=== PATIENT | male | born 1955 | race Hispanic/Latino ===

== ENCOUNTER 2018-02-10 09:56 | Inpatient (IN) | payer OTHER ==
[~2018-02-10] VITALS: Ht 193 cm; Wt 91.4 kg
[~2018-02-10 09:56] MED LIST: AMARYL1 MG PO; AMLODIPINE BESY10 MG PO; ASPIR 8181 MG PO; ATORVASTATIN CA20 MG PO; CALCITRIOL0.25 MCG PO; COREG25 MG PO; HYDRALAZINE HCL50 MG PO; HYDROCHLOROTHIA25 MG PO; LASIX40 MG PO; LIPITOR20 MG PO; METFORMIN HCL500 MG PO; METOPROLOL TART50 MG PO; MULTIVITAMINS1 EAC7 PO; NIFEDIPINE ER30 M1 PO; NORVASC10 MG PO; PLAVIX75 MG PO; TOPROL XL25 MG PO
--- OUTSIDE RECORDS SUMMARY | 2018-02-10 09:58 | XMS REPORT ---
Author Author [facility] Address Unknown Phone Unavailable Care Team Providers Care Mobile Therapist Name Role Phone AMBROCIO BARNEY Unavailable Unavailable GERARDO LAIRD Unavailable Unavailable Problems This patient has no known problems. Allergies, Adverse Reactions, Alerts This patient has no known allergies or adverse reactions. Medications This patient has no known medications. Results Test Description Test Time Test Comments Text Results Atomic Results Result Comments POCT-GLUCOSE METER 2017-11-23 15:58:00 POC-GLUCOSE METER (BEAKER) (test bkqt=4729) 169 mg/dL 70-110 TESTED AT [address] [address] POCT-GLUCOSE [id number] 12:40:00* Test Item Value Reference Range Comments POC-GLUCOSE METER (BEAKER) (test mekx=0627) 238 mg/dL 70-110 TESTED AT [address] [address] POCT-GLUCOSE [id number] 07:47:00* Test Item Value Reference Range Comments POC-GLUCOSE METER (BEAKER) (test vuwt=8027) 146 mg/dL 70-110 TESTED AT [address] [address] B-TYPE NATRIURETIC FACTOR (BNP)2017-11-23 06:26:00* Test Item Value Reference Range Comments B-TYPE NATRIURETIC PEPTIDE (BEAKER) (test tofw=690) 2656 pg/mL 0-100 BASIC METABOLIC [id number] 06:20:00* Test Item Value Reference Range Comments SODIUM (BEAKER) (test umqz=761) 142 meq/L 136-145 POTASSIUM (BEAKER) (test nblh=822) 3.5 meq/L 3.5-5.1 CHLORIDE (BEAKER) (test bmss=866) 109 meq/L 98-107 CO2 (BEAKER) (test aebc=796) 23 meq/L 22-29 BLOOD UREA NITROGEN (BEAKER) (test pshy=976) 40 mg/dL 7-21 CREATININE (BEAKER) (test gytx=923) 2.30 mg/dL 0.57-1.25 GLUCOSE RANDOM (BEAKER) (test vqci=482) 64 mg/dL 70-105 CALCIUM (BEAKER) (test byxt=036) 9.0 mg/dL 8.4-10.2 EGFR (BEAKER) (test xhlu=0804) 29 mL/min/1.73 sq m ESTIMATED GFR IS NOT ACCURATE CREATININE CLEARANCE IN PREDICTING GLOMERULAR FILTRATION RATE. ESTIMATED GFR IS NOT APPLICABLE FOR DIALYSIS PATIENTS. [id number] 06:18:00* Test Item Value Reference Range Comments MAGNESIUM (BEAKER) (test kwez=766) 2.0 mg/dL 1.6-2.6 POCT-GLUCOSE [id number] 06:06:00* Test Item Value Reference Range Comments POC-GLUCOSE METER (BEAKER) (test mdfb=6802) 138 mg/dL 70-110 TESTED AT [facility] [address] [facility] [address] CBC W/PLT COUNT & AUTO [id number] 06:03:00* Test Item Value Reference Range Comments WHITE BLOOD CELL COUNT (BEAKER) (test rrbq=785) 6.7 K/ L 3.5-10.5 RED BLOOD CELL COUNT (BEAKER) (test kuso=257) 3.43 M/ L 4.63-6.08 HEMOGLOBIN (BEAKER) (test hqaz=691) 9.7 GM/DL 13.7-17.5 HEMATOCRIT (BEAKER) (test vxwk=074) 30.0 % 40.1-51.0 MEAN CORPUSCULAR VOLUME (BEAKER) (test cbmd=586) 87.5 fL 79.0-92.2 MEAN CORPUSCULAR HEMOGLOBIN (BEAKER) (test aaod=631) 28.3 pg 25.7-32.2 MEAN CORPUSCULAR HEMOGLOBIN CONC (BEAKER) (test jpqr=823) 32.3 GM/DL 32.3- 36.5 RED CELL DISTRIBUTION WIDTH (BEAKER) (test eizf=571) 13.2 % 11.6-14.4 PLATELET COUNT (BEAKER) (test yqko=896) 252 K/CU MM 150-450 MEAN PLATELET VOLUME (BEAKER) (test ffae=727) 11.4 fL 9.4-12.4 NUCLEATED RED BLOOD CELLS (BEAKER) (test qevd=564) 0 /100 WBC 0-0 NEUTROPHILS RELATIVE PERCENT (BEAKER) (test vglq=502) 64 % LYMPHOCYTES RELATIVE PERCENT (BEAKER) (test zqkz=661) 20 % MONOCYTES RELATIVE PERCENT (BEAKER) (test kffo=352) 12 % EOSINOPHILS RELATIVE PERCENT (BEAKER) (test hrhm=728) 3 % BASOPHILS RELATIVE PERCENT (BEAKER) (test ckar=105) 1 % NEUTROPHILS ABSOLUTE COUNT (BEAKER) (test bzzd=390) 4.28 K/ L 1.78-5.38 LYMPHOCYTES ABSOLUTE COUNT (BEAKER) (test aant=821) 1.33 K/ L 1.32-3.57 MONOCYTES ABSOLUTE COUNT (BEAKER) (test buue=464) 0.82 K/ L 0.30-0.82 EOSINOPHILS ABSOLUTE COUNT (BEAKER) (test dere=817) 0.22 K/ L 0.04-0.54 BASOPHILS ABSOLUTE COUNT (BEAKER) (test oajz=813) 0.04 K/ L 0.01-0.08 IMMATURE GRANULOCYTES-RELATIVE PERCENT (BEAKER) (test zilw=0596) 0 % 0-1 POCT-GLUCOSE [id number] 05:17:00* Test Item Value Reference Range Comments POC-GLUCOSE METER (BEAKER) (test fllm=4677) 67 mg/dL 70-110 Notified BIGG RODRIGUEZ/ TESTED AT [place] [id number] POCT-GLUCOSE [id number] 20:50:00* Test Item Value Reference Range Comments POC-GLUCOSE METER (BEAKER) (test hapo=0779) 203 mg/dL 70-110 TESTED AT [address] [address] POCT-GLUCOSE [id number] 16:20:00* Test Item Value Reference Range Comments POC-GLUCOSE METER (BEAKER) (test ddsy=5367) 133 mg/dL 70-110 TESTED AT [place] [id number] PUL PERF IMAGING, PARTIC, [id number] 13:41:00FINAL REPORT PROCEDURE: V/Q LUNG SCAN CPT CODE: 54556 INDICATION: Acute chest pain, positive d-dimer PROTOCOL: 10.8 mCi of Xe-133 gas was administered by inhalation. Rebreathing/washout images were obtained in the anterior and the posterior projections. 4.3 mCi of Tc-99m MAA was then injected intravenously, and static perfusion images were obtained in multiple projections. FINDINGS: Ventilation: Initial tracer distribution is mildly decreased in the mid and lower lung harrell bilaterally. Washout is moderately delayed in the lower lung harrell. Perfusion: Tracer distribution is nonsegmentally, mildly decreased in the mid and lower lung harrell of both lungs. There is prominence of the oblique fissures. IMPRESSION: 1. Very low probability of acute pulmonary embolization.2. Bilateral parenchymal and pleural abnormality, primarily in the lower lung harrell. Signed : Erlinda Castro MDReport Verified Date/Time: 11/22/2017 13:41:06 Reading Location: [address] Reading Room -GLUCOSE [id number] 11 :04:00* Test Item Value Reference Range Comments POC-GLUCOSE METER (BEAKER) (test qnbg=4882) 124 mg/dL 70-110 TESTED AT [address] [address] POCT-GLUCOSE [id number] 08:41:00* Test Item Value Reference Range Comments POC-GLUCOSE METER (BEAKER) (test wawf=4164) 126 mg/dL 70-110 TESTED AT [address] [address] HEMOGLOBIN [id number] 08:41:00* Test Item Value Reference Range Comments HEMOGLOBIN A1C (BEAKER) (test zgor=475) 6.5 % 4.3-6.1 CBC W/PLT COUNT & AUTO [id number] 08:31:00* Test Item Value Reference Range Comments WHITE BLOOD CELL COUNT (BEAKER) (test owdq=667) 8.8 K/ L 3.5-10.5 RED BLOOD CELL COUNT (BEAKER) (test ghwf=869) 3.30 M/ L 4.63-6.08 HEMOGLOBIN (BEAKER) (test rmkt=693) 9.4 GM/DL 13.7-17.5 HEMATOCRIT (BEAKER) (test gqjh=601) 28.8 % 40.1-51.0 MEAN CORPUSCULAR VOLUME (BEAKER) (test ilta=773) 87.3 fL 79.0-92.2 MEAN CORPUSCULAR HEMOGLOBIN (BEAKER) (test saiu=451) 28.5 pg 25.7-32.2 MEAN CORPUSCULAR HEMOGLOBIN CONC (BEAKER) (test snla=785) 32.6 GM/DL 32.3- 36.5 RED CELL DISTRIBUTION WIDTH (BEAKER) (test cqtg=890) 13.2 % 11.6-14.4 PLATELET COUNT (BEAKER) (test fydt=564) 247 K/CU MM 150-450 MEAN PLATELET VOLUME (BEAKER) (test jtfx=369) 11.3 fL 9.4-12.4 NUCLEATED RED BLOOD CELLS (BEAKER) (test ocsb=564) 0 /100 WBC 0-0 NEUTROPHILS RELATIVE PERCENT (BEAKER) (test kqhb=514) 84 % LYMPHOCYTES RELATIVE PERCENT (BEAKER) (test qrkj=809) 6 % MONOCYTES RELATIVE PERCENT (BEAKER) (test aklc=141) 8 % EOSINOPHILS RELATIVE PERCENT (BEAKER) (test hltp=143) 1 % BASOPHILS RELATIVE PERCENT (BEAKER) (test lczr=879) 0 % NEUTROPHILS ABSOLUTE COUNT (BEAKER) (test uxsl=654) 7.39 K/ L 1.78-5.38 LYMPHOCYTES ABSOLUTE COUNT (BEAKER) (test onrn=823) 0.50 K/ L 1.32-3.57 MONOCYTES ABSOLUTE COUNT (BEAKER) (test jflr=758) 0.73 K/ L 0.30-0.82 EOSINOPHILS ABSOLUTE COUNT (BEAKER) (test zceb=438) 0.09 K/ L 0.04-0.54 BASOPHILS ABSOLUTE COUNT (BEAKER) (test zkbt=357) 0.03 K/ L 0.01-0.08 IMMATURE GRANULOCYTES-RELATIVE PERCENT (BEAKER) (test lkti=8377) 0 % 0-1 RAD, CHEST, 1 VIEW, NON [id number] 08:21:00Reason for exam:->SOBShould this be performed at the bedside?->YesFINAL REPORT CLINICAL HISTORY: SOB TECHNIQUE: 1 view of the chest. COMPARISON: 03/19/2013 IMPRESSION: There is new pulmonary vascular congestion with bilateral lung opacities suggesting edema. There are new small bilateral pleural effusions. The cardiomediastinal silhouette is magnified by technique. Signed: Matthews, Audrey MDReport Verified Date/Time: 11/22/2017 08:21:23 Reading Location: [facility] Reading Room C METABOLIC [id number] 08:00:00* Test Item Value Reference Range Comments SODIUM (BEAKER) (test fgdo=271) 140 meq/L 136-145 POTASSIUM (BEAKER) (test eigx=866) 3.6 meq/L 3.5-5.1 CHLORIDE (BEAKER) (test wsrw=543) 106 meq/L 98-107 CO2 (BEAKER) (test uflo=755) 20 meq/L 22-29 BLOOD UREA NITROGEN (BEAKER) (test ylak=152) 42 mg/dL 7-21 CREATININE (BEAKER) (test mxhg=157) 2.37 mg/dL 0.57-1.25 GLUCOSE RANDOM (BEAKER) (test mfuv=368) 46 mg/dL 70-105 CALCIUM (BEAKER) (test madc=936) 9.0 mg/dL 8.4-10.2 EGFR (BEAKER) (test mzqz=1544) 28 mL/min/1.73 sq m ESTIMATED GFR IS NOT ACCURATE CREATININE CLEARANCE IN PREDICTING GLOMERULAR FILTRATION RATE. ESTIMATED GFR IS NOT APPLICABLE FOR DIALYSIS PATIENTS. POCT-GLUCOSE [id number] 07:58:00* Test Item Value Reference Range Comments POC-GLUCOSE METER (BEAKER) (test gwyf=2589) 42 mg/dL 70-110 TESTED AT [facility] [address] [facility] [address] [id number] 07:51:00* Test Item Value Reference Range Comments MAGNESIUM (BEAKER) (test nprd=977) 2.0 mg/dL 1.6-2.6 LIPID [id number] 07:51:00* Test Item Value Reference Range Comments TRIGLYCERIDES (BEAKER) (test slsc=693) 107 mg/dL CHOLESTEROL (BEAKER) (test nblb=990) 168 mg/dL HDL CHOLESTEROL (BEAKER) (test zeve=837) 33 mg/dL LDL CHOLESTEROL CALCULATED (BEAKER) (test gsaz=236) 114 mg/dL Triglyceride Reference Range: Low Risk <150 Borderline 150-199 High Risk 200-499 Very High Risk >=500Cholesterol Reference Range: Low Risk <200 Borderline 200-239 High Risk >240HDL Cholesterol Reference Range: Low Risk >=60 High Risk <40LDL Cholesterol Reference Range: Optimal <100 Near Optimal 100-129 Borderline 130-159 High 160-189 Very High >=190 CREATINE KINASE (CK), TOTAL AND [id number] 07:51:00* Test Item Value Reference Range Comments CREATINE KINASE TOTAL (BEAKER) (test sogf=392) 79 U/L 29-200 CREATINE KINASE-MB (BEAKER) (test ovfu=428) 1.3 ng/mL 0.0-6.6 CREATINE KINASE-MB INDEX (BEAKER) (test ngst=047) 1.6 % CK-MB Reference Range:<6.7 Normal6.7-10.0 Borderline>10.0 AbnormalTROPONIN [id number] 07:47:00* Test Item Value Reference Range Comments TROPONIN I (BEAKER) (test rbas=804) 0.07 ng/mL 0.00-0.03 Troponin I (TnI) levels must be interpreted in the context of the presenting symptoms and the clinical findings. Elevated TnI levels indicate myocardial damage, but are not specific for ischemic heart disease. Elevated TnI levels are seen in patients with other cardiac conditions (including myocarditis and congestive heart failure), and slight TnI elevations occur in patients with other conditions, including sepsis, renal failure, acidosis, acute neurological disease, and persistent tachyarrhythmia.BASIC METABOLIC [id number] 01:59:00 * Test Item Value Reference Range Comments SODIUM (BEAKER) (test uuhg=066) 140 meq/L 136-145 POTASSIUM (BEAKER) (test wumb=399) 4.0 meq/L 3.5-5.1 CHLORIDE (BEAKER) (test rwmb=556) 108 meq/L 98-107 CO2 (BEAKER) (test zkpm=128) 21 meq/L 22-29 BLOOD UREA NITROGEN (BEAKER) (test wnwq=138) 42 mg/dL 7-21 CREATININE (BEAKER) (test qdnj=227) 2.38 mg/dL 0.57-1.25 GLUCOSE RANDOM (BEAKER) (test hxdm=691) 65 mg/dL 70-105 CALCIUM (BEAKER) (test iaqn=997) 8.8 mg/dL 8.4-10.2 EGFR (BEAKER) (test bjev=0030) 28 mL/min/1.73 sq m ESTIMATED GFR IS NOT ACCURATE CREATININE CLEARANCE IN PREDICTING GLOMERULAR FILTRATION RATE. ESTIMATED GFR IS NOT APPLICABLE FOR DIALYSIS PATIENTS. CBC W/PLT COUNT & AUTO [id number] 01:47:00* Test Item Value Reference Range Comments WHITE BLOOD CELL COUNT (BEAKER) (test acvz=906) 8.6 K/ L 3.5-10.5 RED BLOOD CELL COUNT (BEAKER) (test prig=700) 3.23 M/ L 4.63-6.08 HEMOGLOBIN (BEAKER) (test pesf=119) 9.2 GM/DL 13.7-17.5 HEMATOCRIT (BEAKER) (test fyqq=223) 28.3 % 40.1-51.0 MEAN CORPUSCULAR VOLUME (BEAKER) (test ekui=303) 87.6 fL 79.0-92.2 MEAN CORPUSCULAR HEMOGLOBIN (BEAKER) (test anty=247) 28.5 pg 25.7-32.2 MEAN CORPUSCULAR HEMOGLOBIN CONC (BEAKER) (test uxyn=076) 32.5 GM/DL 32.3- 36.5 RED CELL DISTRIBUTION WIDTH (BEAKER) (test nczk=369) 13.1 % 11.6-14.4 PLATELET COUNT (BEAKER) (test twae=286) 248 K/CU MM 150-450 MEAN PLATELET VOLUME (BEAKER) (test bfbu=040) 11.4 fL 9.4-12.4 NUCLEATED RED BLOOD CELLS (BEAKER) (test npof=836) 0 /100 WBC 0-0 NEUTROPHILS RELATIVE PERCENT (BEAKER) (test pktp=141) 79 % LYMPHOCYTES RELATIVE PERCENT (BEAKER) (test frfv=863) 9 % MONOCYTES RELATIVE PERCENT (BEAKER) (test ulcm=095) 10 % EOSINOPHILS RELATIVE PERCENT (BEAKER) (test adnq=296) 1 % BASOPHILS RELATIVE PERCENT (BEAKER) (test blos=057) 0 % NEUTROPHILS ABSOLUTE COUNT (BEAKER) (test vscc=499) 6.80 K/ L 1.78-5.38 LYMPHOCYTES ABSOLUTE COUNT (BEAKER) (test bedz=760) 0.80 K/ L 1.32-3.57 MONOCYTES ABSOLUTE COUNT (BEAKER) (test hsgu=564) 0.87 K/ L 0.30-0.82 EOSINOPHILS ABSOLUTE COUNT (BEAKER) (test dqqx=108) 0.12 K/ L 0.04-0.54 BASOPHILS ABSOLUTE COUNT (BEAKER) (test jlvc=668) 0.03 K/ L 0.01-0.08 IMMATURE GRANULOCYTES-RELATIVE PERCENT (BEAKER) (test temf=4877) 0 % 0-1 CREATINE KINASE (CK), TOTAL AND [id number] 01:40:00* Test Item Value Reference Range Comments CREATINE KINASE TOTAL (BEAKER) (test ilxo=940) 76 U/L 29-200 CREATINE KINASE-MB (BEAKER) (test dwuq=673) 1.3 ng/mL 0.0-6.6 CREATINE KINASE-MB INDEX (BEAKER) (test jwqz=700) 1.7 % CK-MB Reference Range:<6.7 Normal6.7-10.0 Borderline>10.0 AbnormalTROPONIN [id number] 01:40:00* Test Item Value Reference Range Comments TROPONIN I (BEAKER) (test gvam=334) 0.07 ng/mL 0.00-0.03 Troponin I (TnI) levels must be interpreted in the context of the presenting symptoms and the clinical findings. Elevated TnI levels indicate myocardial damage, but are not specific for ischemic heart disease. Elevated TnI levels are seen in patients with other cardiac conditions (including myocarditis and congestive heart failure), and slight TnI elevations occur in patients with other conditions, including sepsis, renal failure, acidosis, acute neurological disease, and persistent tachyarrhythmia.B-TYPE NATRIURETIC FACTOR (BNP) 01:39:00* Test Item Value Reference Range Comments B-TYPE NATRIURETIC PEPTIDE (BEAKER) (test ezii=574) 2329 pg/mL 0-100 [id number] 01:34:00* Test Item Value Reference Range Comments MAGNESIUM (BEAKER) (test xvsb=076) 2.0 mg/dL 1.6-2.6 URINALYSIS W/ [id number] 01:29:00* Test Item Value Reference Range Comments COLOR (BEAKER) (test zdys=232) Light Yellow CLARITY (BEAKER) (test adna=935) Clear SPECIFIC GRAVITY UA (BEAKER) (test baii=533) 1.006 1.001-1.035 PH UA (BEAKER) (test gpbl=789) 5.5 5.0-8.0 PROTEIN UA (BEAKER) (test opgx=428) 50 mg/dL Negative GLUCOSE UA (BEAKER) (test anno=024) Negative Negative KETONES UA (BEAKER) (test xyje=604) Negative Negative BILIRUBIN UA (BEAKER) (test teif=250) Negative Negative BLOOD UA (BEAKER) (test dylc=308) Negative Negative NITRITE UA (BEAKER) (test lgar=746) Negative Negative LEUKOCYTE ESTERASE UA (BEAKER) (test rhau=715) Negative Negative UROBILINOGEN UA (BEAKER) (test cwiu=950) 0.2 mg/dL 0.2-1.0 RBC UA (BEAKER) (test uogr=370) 1 /HPF WBC UA (BEAKER) (test xkxa=953) < /HPF BACTERIA (BEAKER) (test vled=169) Rare SQUAMOUS EPITHELIAL (BEAKER) (test wain=718) < /HPF HYALINE CASTS (BEAKER) (test yxxo=269) 5 /LPF SOURCE(BEAKER) (test aveg=9118) CREATININE, RANDOM [id number] 00:59:00* Test Item Value Reference Range Comments CREATININE URINE (BEAKER) (test rnux=547) 36.8 mg/dL Reference Range: No NormalsSODIUM, RANDOM [id number] 00:59:00* Test Item Value Reference Range Comments SODIUM URINE (BEAKER) (test eeww=318) 79 meq/L Reference Range: No NormalsUREA NITROGEN, RANDOM [id number] 00:59:00* Test Item Value Reference Range Comments UREA NITROGEN URINE (BEAKER) (test tdgw=571) 283 mg/dL Reference Range: No NormalsPOCT-GLUCOSE [id number] 23:32:00* Test Item Value Reference Range Comments POC-GLUCOSE METER (BEAKER) (test wplp=3746) 82 mg/dL 70-110 TESTED AT [facility] [address] [place] [address] CHEST WO [facility] [address] [place], [place] [address] Patient Name: PETRA ESTRADA MR # : [id number] : 1955 Age/Sex: 62/M Req #: [id number] [facility] Physician: Ordered by: GERARDO LAIRD MD Report #: [id number] Location: ER Room/Bed: Procedure: [id number] CT/CT CHEST WO Exam Date: Exam Time: REPORT STATUS: Signed PROCEDURE: CT CHEST WITHOUT CONTRAST CT scan of the chest WITHOUT intravenous contrast, using standard protocol. TECHNIQUE: The chest was scanned utilizing a multidetector helical scanner from the apex to the level of the adrenal glands. No IV contrast was administered per physician's request. Coronal and sagittal multiplanar reformations were obtained. COMPARISON: None. INDICATIONS: SHORT OF BREATH FINDINGS: Lines/tubes: None. Lungs and Airways: Mild compressive atelectasis in bilateral lower lobes. Focal consolidation, with air bronchogram in the posterior right lower lobe (series 3, image 99). Multiple linear opacities in bilateral lower lobes and to a lesser degree, lingula, likely representing subsegmental atelectasis or scarring. No pulmonary nodules, other areas of consolidation or pulmonary masses. Pleura: Small bilateral pleural effusions Heart and mediastinum: The thyroid is unremarkable. Heart size is mildly enlarged. Trace pericardial effusion. Extensive atherosclerotic calcification of the coronary arteries and to a lesser degree the mitral annulus, thoracic aorta and aortic valves. Lymph nodes: No enlarged mediastinal, hilar, or axillary adenopathy. Abdomen: Limited views of the upper abdomen show no abnormality within the visualized liver, spleen. The adrenal glands are unremarkable. Bones: No acute bony abnormalities. Degenerative disc changes in the thoracic spine. No lytic lesions. IMPRESSION: 1. small bilateral pleural effusions with associated mild compressive atelectasis of bilateral lower lobes. 2. Focal consolidation, with air bronchogram in the posterior right lower lobe may represent focal atelectasis secondary to pleural effusion, however, superimposed pneumonia could be considered, in the appropriate clinical setting. Recommend followup chest CT noncontrast 4-6 weeks after appropriate treatment to document resolution. 3. Bilateral basal and lingular subsegmental atelectasis or scarring. 4. Mild cardiomegaly Haydee Burrows M.D. Dictated by: Haydee Burrows M.D. on 10/03/2017 at 14:15 Electronically approved by: Haydee Burrows M.D. on 2016 at 14:15 Dictated By: HAYDEE BURROWS MD 141 Transcribed By: OK on 1415 COPY TO: GERARDO LAIRD MD CHEST SINGLE (PORTABLE) [place] [address] Patient Name: PETRA ESTRADA MR #: [id number] : 1955 Age/Sex: 62/M Req #: [id number] Adm Physician : Ordered by: GERARDO LAIRD MD Report #: [id number] Location: ER Room/ Bed: Procedure: [id number] DX/CHEST SINGLE (PORTABLE) Exam Date: Exam Time: REPORT STATUS: Signed PROCEDURE: A single AP view of the chest. COMPARISON: Chest portable 06/14/2017. INDICATIONS: SHORTNESS OF BREATH FINDINGS : Lines/tubes: None. Lungs: Bilateral multifocal airspace opacifications. No parenchymal mass. Pleura: There is no pleural effusion or pneumothorax. Heart and mediastinum: The heart and the mediastinum are unremarkable. Bones: No acute bony abnormality. Degenerative changes of the thoracic spine. IMPRESSION: Bilateral multifocal air space opacities likely represent a developing pneumonia. Dictated by: Isadora Arias M.D. on 10/03/2017 at 10:56 Electronically approved by: Isadora Arias M.D. on 10/03/2017 at 10:56 Dictated By: ISADORA ARIAS MD 105 Transcribed By: OK on 10/03/171055 COPY TO: GERARDO LAIRD MD
[2018-02-10] MEDS ORDERED: SODIUM CHLORIDE 0.9% 1000ML 1,000 ML ONE (10:30)
[2018-02-10] MEDS ORDERED: SODIUM CHLORIDE FLUSH 10 ML SYR INJ PRN ×2 (12:15→14:45)
[2018-02-10] MEDS ORDERED: TRAMADOL HCL 50 MG TAB PO PRN ×2 (12:15→14:45)
[2018-02-10] MEDS ORDERED: ASPIRIN 81 MG CHEW TAB PO ONE (12:15)
[2018-02-10] MEDS ORDERED: ASPIRIN 81 MG CHEW TAB PO SCH (12:15)
[2018-02-10] MEDS ORDERED: HYDRALAZINE HCL 25 MG TAB PO SCH ×2 (15:00→15:15)
--- OUTSIDE RECORDS SUMMARY | 2018-02-10 15:26 | XMS REPORT | Continuity of Care Document ---
Author Author [facility] Organization [facility] Address [address] [place] [address] Phone Unavailable Care Team Providers Care Booking Clerk Name Role Phone LUCILA BRIGHT PCP Insurance Providers Guarantor Petra Estrada Address [address] [place] [address] Email PTDECLINED Payer Miscellaneous Ppo Policy Number [id number] Subscriber's Name Estrada,[place] Relationship 18 Self / Same As Patient Group Number [id number] Effective Date 15 Advance Directives Directive Response Recorded Date/Time Does the patient have an advance directive? No 06/14/17 2:00pm If yes, is advance directive on file with [facility]? No 06/14/17 2:00pm If not on file with [facility] will patient provide a copy? No 06/14/17 2:00pm Do you have a Directive to Physician? No 02/10/18 11:02am Do you have a Medical Power of Offal Trimmer? No 02/10/18 11:02am Do you have an out of hospital Do Not Resuscitate Order? No 02/10/18 11:02am Do you have any special needs we should be aware of? No 02/10/18 11:02am Do you have a support person here with you today? Yes 02/10/18 11:02am Did patient receive Notice of Privacy Practices? Yes 02/10/18 11:02am Did patient receive patient rights and responsibilities? Yes 02/10/18 11:02am Problems Medical Problem Onset Date Status Abnormal EKG Unknown Cardiac enzymes elevated Unknown Chest pain Unknown Dizziness Unknown Elevated brain natriuretic peptide (BNP) level Unknown Elevated serum creatinine Unknown Hypoglycemia Unknown Orthostatic hypotension Unknown Volume depletion Unknown Medications Current Home Medications Medication Dose Units Route Directions Days Qty Instructions Start Date Amlodipine Besylate 10 Mg Tablet 10 Mg Oral Daily 30 Tab Aspirin (Aspir 81) 81 Mg Tablet.dr 81 Mg Oral Daily Atorvastatin Calcium (Lipitor) 20 Mg Tablet 40 Mg Oral Daily 30 Tab Calcitriol 0.25 Mcg Capsule 0.25 Mg Oral Daily 30 Tab Carvedilol (Coreg) 25 Mg Tab 25 Mg Oral Twice A Day Clopidogrel Bisulfate (Plavix) 75 Mg Tablet 75 Mg Oral Daily 30 Tab Furosemide (Lasix) 40 Mg Tablet 40 Mg Oral Twice A Day 30 Tab Glimepiride (Amaryl) 1 Mg Tablet 4 Mg Oral Twice A Day Hydralazine Hcl 50 Mg Tablet 75 Mg Oral Three Times A Day Multivitamin (Multivitamins) 1 Each Capsule 1 Tab Oral Daily Past Home Medications Medication Directions Ordered Status Atorvastatin Calcium 20 Mg Tablet, 20 Mg Oral Daily Discontinued Hydrochlorothiazide 25 Mg Tablet, 12.5 Mg Oral Daily Discontinued Metformin Hcl 500 Mg Tablet, 500 Mg Oral Twice A Day Discontinued Metoprolol Succinate (Toprol Xl) 25 Mg Tab.er.24h, 25 Mg Oral Twice A Day Discontinued Metoprolol Tartrate 50 Mg Tablet, 50 Mg Oral Daily Discontinued Nifedipine (Nifedipine Er) 30 Mg Tab.er.24, 60 Mg Oral Daily Discontinued Social History Social History Problem Response Recorded Date/Time Onset Date Status Hx Psychiatric Problems No 06/14/2017 2:00pm Not Applicable Not Applicable Hx Eating Disorder No 06/14/2017 2:00pm Not Applicable Not Applicable Hx Substance Use Disorder No 06/14/2017 2:00pm Not Applicable Not Applicable Hx Depression No 06/14/2017 2:00pm Not Applicable Not Applicable Hx Alcohol Use No 06/14/2017 2:00pm Not Applicable Not Applicable Hx Substance Use Treatment No 06/14/2017 2:00pm Not Applicable Not Applicable Hx Physical Abuse No 06/14/2017 2:00pm Not Applicable Not Applicable Smoking Status Start Date Stop Date Never Smoker Hospital Discharge Instructions No hospital discharge instruction information available. Plan of Care Discharge Date 02/10/18 2:30pm Disposition ADMITTED Condition at Discharge Stable Forms Provided Work/School Excuse Prescriptions See Medication Section Functional Status No functional status information available. Allergies, Adverse Reactions, Alerts No known allergies. Immunizations No immunization information available. Vital Signs Acute Vital Signs Vital Response Date/Time Temperature (Fahrenheit) 97.8 degrees F (97.6 - 99.5) 02/10/2018 2:59pm Pulse Pulse Rate (adult) 76 bpm (60 - 90) 02/10/2018 2:59pm Respiratory Rate 16 bpm (12 - 24) 02/10/2018 2:59pm Blood Pressure 152/78 mm Hg 02/10/2018 2:59pm Height 6 ft 4 in 02/10/2018 10:00am Weight 210 lb 02/10/2018 10:00am Body Mass Index 25.6 kg/m^2 02/10/2018 10:00am Results Laboratory Results Test Name Result Units Flags Reference Collection Date/Time Result Date/ Time Comments Urine Opiates Screen NEGATIVE NEGATIVE 06/14/2017 11:39am 06/14/2017 11:59am ALL TESTS PERFORMED MANUALLY ON SIGNIFY ER TEST Urine Barbiturates Screen NEGATIVE NEGATIVE 06/14/2017 11:39am 2016 11:59am Urine Amphetamines Screen NEGATIVE NEGATIVE 06/14/2017 11:39am 2016 11:59am Urine Benzodiazepines Screen NEGATIVE NEGATIVE 06/14/2017 11:39am 11:59am Urine Cocaine Screen NEGATIVE NEGATIVE 06/14/2017 11:39am 06/14/2017 11:59am Urine Cannabinoids Screen NEGATIVE NEGATIVE 06/14/2017 11:39am 2016 11:59am THESE RESULTS ARE FOR MEDICAL TREATMENT ONLY *THIS REPORT CONTAINS UNCONFIRMED SCREENING RESULTS* POSITIVE RESULTS WILL BE CONFIRMED BY REFERENCE LAB UPON REQUEST CUT-OFF DRUG CLASS CONCENTRATION ng/mL Amphetamines 1000 Methamphetamines 1000 Cocaine 300 Opiate 300 Phencyclidine 25 Cannabinoid 50 Barbiturates 300 Benzodiazepine 300 Methadone 300 Urine Hyaline Casts 0-1 0-1 06/14/2017 11:39am 06/14/2017 12:09pm Urine Fine Granular Casts 1-5 H 0 06/14/2017 11:39am 06/14/2017 12: 09pm Bedside Glucose 226 mg/dL H 70-120 06/16/2017 11:12am 06/16/2017 3:25pm Meter ID: [id number] White Blood Count 14.98 x10e3/uL H 4.8-10.8 10/03/2017 8:41am 2016 9:29am Red Blood Count 4.13 x10e6/uL L 4.3-5.7 10/03/2017 8:41am 10/03/2017 9: 29am Hemoglobin 11.9 g/dL L 14.0-18.0 10/03/2017 8:41am 10/03/2017 9:29am Hematocrit 36.0 % L 38.2-49.6 10/03/2017 8:41am 10/03/2017 9:29am Mean Corpuscular Volume 87.2 fL 81-99 10/03/2017 8:41am 10/03/2017 9: 29am Mean Corpuscular Hemoglobin 28.8 pg 28-32 10/03/2017 8:41am 10/03/2017 9:29am Mean Corpuscular Hemoglobin Concent 33.1 g/dL 31-35 10/03/2017 8:41am 10/03/2017 9:29am Red Cell Distribution Width 13.7 % 11.7-14.4 10/03/2017 8:412016 9:29am Platelet Count 244 x10e3/uL 140-360 10/03/2017 8:41am 10/03/2017 9: 29am Neutrophils (%) (Auto) 84.4 % H 38.7-80.0 10/03/2017 8:4110/03/2017 9 :29am Lymphocytes (%) (Auto) 7.1 % L 18.0-39.1 10/03/2017 8:41am 10/03/2017 9: 29am Monocytes (%) (Auto) 5.7 % 4.4-11.3 10/03/2017 8:41am 10/03/2017 9: 29am Eosinophils (%) (Auto) 2.1 % 0.0-6.0 10/03/2017 8:41am 10/03/2017 9: 29am Basophils (%) (Auto) 0.3 % 0.0-1.0 10/03/2017 8:41am 10/03/2017 9:29am IM GRANULOCYTES % 0.4 % 0.0-1.0 10/03/2017 8:41am 10/03/2017 9:29am Neutrophils # (Auto) 12.6 H 2.1-6.9 10/03/2017 8:41am 10/03/2017 9: 29am Lymphocytes # (Auto) 1.1 1.0-3.2 10/03/2017 8:41am 10/03/2017 9:29am Monocytes # (Auto) 0.9 H 0.2-0.8 10/03/2017 8:41am 10/03/2017 9:29am Eosinophils # (Auto) 0.3 0.0-0.4 10/03/2017 8:41am 10/03/2017 9:29am Basophils # (Auto) 0.1 0.0-0.1 10/03/2017 8:41am 10/03/2017 9:29am Absolute Immature Granulocyte (auto 0.06 x10e3/uL 0-0.1 10/03/2017 8: 41am 10/03/2017 9:29am Prothrombin Time 11.7 seconds L 11.9-14.5 10/03/2017 8:41am 10/03/2017 9 :38am Prothromb Time International Ratio 0.82 10/03/2017 8:41am 2016 9:38am Oral Anticoagulant Therapy INR Values: 1. Low Intensity Therapy 1.5 - 2.0 2. Moderate Intensity Therapy 2.0 - 3.0 3. High Intensity Therapy(1) 2.5 - 3.5 4. High Intensity Therapy(2) 3.0 - 4.0 5. Panic Value INR > 5.0 Activated Partial Thromboplast Time 25.7 seconds 23.8-35.5 10/03/2017 8: 41am 10/03/2017 9:38am D-Dimer Quantitative (PE/DVT) 488 ng/mL H 0-400 10/03/2017 8:41am 2016 9:50am The Triage D-Dimer Test has not been evaluated for use as sole evidence for the presence or absence of PE or DVT. As with all in vitro diagnostic tests, the test results should be interpreted by the physician in conjunction with clinical findings and other test results. Test results are reported in D-dimer units. Urine Color TORY H YELLOW 10/03/2017 9:00am 10/03/2017 1:28pm Urine Clarity SL CLOUDY H CLEAR 10/03/2017 9:00am 10/03/2017 1:28pm Urine Specific [place] 1.015 1.010-1.025 10/03/2017 9:00am 2016 1:28pm Urine pH 5 5 - 7 10/03/2017 9:00am 10/03/2017 1:28pm Urine Leukocyte Esterase NEGATIVE NEGATIVE 10/03/2017 9:00am 2016 1:28pm Urine Nitrite NEGATIVE NEGATIVE 10/03/2017 9:00am 10/03/2017 1:28pm Urine Protein 2+ H NEGATIVE 10/03/2017 9:00am 10/03/2017 1:28pm Urine Glucose (UA) NEGATIVE NEGATIVE 10/03/2017 9:00am 10/03/2017 1: 28pm Urine Ketones NEGATIVE NEGATIVE 10/03/2017 9:00am 10/03/2017 1:28pm Urine Urobilinogen 0.2 mg/dL 0.2 - 1 10/03/2017 9:00am 10/03/2017 1: 28pm Urine Bilirubin NEGATIVE NEGATIVE 10/03/2017 9:00am 10/03/2017 1: 28pm Urine Blood NEGATIVE NEGATIVE 10/03/2017 9:00am 10/03/2017 1:28pm Urine WBC NONE /HPF 0-5 10/03/2017 9:00am 10/03/2017 1:38pm Urine RBC NONE /HPF 0-5 10/03/2017 9:00am 10/03/2017 1:38pm Urine Bacteria NONE /HPF NONE 10/03/2017 9:00am 10/03/2017 1:38pm Urine Epithelial Cells NONE /LPF NONE 10/03/2017 9:00am 10/03/2017 1: 38pm Sodium Level 140 mmol/L 136-145 10/03/2017 8:41am 10/03/2017 9:31am Potassium Level 4.2 mmol/L 3.5-5.1 10/03/2017 8:41am 10/03/2017 9:31am Chloride Level 110 mmol/L H 98-107 10/03/2017 8:41am 10/03/2017 9:31am Carbon Dioxide Level 22 mmol/L 22-29 10/03/2017 8:4110/03/2017 9: 31am Anion Gap 12.2 mmol/L 8-16 10/03/2017 8:4110/03/2017 9:31am Blood Urea Nitrogen 45 mg/dL H 7-10/03/2017 8:4110/03/2017 9:31am Creatinine 2.40 mg/dL H 0.72-1.25 10/03/2017 8:4110/03/2017 9:31am BUN/Creatinine Ratio 19 6-25 10/03/2017 8:4110/03/2017 9:31am Estimat Glomerular Filtration Rate 27 ML/MIN L 60- 10/03/2017 8:41am 06/2017 9:31am Ranges were taken from the National Kidney Disease Education Program and the National Kid[employer] Foundation literature. Reference ranges: 60 or greater: Normal 16-59 (for 3 consecutive months): Chronic kidney disease 15 or less: Kidney failure Glucose Level 170 mg/dL H 74-118 10/03/2017 8:4110/03/2017 9:31am Calcium Level 8.6 mg/dL 8.4-10.2 10/03/2017 8:4110/03/2017 9:31am Hemoglobin A1c Percent 6.6 % 4.0-7.0 10/03/2017 8:4110/03/2017 4: 12pm Iron Level 63 ug/dL L 65-175 10/03/2017 8:4110/03/2017 4:18pm Total Iron Binding Capacity 399 ug/dL 261-478 10/03/2017 8:412016 4:18pm Percent Iron Saturation 16 % 15-50 10/03/2017 8:4110/03/2017 4:18pm Transferrin 285 mg/dL 174-364 10/03/2017 8:4110/03/2017 4:18pm Total Bilirubin 0.5 mg/dL 0.2-1.2 10/03/2017 8:4110/03/2017 9:31am Aspartate Amino Transf (AST/SGOT) 15 IU/L 5-34 10/03/2017 8:41am 2016 9:31am Alanine Aminotransferase (ALT/SGPT) 13 IU/L 0-55 10/03/2017 8:4106/2017 9:31am Total Protein 7.2 g/dL 6.5-8.1 10/03/2017 8:41am 10/03/2017 9:31am Albumin 3.5 g/dL 3.5-5.0 10/03/2017 8:4110/03/2017 9:31am Globulin 3.7 g/dL H 2.3-3.5 10/03/2017 8:4110/03/2017 9:31am Albumin/Globulin Ratio 0.9 0.8-2.0 10/03/2017 8:4110/03/2017 9: 31am Alkaline Phosphatase 78 IU/L 40-150 10/03/2017 8:4110/03/2017 9: 31am Triglycerides Level 87 MG/DL 0-149 10/03/2017 8:4110/03/2017 4:18pm Cholesterol Level 133 MD/DL 0-199 10/03/2017 8:4110/03/2017 4:18pm Less than 200 mg/dL Low Risk 201 - 239 mg/dL Borderline Risk 240 mg/dl and greater High Risk LDL Cholesterol 74 MG/DL 60-130 10/03/2017 8:4110/03/2017 4:18pm HDL Cholesterol 42 MG/DL 40-60 10/03/2017 8:4110/03/2017 4:18pm Cholesterol/HDL Ratio 3.2 L 3.9-4.7 10/03/2017 8:4110/03/2017 4: 18pm B-Type Natriuretic Peptide 1353.3 pg/mL H 0-100 10/03/2017 8:41am 2016 9:34am Creatine Kinase 90 IU/L 30-200 10/03/2017 8:4110/03/2017 9:31am Creatine Kinase MB 1.70 ng/mL 0.00-5.00 10/03/2017 8:41am 10/03/2017 9: 34am Troponin I 0.418 ng/mL H 0-0.300 10/03/2017 8:41am 10/03/2017 9:34am Thyroid Stimulating Hormone (TSH) 1.362 uIU/mL 0.350-4.940 10/03/2017 8: 41am 10/03/2017 4:35pm Rapid Plasma Reagin Non Reactive Non Reactive 10/03/2017 8:41am 10/04 5:51am Performed at: - [address] [id number] Med Spec: Toby Colon MD, Phone: [phone] Procedures Procedure Status Date Provider(s) US abdomen complete Active 06/14/17 VALENTINA HERMOSILLO MD Complete non-obstetrical ultrasound of pelvis Active 06/14/17 VALENTINA HERMOSILLO MD Computed tomography of chest without contrast Active 10/03/17 GERARDO LAIRD MD Encounters Encounter Location Arrival/Admit Date Discharge/Depart Date Attending Provider Departed Emergency Room [facility] 02/10/18 9:56am 2:30pm LIZZ BOJORQUEZ MD Departed Emergency Room [facility] 10/03/17 8:07am 4:00pm GERARDO LAIRD MD Discharged Inpatient (obs) [facility] 06/14/17 12:33pm 1:13pm VALENTINA HERMOSILLO MD
[2018-02-10] MEDS ORDERED: ULTRAM50 MG PO (15:31)
[2018-02-10] MEDS: SODIUM CHLORIDE 0.9% 1000ML 1,000 ML IV SCH (15:45)
[2018-02-10] MEDS ORDERED: DEXTROSE 50% SYRINGE 50 ML IV PRN (16:00)
--- NOTE | 2018-02-10 16:00 | History and Physical ---
CLINICAL HISTORY: This is a 62-year-old man admitted in transfer from a freestanding emergency room because of hypotension and dizziness and because of elevated troponin, CK-MB, CK. This patient denies any chest pains although 16 years ago he had a myocardial infarction. However, he said that he did not have a cardiac catheterization nor stenting. He has not had a cardiac evaluation for approximately 16 years. He has not had a stress test or echocardiogram. He follows with Dr. Sylvain Bright because of congestive heart failure. He is taking Lasix 40 mg p.o. b.i.d. Recently he was diagnosed with having peripheral neuropathy possibly related to diabetes and started on no medication. Other medical problems included diabetes, hypertension, hyperlipidemia. PERSONAL AND SOCIAL HISTORY: Denies smoking, drinking. 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 FAMILY HISTORY: Father and grandfather had myocardial infarction. Mother had diabetes. Brother also had diabetes. PAST SURGERIES: None. REVIEW OF SYSTEMS: Noncontributory. PHYSICAL EXAMINATION GENERAL: He is alert, coherent. VITAL SIGNS: Stable. CARDIAC: Jugular veins are not distended. S1 and S2 are regular. There are no appreciable murmurs. LUNGS: Clear. ABDOMEN: Soft. Bowel sounds are present. EXTREMITIES: Show no cyanosis, clubbing or edema. LABORATORY STUDIES: EKG showed old anterior inferior myocardial infarction. IMPRESSION 1. Elevated troponin, CK, CK-MB. Rule out [id number] myocardial infarction, although the patient is not complaining of chest pain or shortness of breath. 2. Hypotension, orthostatic, with dizziness. Standing blood pressure in the range of 105 to 110 mmHg systolic due to diuretics. 3. History of congestive heart failure. 4. History of myocardial infarction 16 years ago. 5. Diabetes. 6. Hypertension. 7. Hyperlipidemia. 8. Peripheral neuropathy related to diabetes. 9. Family history of coronary artery disease. RECOMMENDATION: Volume adjustment by adjusting diuretics. I suspect this patient can get away with probably just 20 mg of Lasix a day. If there is any further elevation of cardiac enzymes, he may require cardiac catheterization. Echocardiogram is pending. Job#: [id number] EV cc:SYLVAIN BRIGHT M.D.
[2018-02-10 16:28] VITALS: BP 181/88
[2018-02-10] MEDS: INSULIN LISPRO 100 UNIT/1 ML 3ML VIAL SQ SCH ×2 (16:30→21:13)
[2018-02-10 16:47] LABS: CREATINE KINASE MB 2.5 ng/mL (0-5.0)
[2018-02-10 16:48] VITALS: BP 181/88
[2018-02-10] MEDS ORDERED: NON-FORMULARY MEDICATION (Glimepiride (Amaryl) 4 MG) PO SCH (17:00)
[2018-02-10] MEDS ORDERED: CARVEDILOL 12.5 MG TAB PO SCH ×2 (17:00)
[2018-02-10] MEDS ORDERED: METFORMIN HCL 500 MG TAB PO SCH (17:00)
[2018-02-10] MEDS: METFORMIN HCL 500 MG TAB PO SCH (17:00)
[2018-02-10] MEDS ORDERED: NON-FORMULARY MEDICATION (Carvedilol (Coreg) 12.5 MG) PO SCH (17:00)
[2018-02-10 17:06] VITALS: BP 181/88
[2018-02-10] MEDS: HYDRALAZINE HCL 25 MG TAB PO SCH (17:20)
[2018-02-10] MEDS: CARVEDILOL 12.5 MG TAB PO SCH (17:20)
[2018-02-10] MEDS: FUROSEMIDE 40 MG TAB PO SCH (18:00)
[2018-02-10] MEDS ORDERED: FUROSEMIDE 40 MG TAB PO SCH (18:00)
[2018-02-10 20:00] VITALS: BP_SYST 153; BP_SYST 161; BP_SYST 182; BP_DIAS 74; BP_DIAS 81; BP_DIAS 88
[2018-02-10] MEDS: ATORVASTATIN 20 MG TAB PO SCH (20:56)
[2018-02-10] MEDS ORDERED: HYDRALAZINE HCL 75 MG PO SCH (21:00)
[2018-02-10] MEDS ORDERED: ATORVASTATIN 20 MG TAB PO SCH ×2 (21:00)
[2018-02-11] VITALS (11 sets, daily range): BP systolic 115–168; BP diastolic 61–86
[2018-02-11] MEDS: FUROSEMIDE 40 MG TAB PO SCH (06:00)
[2018-02-11] MEDS ORDERED: GLIMEPIRIDE 2 MG TAB PO SCH (07:30)
[2018-02-11] MEDS: INSULIN LISPRO 100 UNIT/1 ML 3ML VIAL SQ SCH ×4 (07:30→22:44)
[2018-02-11 07:38] LABS: CREATINE KINASE MB 2.6 ng/mL (0-5.0)
[2018-02-11] MEDS: HYDRALAZINE HCL 25 MG TAB PO SCH (08:51)
[2018-02-11] MEDS: CLOPIDOGREL BISULFATE 75 MG TAB PO SCH (08:51)
[2018-02-11] MEDS: CARVEDILOL 12.5 MG TAB PO SCH ×2 (08:51→16:40)
[2018-02-11] MEDS: ASPIRIN 81 MG ENTERIC COATED PO SCH (08:51)
[2018-02-11] MEDS: METFORMIN HCL 500 MG TAB PO SCH (08:51)
[2018-02-11] MEDS ORDERED: ASPIRIN 81 MG CHEW TAB PO SCH (09:00)
[2018-02-11] MEDS ORDERED: ASPIRIN 81 MG ENTERIC COATED PO SCH (09:00)
[2018-02-11] MEDS ORDERED: CLOPIDOGREL BISULFATE 75 MG TAB PO SCH ×2 (09:00)
[2018-02-11] MEDS ORDERED: AMLODIPINE BESYLATE 10 MG TAB PO SCH (09:00)
[2018-02-11] MEDS ORDERED: ASPIRIN 81 MG CHEW TAB PO ONE ×2 (10:30)
--- NOTE | 2018-02-11 10:31 | Cardiology Report ---
DATE OF STUDY: February 10, 2018 ECHOCARDIOGRAM M-MODE: Normal chamber wall dimensions. Diminished left ventricular contractility. Aortic sclerosis of the mitral leaflet and mitral annulus. Normal tricuspid valve. No pericardial effusion. SECTOR SCAN: Normal chamber sizes. Borderline left ventricular hypertrophy. Diminished left ventricular contractility. The apical septum appears to be akinetic or dyskinetic. Aortic valve is sclerotic. Mitral leaflets are sclerotic. Mitral annulus is sclerotic. Tricuspid valve appears to be normal. There is no pericardial effusion. CARDIAC DOPPLER STUDY WITH COLOR: Trace mitral and tricuspid regurgitation. CONCLUSIONS 1. Apical septum akinesis and dyskinesis consistent with previous myocardial infarction. 2. Left ventricular ejection fraction is approximately 35% to 40%. 3. Moderate sclerosis of mitral leaflet and mitral valve annulus. 4. Aortic sclerosis without stenosis. 5. Trace mitral and tricuspid regurgitation. Job#: [id number]
[2018-02-11 11:15] LABS: ANION GAP 10.8 mmol/L (8-16); CALCIUM 8.9 mg/dL (8.4-10.2); CREATININE, SERUM 2.08 mg/dL (0.72-1.25); POTASSIUM 3.8 mmol/L (3.5-5.1)
[2018-02-11] MEDS: SODIUM CHLORIDE 0.9% 1000ML 1,000 ML IV SCH (12:54)
[2018-02-11] MEDS ORDERED: ACETAMINOPHEN 325 MG TAB PO PRN (13:15)
[2018-02-11] MEDS ORDERED: HYDRALAZINE HCL 25 MG TAB PO SCH (15:00)
[2018-02-11] MEDS ORDERED: HYDRALAZINE HCL 10 MG TAB PO SCH (15:00)
[2018-02-11] MEDS: GLIMEPIRIDE 2 MG TAB PO SCH (16:39)
[2018-02-11] MEDS: HYDRALAZINE HCL 10 MG TAB PO SCH (16:39)
[2018-02-11] MEDS ORDERED: VANCOMYCIN 1GM/NS 250 ML 250 ML IV ONE (18:15)
--- NOTE | 2018-02-11 18:21 | Diagnostic Imaging Report ---
PROCEDURE:X-RAY LEFT FOOT, COMPLETE COMPARISON:None. INDICATIONS:RULE OUT OSTEMYELITIS OF GREAT TOE FINDINGS: Soft tissue swelling and air in the lateral aspect of the great toe at the IP joint. There is focal demineralization of the base of the distal phalanx, tibial aspect, also involving the undersurface. The head of the proximal phalanx also exhibits several subcentimeter lucencies adjacent to the joint space, best seen on lateral image. No radiopaque foreign bodies in the soft tissues. No fracture or dislocation. There is a well-defined lucent lesion in the proximal phalanx of the third digit measuring 7 mm. This has the appearance of a cyst. No associated soft tissue swelling. Midfoot and hindfoot are intact and normal in appearance. Diffuse vascular calcifications are present. CONCLUSION: Suspected osteomyelitis of the great toe predominantly involving the distal phalanx but also involving the head of the proximal phalanx of the great toe. Dictated by: Maureen Chris M.D. on 02/11/2018 at 18:21 Electronically approved by: Maureen Chris M.D. on 02/11/2018 at 18:21
--- NOTE | 2018-02-11 18:24 | Diagnostic Imaging Report ---
PROCEDURE:X-RAY LEFT TOES, MINIMUM TWO VIEWS COMPARISON:Foot x-rays obtained at the same time INDICATIONS:RULE OUT OSTEOMYELITIS OF THE GREAT TOE FINDINGS: BONES:Soft tissue swelling and air adjacent to the distal IP joint, tibial and plantar aspect. The underlying bone is focally demineralized at the base of the proximal phalanx with irregular cortex. There are 2 tiny lucencies at the head of the proximal phalanx on the other side of the joint. The remainder the first digit is normal. No fractures of the visualized digits. No radiopaque foreign bodies in the soft tissues. CONCLUSION: Focal demineralization of the proximal and distal phalanges surrounding the IP joint with adjacent soft tissue swelling and air are highly concerning for osteomyelitis. Dictated by: Maureen Chris M.D. on 02/11/2018 at 18:25 Electronically approved by: Maureen Chris M.D. on 02/11/2018 at 18:25
[2018-02-11 19:38] LABS: CREATINE KINASE MB 1.4 ng/mL (0-5.0)
[2018-02-11] MEDS: ATORVASTATIN 20 MG TAB PO SCH (22:07)
[2018-02-11] MEDS: PIPER-TAZ 3.375 GM 50 ML IV SCH (22:07)
[2018-02-12] VITALS (7 sets, daily range): BP systolic 153–194; BP diastolic 72–92
[2018-02-12] MEDS: INSULIN LISPRO 100 UNIT/1 ML 3ML VIAL SQ SCH ×4 (07:30→23:09)
[2018-02-12 07:34] LABS: BASOPHILS % 0.3 % (0.0-1.0); EOSINOPHILS # (AUTO) 0.2 (0.0-0.4); EOSINOPHILS % 1.7 % (0.0-6.0); HEMATOCRIT 32.9 % (38.2-49.6); HEMOGLOBIN 10.7 g/dL (14.0-18.0); LYMPHOCYTES # (AUTO) 1.2 (1.0-3.2); LYMPHOCYTES % 13.5 % (18.0-39.1); MEAN CORPUSCULAR HEMOGLOBIN 26.8 pg (28-32); MEAN CORPUSCULAR HGB CONC 32.5 g/dL (31-35); MEAN CORPUSCULAR VOLUME 82.5 fL (81-99); MONOCYTES # (AUTO) 0.9 (0.2-0.8); MONOCYTES % 10.3 % (4.4-11.3); NEUTROPHILS # (AUTO) 6.5 (2.1-6.9); NEUTROPHILS % 73.9 % (38.7-80.0); PLATELET COUNT 385 x10e3/uL (140-360); RED BLOOD COUNT 3.99 x10e6/uL (4.3-5.7); RED CELL DISTRIBUTION WIDTH 13.2 % (11.7-14.4)
[2018-02-12 07:54] LABS: ANION GAP 12.3 mmol/L (8-16); CALCIUM 9.2 mg/dL (8.4-10.2); CREATININE, SERUM 1.94 mg/dL (0.72-1.25); POTASSIUM 4.3 mmol/L (3.5-5.1); VANCOMYCIN,RANDOM 8.6 ug/mL
[2018-02-12] MEDS: FUROSEMIDE 40 MG TAB PO SCH (08:16)
[2018-02-12] MEDS: HYDRALAZINE HCL 10 MG TAB PO SCH (08:16)
[2018-02-12] MEDS: PIPER-TAZ 3.375 GM 50 ML IV SCH ×2 (08:16→21:37)
[2018-02-12] MEDS: GLIMEPIRIDE 2 MG TAB PO SCH ×2 (08:16→17:16)
[2018-02-12] MEDS: ASPIRIN 81 MG ENTERIC COATED PO SCH (08:16)
[2018-02-12] MEDS: CARVEDILOL 12.5 MG TAB PO SCH ×2 (08:16→16:10)
[2018-02-12] MEDS: TRAMADOL HCL 50 MG TAB PO PRN ×2 (08:17→18:44)
[2018-02-12] MEDS: CLOPIDOGREL BISULFATE 75 MG TAB PO SCH (08:18)
[2018-02-12 08:20] LABS: CREATINE KINASE MB 1.6 ng/mL (0-5.0)
[2018-02-12] MEDS ORDERED: VANCOMYCIN 1GM/NS 250 ML 250 ML IV ONE (09:00)
[2018-02-12] MEDS ORDERED: HYDRALAZINE HCL 10 MG TAB PO SCH (10:45)
[2018-02-12] MEDS ORDERED: HYDRALAZINE HCL 25 MG TAB PO ONE ×2 (11:15→12:35)
[2018-02-12] MEDS ORDERED: HYDRALAZINE HCL 25 MG TAB PO NR (11:15)
--- NOTE | 2018-02-12 14:49 | Consultation ---
DATE OF CONSULTATION: PODIATRY CONSULTATION HISTORY OF PRESENT ILLNESS: Mr. Kumar is a very pleasant, male who was admitted through the ED secondary to hypotension, dizziness, and elevated troponin and cardiac enzymes. Dr. Lopez of cardiology is on the case. However, I was consulted for the fact that he has underlying diabetes with a diabetic foot complication with infection. PAST MEDICAL HISTORY: Diabetes mellitus, AR, hypertension, hyperlipidemia. SURGICAL HISTORY: Negative. FAMILY HISTORY: AR and diabetes. SOCIAL HISTORY: Denies any alcohol, tobacco or illicit drug use. REVIEW OF SYSTEMS: An 11-point review of systems otherwise negative. PHYSICAL EXAMINATION GENERAL: A and O times 3, NAD. VITAL SIGNS: 190/87, temperature 98.5, pulse 85, respiratory rate 18. HEENT: Normocephalic, atraumatic, anicteric. Moist mucous membranes. LUNGS: Symmetrical expansion. NECK: No JVD. Full and nontender range of motion. ABDOMEN: Soft, nontender and nondistended. EXTREMITIES: Indeed, erythema with malodor emanating from the left foot, particularly the forefoot with an ulceration to the medial aspect of the left great toe with necrotic tissue lesion that is approximately 2 to 2.5 cm in diameter, lacking protective sensation to the area. No soft-tissue crepitus. DIAGNOSTIC DATA: WBC 8.8, hemoglobin and hematocrit 10.7 and 33.9 respectively. Accu-Chek 59. X-rays reveal soft-tissue emphysema with likelihood of osteomyelitis to the left foot, particularly the great toe. ASSESSMENT 1. Diabetic foot infection. 2. Cellulitis of the left foot. 3. Osteomyelitis, left great toe. 4. Diabetic foot ulcer, left foot. 5. Diabetic peripheral neuropathy. PLAN 1. Bedside on this date sharp excisional debridement was performed through the subcutaneous tissue and deep fascia utilizing a #15 blade and pickups. Local wound care will consist of Betadine wet-to-dry dressing. 2. Nonweightbearing, left foot. 3. Further recommendations to follow pending clinical course. I would like to thank Dr. Lopez for allowing me to participate in the care of this patient. Job#: [id number]
--- NOTE | 2018-02-12 15:40 | Consultation ---
DATE OF CONSULTATION: February 12, 2018 REASON FOR CONSULTATION: Evaluate and assist in the treatment of the patient with a diabetic foot infection. Dr. Mon was consulted to see this patient. I am covering for Dr. Mon. The patient is a 62-year-old male with diabetes mellitus, hypertension, probable coronary artery disease. He reports a history of myocardial infarction. He has had no coronary angioplasty or stenting. He reports a history of peripheral neuropathy, but has never been told that he had peripheral vascular disease. He reports hyperlipidemia. He went a free-standing emergency facility for evaluation of a complaint of dizziness. He was found with hypotension and slightly elevated cardiac enzymes. He tells me that about a week or so ago he stumped his left toe, and there was some bleeding and loose skin, which he peeled off. The toe subsequently ulcerated, and there has been some redness and swelling. He denies any fevers. At presentation, he is noted with a temperature of 98.6 degrees Fahrenheit initially. Temperature subsequently went up to 99.7, and then 99.9. He had a CBC done, which showed a white count of 8.8. His serum creatinine at presentation was found to be 2. His BUN was 26. He had plain film of his foot, which showed focal demineralization of the proximal and distal phalanges surrounding the interphalangeal joint with adjacent soft tissue swelling and air highly concerning for osteomyelitis. MEDICAL HISTORY: As reported above. There is no report of liver disease. No report of CVA. SOCIAL HISTORY: He does not smoke. He denies alcohol and other forms of recreational drug use. FAMILY HISTORY: Positive for diabetes and hypertension. The patient has had no previous surgeries. ALLERGIES: HE GIVES NO HISTORY OF MEDICATION ALLERGY. We suggested overnight to start him on treatment with vancomycin and Zosyn adjusted for renal function. The rest of his medications are per the medication administration report. REVIEW OF SYSTEMS: The patient is alert. His sensorium is clear. He is not coughing. No dyspnea. No headache or neck stiffness. No sore throat. No visual or auditory complaints. No pruritus or rash. No pain complaint currently. PHYSICAL EXAMINATION GENERAL: He is an adult male. He is alert, responsive, coherent. He appears nontoxic and is in no acute distress. VITALS: Maximum temperature since admission is 99.9 degrees Fahrenheit. His most recent temperature is 98 degrees. He is hemodynamically stable. HEENT: He has no pallor. No icterus. No oropharyngeal lesions. NECK: Supple. CHEST: Symmetric. The lungs are clear. HEART: Sounds are regular without significant murmur. ABDOMEN: Full, soft, nontender with normal bowel sounds. EXTREMITIES: There are ischemic changes of his legs and feet. There is superficial small abrasions/ulcers on the anterior aspect of the right leg. The left great toe wound has just been debrided by podiatry. Postoperative dressing is intact. His serum creatinine is down to 1.9 from 2 at presentation. His blood glucose ranged from 82-223. His white count currently 8.8, hemoglobin 10.7 and platelet count 385,000. Differential on the white count appear unremarkable. Blood and urine cultures are pending. Plain film of his foot is as previously reported. IMPRESSION: This 62-year-old male has a diabetic left foot infection with probable osteomyelitis of the great toe. He has had wound debridement. He has renal insufficiency. He likely has peripheral neuropathy and arterial disease. I suggest we continue coverage with vancomycin and Zosyn adjusted for renal function. Follow up on his cultures. Monitor temperature, CBC and renal function. Anticipate 4-6 weeks of intravenous antibiotic treatment for osteomyelitis. Continue local wound care. I have discussed the findings and treatment with the patient and his family at the bedside. I will discuss the patient with the primary physician, who I thank for the consult, and the opportunity to participate in the patient's care. Job#: [id number] YANELI
[2018-02-12] MEDS: SODIUM CHLORIDE 0.9% 1000ML 1,000 ML IV SCH (16:10)
[2018-02-12] MEDS ORDERED: HYDRALAZINE HCL 25 MG TAB PO SCH (17:00)
[2018-02-12] MEDS ORDERED: HYDRALAZINE HCL 20 MG/ML VIAL IV STA (20:56)
[2018-02-12] MEDS ORDERED: AMLODIPINE BESYLATE 10 MG TAB PO ONE (21:00)
[2018-02-12] MEDS: HYDRALAZINE HCL 25 MG TAB PO SCH (21:00)
[2018-02-12] MEDS: ATORVASTATIN 20 MG TAB PO SCH (21:37)
[2018-02-13] VITALS (11 sets, daily range): BP systolic 135–187; BP diastolic 69–99
[2018-02-13] MEDS: HYDRALAZINE HCL 25 MG TAB PO SCH ×3 (07:12→22:00)
[2018-02-13 07:25] LABS: BASOPHILS % 0.5 % (0.0-1.0); EOSINOPHILS # (AUTO) 0.3 (0.0-0.4); EOSINOPHILS % 3.5 % (0.0-6.0); HEMATOCRIT 33.9 % (38.2-49.6); LYMPHOCYTES # (AUTO) 1.2 (1.0-3.2); LYMPHOCYTES % 13.3 % (18.0-39.1); MEAN CORPUSCULAR HEMOGLOBIN 26.8 pg (28-32); MEAN CORPUSCULAR HGB CONC 32.4 g/dL (31-35); MEAN CORPUSCULAR VOLUME 82.7 fL (81-99); MONOCYTES # (AUTO) 0.9 (0.2-0.8); MONOCYTES % 10.1 % (4.4-11.3); NEUTROPHILS # (AUTO) 6.4 (2.1-6.9); NEUTROPHILS % 72.1 % (38.7-80.0); PLATELET COUNT 400 x10e3/uL (140-360); RED CELL DISTRIBUTION WIDTH 13.4 % (11.7-14.4)
[2018-02-13] MEDS: INSULIN LISPRO 100 UNIT/1 ML 3ML VIAL SQ SCH ×4 (07:30→21:10)
[2018-02-13 07:52] LABS: ANION GAP 10.9 mmol/L (8-16); CALCIUM 9.1 mg/dL (8.4-10.2); CREATININE, SERUM 1.76 mg/dL (0.72-1.25); POTASSIUM 3.9 mmol/L (3.5-5.1); VANCOMYCIN,RANDOM 11.1 ug/mL
[2018-02-13] MEDS: GLIMEPIRIDE 2 MG TAB PO SCH (09:16)
[2018-02-13] MEDS: CLOPIDOGREL BISULFATE 75 MG TAB PO SCH (09:16)
[2018-02-13] MEDS: PIPER-TAZ 3.375 GM 50 ML IV SCH ×2 (09:16→21:09)
[2018-02-13] MEDS: TRAMADOL HCL 50 MG TAB PO PRN ×2 (09:16→21:09)
[2018-02-13] MEDS: FUROSEMIDE 40 MG TAB PO SCH (09:16)
[2018-02-13] MEDS: SODIUM CHLORIDE 0.9% 1000ML 1,000 ML IV SCH ×2 (09:16→11:45)
[2018-02-13] MEDS: CARVEDILOL 12.5 MG TAB PO SCH ×2 (09:16→17:12)
[2018-02-13] MEDS: ASPIRIN 81 MG ENTERIC COATED PO SCH (09:16)
[2018-02-13] MEDS: AMLODIPINE BESYLATE 10 MG TAB PO SCH (09:16)
[2018-02-13 09:56] LABS: % IRON SATURATION 9 % (15-50); IRON 21 ug/dL (65-175); TOTAL IRON BINDING CAPACITY 238 ug/dL (261-478); TRANSFERRIN 170 mg/dL (174-364)
[2018-02-13] MEDS ORDERED: GLIPIZIDE 5 MG TAB ER PO SCH (10:00)
[2018-02-13] MEDS ORDERED: NORVASC10 MG PO (10:08)
[2018-02-13] MEDS ORDERED: FUROSEMIDE40 MG PO (10:08)
[2018-02-13] MEDS ORDERED: HYDRALAZINE HCL25 MG PO (10:08)
[2018-02-13] MEDS ORDERED: TERAZOSIN HCL1 MG PO (10:11)
[2018-02-13] MEDS ORDERED: GLUCOTROL XL10 MG PO (10:11)
[2018-02-13] MEDS ORDERED: JANUVIA100 MG PO (10:15)
[2018-02-13] MEDS ORDERED: ZOSYN 3.373.375 GM/5 IVP (10:18)
[2018-02-13] MEDS ORDERED: HYDRALAZINE HCL 20 MG/ML VIAL IV NR (10:30)
[2018-02-13] MEDS ORDERED: TERAZOSIN HCL 5 MG CAP PO NR (10:35)
[2018-02-13] MEDS ORDERED: FERROUS SULFAT325 MG PO (10:42)
[2018-02-13] MEDS ORDERED: AMARYL4 MG PO (10:42)
--- NOTE | 2018-02-13 12:15 | Cardiology Report ---
DATE OF STUDY: February 12, 2018 DOPPLER SCAN OF LOWER EXTREMITIES ARTERIES The lower extremity arteries were interrogated using the duplex scanning method. Segmental pressure measurements were not carried out. Above the knee, the waveform appears to be biphasic and triphasic. However, starting at the distal femoral arteries bilaterally, the waveforms became monophasic. They were absent in the mid distal anterior tibial arteries bilaterally. CONCLUSIONS 1. Probable high-grade stenosis involving both distal femoral arteries bilaterally extending into the popliteal arteries bilaterally. 2. Probably occluded mid anterior tibial arteries bilaterally with high-grade stenosis possibly in both posterior tibial arteries bilaterally. Job#: [id number] cc:Byron RODRIGUEZ DPM MAURICE E. AKUCHIE, MD
[2018-02-13] MEDS: SITAGLIPTIN 100 MG TAB PO SCH (12:52)
--- NOTE | 2018-02-13 13:21 | Progress Note ---
DATE: INFECTIOUS DISEASE PROGRESS NOTE The patient is resting quietly. He is in no acute distress. He is not coughing. No dyspnea at rest. No vomiting, no diarrhea. No adverse medication reaction report. In the past 24 hours, his maximum temperature was up to 98.6 degrees Fahrenheit. He is hemodynamically stable. He has no pallor, no icterus, no oropharyngeal lesions. His neck is supple. The chest is symmetric. The lungs are clear. Heart sounds are regular without a significant murmur. The abdomen is soft. Bowel sounds are present. His left foot dressing is intact and clean. His white count is 8.8, hemoglobin 11.0, platelet count 400. His serum creatinine is down to 1.7. Vancomycin random level is 11.1. Blood cultures are negative. Urine culture is negative. IMPRESSION: He is on treatment for a diabetic left foot infection with osteomyelitis of the great toe. He has had wound debridement. I spoke to the first officer yesterday. Apparently wound cultures were to sent. He has renal insufficiency. I suggest he needs 6 weeks of IV antibiotic treatment. This can be in the form of either ceftaroline 300 mg IV q.12 h. for 6 weeks or a combination of vancomycin 1 g IV q.24 h. plus cefepime 1 g IV q.12 h. It should be noted that the regimen of vancomycin and cefepime would need close monitoring of vancomycin serum levels given the patient's renal insufficiency. I suspect that this second regimen of vancomycin and cefepime would be difficult to manage at home. The patient would ideally be managed in a long-term acute care facility on treatment with vancomycin and cefepime with wound care, or he should be referred to an ID outpatient physician to manage the combination of vancomycin and cefepime. I have discussed the patient with Dr. Lopez. I have discussed the patient with the nursing staff and case management/social work. I have discussed the findings and treatment with the patient at the bedside. Job#: [id number] MITCHELL
--- NOTE | 2018-02-13 13:38 | Discharge Summary ---
CLINICAL HISTORY: This is a 62-year-old man admitted via the emergency room because orthostatic dizziness with drop in blood pressure and because of elevated troponin, CK-MB. This patient has previous history of coronary artery disease, status post previous stent. However, he denied any previous myocardial infarction. However, his echocardiogram showed ejection fraction of 35% to 40% with apical and septal hypokinesis consistent with previous myocardial infarction. However, his repeat cardiac enzymes maxed out only at 0.97 troponin and MB maxed out at the time of admission with all MB values being normal. The patient had no chest pain and EKG showed no acute changes. This suggests that he had his myocardial infarction in the distant past and he was not aware of it. His creatinine at the time of admission was 2.0. Subsequently, dropped to 1.7 even though we cut back his diuretics from Lasix 40 mg b.i.d. to 40 mg daily. Because of renal insufficiency, this prevented us from doing a heart catheterization to find out for sure since the patient is asymptomatic and we believe his myocardial infarction is in the distant past and his elevated troponin may be related to renal insufficiency, we decided the risk is not worth the benefit to find out the information at this time. Should he develop chest pain, cardiac catheterization at that time may be more appropriate. In the meantime, we corrected his orthostatic hypotension. His resting blood pressure however remains extremely high. We had to add additional blood pressure medications to bring it under control. His blood sugar was ranging between 67 to 223 with sliding scale insulin, as well as Amaryl. We decided to add Januvia 100 mg per day. The patient had mild anemia, hemoglobin 11 to 10.7. TIBC was normal. Iron was 21. Saturation was 9%. Transferrin was low also at 170. We decided to give him iron sulfate 325 mg per day. He may require colonoscopy on an outpatient basis. Stool guaiac is pending. The patient had complained of left foot infection. Apparently, it has been going on for at least 1 week perhaps 2. Podiatry consultation was obtained with Dr. Segovia, infectious disease consultation with Dr. Mon. X-ray had shown osteomyelitis. The patient was started on vancomycin followed by Zosyn. He will require long-term antibiotics. We considered Zosyn on outpatient basis and PICC line. His final decision will be up to infectious disease. The patient was seen by Dr. Segovia production welder, who did debridement, did not recommend amputation. The patient will follow up further on outpatient basis with Dr. Segovia, will see me for cardiology, will see Dr. Sylvain Wolf for antibiotics. DISCHARGE DIAGNOSES 1. Orthostatic hypotension probably due to excessive diuretics with Lasix cutdown from 40 mg twice a day to 40 mg daily. 2. Osteomyelitis of the left foot requiring 4 to 6 weeks of intravenous antibiotics on outpatient basis with peripherally inserted central catheter line. 3. Iron-deficiency anemia requiring future colonoscopy. Stool guaiac is pending. 4. 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 5. Elevated troponin probably related to chronic kidney disease rather than acute myocardial infarction at this time. 6. History of coronary stenting in the distant past, 6 or 7 years ago. 7. Congestive heart failure, ejection fraction 35% to 40%. 8. Chronic kidney disease stage 4. Initial creatinine 2.0 and glomerular filtration rate 32 with stage improving to 3 at the time of discharge with creatinine of 1.76 and glomerular filtration rate improving to 39. 9. Peripheral neuropathy related to diabetes. 10. Severe hypertension requiring patient on antihypertensives with Lasix decreased to once a day. 11. Hyperlipidemia. 12. Orthostatic blood pressure drop with dizziness. DISCHARGE MEDICATIONS 1. Iron sulfate 325 mg p.o. daily. 2. Amlodipine 10 mg p.o. daily. 3. Lasix 40 mg daily. 4. Hydralazine 25 mg t.i.d. 5. Piperacillin/tazobactam (Zosyn) 3.375 mg IV q.12 h. 6. Januvia 100 mg p.o. daily. 7. Terazosin 2 mg p.o. b.i.d. 8. Amaryl 4 mg p.o. daily. 9. Aspirin 81 mg p.o. daily. 10. Atorvastatin 20 mg p.o. daily. 11. Calcitriol 0.25 mg p.o. daily. 12. Coreg 12.5 mg b.i.d. 13. Plavix 75 mg daily. 14. Multivitamin 1 tablet p.o. daily. 15. Ultram 50 mg p.o. q.4 h. p.r.n. pain. The patient was given activity, diet, medication and followup instructions. Will see Dr. CuDr. Sylvain schultz and my office in 1 week. Job#: [id number] DE cc:SYLVAIN WOLF M.D.
--- NOTE | 2018-02-13 15:07 | Diagnostic Imaging Report ---
PROCEDURE: A single AP view of the chest. COMPARISON: Chest CT 10/03/2017. Chest x-ray 10/03/2017 INDICATIONS: PICC LINE PLACEMENT FINDINGS: Lines/tubes: Right-sided PICC line with tip in the SVC. Lungs: The lungs are well inflated and clear. There is no evidence of pneumonia or pulmonary edema. Pleura: There is no pleural effusion or pneumothorax. Heart and mediastinum: The heart and the mediastinum are unremarkable. Atherosclerotic calcifications in the aorta. Bones: No acute bony abnormality. IMPRESSION: 1. Right PICC line with tip at low SVC. 2. No acute cardiopulmonary disease. Dictated by: Tu Enamorado M.D. on 02/13/2018 at 15:07 Electronically approved by: Tu Enamorado M.D. on 02/13/2018 at 15:07
[2018-02-13] MEDS: TERAZOSIN HCL 1 MG CAP PO SCH (17:12)
[2018-02-13] MEDS: ATORVASTATIN 20 MG TAB PO SCH (21:09)
[2018-02-14] VITALS (11 sets, daily range): BP systolic 139–173; BP diastolic 62–97
[2018-02-14] MEDS: INSULIN LISPRO 100 UNIT/1 ML 3ML VIAL SQ SCH ×4 (07:30→21:00)
[2018-02-14] MEDS: PIPER-TAZ 3.375 GM 50 ML IV SCH (08:18)
[2018-02-14] MEDS: ASPIRIN 81 MG ENTERIC COATED PO SCH (08:18)
[2018-02-14] MEDS: HYDRALAZINE HCL 25 MG TAB PO SCH ×3 (08:18→21:43)
[2018-02-14] MEDS: CARVEDILOL 12.5 MG TAB PO SCH ×2 (08:19→17:13)
[2018-02-14] MEDS: AMLODIPINE BESYLATE 10 MG TAB PO SCH (08:19)
[2018-02-14] MEDS: FUROSEMIDE 40 MG TAB PO SCH (08:19)
[2018-02-14] MEDS: TRAMADOL HCL 50 MG TAB PO PRN ×2 (08:19→22:20)
[2018-02-14] MEDS: TERAZOSIN HCL 1 MG CAP PO SCH ×2 (08:19→17:13)
[2018-02-14] MEDS: CLOPIDOGREL BISULFATE 75 MG TAB PO SCH (08:19)
[2018-02-14] MEDS: SITAGLIPTIN 100 MG TAB PO SCH (13:22)
[2018-02-14] MEDS: GLIMEPIRIDE 2 MG TAB PO SCH (13:22)
--- NOTE | 2018-02-14 13:39 | Progress Note ---
DATE: February 14, 2018 The patient is fairly stable. He is in no distress. He has no pain complaints. No respiratory, gastrointestinal or genitourinary complaints. No overt medication reaction reported. PHYSICAL EXAMINATION VITALS: In the past 24 hours, he had temperature up to 98.6 degrees Fahrenheit. He is hemodynamically stable. HEENT: There is no pallor. No icterus. No oropharyngeal lesions. NECK: Supple. CHEST: Symmetric. Lungs are clear. HEART: Sounds are regular without any murmurs. ABDOMEN: Soft. Bowel sounds are present. EXTREMITIES: His left foot dressing is intact and clean. His creatinine is 1.7 on February 13, 2018. His white count is 8.8. His vancomycin random level on February 13, 2018, was 11.1. There are no new culture reports. IMPRESSION: He is on treatment for diabetic left foot infection with osteomyelitis. He has renal insufficiency. He is afebrile and stable. I suggest change his treatment to vancomycin 1 g IV q.24 h. Check trough level with the 4th dose. Discontinue Zosyn and start cefepime at 1 g IV q.12 h. Monitor temperature, CBC and renal function. Continue local wound care. I have discussed the patient with the nursing staff. Job#: [id number] YANELI
[2018-02-14] MEDS: CEFEPIME HCL 1 GM VIAL IV SCH (14:18)
[2018-02-14] MEDS: VANCOMYCIN 1GM/NS 250 ML 250 ML IV SCH (14:18)
[2018-02-14] MEDS: SODIUM CHLORIDE 0.9% 1000ML 1,000 ML IV SCH (19:45)
[2018-02-14] MEDS: ATORVASTATIN 20 MG TAB PO SCH (21:42)
[2018-02-15] VITALS (8 sets, daily range): BP systolic 156–177; BP diastolic 75–89
[2018-02-15] MEDS: CEFEPIME HCL 1 GM VIAL IV SCH ×2 (01:30→13:46)
[2018-02-15 07:04] LABS: BASOPHILS % 0.3 % (0.0-1.0); EOSINOPHILS # (AUTO) 0.3 (0.0-0.4); EOSINOPHILS % 3.6 % (0.0-6.0); HEMATOCRIT 29.9 % (38.2-49.6); HEMOGLOBIN 9.7 g/dL (14.0-18.0); LYMPHOCYTES # (AUTO) 1.3 (1.0-3.2); LYMPHOCYTES % 13.7 % (18.0-39.1); MEAN CORPUSCULAR HEMOGLOBIN 27.2 pg (28-32); MEAN CORPUSCULAR HGB CONC 32.4 g/dL (31-35); MEAN CORPUSCULAR VOLUME 83.8 fL (81-99); MONOCYTES # (AUTO) 0.8 (0.2-0.8); MONOCYTES % 8.2 % (4.4-11.3); NEUTROPHILS # (AUTO) 6.8 (2.1-6.9); PLATELET COUNT 381 x10e3/uL (140-360); RED BLOOD COUNT 3.57 x10e6/uL (4.3-5.7); RED CELL DISTRIBUTION WIDTH 13.4 % (11.7-14.4)
[2018-02-15 07:28] LABS: ANION GAP 10.8 mmol/L (8-16); CALCIUM 8.9 mg/dL (8.4-10.2); CREATININE, SERUM 1.61 mg/dL (0.72-1.25); POTASSIUM 3.8 mmol/L (3.5-5.1)
[2018-02-15] MEDS: INSULIN LISPRO 100 UNIT/1 ML 3ML VIAL SQ SCH (07:30)
[2018-02-15] MEDS: ASPIRIN 81 MG ENTERIC COATED PO SCH (08:02)
[2018-02-15] MEDS: HYDRALAZINE HCL 25 MG TAB PO SCH ×3 (08:02→22:00)
[2018-02-15] MEDS: GLIMEPIRIDE 2 MG TAB PO SCH (08:02)
[2018-02-15] MEDS: SITAGLIPTIN 100 MG TAB PO SCH (08:02)
[2018-02-15] MEDS: TERAZOSIN HCL 1 MG CAP PO SCH ×2 (08:02→15:59)
[2018-02-15] MEDS: FUROSEMIDE 40 MG TAB PO SCH (08:02)
[2018-02-15] MEDS: CARVEDILOL 12.5 MG TAB PO SCH ×2 (08:02→15:59)
[2018-02-15] MEDS: AMLODIPINE BESYLATE 10 MG TAB PO SCH (08:03)
[2018-02-15] MEDS: CLOPIDOGREL BISULFATE 75 MG TAB PO SCH (08:03)
[2018-02-15] MEDS: VANCOMYCIN 1GM/NS 250 ML 250 ML IV SCH (13:46)
[2018-02-15] MEDS: TRAMADOL HCL 50 MG TAB PO PRN ×2 (13:46→22:02)
[2018-02-15] MEDS: SODIUM CHLORIDE 0.9% 1000ML 1,000 ML IV SCH (15:45)
[2018-02-15] MEDS: ATORVASTATIN 20 MG TAB PO SCH (22:00)
[2018-02-16] VITALS (7 sets, daily range): BP systolic 154–179; BP diastolic 75–86
[2018-02-16] MEDS: CEFEPIME HCL 1 GM VIAL IV SCH ×2 (00:21→13:15)
[2018-02-16] MEDS: GLIMEPIRIDE 2 MG TAB PO SCH (08:00)
[2018-02-16] MEDS: SITAGLIPTIN 100 MG TAB PO SCH (09:00)
[2018-02-16] MEDS: CLOPIDOGREL BISULFATE 75 MG TAB PO SCH (09:00)
[2018-02-16] MEDS: ASPIRIN 81 MG ENTERIC COATED PO SCH (09:00)
[2018-02-16] MEDS: CARVEDILOL 12.5 MG TAB PO SCH ×2 (09:00→17:00)
[2018-02-16] MEDS: AMLODIPINE BESYLATE 10 MG TAB PO SCH (09:00)
[2018-02-16] MEDS: HYDRALAZINE HCL 25 MG TAB PO SCH ×3 (09:00→21:04)
[2018-02-16] MEDS: FUROSEMIDE 40 MG TAB PO SCH (09:00)
[2018-02-16] MEDS: TERAZOSIN HCL 1 MG CAP PO SCH ×2 (09:00→17:00)
[2018-02-16] MEDS: SODIUM CHLORIDE 0.9% 1000ML 1,000 ML IV SCH (11:45)
[2018-02-16] MEDS: VANCOMYCIN 1GM/NS 250 ML 250 ML IV SCH (13:15)
--- NOTE | 2018-02-16 15:52 | Progress Note ---
DATE: February 15, 2018 SUBJECTIVE: The patient is fairly stable. He has no respiratory, gastrointestinal, or genitourinary complaints. No adverse medication reaction reported. OBJECTIVE: VITAL SIGNS: In the pervious 24 hours, his maximum temperature was 98.5 degrees Fahrenheit. GENERAL: He is hemodynamically stable. HEENT: There is no pallor. No icterus. No oropharyngeal lesions. NECK: Supple. CHEST: Symmetric. Lungs are clear. HEART: Sounds are regular without any murmurs. ABDOMEN: Soft. Bowel sounds are present. EXTREMITIES: His left foot dressing is intact and clean. LABS: Vancomycin trough is reported as 9.7. His creatinine is 1.6. His white count is 9.1. There are no new positive culture reports. IMPRESSION: He is on treatment for diabetic left foot infection with osteomyelitis. He has renal insufficiency. His current vancomycin trough is on the lower side. I suggest continue same treatment. Recheck his vancomycin trough in a few days. If the trough level is still less than 15, we will increase the dosage. Monitor temperature, CBC, and renal function. Continue local wound care. Job#: [id number] VAS
--- NOTE | 2018-02-16 15:56 | Progress Note ---
DATE: February 16, 2018 SUBJECTIVE: The patient is fairly stable. He offers no new complaints. He is tolerating the antibiotics. No pruritus, rash, or diarrhea. No other systemic complaints reported. OBJECTIVE: VITALS: In the past 24 hours, his maximum temperature was up to 99.2 degrees Fahrenheit. GENERAL: He is hemodynamically stable. HEENT: He is no pallor. There is no icterus. No oropharyngeal lesions. NECK: Supple. CHEST: Symmetric. The lungs are clear. HEART: Sounds are regular. There is no new murmur. ABDOMEN: Soft. Bowel sounds are present. EXTREMITIES: His left foot dressing is intact and clean. LABS: His white count 9.1 on February 15, 2018. His creatinine 1.6. His vancomycin trough on February 15, 2018 reported as 9.7, the peak 25. There are no significant positive cultures. IMPRESSION: He is afebrile and stable. He has renal insufficiency. He is on treatment for a diabetic left foot infection with osteomyelitis. I suggest recheck his vancomycin trough in a few days. If still less than 15, increase the dosage. Continue to monitor clinical response to treatment. Continue local wound care. Job#: [id number] VAS
[2018-02-16] MEDS: TRAMADOL HCL 50 MG TAB PO PRN (21:05)
[2018-02-16] MEDS: ATORVASTATIN 20 MG TAB PO SCH (21:11)
[2018-02-17] VITALS (8 sets, daily range): BP systolic 152–178; BP diastolic 67–87
[2018-02-17] MEDS: CEFEPIME HCL 1 GM VIAL IV SCH ×2 (02:01→13:15)
[2018-02-17 07:04] LABS: HEMATOCRIT 28.2 % (38.2-49.6); HEMOGLOBIN 9.1 g/dL (14.0-18.0); MEAN CORPUSCULAR HEMOGLOBIN 27.1 pg (28-32); MEAN CORPUSCULAR HGB CONC 32.3 g/dL (31-35); MEAN CORPUSCULAR VOLUME 83.9 fL (81-99); PLATELET COUNT 367 x10e3/uL (140-360); RED BLOOD COUNT 3.36 x10e6/uL (4.3-5.7); RED CELL DISTRIBUTION WIDTH 13.6 % (11.7-14.4)
[2018-02-17 07:31] LABS: ANION GAP 10.8 mmol/L (8-16); CALCIUM 8.8 mg/dL (8.4-10.2); CREATININE, SERUM 1.62 mg/dL (0.72-1.25); POTASSIUM 3.8 mmol/L (3.5-5.1)
[2018-02-17] MEDS: SODIUM CHLORIDE 0.9% 1000ML 1,000 ML IV SCH (07:45)
[2018-02-17] MEDS: GLIMEPIRIDE 2 MG TAB PO SCH (08:00)
[2018-02-17] MEDS: ASPIRIN 81 MG ENTERIC COATED PO SCH (09:00)
[2018-02-17] MEDS: CARVEDILOL 12.5 MG TAB PO SCH ×2 (09:00→17:00)
[2018-02-17] MEDS: SITAGLIPTIN 100 MG TAB PO SCH (09:00)
[2018-02-17] MEDS: FUROSEMIDE 40 MG TAB PO SCH (09:00)
[2018-02-17] MEDS: AMLODIPINE BESYLATE 10 MG TAB PO SCH (09:00)
[2018-02-17] MEDS: HYDRALAZINE HCL 25 MG TAB PO SCH ×3 (09:00→19:56)
[2018-02-17] MEDS: CLOPIDOGREL BISULFATE 75 MG TAB PO SCH (09:00)
[2018-02-17] MEDS: TERAZOSIN HCL 1 MG CAP PO SCH ×2 (09:00→17:00)
[2018-02-17] MEDS: VANCOMYCIN 1GM/NS 250 ML 250 ML IV SCH (13:15)
--- NOTE | 2018-02-17 19:15 | Progress Note ---
DATE: February 17, 2018 SUBJECTIVE: The patient is resting quietly in bed. He is in no acute distress. He is not coughing currently. No dyspnea at rest. No report of vomiting or diarrhea. No adverse medication reaction reported. OBJECTIVE: VITAL SIGNS: In the past 24 hours, he had temperatures up to 98.8 degrees Fahrenheit. GENERAL: He is hemodynamically stable. HEENT: He has no pallor. No icterus. No oropharyngeal lesions. NECK: Supple. CHEST: Symmetric. LUNGS: Clear. HEART: Sounds are regular without a new murmur. ABDOMEN: Soft. Bowel sounds are present. EXTREMITIES: His left foot dressing is intact and clean. LABORATORY DATA: His white count is 8.8, hemoglobin 9.1, platelet count 367. His serum creatinine is 1.6. Vancomycin trough has increased from 9.7 on February 15 to 13.0 today. There are no significant positive culture reports. IMPRESSION: He is on treatment for a diabetic left foot infection with osteomyelitis. He has renal insufficiency. His vancomycin trough is slowly increasing. I suggest continue vancomycin and cefepime at current dosages. Monitor temperature, CBC, and renal function. The patient needs 6 weeks of IV antibiotic treatment for osteomyelitis. Continue local wound care. Job#: [id number] Satinder
[2018-02-17] MEDS ORDERED: TRAMADOL HCL 50 MG TAB PO PRN (19:45)
[2018-02-17] MEDS: ATORVASTATIN 20 MG TAB PO SCH (19:56)
[2018-02-18] VITALS (8 sets, daily range): BP systolic 149–167; BP diastolic 72–96
[2018-02-18] MEDS: CEFEPIME HCL 1 GM VIAL IV SCH ×2 (01:05→13:41)
[2018-02-18] MEDS: SODIUM CHLORIDE 0.9% 1000ML 1,000 ML IV SCH ×2 (01:05→22:07)
[2018-02-18] MEDS: ASPIRIN 81 MG ENTERIC COATED PO SCH (08:31)
[2018-02-18] MEDS: GLIMEPIRIDE 2 MG TAB PO SCH (08:31)
[2018-02-18] MEDS: HYDRALAZINE HCL 25 MG TAB PO SCH ×3 (08:31→22:07)
[2018-02-18] MEDS: CARVEDILOL 12.5 MG TAB PO SCH ×2 (08:31→17:35)
[2018-02-18] MEDS: FUROSEMIDE 40 MG TAB PO SCH (08:32)
[2018-02-18] MEDS: TERAZOSIN HCL 1 MG CAP PO SCH ×2 (08:32→17:35)
[2018-02-18] MEDS: CLOPIDOGREL BISULFATE 75 MG TAB PO SCH (08:32)
[2018-02-18] MEDS: SITAGLIPTIN 100 MG TAB PO SCH (08:32)
[2018-02-18] MEDS: AMLODIPINE BESYLATE 10 MG TAB PO SCH (08:32)
[2018-02-18] MEDS: VANCOMYCIN 1GM/NS 250 ML 250 ML IV SCH (13:41)
[2018-02-18] MEDS ORDERED: VANCOMYCIN 1GM/NS 250 ML 250 ML IV SCH (16:15)
--- NOTE | 2018-02-18 16:30 | Progress Note ---
DATE: February 18, 2018 The patient is fairly stable. He is in no distress. He is not coughing. No dyspnea at rest. No vomiting. No diarrhea. No adverse medication reaction reported. OBJECTIVE VITAL SIGNS: In the past 24 hours, maximum temperature was up to 98.8 degrees Fahrenheit. GENERAL: He is hemodynamically stable. HEENT: There is no pallor, no icterus, no oropharyngeal lesions. NECK: Supple. CHEST: Symmetric. LUNGS: Clear. HEART: Sounds are regular without any new murmur. ABDOMEN: Soft. Bowel sounds are present. EXTREMITIES: His left foot dressing is intact and clean. His creatinine on February 17 was 1.6. His white count 8.8. There are no significant positive culture reports. IMPRESSION: He is on treatment for diabetic left foot infection with osteomyelitis. He has renal insufficiency. He is afebrile and stable. PLAN: I suggest he needs 6 weeks of IV antibiotic treatment for osteomyelitis. I would not recommend oral antibiotics for osteomyelitis. Monitor temperature, CBC and renal function. Monitor vancomycin serum levels. Continue local wound care. Job#: [id number]
[2018-02-18] MEDS: ATORVASTATIN 20 MG TAB PO SCH (22:07)
[2018-02-19] VITALS: BP 154/74
[2018-02-19] MEDS: CEFEPIME HCL 1 GM VIAL IV SCH ×3 (01:00→13:24)
[2018-02-19 04:00] VITALS: BP 156/82
[2018-02-19 06:54] LABS: BASOPHILS # (AUTO) 0.1 (0.0-0.1); BASOPHILS % 0.5 % (0.0-1.0); EOSINOPHILS # (AUTO) 0.4 (0.0-0.4); EOSINOPHILS % 3.4 % (0.0-6.0); LYMPHOCYTES # (AUTO) 1.1 (1.0-3.2); LYMPHOCYTES % 10.2 % (18.0-39.1); MEAN CORPUSCULAR HEMOGLOBIN 26.9 pg (28-32); MEAN CORPUSCULAR HGB CONC 32.1 g/dL (31-35); MEAN CORPUSCULAR VOLUME 83.8 fL (81-99); MONOCYTES # (AUTO) 0.7 (0.2-0.8); MONOCYTES % 7.1 % (4.4-11.3); NEUTROPHILS # (AUTO) 8.1 (2.1-6.9); NEUTROPHILS % 78.3 % (38.7-80.0); PLATELET COUNT 363 x10e3/uL (140-360); RED BLOOD COUNT 3.34 x10e6/uL (4.3-5.7); RED CELL DISTRIBUTION WIDTH 13.5 % (11.7-14.4)
[2018-02-19 07:22] LABS: ALANINE AMINOTRANSFERASE 9 IU/L (0-55); ALBUMIN 2.4 g/dL (3.5-5.0); ALBUMIN/GLOBULIN RATIO 0.7 (0.8-2.0); ALKALINE PHOSPHATASE 76 IU/L (40-150); ANION GAP 11.1 mmol/L (8-16); BLOOD UREA NITROGEN 20 mg/dL (7-26); BUN/CREATININE RATIO 12 (6-25); CALCIUM 8.6 mg/dL (8.4-10.2); CARBON DIOXIDE 24 mmol/L (22-29); CHLORIDE 111 mmol/L (98-107); CREATININE, SERUM 1.73 mg/dL (0.72-1.25); EST GLOMERULAR FILTRATION RATE 40 ML/MIN (60-); GLUCOSE 68 mg/dL (74-118); POTASSIUM 4.1 mmol/L (3.5-5.1); SODIUM 142 mmol/L (136-145)
[2018-02-19 08:00] VITALS: BP 161/82
[2018-02-19] MEDS: ASPIRIN 81 MG ENTERIC COATED PO SCH (08:11)
[2018-02-19] MEDS: CARVEDILOL 12.5 MG TAB PO SCH ×2 (08:11→18:11)
[2018-02-19] MEDS: GLIMEPIRIDE 2 MG TAB PO SCH (08:11)
[2018-02-19] MEDS: HYDRALAZINE HCL 25 MG TAB PO SCH ×3 (08:11→22:13)
[2018-02-19] MEDS: SITAGLIPTIN 100 MG TAB PO SCH (08:12)
[2018-02-19] MEDS: AMLODIPINE BESYLATE 10 MG TAB PO SCH (08:12)
[2018-02-19] MEDS: TERAZOSIN HCL 1 MG CAP PO SCH ×2 (08:12→18:11)
[2018-02-19] MEDS: FUROSEMIDE 40 MG TAB PO SCH (08:12)
[2018-02-19] MEDS: CLOPIDOGREL BISULFATE 75 MG TAB PO SCH (08:12)
[2018-02-19 12:00] VITALS: BP 132/64
[2018-02-19] MEDS: CLONIDINE HCL 0.1 MG TAB PO SCH ×2 (13:23→18:10)
[2018-02-19] MEDS: VANCOMYCIN 1GM/NS 250 ML 250 ML IV SCH (13:44)
[2018-02-19 16:00] VITALS: BP 137/65
[2018-02-19] MEDS: SODIUM CHLORIDE 0.9% 1000ML 1,000 ML IV SCH (18:11)
[2018-02-19 20:00] VITALS: BP 158/79
[2018-02-19] MEDS: ATORVASTATIN 20 MG TAB PO SCH (22:13)
[2018-02-20] VITALS (9 sets, daily range): BP systolic 154–165; BP diastolic 72–78
[2018-02-20] MEDS: CEFEPIME HCL 1 GM VIAL IV SCH ×2 (01:14→13:23)
[2018-02-20] MEDS: GLIMEPIRIDE 2 MG TAB PO SCH (08:46)
[2018-02-20] MEDS: HYDRALAZINE HCL 25 MG TAB PO SCH ×3 (09:29→21:00)
[2018-02-20] MEDS: ASPIRIN 81 MG ENTERIC COATED PO SCH (09:29)
[2018-02-20] MEDS: CLONIDINE HCL 0.1 MG TAB PO SCH ×2 (09:32→17:48)
[2018-02-20] MEDS: TERAZOSIN HCL 1 MG CAP PO SCH ×2 (09:33→17:48)
[2018-02-20] MEDS: SITAGLIPTIN 100 MG TAB PO SCH (09:33)
[2018-02-20] MEDS: CARVEDILOL 12.5 MG TAB PO SCH ×2 (09:33→17:48)
[2018-02-20] MEDS: FERROUS SULFATE 325 MG TAB PO SCH (09:33)
[2018-02-20] MEDS: AMLODIPINE BESYLATE 10 MG TAB PO SCH (09:33)
[2018-02-20] MEDS: FUROSEMIDE 40 MG TAB PO SCH (09:33)
[2018-02-20] MEDS: CLOPIDOGREL BISULFATE 75 MG TAB PO SCH (09:33)
[2018-02-20] MEDS: VANCOMYCIN 1GM/NS 250 ML 250 ML IV SCH (13:24)
--- NOTE | 2018-02-20 15:07 | Progress Note ---
DATE: February 19, 2018 Late entry. The patient is resting quietly. He is in no acute distress. He is not coughing much. No dyspnea at rest. No vomiting. No diarrhea. No other systemic complaints reported. PHYSICAL EXAMINATION VITALS: In the previous 24 hours, his maximum temperature was up to 98.7 degrees Fahrenheit. GENERAL: He is stable hemodynamically. HEENT: He has no pallor. No icterus. No oropharyngeal lesions. NECK: Supple. CHEST: Symmetric. Lungs are clear. HEART: Sounds are regular. There is no murmur. ABDOMEN: Soft and nontender. Bowel sounds are normal. EXTREMITIES: His left foot dressing is intact and clean. His creatinine is 1.7. His white count is 10.3. There are no culture reports. The patient had debridement of his left foot wound. Apparently, cultures were not sent. IMPRESSION: He is on treatment for diabetic left foot infection with osteomyelitis of the great toe. He has renal insufficiency. His vancomycin trough is within acceptable range. It should actually be between 15 and 20. I suggest continue current antimicrobial therapy. Monitor temperature, CBC and renal function. The patient needs 6 weeks of intravenous antibiotic treatment for osteomyelitis. Job#: [id number] YANELI
--- NOTE | 2018-02-20 15:16 | Progress Note ---
DATE: February 20, 2018 INFECTIOUS DISEASE PROGRESS NOTE The patient is resting quietly. He has no respiratory, gastrointestinal or genitourinary complaint. No pruritus or rash. No other systemic complaints reported. Overnight he had temperatures up to 98.9 degrees Fahrenheit. He is hemodynamically stable. There is no pallor, no icterus, no oropharyngeal lesions. The neck is supple. The chest is symmetric. The lungs are clear. Heart sounds are regular without a new murmur. The abdomen is soft. Bowel sounds are present. There are ischemic and postinflammatory changes of his lower extremities. The left foot dressing is intact and clean. His white count on February 19 was 10.3, his creatinine 1.7. A vancomycin trough level on February 19 was 14.4. IMPRESSION: He is on treatment for a diabetic left foot infection with osteomyelitis of the great toe. He had wound debridement. I discussed the patient with Podiatry. Cultures were not sent. The patient is afebrile and stable. He has renal insufficiency. His vancomycin level is within acceptable range. It is slowly increasing. I suggest continue current antibiotic treatment. Anticipate 6 weeks of IV antibiotics for osteomyelitis. Continue local wound care. Monitor his renal function, CBC and temperatures. Job#: [id number] MITCHELL
[2018-02-20] MEDS: SODIUM CHLORIDE 0.9% 1000ML 1,000 ML IV SCH (16:38)
[2018-02-20] MEDS: ATORVASTATIN 20 MG TAB PO SCH (21:00)
[2018-02-21] VITALS (7 sets, daily range): BP systolic 129–155; BP diastolic 68–86
[2018-02-21] MEDS: CEFEPIME HCL 1 GM VIAL IV SCH (01:15)
[2018-02-21] MEDS: GLIMEPIRIDE 2 MG TAB PO SCH (08:26)
[2018-02-21] MEDS: HYDRALAZINE HCL 25 MG TAB PO SCH ×3 (09:19→20:37)
[2018-02-21] MEDS: CLONIDINE HCL 0.1 MG TAB PO SCH ×2 (09:19→17:27)
[2018-02-21] MEDS: ASPIRIN 81 MG ENTERIC COATED PO SCH (09:19)
[2018-02-21] MEDS: SITAGLIPTIN 100 MG TAB PO SCH (09:20)
[2018-02-21] MEDS: AMLODIPINE BESYLATE 10 MG TAB PO SCH (09:20)
[2018-02-21] MEDS: TERAZOSIN HCL 1 MG CAP PO SCH ×2 (09:20→17:27)
[2018-02-21] MEDS: CLOPIDOGREL BISULFATE 75 MG TAB PO SCH (09:20)
[2018-02-21] MEDS: FUROSEMIDE 40 MG TAB PO SCH (09:20)
[2018-02-21] MEDS: CARVEDILOL 12.5 MG TAB PO SCH ×2 (09:20→17:27)
[2018-02-21] MEDS: FERROUS SULFATE 325 MG TAB PO SCH (09:20)
[2018-02-21] MEDS: SODIUM CHLORIDE 0.9% 1000ML 1,000 ML IV SCH (13:18)
--- NOTE | 2018-02-21 13:30 | Progress Note ---
DATE: February 21, 2018 INFECTIOUS DISEASE PROGRESS NOTE SUBJECTIVE: This is ID cross-cover for Dr. Mon. The patient is resting quietly. He is in no acute distress. He is not coughing currently. No dyspnea at rest. No vomiting. No diarrhea. No other systemic complaints reported. He wanted to know when he can return to work. I advised him that he should anticipate 6 weeks of IV antibiotic treatment for osteomyelitis. As long as his antibiotics can be managed so that he gets the effective treatment, there is no ID objection to returning back to work. OBJECTIVE VITALS: In the past 24 hours, his maximum temperature was up to 98.9 degrees Fahrenheit. His current temperature is 98.2. He is hemodynamically stable. HEAD AND NECK: He has no pallor, no icterus, no oropharyngeal lesion. The neck is supple. CHEST: Symmetric. Lungs are clear. Heart sounds are regular. There is no new murmur. ABDOMEN: Soft. Bowel sounds are present. EXTREMITIES: There are ischemic and postinflammatory changes of his lower extremities without acute erythema. The left foot dressing is intact and clean. LABS: White count on February 19 was 10.3, creatinine 1.7. Vancomycin trough on February 19 was 14.4. There are no culture reports. He did have debridement of his left 1st toe wound. I discussed the patient with podiatry. Cultures were not sent. Vascular ultrasound from February 12 showed high-grade stenosis involving both distal femoral arteries bilaterally. There is also occlusion seen in the anterior tibial arteries bilaterally. IMPRESSION: He has peripheral arterial disease. He is on treatment for a diabetic left foot infection with osteomyelitis of the great toe. He had wound debridement. Cultures were not sent. He has renal insufficiency. I suggest to anticipate 6 weeks of IV antibiotic treatment for osteomyelitis. Monitor vancomycin serum levels. Monitor temperature, CBC, renal function. Continue local wound care. Job#: [id number]
[2018-02-21] MEDS: VANCOMYCIN 1GM/NS 250 ML 250 ML IV SCH (13:40)
[2018-02-21] MEDS: ATORVASTATIN 20 MG TAB PO SCH (20:37)
[2018-02-22] VITALS: BP 161/70
[2018-02-22 04:00] VITALS: BP 160/70
[2018-02-22] MEDS: SODIUM CHLORIDE 0.9% 1000ML 1,000 ML IV SCH (05:06)
[2018-02-22] MEDS: GLIMEPIRIDE 2 MG TAB PO SCH (07:55)
[2018-02-22] MEDS: HYDRALAZINE HCL 25 MG TAB PO SCH ×3 (08:10→22:46)
[2018-02-22] MEDS: AMLODIPINE BESYLATE 10 MG TAB PO SCH (08:10)
[2018-02-22] MEDS: TERAZOSIN HCL 1 MG CAP PO SCH ×2 (08:10→16:45)
[2018-02-22] MEDS: CARVEDILOL 12.5 MG TAB PO SCH ×2 (08:10→16:45)
[2018-02-22] MEDS: CLOPIDOGREL BISULFATE 75 MG TAB PO SCH (08:10)
[2018-02-22] MEDS: SITAGLIPTIN 100 MG TAB PO SCH (08:10)
[2018-02-22] MEDS: FERROUS SULFATE 325 MG TAB PO SCH (08:10)
[2018-02-22] MEDS: ASPIRIN 81 MG ENTERIC COATED PO SCH (08:10)
[2018-02-22] MEDS: FUROSEMIDE 40 MG TAB PO SCH (08:10)
[2018-02-22] MEDS: CLONIDINE HCL 0.1 MG TAB PO SCH ×2 (08:10→16:45)
[2018-02-22 08:31] VITALS: BP 167/81
[2018-02-22] MEDS ORDERED: CLONIDINE HCL0.2 MG PO (10:35)
[2018-02-22] MEDS ORDERED: VANCOMYCIN1 GM/250 M IV (10:41)
[2018-02-22] MEDS ORDERED: CEFEPIME 11 GM/50 ML IV (10:44)
[2018-02-22] MEDS: CEFEPIME HCL 1 GM VIAL IV SCH ×2 (12:05→22:43)
[2018-02-22 12:32] VITALS: BP 163/79
[2018-02-22] MEDS: VANCOMYCIN 1GM/NS 250 ML 250 ML IV SCH (14:00)
[2018-02-22 16:00] VITALS: BP 144/78
[2018-02-22 20:00] VITALS: BP 162/77
[2018-02-22] MEDS: ATORVASTATIN 20 MG TAB PO SCH (22:43)
[2018-02-23] VITALS: BP 164/82
[2018-02-23] MEDS: SODIUM CHLORIDE 0.9% 1000ML 1,000 ML IV SCH ×2 (03:45→23:03)
[2018-02-23 04:00] VITALS: BP 158/80
[2018-02-23 07:51] VITALS: BP 170/80
[2018-02-23] MEDS: GLIMEPIRIDE 2 MG TAB PO SCH (08:10)
[2018-02-23] MEDS: FERROUS SULFATE 325 MG TAB PO SCH (08:10)
[2018-02-23] MEDS: CLOPIDOGREL BISULFATE 75 MG TAB PO SCH (08:10)
[2018-02-23] MEDS: TERAZOSIN HCL 1 MG CAP PO SCH ×2 (08:10→16:16)
[2018-02-23] MEDS: AMLODIPINE BESYLATE 10 MG TAB PO SCH (08:10)
[2018-02-23] MEDS: CLONIDINE HCL 0.1 MG TAB PO SCH ×2 (08:10→16:15)
[2018-02-23] MEDS: HYDRALAZINE HCL 25 MG TAB PO SCH ×3 (08:10→21:10)
[2018-02-23] MEDS: ASPIRIN 81 MG ENTERIC COATED PO SCH (08:10)
[2018-02-23] MEDS: SITAGLIPTIN 100 MG TAB PO SCH (08:10)
[2018-02-23] MEDS: CARVEDILOL 12.5 MG TAB PO SCH ×2 (08:10→16:14)
[2018-02-23 11:00] VITALS: BP 165/84
[2018-02-23] MEDS: CEFEPIME HCL 1 GM VIAL IV SCH ×2 (11:00→22:47)
[2018-02-23 14:36] LABS: BASOPHILS % 0.2 % (0.0-1.0); EOSINOPHILS # (AUTO) 0.2 (0.0-0.4); EOSINOPHILS % 2.5 % (0.0-6.0); HEMATOCRIT 26.4 % (38.2-49.6); HEMOGLOBIN 8.5 g/dL (14.0-18.0); LYMPHOCYTES # (AUTO) 0.9 (1.0-3.2); LYMPHOCYTES % 10.9 % (18.0-39.1); MEAN CORPUSCULAR HEMOGLOBIN 26.8 pg (28-32); MEAN CORPUSCULAR HGB CONC 32.2 g/dL (31-35); MEAN CORPUSCULAR VOLUME 83.3 fL (81-99); MONOCYTES # (AUTO) 0.7 (0.2-0.8); MONOCYTES % 8.2 % (4.4-11.3); NEUTROPHILS # (AUTO) 6.6 (2.1-6.9); PLATELET COUNT 264 x10e3/uL (140-360); RED BLOOD COUNT 3.17 x10e6/uL (4.3-5.7); RED CELL DISTRIBUTION WIDTH 13.8 % (11.7-14.4)
[2018-02-23] MEDS: VANCOMYCIN 1GM/NS 250 ML 250 ML IV SCH (15:00)
[2018-02-23 15:03] LABS: ANION GAP 11.4 mmol/L (8-16); CALCIUM 8.5 mg/dL (8.4-10.2); CREATININE, SERUM 1.9 mg/dL (0.72-1.25); POTASSIUM 4.4 mmol/L (3.5-5.1)
[2018-02-23 16:00] VITALS: BP 150/74
[2018-02-23 20:00] VITALS: BP 158/80
[2018-02-23] MEDS: ATORVASTATIN 20 MG TAB PO SCH (22:47)
[2018-02-24] VITALS (9 sets, daily range): BP systolic 140–167; BP diastolic 71–81
[2018-02-24] MEDS: GLIMEPIRIDE 2 MG TAB PO SCH (08:10)
[2018-02-24] MEDS: HYDRALAZINE HCL 25 MG TAB PO SCH ×3 (08:11→20:37)
[2018-02-24] MEDS: CARVEDILOL 12.5 MG TAB PO SCH ×2 (08:11→16:55)
[2018-02-24] MEDS: CLONIDINE HCL 0.1 MG TAB PO SCH ×2 (08:11→16:55)
[2018-02-24] MEDS: ASPIRIN 81 MG ENTERIC COATED PO SCH (08:11)
[2018-02-24] MEDS: CLOPIDOGREL BISULFATE 75 MG TAB PO SCH (08:12)
[2018-02-24] MEDS: TERAZOSIN HCL 1 MG CAP PO SCH ×2 (08:12→16:55)
[2018-02-24] MEDS: SITAGLIPTIN 100 MG TAB PO SCH (08:12)
[2018-02-24] MEDS: AMLODIPINE BESYLATE 10 MG TAB PO SCH (08:12)
[2018-02-24] MEDS: FERROUS SULFATE 325 MG TAB PO SCH (08:12)
[2018-02-24] MEDS: CEFEPIME HCL 1 GM VIAL IV SCH ×2 (11:35→22:12)
[2018-02-24] MEDS: VANCOMYCIN 1GM/NS 250 ML 250 ML IV SCH (13:40)
--- NOTE | 2018-02-24 18:05 | Discharge Summary ---
This is updated summary from 2017, which was the last summary that was dictated. Please refer to my previous discharge summary on 02/13/2018. Since then, the patient was originally going to go home with home antibodies, but could not afford his home antibiotics, but now has stayed in the hospital until his new insurance kicks in, which allows him to go to residential facility. Prior to that, he was not allowed to go. Arrangements were made with Dr. Gusman to accept the patient at [facility]. He will Dr. Osborne for cardiology, Dr. Lucio Mon for infectious disease. DISCHARGE DIAGNOSES 1. Osteomyelitis. Requiring 6 weeks of IV antibiotics. 2. Congestive heart failure, ejection fraction 35% to 40%. 3. Old apical septal myocardial infarction, . 4. Iron deficiency anemia hemoglobin 8.5. 5. Elevated troponin possibly due to chronic kidney disease rather acute myocardial infarction. 6. Chronic kidney disease, creatinine 1.9. 7. Peripheral neuropathy. 8. Severe hypertension. 9. Hyperlipidemia. 10. Orthostatic blood pressure drop with dizziness. At the time of discharge the patient's blood pressure was 160/76. KEITH POWERS MD Job#: [id number]
[2018-02-24] MEDS: SODIUM CHLORIDE 0.9% 1000ML 1,000 ML IV SCH (20:13)
[2018-02-24] MEDS: ATORVASTATIN 20 MG TAB PO SCH (20:13)
[2018-02-25] VITALS: BP 177/81
[2018-02-25 04:00] VITALS: BP 161/76
[2018-02-25 07:25] VITALS: BP 149/75
[2018-02-25 07:44] VITALS: BP 149/75
[2018-02-25] MEDS: GLIMEPIRIDE 2 MG TAB PO SCH (08:00)
[2018-02-25] MEDS: HYDRALAZINE HCL 25 MG TAB PO SCH (09:20)
[2018-02-25] MEDS: CLONIDINE HCL 0.1 MG TAB PO SCH (09:20)
[2018-02-25] MEDS: ASPIRIN 81 MG ENTERIC COATED PO SCH (09:20)
[2018-02-25] MEDS: FERROUS SULFATE 325 MG TAB PO SCH (09:21)
[2018-02-25] MEDS: CLOPIDOGREL BISULFATE 75 MG TAB PO SCH (09:21)
[2018-02-25] MEDS: TERAZOSIN HCL 1 MG CAP PO SCH (09:21)
[2018-02-25] MEDS: SITAGLIPTIN 100 MG TAB PO SCH (09:21)
[2018-02-25] MEDS: CARVEDILOL 12.5 MG TAB PO SCH (09:21)
[2018-02-25] MEDS: AMLODIPINE BESYLATE 10 MG TAB PO SCH (09:21)
[2018-02-25 11:35] VITALS: BP 160/82
[2018-02-25] MEDS: CEFEPIME HCL 1 GM VIAL IV SCH (11:41)
== END 2018-02-25 13:20 | DRG 264 ==
LOC: FSED 09:56 → MED/SURG3 15:23
PROVIDERS: ADMIT Internal Medicine Cardiovascular Disease; ATTEND Internal Medicine Cardiovascular Disease
PROC: 0JBR0ZZ Excision of Left Foot Subcutaneous Tissue and Fascia, Open Approach (ICD-10-PCS; principal; 2018-02-12)
PROC: 02HV33Z Insertion of Infusion Device into Superior Vena Cava, Percutaneous Approach (ICD-10-PCS; 2018-02-13)
DX: I95.9 Hypotension, unspecified (principal); N18.4 Chronic kidney disease, stage 4 (severe); L03.116 Cellulitis of left lower limb; I13.0 Hypertensive heart and chronic kidney disease with heart failure and stage 1 through stage 4 chronic kidney disease, or unspecified chronic kidney disease; M86.9 Osteomyelitis, unspecified; E11.40 Type 2 diabetes mellitus with diabetic neuropathy, unspecified; I50.9 Heart failure, unspecified; E11.621 Type 2 diabetes mellitus with foot ulcer; I25.2 Old myocardial infarction; L97.529 Non-pressure chronic ulcer of other part of left foot with unspecified severity; E11.69 Type 2 diabetes mellitus with other specified complication; D50.9 Iron deficiency anemia, unspecified; I25.10 Atherosclerotic heart disease of native coronary artery without angina pectoris; Z95.5 Presence of coronary angioplasty implant and graft; R74.8 Abnormal levels of other serum enzymes; T50.1X5A Adverse effect of loop [high-ceiling] diuretics, initial encounter; E78.5 Hyperlipidemia, unspecified; Z79.4 Long term (current) use of insulin
CPT/HCPCS: 36415; 36569; 71045; 71046; 80048; 80053; 80202; 80307; 81003; 82270; 82550; 82553; 82948; 83540; 83880; 84466; 84484; 85007; 85025; 85027; 85379; 85610; 85651; 86140; 87040; 87086; 93005; 93306; 93925; 96360; 96361; 96376; 99284; J0360; J0692; J2543; J3370; J7030; J7799

== ENCOUNTER 2018-04-19 18:00 | Inpatient (IN) | payer MEDICARE, OTHER ==
[~2018-04-19] VITALS: Ht 193 cm; Wt 89.8 kg
[~2018-04-19 18:00] MED LIST changes: +AMARYL4 MG PO; +CEFEPIME 11 GM/50 ML IV; +CLONIDINE HCL0.2 MG PO; +FERROUS SULFAT325 MG PO; +FUROSEMIDE40 MG PO; +GLUCOTROL XL10 MG PO; +HYDRALAZINE HCL25 MG PO; +JANUVIA100 MG PO; +TERAZOSIN HCL1 MG PO; +ULTRAM50 MG PO; +VANCOMYCIN1 GM/250 M IV; +ZOSYN 3.373.375 GM/5 IVP
--- OUTSIDE RECORDS SUMMARY | 2018-04-19 18:03 | XMS REPORT | Continuity of Care Document ---
Author Author [facility] Organization [facility] Address [address] [place] [address] Phone Unavailable Care Team Providers Care Product Marketer Name Role Phone LUCILA WOLF PCP Insurance Providers Guarantor Petra Estrada Address [address] [place] [address] Email .WinAd Payer Miscellaneous Ppo Policy Number [id number] Subscriber's Name Petra Estrada Relationship 18 Self / Same As Patient Group Number [id number] Effective Date 15 Advance Directives Directive Response Recorded Date/Time Does the patient have an advance directive? No 02/10/18 4:30pm If yes, is advance directive on file with [facility]? No 02/10/18 4:30pm If not on file with [facility] will patient provide a copy? No 02/10/18 4:30pm Do you have a Directive to Physician? No 02/10/18 11:02am Do you have a Medical Power of Home Health Caregiver? No 02/10/18 11:02am Do you have an [...] Days Qty Instructions Start Date Amlodipine Besylate (Norvasc) 10 Mg Tab 10 Mg Oral Daily 90 Days Aspirin (Aspir 81) 81 Mg Tablet.dr 81 Mg Oral Daily Atorvastatin Calcium (Lipitor) 20 Mg Tablet 20 Mg Oral Bedtime 30 Tab Calcitriol 0.25 Mcg Capsule 0.25 Mg Oral Daily 30 Tab Carvedilol (Coreg) 25 Mg Tab 12.5 Mg Oral Twice A Day Cefepime Hcl/Dextrose, Iso-Osm (Cefepime 1 Gm Injection) 1 Gm/50 Ml Froz.piggy 1 G Intraven Every 12 Hours 28 Days 02/22/18 Clonidine Hcl 0.2 Mg Tablet 0.2 Mg Oral Twice A Day 90 Days Clopidogrel Bisulfate (Plavix) 75 Mg Tablet 75 Mg Oral Daily 30 Tab Ferrous Sulfate 325 Mg Tablet 325 Mg Pe Oral Daily 90 Days 02/13/18 Glimepiride (Amaryl) 4 Mg Tablet 4 Mg Oral Daily 90 Days 02/13/18 Hydralazine Hcl 25 Mg Tab 25 Mg Oral Three Times A Day 90 Days Multivitamin (Multivitamins) 1 Each Capsule 1 Tab Oral Daily Sitagliptin Phosphate (Januvia) 100 Mg Tablet 100 Mg Oral Daily 30 Tab 02/13/18 Terazosin Hcl 1 Mg Capsule 2 Mg Oral Twice A Day 180 Cap 02/13/18 Tramadol Hcl (Ultram) 50 Mg Tablet 50 Mg Oral Every 4 Hours as needed for Pain Vancomycin/0.9% Sod Chloride (Vancomycin-0.9% Nacl 1 G/250) 1 Gm/250 Ml Plast..bag 1 Gm Intraven Daily 28 Days 02/22/18 Past Home Medications Medication Directions Ordered Status Amlodipine Besylate 10 Mg Tablet, 20 Mg Oral Daily Discontinued Atorvastatin Calcium 20 Mg Tablet, 20 Mg Oral Daily Discontinued Furosemide (Lasix) 40 Mg Tablet, 40 Mg Oral Twice A Day Discontinued Glimepiride (Amaryl) 1 Mg Tablet, 4 Mg Oral Twice A Day Discontinued Hydralazine Hcl 50 Mg Tablet, 75 Mg Oral Three Times A Day Discontinued Hydrochlorothiazide 25 Mg Tablet, 12.5 Mg [...] Onset Date Status Hx Psychiatric Problems No 02/10/2018 4:30pm Not Applicable Not Applicable Hx Eating Disorder No 02/10/2018 4:30pm Not Applicable Not Applicable Hx Substance Use Disorder No 02/10/2018 4:30pm Not Applicable Not Applicable Hx Depression No 02/10/2018 4:30pm Not Applicable Not Applicable Hx Alcohol Use No 02/10/2018 4:30pm Not Applicable Not Applicable Hx Substance Use Treatment No 02/10/2018 4:30pm Not Applicable Not Applicable Hx Physical Abuse No 02/10/2018 4:30pm Not Applicable Not Applicable Smoking Status Start Date Stop Date Never Smoker Hospital Discharge Instructions No hospital discharge instruction information available. Plan of Care Discharge Date 02/25/18 1:20pm Disposition [facility] ([facility]) Prescriptions See Medication Section Referrals KEITH POWERS MD (Cardiology) Order Date: 5-7 Days Entered Date: 02/13/2018 10:13am Address: [address] [place] [address] LUCILA WOLF (Family Practice) Order Date: 5-7 Days Entered Date: 02/13/2018 10:13am Address: [address] [place], [place] [id number] CHRISTOFER NORMAN DPM (Podiatry) Order Date: 7-10 Days Entered Date: 02/13/2018 10:43am Address: [address] [place] [address] [address] [place] [address] Functional Status Query Response Date Recorded FUNCTIONAL STATUS . February 12, 2018 4:24pm Ambulation Ability Independent February 10, 2018 4:48pm Toileting Ability Minimum Assistance February 25, 2018 9:53am Allergies, Adverse Reactions, Alerts No known allergies. Immunizations No immunization information available. Vital Signs Acute Vital Signs Vital Response Date/Time Temperature (Fahrenheit) 97.5 degrees F (97.6 - 99.5) 02/25/2018 11:35am Pulse Pulse Rate (adult) 73 bpm (60 - 90) 02/25/2018 11:35am Respiratory Rate 18 bpm (12 - 24) 02/25/2018 11:35am Blood Pressure 160/82 mm Hg 02/25/2018 11:35am Height 6 ft 4 in 02/10/2018 10:00am Weight 201.44 lb 02/23/2018 5:20am Body Mass Index 24.5 kg/m^2 02/23/2018 5:20am Results Laboratory Results Test Name Result Units [...] H 0 06/14/2017 11:39am 06/14/2017 12: 09pm Prothrombin Time 11.7 seconds L 11.9-14.5 10/03/2017 [...] CLEAR 10/03/2017 9:00am 10/03/2017 1:28pm Urine Specific [place] 1.015 1.010-1.025 10/03/2017 9:00am 2016 1:28pm Urine [...] /LPF NONE 10/03/2017 9:00am 10/03/2017 1: 38pm Hemoglobin A1c Percent 6.6 % 4.0-7.0 10/03/2017 8:41am 10/03/2017 4: 12pm Triglycerides Level 87 MG/DL 0-149 10/03/2017 8:41am 10/03/2017 4:18pm Cholesterol Level 133 MD/DL 0-199 10/03/2017 8:41am 10/03/2017 4:18pm Less than 200 mg/dL Low Risk 201 - 239 mg/dL Borderline Risk 240 mg/dl and greater High Risk LDL Cholesterol 74 MG/DL 60-130 10/03/2017 8:41am 10/03/2017 4:18pm HDL Cholesterol 42 MG/DL 40-60 10/03/2017 8:41am 10/03/2017 4:18pm Cholesterol/HDL Ratio 3.2 L 3.9-4.7 10/03/2017 8:41am 10/03/2017 4: 18pm B-Type Natriuretic Peptide 1353.3 pg/mL H 0-100 10/03/2017 8:41am 2016 9:34am Thyroid Stimulating Hormone (TSH) 1.362 uIU/mL 0.350-4.940 10/03/2017 8: 41am 10/03/2017 4:35pm Rapid Plasma Reagin Non Reactive Non Reactive 10/03/2017 8:41am 10/04 5:51am Performed at: - [facility] [id number] Senior Site Manager: Toby Colon MD, Phone: [phone] White Blood Count 8.45 x10e3/uL 4.8-10.8 02/23/2018 2:20pm 02/23/2018 2 :37pm Red Blood Count 3.17 x10e6/uL L 4.3-5.7 02/23/2018 2:20pm 02/23/2018 2: 37pm Hemoglobin 8.5 g/dL L 14.0-18.0 02/23/2018 2:20pm 02/23/2018 2:37pm Hematocrit 26.4 % L 38.2-49.6 02/23/2018 2:20pm 02/23/2018 2:37pm Mean Corpuscular Volume 83.3 fL 81-99 02/23/2018 2:20pm 02/23/2018 2: 37pm Mean Corpuscular Hemoglobin 26.8 pg L 28-32 02/23/2018 2:20pm 2017 2:37pm Mean Corpuscular Hemoglobin Concent 32.2 g/dL 31-35 02/23/2018 2:20pm 02/23/2018 2:37pm Red Cell Distribution Width 13.8 % 11.7-14.4 02/23/2018 2:20pm 2017 2:37pm Platelet Count 264 x10e3/uL 140-360 02/23/2018 2:20pm 02/23/2018 2: 37pm Neutrophils (%) (Auto) 78.0 % 38.7-80.0 02/23/2018 2:20pm 02/23/2018 2: 37pm Lymphocytes (%) (Auto) 10.9 % L 18.0-39.1 02/23/2018 2:20pm 02/23/2018 2 :37pm Monocytes (%) (Auto) 8.2 % 4.4-11.3 02/23/2018 2:20pm 02/23/2018 2: 37pm Eosinophils (%) (Auto) 2.5 % 0.0-6.0 02/23/2018 2:20pm 02/23/2018 2: 37pm Basophils (%) (Auto) 0.2 % 0.0-1.0 02/23/2018 2:20pm 02/23/2018 2:37pm IM GRANULOCYTES % 0.2 % 0.0-1.0 02/23/2018 2:20pm 02/23/2018 2:37pm Neutrophils # (Auto) 6.6 2.1-6.9 02/23/2018 2:20pm 02/23/2018 2:37pm Lymphocytes # (Auto) 0.9 L 1.0-3.2 02/23/2018 2:20pm 02/23/2018 2: 37pm Monocytes # (Auto) 0.7 0.2-0.8 02/23/2018 2:20pm 02/23/2018 2:37pm Eosinophils # (Auto) 0.2 0.0-0.4 02/23/2018 2:20pm 02/23/2018 2:37pm Basophils # (Auto) 0.0 0.0-0.1 02/23/2018 2:20pm 02/23/2018 2:37pm Absolute Immature Granulocyte (auto 0.02 x10e3/uL 0-0.1 02/23/2018 2: 20pm 02/23/2018 2:37pm Erythrocyte Sedimentation Rate 79 mm/hr H 0-13 02/22/2018 1:pm 2017 3:22pm Sodium Level 138 mmol/L 136-145 02/23/2018 2:02/23/2018 3:05pm Potassium Level 4.4 mmol/L 3.5-5.1 02/23/2018 2:02/23/2018 3:05pm Chloride Level 106 mmol/L 98-107 02/23/2018 2:02/23/2018 3:05pm Carbon Dioxide Level 25 mmol/L 22-29 02/23/2018 2:02/23/2018 3: 05pm Anion Gap 11.4 mmol/L 8-16 02/23/2018 2:02/23/2018 3:05pm Blood Urea Nitrogen 28 mg/dL H 7-26 02/23/2018 2:2002/23/2018 3:05pm Creatinine 1.90 mg/dL H 0.72-1.25 02/23/2018 2:2002/23/2018 3:05pm BUN/Creatinine Ratio 15 6-25 02/23/2018 2:2002/23/2018 3:05pm Estimat Glomerular Filtration Rate 36 ML/MIN L 60- 02/23/2018 2:20 3:05pm Ranges were taken from the National Kidney Disease Education Program and the National Kid[employer] Foundation literature. Reference ranges: 60 or greater: Normal 16-59 (for 3 consecutive months): Chronic kidney disease 15 or less: Kidney failure Glucose Level 154 mg/dL H 74-118 02/23/2018 2:20pm 02/23/2018 3:05pm Calcium Level 8.5 mg/dL 8.4-10.2 02/23/2018 2:20pm 02/23/2018 3:05pm Bedside Glucose 156 mg/dL H 70-120 02/25/2018 10:58am 02/25/2018 11: 32am Meter ID: [id number] Iron Level 21 ug/dL L 65-175 02/13/2018 6:58am 02/13/2018 10:06am Total Iron Binding Capacity 238 ug/dL L 261-478 02/13/2018 6:58am 2017 10:06am Percent Iron Saturation 9 % L 15-50 02/13/2018 6:58am 02/13/2018 10: 06am Transferrin 170 mg/dL L 174-364 02/13/2018 6:58am 02/13/2018 10:06am Total Bilirubin < 0.3 mg/dL 0.2-1.2 02/19/2018 6:20am 02/19/2018 7: 29am Aspartate Amino Transf (AST/SGOT) 11 IU/L 5-34 02/19/2018 6:20am 2017 7:29am Alanine Aminotransferase (ALT/SGPT) 9 IU/L 0-55 02/19/2018 6:20am 02/19 7:29am Total Protein 6.0 g/dL L 6.5-8.1 02/19/2018 6:20am 02/19/2018 7:29am Albumin 2.4 g/dL L 3.5-5.0 02/19/2018 6:20am 02/19/2018 7:29am Globulin 3.6 g/dL H 2.3-3.5 02/19/2018 6:20am 02/19/2018 7:29am Albumin/Globulin Ratio 0.7 L 0.8-2.0 02/19/2018 6:20am 02/19/2018 7: 29am Alkaline Phosphatase 76 IU/L 40-150 02/19/2018 6:20am 02/19/2018 7: 29am Creatine Kinase 83 IU/L 30-200 02/12/2018 7:05am 02/12/2018 8:18am Creatine Kinase MB 1.60 ng/mL 0-5.0 02/12/2018 7:05am 02/12/2018 8: 22am Troponin I 0.336 ng/mL H 0-0.300 02/12/2018 7:05am 02/12/2018 8:22am Vancomycin Level Peak 25 ug/mL 20-40 02/15/2018 3:50pm 02/15/2018 4: 19pm Random Vancomycin Level 11.1 ug/mL 02/13/2018 6:58am 02/13/2018 7: 54am Vancomycin Level Trough 14.3 ug/mL *H 5.0-10.0 02/23/2018 2:20pm 2017 3:02pm Results called to SARAH ALEJANDRO at 1459 on 02/23/18 by Roseann Michael. RB OK. C-Reactive Protein 16.3 mg/L H 0.0-4.9 02/22/2018 1:25pm 02/23/2018 9: 42pm Performed at: [facility] [id number] Senior Site Manager: Toby Colon MD, Phone: [phone] Stool Occult Blood POSITIVE H NEGATIVE 02/20/2018 2:13pm 02/20/2018 2: 47pm Microbiology Results Procedure Source Organism/Result Collection Date/Time Result Date/Time Result Status Blood Culture Blood NO GROWTH AFTER 5 DAYS, FINAL REPORT 02/11/2018 1:33pm 02/16/2018 1:33pm Final [address] [address] Patient Name: PETRA ESTRADA MR # :[id number] : 1955 Age/Sex: 62/M Admit Physician: KEITH POWERS MD Admit Date: 02/10/18 Location/Room/Bed: [facility]- 288-1 Discharge Date: Report: Discharge Summary CLINICAL HISTORY: This is a 62-year-old man admitted via the emergency room because orthostatic dizziness with drop in blood pressure and because of elevated troponin, CK-MB. This patient has previous history of coronary artery disease, status post previous stent. However, he denied any previous myocardial infarction. However, his echocardiogram showed ejection fraction of 35% to 40% with apical and septal hypokinesis consistent with previous myocardial infarction. However, his repeat cardiac enzymes maxed out only at 0.97 troponin and MB maxed out at the time of admission with all MB values being normal. The patient had no chest pain and EKG showed no acute changes. This suggests that he had his myocardial infarction in the distant past and he was not aware of it. His creatinine at the time of admission was 2.0. Subsequently, dropped to 1.7 even though we cut back his diuretics from Lasix 40 mg b.i.d. to 40 mg daily. Because of renal insufficiency, this prevented us from doing a heart catheterization to find out for sure since the patient is asymptomatic and we believe his myocardial infarction is in the distant past and his elevated troponin may be related to renal insufficiency, we decided the risk is not worth the benefit to find out the information at this time. Should he develop chest pain, cardiac catheterization at that time may be more appropriate. In the meantime, we corrected his orthostatic hypotension. His resting blood pressure however remains extremely high. We had to add additional blood pressure medications to bring it under control. His blood sugar was ranging between 67 to 223 with sliding scale insulin, as well as Amaryl. We decided to add Januvia 100 mg per day. The patient had mild anemia, hemoglobin 11 to 10.7. TIBC was normal. Iron was 21. Saturation was 9%. Transferrin was low also at 170. We decided to give him iron sulfate 325 mg per day. He may require colonoscopy on an outpatient basis. Stool guaiac is pending. The patient had complained of left foot infection. Apparently, it has been going on for at least 1 week perhaps 2. Podiatry consultation was obtained with Dr. Norman, infectious disease consultation with Dr. Mon. X-ray had shown osteomyelitis. The patient was started on vancomycin followed by Zosyn. He will require long-term antibiotics. We considered Zosyn on outpatient basis and PICC line. His final decision will be up to infectious disease. The patient was seen by Dr. Norman dental instrument maker, who did debridement, did not recommend amputation. The patient will follow up further on outpatient basis with Dr. Norman, will see me for cardiology, will see Dr. Lucila Wolf for antibiotics. DISCHARGE DIAGNOSES 1. Orthostatic hypotension probably due to excessive diuretics with Lasix cutdown from 40 mg twice a day to 40 mg daily. 2. Osteomyelitis of the left foot requiring 4 to 6 weeks of intravenous antibiotics on outpatient basis with peripherally inserted central catheter line. 3. Iron-deficiency anemia requiring future colonoscopy. Stool guaiac is pending. 4. 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 5. Elevated troponin probably related to chronic kidney disease rather than acute myocardial infarction at this time. 6. History of coronary stenting in the distant past, 6 or 7 years ago. 7. Congestive heart failure, ejection fraction 35% to 40%. 8. Chronic kidney disease stage 4. Initial creatinine 2.0 and glomerular filtration rate 32 with stage improving to 3 at the time of discharge with creatinine of 1.76 and glomerular filtration rate improving to 39. 9. Peripheral neuropathy related to diabetes. 10. Severe hypertension requiring patient on antihypertensives with Lasix decreased to once a day. 11. Hyperlipidemia. 12. Orthostatic blood pressure drop with dizziness. DISCHARGE MEDICATIONS 1. Iron sulfate 325 mg p.o. daily. 2. Amlodipine 10 mg p.o. daily. 3. Lasix 40 mg daily. 4. Hydralazine 25 mg t.i.d. 5. Piperacillin/tazobactam (Zosyn) 3.375 mg IV q.12 h. 6. Januvia 100 mg p.o. daily. 7. Terazosin 2 mg p.o. b.i.d. 8. Amaryl 4 mg p.o. daily. 9. Aspirin 81 mg p.o. daily. 10. Atorvastatin 20 mg p.o. daily. 11. Calcitriol 0.25 mg p.o. daily. 12. Coreg 12.5 mg b.i.d. 13. Plavix 75 mg daily. 14. Multivitamin 1 tablet p.o. daily. 15. Ultram 50 mg p.o. q.4 h. p.r.n. pain. The patient was given activity, diet, medication and followup instructions. Will see Dr. Norman, Dr. Lucila Wolf and my office in 1 week. Job#: [id number] DE cc: LUCILA WOLF M.D. Dictated By: KEITH POWERS MD Transcribed By: [facility] on 02/13/18 <Electronically signed by KEITH POWERS MD>02/19/18 1004 Procedures Procedure Status Date Provider(s) US abdomen complete Active 06/14/17 VALENTINA HERMOSILLO MD Complete non-obstetrical ultrasound of pelvis Active 06/14/17 VALENTINA HERMOSILLO MD Computed tomography of chest without contrast Active 10/03/17 GERARDO LAIRD MD Encounters Encounter Location Arrival/Admit Date Discharge/Depart Date Attending Provider Discharged Inpatient [facility] 02/10/18 3:23pm 02/25/18 1:20pm KEITH POWERS MD Departed Emergency Room [facility] 10/03/17 8:07am 4:00pm GERARDO LAIRD MD Discharged Inpatient (obs) [facility] 06/14/17 12:33pm 1:13pm VALENTINA HERMOSILLO MD
--- OUTSIDE RECORDS SUMMARY | 2018-04-19 18:03 | XMS REPORT | Clinical Summary ---
Author Author KARRI CanpagesBear Lake Memorial HospitalSmartVaultWest [facility] Organization [facility] Address Unknown Phone Unavailable Care Team Providers Care Enrichment Director Name Role Phone PCP Unavailable Allergies No Known Allergies Current Medications Prescription Sig. Disp. Refills Start End Date Status Date glimepiride (AMARYL) 1 MG Take 1 mg by mouth 2 Active tablet (two) times daily. lisinopril Take 40 mg by mouth Active (PRINIVIL,ZESTRIL) 40 MG daily. tablet amLODIPine (NORVASC) 10 Take 10 mg by mouth 2 Active MG tablet (two) times daily. aspirin 81 MG EC tablet Take 81 mg by mouth Active daily. atorvastatin (LIPITOR) 20 Take 20 mg by mouth Active MG tablet daily. metoprolol (TOPROL-XL) 25 Take 25 mg by mouth 2 Active MG 24 hr tablet (two) times daily. furosemide (LASIX) 40 MG Take 40 mg by mouth 2 Active tablet (two) times daily. acetaminophen (TYLENOL) Take 1 tablet (500 mg 30 tablet 0 11/23/20 12/03/19 500 MG tablet total) by mouth every 4 17 18 (four) hours as needed for up to 10 days. docusate sodium (COLACE) Take 1 capsule (100 mg 10 capsule 0 11/23/20 12/03/19 100 MG capsule total) by mouth 2 (two) 17 18 times daily for 10 days. 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 Elevated serum creatinine 03/21/2013 Anemia 03/21/2013 Encounters Date Type Specialty Care Team Description 11/22/2017 Orders Only General Internal Medicine 11/21/2017 Hospital Cardiology Thomas Clark, Acute on chronic systolic - Encounter congestive heart failure 11/23/2017 Lucie Nichols MD (FORMERLY [facility]);Type 2 diabetes mellitus with complication, unspecified intermediate accountant insulin use status (FORMERLY [facility]);Hypertension, unspecified type;Hyperlipidemia, unspecified hyperlipidemia type after 04/18/2017 Family History Medical History Relation Name Comments Diabetes Father Heart disease Father Heart disease Mother Relation Name Status Comments Father Mother Social History Tobacco Use Types Packs/Day Years Used Date Never Smoker Smokeless Tobacco: Never Used Alcohol Use Drinks/Week oz/Week Comments No Sex Assigned at Date Recorded Not on file Last Filed Vital Signs Vital Sign Reading Time Taken Blood Pressure 154/77 11/23/2017 3:34 PM [facility] Pulse 76 11/23/2017 3:34 PM [facility] C[facility] Temperature 36.7 C (98.1 F) 11/23/2017 12:11 PM [facility] C[facility]TER Respiratory Rate 18 11/23/2017 3:34 PM [facility] CUTTER Oxygen Saturation 95% 11/23/2017 3:34 PM [facility] C[facility]TER Inhaled Oxygen - - Concentration Weight 98.9 kg (218 lb) 11/23/2017 7:25 AM F[facility]RIC CUTTER Height 193 cm (6' 4") 11/21/2017 11:05 PM [facility] C[facility]TER Body Mass Index 26.54 11/23/2017 7:25 AM FABRIC CUTTER Plan of Treatment Health Maintenance Due Date Last Done Comments INFLUENZA VACCINE 08/26/2018 Results * RHYTHM STRIP - SCAN (12/18/2017 1:13 PM) Only the most recent of 2 results within the time period is included. * EKG-SCANNED (11/28/2017 8:01 AM) * POC-Glucose meter (11/23/2017 3:36 PM) Only the most recent of 11 results within the time period is included. Component Value Ref Range POC-Glucose Meter 169 (H)Comment: TESTED AT [facility] [address] 70 - 110 mg /dL [facility] [id number] Specimen Performing Laboratory Blood [address] [address] * ECHOCARDIOGRAM REPORT - SCAN (11/23/2017 2:20 PM) * CBC with platelet count + automated diff (11/23/2017 5:06 AM) Only the most recent of 3 results within the time period is included. Component Value Ref Range WBC 6.7 3.5 - 10.5 K/ L RBC 3.43 (L) 4.63 - 6.08 M/ L Hemoglobin 9.7 (L) 13.7 - 17.5 GM/DL Hematocrit 30.0 (L) 40.1 - 51.0 % MCV 87.5 79.0 - 92.2 fL MCH 28.3 25.7 - 32.2 pg MCHC 32.3 32.3 - 36.5 GM/DL RDW 13.2 11.6 - 14.4 % Platelets 252 150 - 450 K/CU MM MPV 11.4 9.4 - 12.4 fL nRBC 0 0 - 0 /100 WBC % Neutros 64 % % Lymphs 20 % % Monos 12 % % Eos 3 % % Baso 1 % # Neutros 4.28 1.78 - 5.38 K/ L # Lymphs 1.33 1.32 - 3.57 K/ L # Monos 0.82 0.30 - 0.82 K/ L # Eos 0.22 0.04 - 0.54 K/ L # Baso 0.04 0.01 - 0.08 K/ L Immature 0 0 - 1 % Granulocytes-Relative Specimen Performing Laboratory Blood - Arm, Right [address] [address] * CBC with platelet count + automated diff (11/23/2017 5:06 AM) Only the most recent of 3 results within the time period is included. Specimen Performing Laboratory Blood Narrative The following orders were created for panel order CBC with platelet count + automated diff. Procedure Abnormality Status --------- - ------ CBC with platelet count ...[[id number]]AbnormalFinal result Please view results for these tests on the individual orders. * B-type Natriuretic Factor (BNP) (11/23/2017 5:06 AM) Only the most recent of 2 results within the time period is included. Component Value Ref Range BNP 2656 (H) 0 - 100 pg/mL Specimen Performing Laboratory Blood - Arm, [address] [address] * Magnesium (11/23/2017 5:06 AM) Only the most recent of 3 results within the time period is included. Component Value Ref Range Magnesium 2.0 1.6 - 2.6 mg/dL Specimen Performing Laboratory Blood - Arm, [address] [address] * Basic metabolic panel (11/23/2017 5:06 AM) Only the most recent of 3 results within the time period is included. Component Value Ref Range Sodium 142 136 - 145 meq/L Potassium 3.5 3.5 - 5.1 meq/L Chloride 109 (H) 98 - 107 meq/L CO2 23 22 - 29 meq/L BUN 40 (H) 7 - 21 mg/dL Creatinine 2.30 (H) 0.57 - 1.25 mg/dL Glucose 64 (L) 70 - 105 mg/dL Calcium 9.0 8.4 - 10.2 mg/dL EGFR 29Comment: ESTIMATED GFR IS NOT ACCURATE mL/min/1.73 sq m CREATININE CLEARANCE IN PREDICTING GLOMERULAR FILTRATION RATE. ESTIMATED GFR IS NOT APPLICABLE FOR DIALYSIS PATIENTS. Specimen Performing Laboratory Blood - Arm, [address] [address] * 2D Echo W/Doppler(CW/PW/Color) (11/22/2017 2:09 PM) Component Value Ref Range Ejection Fraction Specimen Performing Laboratory [facility] Narrative Transthoracic Echocardiography Report (TTE) Demographics Patient NameGONZALES, RUDOLPHDate of Study11/22/2017 TAMRA Gender Male Visit [id number] Race Unknown [id number] Number Date of 1955 [facility] Physician Thomas Clark MD Age 62 year(s) Ms Access Database Developer Solomon Ambrocio [facility] Freight Weigher Rosemary Verdin [facility] Interpreting Diogenes Muller MD Physician Procedure Type of Study TTE procedure:2DECHO W DOPPLER(CW/PW/COLOR) (Routine) Indications:Shortness of breath. Clinical History Anemia Chest Pain Diabetes Hypertension Hyperlipidemia Height: 76 inches Weight: 98.88 kg (218 lbs) BSA: 2.3 m^2 BMI: 26.54 kg/m^2 HR: 80 bpm BP: 155/78 mmHg Summary 1. The left ventricle is chamber size (by vol index) is severely enlarged. All apical figueroa, mid anterior and anteroseptal figueroa are severely hypokinetic. LVEF by Poon's method of disk assessment is moderately reduced (30-34%). Grade 2 diastolic dysfunction (moderately increased LA pressure). LA size is mildly enlarged (35-41 ml/m2) . 2. The right ventricular chamber size and systolic function are within normal limits. RA size is normal. Estimated peak systolic PA pressure is 40-45 mmHg . 3. Mild to moderate functional mitral regurgitation. Mild tricuspid regurgitation. Previous Study No prior exam available for comparison. Signature Findings Technical Quality: Technically difficult exam. Rhythm/BPRegular sinus rhythm during the exam. Left Ventricle The left ventricle is chamber size (by vol index ) is severely enlarged (male - LVED vol >100ml/m2). Discrete basal septal hypertrophy is present. All apical figueroa, mid anterior and anteroseptal figueroa are severely hypokinetic. The other segments contract normally. Global LV systolic function moderately reduced . LVEF by Poon's method of disk assessment is moderately reduced (30-34%) . Grade 2 diastolic dysfunction ( moderately increased LA pressure). Left AtriumLA is adequately visualized. LA size is mildly enlarged (35- 41 ml/m2) . Right VentricleThe right ventricular chamber size and systolic function are within normal limits. Right Atrium RA size is normal. Aortic Valve Mild AoV cusp calcification. No evidence of aortic regurgitation. No evidence of aortic stenosis. Mitral Valve Moderate mitral annular calcification. Mild to moderate functional mitral regurgitation. Leze-[id number]-qqnvqcbv MV leaflet calcification. Tricuspid ValveTV structure is normal. Mild tricuspid regurgitation. Estimated peak systolic PA pressure is 40-45 mmHg . Pulmonic Valve Normal PV structure and function by limited views and Doppler. AortaAortic root size (SInus of Valsalva diameter) is normal . PericardiumA trivial pericardial effusion is present . IVC/SVC/PA/PV/PleuralThe inferior vena cava is adequately visualized. The inferior vena cava size is normal . The estimated RA pressure by IVC dynamics 0-5mmHg . Chambers/Structures Left Atrium LA Volume: 94.67 ml LA Area: 26.11 cm^2 LA Vol. Index: 41 ml/m^2 Left Ventricle LVIDd: 5.81 cm LV Septum Diastolic: 1.72 cm LV PW Diastolic: 1.42 cm LVEDV Poon's:234.42 ml LVESV Poon's:157.69 ml LVEF Poon's: 32.7 % LVEDVI: 102 ml/m ^2 LVESVI: 69 ml/m^2 LVOT Diameter: 2.05 cm Aorta Ao Root S of Shivani.: 3.46 cm Doppler/Quantitative Measurements Mitral Valve MV Peak E-Wave: 1.66 m/sMV Peak A-Wave: 1.1 m/s E/ A Ratio: 1.5 Mean Velocity: 1.16 m/s Peak Gradient: 10.96 mmHg Mean Gradient: 6.08 mmHgDeceleration Time: 176.3 msec Area (continuity): 1.64 cm^2 MV VTI: 44.82 cm MV Sebastian. Peak: 1.91 m/s Tissue Doppler E' Septal Velocity: 0.03 m/sA' Septal Velocity: 0.05 m/s Aortic Valve Peak Velocity: 1.81 m/sMean Velocity: 1.34 m/s Peak Gradient: 13.08 mmHgMean Gradient: 7.82 mmHg AV Area (continuity): 1.94 cm^2 AV VTI: 37.88 cm AV DVI: 0.59 LVOT Peak Velocity: 0.95 m/s Peak Gradient: 3.62 mmHg Mean Velocity: 0.7 m/sMean Gradient: 2.12 mmHg LVOT Diameter: 2.05 cmLVOT VTI: 22.25 cm LVOT Area: 3.3 cm^2 LVOT SV:73.4 ml LVOT CO: 5.87 l/min LVOT CI: 2.55 l/min/m^2 Tricuspid Valve TR Velocity: 3.13 m/s TR Gradient: 39.14 mmHg Procedure Note Interface, External Ris In - 11/23/2017 1:43 PM [facility] CUTTER Transthoracic Echocardiography Report (TTE) Demographics Patient Name PETRA ESTRADA Date of Study 11/22/2017 TAMRA Gender Male Visit Number [id number] Race Unknown Room Number 1463 Number Date of 1955 Referring [place] Physician Thomas Clark MD Age 62 year(s) Ms Access Database Developer Solomon Ambrocio [employer] Freight Weigher Rosemary Verdin [facility] Interpreting Diogenes Muller MD Physician Procedure Type of Study TTE procedure:2DECHO W DOPPLER(CW/PW/COLOR) (Routine) Indications:Shortness of breath. Clinical History Anemia Chest Pain Diabetes Hypertension Hyperlipidemia Height: 76 inches Weight: 98.88 kg (218 lbs) BSA: 2.3 m^2 BMI: 26.54 kg/m^2 HR: 80 bpm BP: 155/78 mmHg Summary 1. The left ventricle is chamber size (by vol index) is severely enlarged. All apical figueroa, mid anterior and anteroseptal figueroa are severely hypokinetic. LVEF by Poon's method of disk assessment is moderately reduced (30-34%). Grade 2 diastolic dysfunction (moderately increased LA pressure). LA size is mildly enlarged (35-41 ml/m2) . 2. The right ventricular chamber size and systolic function are within normal limits. RA size is normal. Estimated peak systolic PA pressure is 40-45 mmHg . 3. Mild to moderate functional mitral regurgitation. Mild tricuspid regurgitation. Previous Study No prior exam available for comparison. Signature Findings Technical Quality: Technically difficult exam. Rhythm/BP Regular sinus rhythm during the exam. Left Ventricle The left ventricle is chamber size (by vol index) is severely enlarged (male - LVED vol >100ml/m2). Discrete basal septal hypertrophy is present. All apical figueroa, mid anterior and anteroseptal figueroa are severely hypokinetic. The other segments contract normally. Global LV systolic function moderately reduced . LVEF by Poon's method of disk assessment is moderately reduced (30-34%) . Grade 2 diastolic dysfunction (moderately increased LA pressure). Left Atrium LA is adequately visualized. LA size is mildly enlarged (35-41 ml/m2) . Right Ventricle The right ventricular chamber size and systolic function are within normal limits. Right Atrium RA size is normal. Aortic Valve Mild AoV cusp calcification. No evidence of aortic regurgitation. No evidence of aortic stenosis. Mitral Valve Moderate mitral annular calcification. Mild to moderate functional mitral regurgitation. Owlc-qa-vgbzymmb MV leaflet calcification. Tricuspid Valve TV structure is normal. Mild tricuspid regurgitation. Estimated peak systolic PA pressure is 40-45 mmHg . Pulmonic Valve Normal PV structure and function by limited views and Doppler. Aorta Aortic root size (SInus of Valsalva diameter) is normal . Pericardium A trivial pericardial effusion is present . IVC/SVC/PA/PV/Pleural The inferior vena cava is adequately visualized. The inferior vena cava size is normal . The estimated RA pressure by IVC dynamics 0-5mmHg . Chambers/Structures Left Atrium LA Volume: 94.67 ml LA Area: 26.11 cm^2 LA Vol. Index: 41 ml/m^2 Left Ventricle LVIDd: 5.81 cm LV Septum Diastolic: 1.72 cm LV PW Diastolic: 1.42 cm LVEDV Poon's:234.42 ml LVESV Poon's:157.69 ml LVEF Poon's: 32.7 % LVEDVI: 102 ml/m^2 LVESVI: 69 ml/m^2 LVOT Diameter: 2.05 cm Aorta Ao Root S of Shivani.: 3.46 cm Doppler/Quantitative Measurements Mitral Valve MV Peak E-Wave: 1.66 m/s MV Peak A-Wave: 1.1 m/s E/A Ratio: 1.5 Mean Velocity: 1.16 m/s Peak Gradient: 10.96 mmHg Mean Gradient: 6.08 mmHg Deceleration Time: 176.3 msec Area (continuity): 1.64 cm^2 MV VTI: 44.82 cm MV Sebastian. Peak: 1.91 m/s Tissue Doppler E' Septal Velocity: 0.03 m/s A' Septal Velocity: 0.05 m/s Aortic Valve Peak Velocity: 1.81 m/s Mean Velocity: 1.34 m/s Peak Gradient: 13.08 mmHg Mean Gradient: 7.82 mmHg AV Area (continuity): 1.94 cm^2 AV VTI: 37.88 cm AV DVI: 0.59 LVOT Peak Velocity: 0.95 m/s Peak Gradient: 3.62 mmHg Mean Velocity: 0.7 m/s Mean Gradient: 2.12 mmHg LVOT Diameter: 2.05 cm LVOT VTI: 22.25 cm LVOT Area: 3.3 cm^2 LVOT SV:73.4 ml LVOT CO: 5.87 l/min LVOT CI: 2.55 l/min/m^2 Tricuspid Valve TR Velocity: 3.13 m/s TR Gradient: 39.14 mmHg * NM lung scan (V/Q) (11/22/2017 12:31 PM) Specimen Performing Laboratory [employer] FINAL REPORT PROCEDURE: V/Q LUNG SCAN CPT CODE: 90512 INDICATION: Acute chest pain, positive d-dimer PROTOCOL: 10.8 mCi ofXe-133 gas was administered by inhalation. Rebreathing/washout images were obtained in the anterior and the posterior projections.4.3 mCi of Tc-99m MAA was then injected intravenously, and static perfusion images were obtained in multiple projections. FINDINGS: Ventilation: Initial tracer distribution is mildly decreased in the mid and lower lung harrell bilaterally. Washout is moderately delayed in the lower lung harrell. Perfusion:Tracer distribution is nonsegmentally, mildly decreased in the mid and lower lung harrell of both lungs. There is prominence of the oblique fissures. IMPRESSION: 1. Very low probability of acute pulmonary embolization. 2. Bilateral parenchymal and pleural abnormality, primarily in the lower lung harrell. Signed: Erlinda Castro MD Report Verified Date/Time:11/22/2017 13:41:06 Reading Location: [address] Reading Room Procedure Note Interface, External Ris In - 11/22/2017 1:43 PM FABRIC CUTTER FINAL REPORT PROCEDURE: V/Q LUNG SCAN CPT CODE: 01737 INDICATION: Acute chest pain, positive d-dimer PROTOCOL: [...] 1. Very low probability of acute pulmonary embolization. 2. Bilateral parenchymal and pleural abnormality, primarily in the lower lung harrell. Signed: Erlinda Castro MD Report Verified Date/Time: 11/22/2017 13:41:06 Reading Location: [address] Reading Room * XR chest 1 view portable / bedside (11/22/2017 7:42 AM) Specimen Performing Laboratory [facility] Narrative FINAL REPORT CLINICAL HISTORY: SOB TECHNIQUE: 1 view of the chest. COMPARISON: 03/19/2013 IMPRESSION: There is new pulmonary vascular congestion with bilateral lung opacities suggesting edema. There are new small bilateral pleural effusions. The cardiomediastinal silhouette is magnified by technique. Signed: Audrey Matthews MD Report Verified Date/Time:11/22/2017 08:21:23 Reading Location: [facility] Reading Room Procedure Note Interface, External Ris In - 11/22/2017 8:23 AM FABRIC CUTTER FINAL REPORT CLINICAL HISTORY: SOB TECHNIQUE: 1 view of the chest. COMPARISON: 03/19/2013 IMPRESSION: There is new pulmonary vascular congestion with bilateral lung opacities suggesting edema. There are new small bilateral pleural effusions. The cardiomediastinal silhouette is magnified by technique. Signed: Audrey Matthews MD Report Verified Date/Time: 11/22/2017 08:21:23 Reading Location: [facility] Reading Room * Troponin I (11/22/2017 6:08 AM) Only the most recent of 2 results within the time period is included. Component Value Ref Range Troponin I 0.07 (H) 0.00 - 0.03 ng/mL Specimen Performing Laboratory Blood - Line, Venous [address] [address] Narrative Troponin I (TnI) levels must be interpreted [...] failure, acidosis, acute neurological disease, and persistent tachyarrhythmia. * Hemoglobin A1c (11/22/2017 6:08 AM) Component Value Ref Range Hemoglobin A1C 6.5 (H) 4.3 - 6.1 % Specimen Performing Laboratory Blood - Line, Venous [address] [address] * Creatine Kinase (CK), Total and MB (11/22/2017 6:08 AM) Only the most recent of 2 results within the time period is included. Component Value Ref Range Total CK 79 29 - 200 U/L CK-MB 1.3 0.0 - 6.6 ng/mL MB Relative Index 1.6 % Specimen Performing Laboratory Blood - Line, Venous [address] [address] Narrative CK-MB Reference Range: <6.7Normal 6.7-10.0Borderline >10.0 Abnormal * Lipid panel (11/22/2017 6:08 AM) Component Value Ref Range Triglycerides 107 mg/dL Cholesterol 168 mg/dL HDL 33 mg/dL LDL Calculated 114 mg/dL Specimen Performing Laboratory Blood - Line, [place] [address] Narrative Triglyceride Reference Range: Low Risk <150 [id number] High Risk 200-499 Very High Risk>=500 Cholesterol Reference Range: Low Risk <200 [id number] High Risk>240 HDL Cholesterol Reference Range: Low Risk >=60 High Risk <40 LDL Cholesterol Reference Range: Optimal<100 Near [id number] Very High >=190 * Urea Nitrogen, random urine (11/22/2017 12:26 AM) Component Value Ref Range Urea Nitrogen, Ur 283 mg/dL Specimen Performing [place] [address] Narrative Reference Range: No Normals * Sodium, random urine (11/22/2017 12:26 AM) Component Value Ref Range Sodium Urine 79 meq/L Specimen Performing [place] [address] Narrative Reference Range: No Normals * Creatinine, random urine (11/22/2017 12:26 AM) Component Value Ref Range Creatinine, Ur 36.8 mg/dL Specimen Performing [place] [address] Narrative Reference Range: No Normals * Urinalysis w/ Microscopic (11/22/2017 12:26 AM) Component Value Ref Range Color, UA Light Yellow Clarity, UA Clear Specific Holden, UA 1.006 1.001 - 1.035 pH, UA 5.5 5.0 - 8.0 Protein, UA 50 mg/dL (A) Negative Glucose, UA Negative Negative Ketones, UA Negative Negative Bilirubin, UA Negative Negative Blood, UA Negative Negative Nitrite, UA Negative Negative Leukocytes, UA Negative Negative Urobilinogen, UA 0.2 0.2 - 1.0 mg/dL RBC, UA 1 /HPF WBC, UA <1 /HPF Bacteria, UA Rare Squam Epithel, UA <1 /HPF Hyaline Casts, UA 5 /LPF Specimen Source Specimen Performing [place] [address] * ECG 12 lead (11/22/2017 12:16 AM) Specimen Performing Laboratory [facility] Narrative Ventricular Rate 71 BPM Atrial Rate 71 BPM P-R Interval 190 ms QRS Duration 112 ms Q-T Interval 406 ms QTC Calculation(Bazett) 441 ms P [employer] 27 degrees R [employer] 9 degrees T [employer] 106 degrees Normal sinus rhythm Left atrial enlargement Inferior infarct (cited on or before 19-MAR-2013) Anteroseptal infarct , age undetermined ST & T wave abnormality, consider lateral ischemia Abnormal ECG When compared with ECG of 19-MAR-2013 07:16, Anteroseptal infarct is now Present T wave inversion more evident in Lateral leads Confirmed by MD Gutierrez Roberto ([id number]) on 11/22/2017 10:29:30 AM Procedure Note Interface, External Ris In - 11/22/2017 10:29 AM FABRIC CUTTER Ventricular Rate 71 BPM Atrial Rate 71 BPM P-R Interval 190 ms QRS Duration 112 ms Q-T Interval 406 ms QTC Calculation(Bazett) 441 ms P [employer] 27 degrees R [employer] 9 degrees T [employer] 106 degrees Normal sinus rhythm Left atrial enlargement Inferior infarct (cited on or before 19-MAR-2013) Anteroseptal infarct , age undetermined ST & T wave abnormality, consider lateral ischemia Abnormal ECG When compared with ECG of 19-MAR-2013 07:16, Anteroseptal infarct is now Present T wave inversion more evident in Lateral leads Confirmed by MD Gutierrez Roberto ([id number]) on 11/22/2017 10:29:30 AM after 04/18/2017
[2018-04-19] MEDS ORDERED: SODIUM CHLORIDE 0.9% 1000ML 1,000 ML IV STA (18:28)
[2018-04-19] MEDS ORDERED: ONDANSETRON HCL 4 MG ORAL DISINTEGRATING TAB PO ONE (18:30)
[2018-04-19 19:04] LABS: BASOPHILS % 0.4 % (0.0-1.0); EOSINOPHILS # (AUTO) 0.1 (0.0-0.4); EOSINOPHILS % 0.9 % (0.0-6.0); HEMATOCRIT 42.2 % (38.2-49.6); HEMOGLOBIN 13.3 g/dL (14.0-18.0); LYMPHOCYTES # (AUTO) 0.5 (1.0-3.2); LYMPHOCYTES % 5.7 % (18.0-39.1); MEAN CORPUSCULAR HEMOGLOBIN 28.6 pg (28-32); MEAN CORPUSCULAR HGB CONC 31.5 g/dL (31-35); MEAN CORPUSCULAR VOLUME 90.8 fL (81-99); MONOCYTES # (AUTO) 0.6 (0.2-0.8); MONOCYTES % 6.9 % (4.4-11.3); NEUTROPHILS # (AUTO) 7.2 (2.1-6.9); NEUTROPHILS % 85.6 % (38.7-80.0); PLATELET COUNT 337 x10e3/uL (140-360); RED BLOOD COUNT 4.65 x10e6/uL (4.3-5.7); RED CELL DISTRIBUTION WIDTH 20.2 % (11.7-14.4)
[2018-04-19 19:19] LABS: ALBUMIN 4.2 g/dL (3.5-5.0); ANION GAP 18.7 mmol/L (8-16); CALCIUM 10.4 mg/dL (8.4-10.2); CREATININE, SERUM 2.24 mg/dL (0.72-1.25); POTASSIUM 4.7 mmol/L (3.5-5.1)
[2018-04-19 19:20] LABS: ALBUMIN/GLOBULIN RATIO 1.1 (0.8-2.0)
[2018-04-19 19:26] LABS: CREATINE KINASE MB 1.5 ng/mL (0-5.0)
--- NOTE | 2018-04-19 19:41 | Diagnostic Imaging Report ---
EXAMINATION: CHEST SINGLE (NOT PORTABLE) 04/19/2018 6:28 PM COMPARISON: 02/13/2018 INDICATION: Nausea and vomiting DISCUSSION: LINES: None. LUNGS: The lungs are well inflated and clear. No pneumonia or pulmonary edema. PLEURA: No pleural effusion or pneumothorax. HEART AND MEDIASTINUM: Normal heart size. Tortuosity and atherosclerosis of the thoracic aorta. BONES AND SOFT TISSUES: Multilevel degenerative changes of the thoracic spine.. The soft tissues are normal. IMPRESSION: No acute cardiopulmonary disease. Alfred Mccracken MD Signed by: Dr. Alfred Mccracken M.D. on 04/19/2018 7:38 PM
[2018-04-19] MEDS ORDERED: SODIUM CHLORIDE 0.9% 1000ML 1,000 ML IV SCH (21:10)
[2018-04-19] MEDS ORDERED: ONDANSETRON HCL 4 MG ORAL DISINTEGRATING TAB PO PRN (21:15)
[2018-04-19] MEDS ORDERED: DEXTROSE 50% SYRINGE 50 ML IV PRN (21:15)
[2018-04-19] MEDS ORDERED: HYDRALAZINE HCL25 MG PO (21:29)
--- OUTSIDE RECORDS SUMMARY | 2018-04-19 22:57 | XMS REPORT | Clinical Summary ---
Author Author KARRI Bridgeline DigitalSt. [facility] Center[facility] Organization [facility] Address Unknown Phone Unavailable Care Team Providers Care Interpreter Translator Name Role Phone PCP Unavailable Allergies No [...] type 2 (HCC) 03/21/2013 Overview: ICD9 DX Assistant Tennis Professional Overweight 03/21/2013 Hyperlipidemia 03/21/2013 Light headed 03/21/2013 Overview: ICD9 DX Assistant Tennis Professional Elevated serum creatinine 03/21/2013 Anemia 03/21/2013 Encounters Date Type Specialty Care Team Description 11/22/2017 Orders Only General Internal Medicine 11/21/2017 Hospital Cardiology Thomas Clark, Acute on chronic systolic - Encounter congestive heart failure 11/23/2017 Lucie Nichols MD ([facility]);Type 2 diabetes mellitus with complication, unspecified intermodal dispatcher insulin use status ([facility]);Hypertension, unspecified type;Hyperlipidemia, unspecified hyperlipidemia type after 04/18/2017 [...] Taken Blood Pressure 154/77 11/23/2017 3:34 PM SAS SQL DEVELOPER Pulse 76 11/23/2017 3:34 PM SAS SQL DEVELOPER Temperature 36.7 C (98.1 F) 11/23/2017 12:11 PM SAS SQL DEVELOPER Respiratory Rate 18 11/23/2017 3:34 PM SAS SQL DEVELOPER Oxygen Saturation 95% 11/23/2017 3:34 PM SAS SQL DEVELOPER Inhaled Oxygen - - Concentration Weight 98.9 kg (218 lb) 11/23/2017 7:25 AM SAS SQL DEVELOPER Height 193 cm (6' 4") 11/21/2017 11:05 PM SAS SQL DEVELOPER Body Mass Index 26.54 11/23/2017 7:25 AM SAS SQL DEVELOPER Plan of Treatment Health Maintenance Due Date [...] Range POC-Glucose Meter 169 (H)Comment: TESTED AT [facility] [address] 70 - 110 mg /dL [facility] [address] Specimen Performing Laboratory Blood [address] [address] * ECHOCARDIOGRAM REPORT - SCAN (11/23/2017 2:20 [...] Specimen Performing Laboratory Blood - Arm, Right [address] [address] * CBC with platelet count + automated diff (11/23/2017 5:06 AM) Only the most recent of 3 results within the time period is included. Specimen Performing Laboratory Blood Narrative The following orders were created for panel order CBC with platelet count + automated diff. Procedure Abnormality Status --------- - ------ CBC with platelet count ...[[id number]]AbnormalFinal result Please view results for these tests on the individual orders. * B-type Natriuretic Factor (BNP) (11/23/2017 5:06 AM) Only the most recent of 2 results within the time period is included. Component Value Ref Range BNP 2656 (H) 0 - 100 pg/mL Specimen Performing Laboratory Blood - Arm, [address] [address] * Magnesium (11/23/2017 5:06 AM) Only the most recent of 3 results within the time period is included. Component Value Ref Range Magnesium 2.0 1.6 - 2.6 mg/dL Specimen Performing Laboratory Blood - Arm, [address] [address] * Basic metabolic panel (11/23/2017 5:06 AM) [...] PATIENTS. Specimen Performing Laboratory Blood - Arm, [address] [address] * 2D Echo W/Doppler(CW/PW/Color) (11/22/2017 2:09 PM) Component Value Ref Range Ejection Fraction Specimen Performing Laboratory [facility] Narrative Transthoracic Echocardiography Report (TTE) Demographics Patient NameGONZALES, RUDOLPHDate of Study11/22/2017 TAMRA Gender Male Visit [id number] Race Unknown [id number] Number Date of 1955 [facility] Physician Thomas Clark MD Age 62 year(s) Rotogravure Press Operator Solomon Ambrocio [facility] Nurse Leader Rosemary Verdin [facility] Interpreting Diogenes Muller MD Physician Procedure Type [...] calcification. Mild to moderate functional mitral regurgitation. Twas-it-qdexqbbm MV leaflet calcification. Tricuspid ValveTV structure is [...] External Ris In - 11/23/2017 1:43 PM SAS SQL DEVELOPER Transthoracic Echocardiography Report (TTE) Demographics Patient Name PETRA ESTRADA Date of Study 11/22/2017 TAMRA Gender Male Visit Number [id number] Race Unknown Room Number 1463 Number Date of 1955 Referring [place] Physician Thomas Clark MD Age 62 year(s) Rotogravure Press Operator Solomon Ambrocio [facility] Nurse Leader Rosemary Verdin [facility] Interpreting Diogenes Muller MD Physician Procedure Type [...] calcification. Mild to moderate functional mitral regurgitation. Ppge-jt-vyvjcfcs MV leaflet calcification. Tricuspid Valve TV structure [...] (V/Q) (11/22/2017 12:31 PM) Specimen Performing Laboratory [facility] FINAL REPORT PROCEDURE: V/Q LUNG SCAN CPT CODE: 41507 INDICATION: Acute chest pain, positive d-dimer PROTOCOL: [...] MD Report Verified Date/Time:11/22/2017 13:41:06 Reading Location: [address] Reading Room Procedure Note Interface, External Ris In - 11/22/2017 1:43 PM SAS SQL DEVELOPER FINAL REPORT PROCEDURE: V/Q LUNG SCAN CPT CODE: 33713 INDICATION: Acute chest pain, positive d-dimer PROTOCOL: [...] Report Verified Date/Time: 11/22/2017 13:41:06 Reading Location: [address] Reading Room * XR chest 1 [...] MD Report Verified Date/Time:11/22/2017 08:21:23 Reading Location: [facility] Radiology Reading Room Procedure Note Interface, External Ris In - 11/22/2017 8:23 AM SAS SQL DEVELOPER FINAL REPORT CLINICAL HISTORY: SOB TECHNIQUE: 1 view of the chest. COMPARISON: 03/19/2013 IMPRESSION: There is new pulmonary vascular congestion with bilateral lung opacities suggesting edema. There are new small bilateral pleural effusions. The cardiomediastinal silhouette is magnified by technique. Signed: Audrey Matthews MD Report Verified Date/Time: 11/22/2017 08:21:23 Reading Location: [facility] Radiology Reading Room * Troponin I (11/22/2017 6:08 AM) Only the most recent of 2 results within the time period is included. Component Value Ref Range Troponin I 0.07 (H) 0.00 - 0.03 ng/mL Specimen Performing Laboratory Blood - Line, Venous [address] [address] Narrative Troponin I (TnI) levels must be [...] Specimen Performing Laboratory Blood - Line, Venous [address] [address] * Creatine Kinase (CK), Total and MB (11/22/2017 6:08 AM) Only the most recent of 2 results within the time period is included. Component Value Ref Range Total CK 79 29 - 200 U/L CK-MB 1.3 0.0 - 6.6 ng/mL MB Relative Index 1.6 % Specimen Performing Laboratory Blood - Line, Venous [address] [address] Narrative CK-MB Reference Range: <6.7Normal 6.7-10.0Borderline >10.0 Abnormal * Lipid panel (11/22/2017 6:08 AM) Component Value Ref Range Triglycerides 107 mg/dL Cholesterol 168 mg/dL HDL 33 mg/dL LDL Calculated 114 mg/dL Specimen Performing Laboratory Blood - Line, [place] [address] Narrative Triglyceride Reference Range: Low Risk <150 [id number] High Risk 200-499 Very High Risk>=500 Cholesterol Reference Range: Low Risk <200 Cjnpkxximz592-160 High Risk>240 HDL Cholesterol Reference Range: Low Risk >=60 High Risk <40 LDL Cholesterol Reference Range: Optimal<100 Near Saukgwx583-374 Ktdhlgqchx900-552 Fbpu345-104 Very High >=190 * Urea Nitrogen, random urine (11/22/2017 12:26 AM) Component Value Ref Range Urea Nitrogen, Ur 283 mg/dL Specimen [place] [address] Narrative Reference Range: No Normals * Sodium, random urine (11/22/2017 12:26 AM) Component Value Ref Range Sodium Urine 79 meq/L Specimen [place] [address] Narrative Reference Range: No Normals * Creatinine, random urine (11/22/2017 12:26 AM) Component Value Ref Range Creatinine, Ur 36.8 mg/dL Specimen [place] [address] Narrative Reference Range: No Normals * Urinalysis w/ Microscopic (11/22/2017 12:26 AM) Component Value Ref Range Color, UA Light Yellow Clarity, UA Clear Specific Clarkrange, UA 1.006 1.001 - 1.035 pH, UA [...] /LPF Specimen Source Specimen [place] [address] * ECG 12 lead (11/22/2017 12:16 AM) Specimen Performing Laboratory [facility] Narrative Ventricular Rate 71 BPM Atrial Rate 71 BPM P-R Interval 190 ms QRS Duration 112 ms Q-T Interval 406 ms QTC Calculation(Bazett) 441 ms P Greenleaf 27 degrees R Greenleaf 9 degrees T Greenleaf 106 degrees Normal sinus rhythm Left atrial [...] External Ris In - 11/22/2017 10:29 AM SAS SQL DEVELOPER Ventricular Rate 71 BPM Atrial Rate 71 BPM P-R Interval 190 ms QRS Duration 112 ms Q-T Interval 406 ms QTC Calculation(Bazett) 441 ms P Greenleaf 27 degrees R Greenleaf 9 degrees T Greenleaf 106 degrees Normal sinus rhythm Left atrial [...]
[2018-04-19] MEDS: HYDRALAZINE HCL 20 MG/ML VIAL IV PRN (23:40)
[2018-04-20] VITALS (8 sets, daily range): BP systolic 121–155; BP diastolic 69–88
[2018-04-20] MEDS: INSULIN REGULAR, HUMAN 100 UNIT/1 ML 3ML VIAL SQ SCH ×4 (07:30→20:42)
[2018-04-20 08:47] LABS: BASOPHILS % 0.2 % (0.0-1.0); EOSINOPHILS # (AUTO) 0.1 (0.0-0.4); EOSINOPHILS % 0.6 % (0.0-6.0); HEMATOCRIT 38.1 % (38.2-49.6); LYMPHOCYTES # (AUTO) 0.6 (1.0-3.2); LYMPHOCYTES % 5.3 % (18.0-39.1); MEAN CORPUSCULAR HEMOGLOBIN 28.5 pg (28-32); MEAN CORPUSCULAR HGB CONC 31.5 g/dL (31-35); MEAN CORPUSCULAR VOLUME 90.5 fL (81-99); MONOCYTES # (AUTO) 0.7 (0.2-0.8); MONOCYTES % 7.1 % (4.4-11.3); NEUTROPHILS # (AUTO) 8.9 (2.1-6.9); NEUTROPHILS % 86.4 % (38.7-80.0); PLATELET COUNT 311 x10e3/uL (140-360); RED BLOOD COUNT 4.21 x10e6/uL (4.3-5.7); RED CELL DISTRIBUTION WIDTH 20.1 % (11.7-14.4)
[2018-04-20 09:06] LABS: ALBUMIN 3.6 g/dL (3.5-5.0); ALBUMIN/GLOBULIN RATIO 1.1 (0.8-2.0); ANION GAP 16.4 mmol/L (8-16); CALCIUM 9.5 mg/dL (8.4-10.2); CREATININE, SERUM 2.14 mg/dL (0.72-1.25); POTASSIUM 4.4 mmol/L (3.5-5.1)
[2018-04-20 10:33] LABS: LYMPHOCYTES % (MANUAL) 5 % (19-48); MONOCYTES % (MANUAL) 4 % (3.4-9.0); NEUTROPHILS % (MANUAL) 91 % (40-74); PLATELET ESTIMATE ADEQUATE; PLATELET MORPHOLOGY COMMENT NORMAL; RBC MORPHOLOGY COMMENT NORMAL
--- NOTE | 2018-04-20 13:08 | Diagnostic Imaging Report ---
EXAM: ABDOMEN-1VIEW (KUB), DATE: 04/20/2018 11:10 AM INDICATION: Nausea, vomiting starting yesterday COMPARISON: None FINDINGS: LINES/TUBES: None BOWEL PATTERN: No evidence for obstruction. SOFT TISSUES: Punctate calcification overlying the left renal silhouette may represent a renal stone or calcified ingested contents within the small bowel overlying the left kidney. Phleboliths in the pelvis. No mass effect. LUNG BASES: Unremarkable. BONES: No acute findings. IMPRESSION: Nonobstructive bowel gas pattern. Signed by: DR. Oliver Lyon MD on 04/20/2018 1:04 PM
[2018-04-20] MEDS: HYDRALAZINE HCL 100 MG TABLET PO SCH ×2 (14:00→21:00)
[2018-04-20] MEDS: ISOSORBIDE DINITRATE 20 MG TAB PO SCH ×2 (14:00→21:59)
[2018-04-20] MEDS: CARVEDILOL 12.5 MG TAB PO SCH (16:57)
[2018-04-20] MEDS: ATORVASTATIN 20 MG TAB PO SCH (21:59)
[2018-04-20] MEDS: HEPARIN SOD (PORCINE) 5,000 UNIT/ML VIAL SC SCH (21:59)
[2018-04-21] VITALS (8 sets, daily range): BP systolic 121–156; BP diastolic 69–91
[2018-04-21] MEDS: HYDRALAZINE HCL 100 MG TABLET PO SCH ×4 (00:39→21:15)
[2018-04-21] MEDS: INSULIN REGULAR, HUMAN 100 UNIT/1 ML 3ML VIAL SQ SCH ×4 (07:30→21:00)
[2018-04-21] MEDS: CARVEDILOL 12.5 MG TAB PO SCH ×2 (08:00→16:39)
[2018-04-21] MEDS: ISOSORBIDE DINITRATE 20 MG TAB PO SCH ×3 (08:26→21:15)
[2018-04-21] MEDS: CLOPIDOGREL BISULFATE 75 MG TAB PO SCH (08:26)
[2018-04-21] MEDS: HEPARIN SOD (PORCINE) 5,000 UNIT/ML VIAL SC SCH ×2 (08:27→21:16)
[2018-04-21] MEDS ORDERED: ASPIRIN 325 MG TAB PO SCH (09:00)
[2018-04-21] MEDS ORDERED: DIATRIZOATE MEGL/DIATRIZOA SOD 30 ML BTL PO ONE (11:13)
[2018-04-21] MEDS: PROMETHAZINE 12.5MG/ NACL 0.9% 12.5 MG/50 ML BAG IV PRN (11:30)
--- NOTE | 2018-04-21 13:51 | Diagnostic Imaging Report ---
EXAM: CT Abdomen and Pelvis WITHOUT contrast INDICATION: \S\nausea/vomiting \S\[id number] \S\1320 COMPARISON: KUB 04/20/2018, abdominal CT 04/10/2013 TECHNIQUE: Abdomen and pelvis were scanned utilizing a multidetector helical scanner from the lung base to the pubic symphysis without administration of IV contrast. Absence of intravenous contrast decreases sensitivity for detection of focal lesions and vascular pathology. Coronal and sagittal reformations were obtained. Routine protocol was performed. IV CONTRAST: None ORAL CONTRAST: Gastrografin COMPLICATIONS: None RADIATION DOSE: Total DLP: 569 mGy*cm Estimated effective dose: (DLP x 0.015 x size factor) mSv CTDIvol has been reviewed. It is below the limits set by the Radiation Protocol Committee (RPC). FINDINGS: LINES and TUBES: None. LOWER THORAX: Small layering pleural effusions. Coronary artery calcifications. Trace pericardial effusion. Low attenuation of the blood pool relative to myocardium suggesting anemia. HEPATOBILIARY: Low attenuating 0.5 cm lesion in segment 3 (series 2 image 28), too small to characterize but probably a cyst. No biliary ductal dilation. GALLBLADDER: No radio-opaque stones or sludge. No wall thickening. SPLEEN: No splenomegaly. PANCREAS: No focal masses or ductal dilatation. ADRENALS: No adrenal nodules KIDNEYS/URETERS: Stable bilateral perinephric stranding 04/24, likely physiologic. No hydronephrosis. No cystic or solid mass lesions. No stones. Previously noted calcification overlying the left renal silhouette on KUB 04/20/2018 corresponds to a vascular calcification. GI TRACT: Small hiatal hernia. No abnormal distention, wall thickening, or evidence of bowel obstruction. Moderate amount of stool in the colon. Appendix is normal. PELVIC ORGANS/BLADDER: Mild circumferential bladder wall thickening, likely secondary to underdistention. Prostate measures approximately 3.8 x 3.2 x 5.1 cm (32.2 cc), mildly enlarged. LYMPH NODES: No lymphadenopathy. VESSELS: Diffuse vascular calcifications. PERITONEUM / RETROPERITONEUM: No free air or fluid. BONES: There are degenerative changes in the lumbar spine. SOFT TISSUES: Small fat-containing umbilical hernia without fat stranding to suggest strangulation. IMPRESSION: 1. No acute abnormalities in the abdomen and pelvis. 2. Small bilateral pleural effusions. Signed by: DR. Olievr Lyon MD on 04/21/2018 1:48 PM
[2018-04-21] MEDS: ATORVASTATIN 20 MG TAB PO SCH (21:15)
[2018-04-22] VITALS: BP 139/78
[2018-04-22 04:00] VITALS: BP 155/89
[2018-04-22 06:15] LABS: BASOPHILS # (AUTO) 0.1 (0.0-0.1); BASOPHILS % 0.6 % (0.0-1.0); EOSINOPHILS # (AUTO) 0.7 (0.0-0.4); EOSINOPHILS % 8.3 % (0.0-6.0); HEMATOCRIT 32.2 % (38.2-49.6); HEMOGLOBIN 10.2 g/dL (14.0-18.0); LYMPHOCYTES # (AUTO) 0.8 (1.0-3.2); LYMPHOCYTES % 10.2 % (18.0-39.1); MEAN CORPUSCULAR HEMOGLOBIN 28.7 pg (28-32); MEAN CORPUSCULAR HGB CONC 31.7 g/dL (31-35); MEAN CORPUSCULAR VOLUME 90.4 fL (81-99); MONOCYTES # (AUTO) 0.9 (0.2-0.8); MONOCYTES % 11.6 % (4.4-11.3); NEUTROPHILS # (AUTO) 5.6 (2.1-6.9); NEUTROPHILS % 69.1 % (38.7-80.0); PLATELET COUNT 260 x10e3/uL (140-360); RED BLOOD COUNT 3.56 x10e6/uL (4.3-5.7); RED CELL DISTRIBUTION WIDTH 19.2 % (11.7-14.4)
[2018-04-22 06:39] LABS: CALCIUM 8.9 mg/dL (8.4-10.2); CREATININE, SERUM 1.9 mg/dL (0.72-1.25); MAGNESIUM 2.1 MG/DL (1.3-2.1)
[2018-04-22 07:02] LABS: THYROID STIMULATING HORMONE 0.864 uIU/mL (0.350-4.940)
[2018-04-22 07:21] VITALS: BP 166/94
[2018-04-22] MEDS: INSULIN REGULAR, HUMAN 100 UNIT/1 ML 3ML VIAL SQ SCH ×4 (07:30→21:00)
[2018-04-22] MEDS: HYDRALAZINE HCL 100 MG TABLET PO SCH ×3 (09:40→21:00)
[2018-04-22] MEDS: CLOPIDOGREL BISULFATE 75 MG TAB PO SCH (09:40)
[2018-04-22] MEDS: CARVEDILOL 12.5 MG TAB PO SCH ×2 (09:40→18:12)
[2018-04-22] MEDS: ISOSORBIDE DINITRATE 20 MG TAB PO SCH ×3 (09:41→21:00)
[2018-04-22] MEDS: HEPARIN SOD (PORCINE) 5,000 UNIT/ML VIAL SC SCH ×2 (11:00→21:00)
[2018-04-22] MEDS: ASPIRIN 81 MG CHEW TAB PO SCH (11:02)
--- NOTE | 2018-04-22 11:06 | Consultation ---
DATE OF CONSULTATION: April 22, 2018 INFECTIOUS DISEASE CONSULTATION REASON FOR CONSULTATION: Recently treated toe osteomyelitis. Thank you, Dr. Gusman, for asking me to see this patient. HISTORY: The patient is a 63-year-old man referred for recently treated toe osteomyelitis. He presented to the emergency department with progressive nausea and vomiting. There was no diarrhea, abdominal pain or dysuria. He denies eating out or starting new medications. He was recently hospitalized with infected left great toe ulcer and osteomyelitis. In the emergency department, he was thought to be volume depleted. The vital signs were recorded as normal. X-ray of the abdomen showed nonobstructive bowel gas pattern, and serum lipase was 11. PAST MEDICAL HISTORY: Diabetes mellitus, type 2, hypertension, hyperlipidemia, myocardial infarction, chronic kidney disease, peripheral arterial disease. PAST SURGICAL HISTORY: None. ALLERGIES: NO KNOWN DRUG ALLERGIES. MEDICATIONS: See JAN. IMMUNIZATIONS: He received pneumococcal vaccine in the past. Also, he received tetanus-diphtheria vaccination within 10 years. FAMILY HISTORY: Noncontributory. SOCIAL HISTORY: No alcohol or tobacco use. REVIEW OF SYSTEMS: As per history of present illness. The patient has tolerated a liquid diet this morning. The nausea and vomiting subsided. He denies abdominal pain, diarrhea, dysuria, cough, shortness of breath, and fever. PHYSICAL EXAM GENERAL: No acute distress, and does not appear toxic. VITAL SIGNS: T-max 99.1, pulse 80, respiratory rate 20, blood pressure 166/94. Weight 190 pounds. HEENT: Normocephalic. There is no icterus or injection of conjunctivae. There is no ear or nasal discharge. Moist oral mucosa. No pharyngeal erythema is noted. NECK: Supple. No lymphadenopathy or meningismus. LUNGS: Clear to auscultation bilaterally. HEART: Normal S1 and S2. ABDOMEN: Normal bowel sounds in all quadrants. Soft and nontender. EXTREMITIES: There is no edema, clubbing or cyanosis. The dorsalis pedis and posterior tibial pulses are difficult to palpate. The left great toe ulcer has improved compared to last encounter. There is no drainage or redness. SKIN: As per extremities. MOTOR VEHICLE EMISSIONS INSPECTOR: Awake, alert and oriented to person, place and time. There is decreased sensation and monofilament examination of the feet. Also, there is decreased vibration sensation of the feet and ankles. LABORATORY: WBC 8110, hemoglobin 7.2 platelets 260,000, neutrophils 69.1, lymphs 10.2, monos 11.6, eosinophils 8.3, basophils 0.6. BUN 28, creatinine 1.9, blood glucose 104. CT scan of the abdomen and pelvis showed no acute abnormality in the abdomen and pelvis. IMPRESSION 1. Diabetic foot ulcer involving the right great toe, not infected. 2. Left great toe osteomyelitis: Completed prescribed course of intravenous antibiotics. 3. Diabetes mellitus, type 2 with peripheral neuropathy. 4. Acute kidney injury on chronic kidney disease, improved. PLAN 1. Check erythrocyte sedimentation rate. 2. Rehydration per internal medicine. 3. Continue local wound care. Job#: [id number] YANELI LLANOS
[2018-04-22 11:43] VITALS: BP 136/75
[2018-04-22 15:27] VITALS: BP 152/88
[2018-04-22 20:00] VITALS: BP 152/90
[2018-04-22] MEDS: ATORVASTATIN 20 MG TAB PO SCH (21:00)
[2018-04-23] VITALS (8 sets, daily range): BP systolic 143–172; BP diastolic 80–97
[2018-04-23] MEDS: ZOLPIDEM TARTRATE 5 MG TAB PO PRN ×2 (00:19→23:13)
[2018-04-23] MEDS: HYDRALAZINE HCL 20 MG/ML VIAL IV PRN (04:50)
[2018-04-23] MEDS: INSULIN REGULAR, HUMAN 100 UNIT/1 ML 3ML VIAL SQ SCH ×4 (07:30→20:48)
[2018-04-23] MEDS: ASPIRIN 81 MG CHEW TAB PO SCH (08:50)
[2018-04-23] MEDS: CARVEDILOL 12.5 MG TAB PO SCH ×2 (08:50→16:44)
[2018-04-23] MEDS: HYDRALAZINE HCL 100 MG TABLET PO SCH ×3 (08:50→20:44)
[2018-04-23] MEDS: CLOPIDOGREL BISULFATE 75 MG TAB PO SCH (08:51)
[2018-04-23] MEDS: ISOSORBIDE DINITRATE 20 MG TAB PO SCH ×3 (08:51→20:44)
[2018-04-23] MEDS: HEPARIN SOD (PORCINE) 5,000 UNIT/ML VIAL SC SCH ×2 (08:51→20:46)
[2018-04-23] MEDS: PROMETHAZINE 12.5MG/ NACL 0.9% 12.5 MG/50 ML BAG IV PRN (09:01)
--- NOTE | 2018-04-23 19:55 | Consultation ---
DATE OF CONSULTATION: April 23, 2018 GASTROENTEROLOGY CONSULTATION REFERRING PHYSICIAN: Dr. Rob Gusman. REASON FOR CONSULTATION: Nausea and anemia. HISTORY OF PRESENT ILLNESS: Mr. Kumar is a pleasant 63-year-old man with below history. He came in with nausea and vomiting. He is being treated for toe osteomyelitis. He is also found to be anemic with drop in hemoglobin. He has had no overt bleeding. He has never had upper endoscopy or colonoscopy. Currently he maintains nausea but has not been vomiting. Has history of constipation. PAST MEDICAL HISTORY: 1. Diabetes. 1. Hypertension. 2. Dyslipidemia. 3. Coronary artery disease with history of infarction. 4. Chronic kidney disease. 5. Peripheral arterial disease. 6. Osteomyelitis. MEDICATIONS/ALLERGIES: REVIEWED. PLEASE SEE MAR MEDICATION RECONCILIATION FORM. SOCIAL HISTORY: No alcohol, tobacco or illicit substance. FAMILY HISTORY: Reviewed. Noncontributory. REVIEW OF SYSTEMS: Ten-system review is positive for that mentioned in history of present illness, otherwise unremarkable. PHYSICAL EXAMINATION: GENERAL: Pleasant, alert, oriented, in no acute distress. HEENT: Pupils equal, round, reactive to light. NECK: Supple. LUNGS: Clear. CARDIAC: S1 and S2. ABDOMEN: Soft, nontender, nondistended. Normal bowel sounds. EXTREMITIES: No clubbing, cyanosis or edema. PSYCH: Calm, cooperative. NEUROLOGIC: Nonfocal. HEME/ONC: No bruising or adenopathy. SKIN: He does have a tender spot on his right wrist at a prior IV site which is erythematous and warm to touch. The electronic health records reviewed for laboratory and radiologic studies as well as history. ASSESSMENT: 1. Nausea. 2. Anemia. 3. Osteomyelitis. 4. Renal insufficiency. 5. Right wrist IV site possibly developing an infection or superficial thrombophlebitis. PLAN: 1. Defer the IV site to Primary. 2. Will plan upper endoscopy for further evaluation of his nausea and anemia. Risks, benefits, alternatives and the procedure itself were discussed, and he is in agreement. Will plan for this tomorrow morning. Thank you very much for asking me to see Mr. Kumar. Any questions or concerns, please do not hesitate to contact me. Will follow with you. Job#: [id number] EV
[2018-04-23] MEDS: ATORVASTATIN 20 MG TAB PO SCH (20:44)
[2018-04-24] VITALS (7 sets, daily range): BP systolic 125–176; BP diastolic 75–102
[2018-04-24] MEDS: INSULIN REGULAR, HUMAN 100 UNIT/1 ML 3ML VIAL SQ SCH ×4 (07:30→21:00)
[2018-04-24] MEDS: CLOPIDOGREL BISULFATE 75 MG TAB PO SCH (09:00)
[2018-04-24] MEDS: HEPARIN SOD (PORCINE) 5,000 UNIT/ML VIAL SC SCH ×2 (09:00→21:00)
[2018-04-24] MEDS: ASPIRIN 81 MG CHEW TAB PO SCH (09:00)
[2018-04-24] MEDS: CARVEDILOL 12.5 MG TAB PO SCH ×2 (09:40→16:30)
[2018-04-24] MEDS: ISOSORBIDE DINITRATE 20 MG TAB PO SCH ×3 (09:45→21:00)
[2018-04-24] MEDS: HYDRALAZINE HCL 100 MG TABLET PO SCH ×3 (09:45→21:00)
[2018-04-24] MEDS: BACITRACIN ZINC 15 GM OINT TOP SCH ×2 (11:10→17:45)
[2018-04-24] MEDS: COLLAGENASE 5 GM TUBE TOP SCH (11:10)
[2018-04-24] MEDS: PANTOPRAZOLE SOD 40 MG TABEC PO SCH (13:30)
[2018-04-24] MEDS ORDERED: PROPOFOL IV EMULSION 10 MG/ML 50 ML VIAL ONE (15:25)
[2018-04-24] MEDS ORDERED: FENTANYL CITRATE/PF 100MCG/2 ML INJ ONE (20:08)
[2018-04-24] MEDS ORDERED: MIDAZOLAM HCL 2 MG/2 ML VIAL ONE (20:08)
[2018-04-24] MEDS: ATORVASTATIN 20 MG TAB PO SCH (21:00)
[2018-04-25] VITALS (7 sets, daily range): BP systolic 78–177; BP diastolic 50–95
[2018-04-25] MEDS: HYDRALAZINE HCL 20 MG/ML VIAL IV PRN (05:04)
[2018-04-25] MEDS: INSULIN REGULAR, HUMAN 100 UNIT/1 ML 3ML VIAL SQ SCH ×4 (07:30→21:00)
[2018-04-25] MEDS ORDERED: PANTOPRAZOLE SOD 40 MG TABEC PO SCH (07:30)
[2018-04-25] MEDS: HEPARIN SOD (PORCINE) 5,000 UNIT/ML VIAL SC SCH ×2 (09:00→21:00)
[2018-04-25] MEDS: PANTOPRAZOLE SOD 40 MG TABEC PO SCH (10:25)
[2018-04-25] MEDS: CLOPIDOGREL BISULFATE 75 MG TAB PO SCH (10:25)
[2018-04-25] MEDS: CARVEDILOL 12.5 MG TAB PO SCH ×2 (10:25→16:20)
[2018-04-25] MEDS: ASPIRIN 81 MG CHEW TAB PO SCH (10:25)
[2018-04-25] MEDS: ISOSORBIDE DINITRATE 20 MG TAB PO SCH ×3 (10:25→21:00)
[2018-04-25] MEDS: HYDRALAZINE HCL 100 MG TABLET PO SCH ×3 (10:25→21:00)
[2018-04-25] MEDS: BACITRACIN ZINC 15 GM OINT TOP SCH ×2 (10:31→17:18)
[2018-04-25] MEDS: COLLAGENASE 5 GM TUBE TOP SCH (10:31)
[2018-04-25] MEDS: FUROSEMIDE 40 MG TAB PO SCH ×2 (11:25→17:18)
[2018-04-25] MEDS: ATORVASTATIN 20 MG TAB PO SCH (21:00)
[2018-04-25] MEDS: ZOLPIDEM TARTRATE 5 MG TAB PO PRN (22:00)
[2018-04-26 00:56] VITALS: BP 142/74
[2018-04-26 05:57] VITALS: BP 161/91
[2018-04-26] MEDS: FUROSEMIDE 40 MG TAB PO SCH (06:00)
[2018-04-26] MEDS: INSULIN REGULAR, HUMAN 100 UNIT/1 ML 3ML VIAL SQ SCH ×2 (07:30→11:30)
[2018-04-26 07:44] VITALS: BP 166/99
[2018-04-26] MEDS: ISOSORBIDE DINITRATE 20 MG TAB PO SCH (09:00)
[2018-04-26] MEDS: ASPIRIN 81 MG CHEW TAB PO SCH (09:00)
[2018-04-26] MEDS: HEPARIN SOD (PORCINE) 5,000 UNIT/ML VIAL SC SCH (09:00)
[2018-04-26] MEDS: PANTOPRAZOLE SOD 40 MG TABEC PO SCH (09:00)
[2018-04-26] MEDS: BACITRACIN ZINC 15 GM OINT TOP SCH (09:00)
[2018-04-26] MEDS: HYDRALAZINE HCL 100 MG TABLET PO SCH (09:01)
[2018-04-26] MEDS: CLOPIDOGREL BISULFATE 75 MG TAB PO SCH (09:01)
[2018-04-26] MEDS: CARVEDILOL 12.5 MG TAB PO SCH (09:02)
[2018-04-26 11:11] VITALS: BP 166/99
[2018-04-26 11:48] VITALS: BP 116/75
[2018-04-26] MEDS: COLLAGENASE 5 GM TUBE TOP SCH (12:11)
[2018-04-26] MEDS ORDERED: PANTOPRAZOLE SO40 MG PO (14:58)
--- NOTE | 2018-04-27 00:05 | Discharge Summary ---
PRIMARY CARE DOCTOR: Dr. Sylvain Wolf FINAL DIAGNOSIS: Erosive gastritis. SECONDARY DIAGNOSES: 1. Chronic systolic congestive heart failure, stable. 2. Uncontrolled hypertension, better. 3. Stage 3 chronic kidney disease due to diabetes, stable. 4. Left toe osteomyelitis, status post recent long-term intravenous antibiotic, resolving. 5. Peripheral vascular disease. 6. Old myocardial infarction. CONSULTANTS: 1. Dr. Mon, infectious disease. 2. Dr. Bowman, GI. PROCEDURES/STUDIES PERFORMED: 1. CT of the abdomen and pelvis was benign. 2. EGD. HISTORY: Per H and P. HOSPITAL COURSE: Patient was admitted with intractable nausea, vomiting. CT was unremarkable, therefore GI was consulted. Subsequently, EGD was done, which showed erosive gastritis. Protonix was started and each day patient was getting better and today he is stable for discharge. He will continue Protonix and follow up with Dr. Bowman in 2 weeks. As far as his left toe osteomyelitis, Dr. Mon was consulted. ESR is normal, therefore he does not need any more antibiotics. The wound is healing, we just need to continue wound care. Patient was seen and examined today. It took 32 minutes to discharge this patient today. CONDITION ON DISCHARGE: Improved. DISCHARGE MEDICATIONS: Please see medication reconciliation form. BLANCA JONES M.D. Job#: [id number] cc:SYLVAIN WOLF M.D.
== END 2018-04-26 15:20 | disposition home or self-care (01) | DRG 378 ==
LOC: ER 18:00 → ERHOLD 22:54 → IMCU 04-20 00:42 → OBSVTOIN 04-23 09:46 → MED/SURG3 04-23 14:39
PROVIDERS: ADMIT Internal Medicine; ATTEND Internal Medicine
PROC: 0DB68ZX Excision of Stomach, Via Natural or Artificial Opening Endoscopic, Diagnostic (ICD-10-PCS; 2018-04-24)
PROC: 0DB38ZX Excision of Lower Esophagus, Via Natural or Artificial Opening Endoscopic, Diagnostic (ICD-10-PCS; 2018-04-24)
PROC: 0DB78ZX Excision of Stomach, Pylorus, Via Natural or Artificial Opening Endoscopic, Diagnostic (ICD-10-PCS; principal; 2018-04-24 09:00)
DX: K29.01 Acute gastritis with bleeding (principal); I13.0 Hypertensive heart and chronic kidney disease with heart failure and stage 1 through stage 4 chronic kidney disease, or unspecified chronic kidney disease; N18.4 Chronic kidney disease, stage 4 (severe); N17.9 Acute kidney failure, unspecified; I50.22 Chronic systolic (congestive) heart failure; M86.8X7 Other osteomyelitis, ankle and foot; E11.22 Type 2 diabetes mellitus with diabetic chronic kidney disease; E11.621 Type 2 diabetes mellitus with foot ulcer; L97.519 Non-pressure chronic ulcer of other part of right foot with unspecified severity; I25.2 Old myocardial infarction; I25.10 Atherosclerotic heart disease of native coronary artery without angina pectoris; D64.9 Anemia, unspecified; E11.69 Type 2 diabetes mellitus with other specified complication; Z79.4 Long term (current) use of insulin; K31.7 Polyp of stomach and duodenum; K44.9 Diaphragmatic hernia without obstruction or gangrene; K29.81 Duodenitis with bleeding; E86.0 Dehydration
CPT/HCPCS: 36415; 43239; 71045; 74018; 74176; 80048; 80053; 82550; 82553; 82948; 83690; 83735; 84443; 84484; 85025; 85651; 85730; 88305; 88312; 93005; 96372; 96376; 99284; G0378; J0360; J1644; J2250; J2550; J7030

== ENCOUNTER 2018-05-19 22:38 | Inpatient (IN) | payer MEDICARE, OTHER ==
[~2018-05-19] VITALS: Ht 193 cm; Wt 89.8 kg
[~2018-05-19 22:38] MED LIST changes: +PANTOPRAZOLE SO40 MG PO
[2018-05-19] MEDS ORDERED: PANTOPRAZOLE 40 MG 10ML VIAL IV STA (22:50)
[2018-05-19] MEDS ORDERED: ONDANSETRON HCL INJ 2 MG/ML VIAL IV STA (22:50)
[2018-05-19 23:25] LABS: BASOPHILS % 0.1 % (0.0-1.0); EOSINOPHILS # (AUTO) 0.1 (0.0-0.4); EOSINOPHILS % 0.5 % (0.0-6.0); HEMATOCRIT 32.9 % (38.2-49.6); HEMOGLOBIN 11.1 g/dL (14.0-18.0); LYMPHOCYTES # (AUTO) 0.3 (1.0-3.2); LYMPHOCYTES % 2.5 % (18.0-39.1); MEAN CORPUSCULAR HEMOGLOBIN 28.7 pg (28-32); MEAN CORPUSCULAR HGB CONC 33.7 g/dL (31-35); MONOCYTES # (AUTO) 0.9 (0.2-0.8); MONOCYTES % 6.4 % (4.4-11.3); NEUTROPHILS # (AUTO) 12.1 (2.1-6.9); NEUTROPHILS % 90.1 % (38.7-80.0); PLATELET COUNT 193 x10e3/uL (140-360); RED BLOOD COUNT 3.87 x10e6/uL (4.3-5.7); RED CELL DISTRIBUTION WIDTH 16.5 % (11.7-14.4)
[2018-05-19 23:34] LABS: INR 1.23; PROTHROMBIN TIME 14.6 seconds (11.9-14.5)
[2018-05-19 23:35] LABS: PARTIAL THROMBOPLASTIN TIME 38.3 seconds (23.8-35.5)
[2018-05-19] MEDS ORDERED: HYDRALAZINE HCL25 MG PO (23:44)
[2018-05-19] MEDS ORDERED: LASIX40 MG PO (23:44)
[2018-05-19] MEDS ORDERED: GLIMEPIRIDE2 MG PO (23:44)
[2018-05-19 23:45] LABS: ALBUMIN 3.1 g/dL (3.5-5.0); ALBUMIN/GLOBULIN RATIO 0.9 (0.8-2.0); ANION GAP 13.9 mmol/L (8-16); CALCIUM 9.1 mg/dL (8.4-10.2); CREATININE, SERUM 2.06 mg/dL (0.72-1.25); MAGNESIUM 1.5 MG/DL (1.3-2.1); POTASSIUM 3.9 mmol/L (3.5-5.1)
--- NOTE | 2018-05-20 00:22 | Diagnostic Imaging Report ---
CHEST SINGLE (PORTABLE), 05/19/2018 10:50 PM Technique: CHEST SINGLE (PORTABLE) Comparison: 04/19/2018. Clinical history: Chest pain Findings: Heart/mediastinum: Normal for portable technique. Lungs/pleural spaces: Mild bibasilar opacities, left greater than right. Small right and possible left pleural effusion. Impression: Small effusions with bibasilar opacities which may be due to atelectasis. Aspiration or infection could be considered at the left lung base in the proper clinical context. Signed by: Dr Lorie Cordova MD on 05/20/2018 12:18 AM
[2018-05-20] MEDS ORDERED: NEOMYCIN/POLYMYX/BACITR OINT 0.9 GM PKT TOP ONE (00:30)
[2018-05-20] MEDS ORDERED: FUROSEMIDE INJ 10 MG/ML 4 ML VIAL IV SCH ×2 (01:15→13:30)
[2018-05-20] MEDS ORDERED: MORPHINE SULFATE 2 MG/ML SYR IV PRN (01:15)
[2018-05-20] MEDS ORDERED: DEXTROSE 50% SYRINGE 50 ML IV PRN (01:15)
[2018-05-20] MEDS ORDERED: FAMOTIDINE 20 MG/2 ML VIAL IV SCH (01:15)
[2018-05-20] MEDS ORDERED: ONDANSETRON HCL INJ 2 MG/ML VIAL IV PRN (01:15)
[2018-05-20 02:56] LABS: BILIRUBIN,URINE NEGATIVE (NEGATIVE); CLARITY,URINE CLEAR (CLEAR); COLOR,URINE YELLOW (YELLOW); KETONES,URINE NEGATIVE (NEGATIVE); LEUKOCYTE ESTERASE ,URINE NEGATIVE (NEGATIVE); NITRITE,URINE NEGATIVE (NEGATIVE); PROTEIN,URINE DIPSTICK 2+ (NEGATIVE); URINE UROBILINOGEN 0.2 mg/dL (0.2 - 1)
[2018-05-20 03:08] LABS: BACTERIA,URINE RARE /HPF; EPITHELIAL CELLS,URINE RARE /LPF; MUCUS,URINE MODERATE (RARE)
[2018-05-20] MEDS: INSULIN REGULAR, HUMAN 100 UNIT/1 ML 3ML VIAL SQ SCH ×4 (07:30→20:56)
[2018-05-20] MEDS ORDERED: ASPIRIN 325 MG TAB EC PO SCH (09:00)
[2018-05-20 10:00] VITALS: BP_SYST 147; BP_SYST 151; BP_DIAS 87; BP_DIAS 98
[2018-05-20 10:12] VITALS: BP 151/87
[2018-05-20 11:57] VITALS: BP 154/95
--- NOTE | 2018-05-20 13:06 | Consultation ---
DATE OF CONSULTATION: May 20, 2018 CARDIOLOGY CONSULTATION CLINICAL HISTORY: This is a 63-year-old man well known to me from previous evaluations, admitted via the emergency room because of chest pains lasting for 15 minutes, associated with EKG showing old anteroseptal myocardial infarction and possible left ventricular aneurysm. Initial CK, CK-MB were normal with troponin elevated. This patient has a history of chronic kidney disease, creatinine 2.06, with history of chronically elevated troponin as a result. Sixteen years ago he had acute myocardial infarction elsewhere. He was evaluated in February and January with an echocardiogram showing apical septal akinesis, dyskinesis, consistent with previous myocardial infarction, ejection fraction 35% to 40%. He has occasional chest pains at home but they are rare. On the day of admission at approximately 9 p.m., he started vomiting 6 times, appears to be dry heave since the food he just ate did not come up. He has had similar problems in March and April when he was hospitalized for the same. Upper endoscopy was done by Dr. Angelita Bowman. Following this, he started having chest tightness approximately half an hour later. This was relatively mild. He admits to chronic shortness of breath and has been sleeping sitting up for several days. He did take some Lasix with improvement in shortness of breath. He became concerned and came to the emergency room. EKG when compared to the previous EKG is essentially unchanged. Troponin was slightly elevated at 0.7. Cardiology consultation requested. We have reviewed all his records and decided it is not a STEMI and therefore did not require going to the laboratory chemist, particularly since his chest pain had resolved after 1 nitroglycerin in the ambulance en route. PAST MEDICAL HISTORY: Is remarkable for osteomyelitis treated with chronic antibiotics. He stayed at [facility] for a while and eventually went to rehab in [place] for another month. There is history of orthostatic hypotension, diabetes, systemic hypertension, hyperlipidemia, peripheral neuropathy. Family history of coronary artery disease. PERSONAL AND SOCIAL HISTORY: He denied drinking, smoking. 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 For several months he has not returned back to work. FAMILY HISTORY: Father, grandfather had myocardial infarction. Mother with diabetes. Brother had diabetes. PAST SURGICAL HISTORY: None. REVIEW OF SYSTEMS: Noncontributory. PHYSICAL EXAMINATION: VITAL SIGNS: He has stable vital signs. CARDIAC: Jugular veins are not distended. S1 and S2 are regular. There is no appreciable murmur. LUNGS: Clear. ABDOMEN: Soft. Bowel sounds are present. EXTREMITIES: No cyanosis, clubbing or edema. IMPRESSION: 1. Chronically elevated troponin of 0.7. Probably more related to renal insufficiency rather than acute myocardial infarction with CK, CK-MB being normal as has been the case during his hospitalization in January of this year here at [facility]. 2. Atypical chest pains lasting for 15 minutes, relieved by nitroglycerin by ambulance en route. He has had these pains every 4 years or so, and his myocardial infarction was 16 years ago. 3. Ischemic cardiomyopathy. Ejection fraction 35% to 40% with apical dyskinesis. 4. Congestive heart failure. The patient is still orthopneic despite taking Lasix 40 mg b.i.d. 5. History of orthostatic hypotension, limiting mild diuretics that can be used. 6. Chronic kidney disease, creatinine 2.0, limiting option of doing a heart catheterization. The patient has had a nuclear stress test 2 years ago, reportedly was negative. 7. Diabetes. 8. Hyperlipidemia. 9. History of hypertension. 10. Peripheral neuropathy. 11. Family history of coronary artery disease. RECOMMENDATION: If there are further chest pains, consider cardiac catheterization since the patient has already had a recent (2 years ago by his report) negative chemical stress test. The risk of cardiac catheterization is significant for his kidneys, and this has been explained and understood. Job#: [id number] EV cc:MD LUCILA WALSH MD
[2018-05-20 13:22] LABS: CREATINE KINASE MB 1.1 ng/mL (0-5.0)
[2018-05-20 14:27] LABS: CHOL/HDL RATIO 2.6 (3.9-4.7)
--- NOTE | 2018-05-20 14:49 | History and Physical ---
This 63 year old was hospitalized through the emergency room. He reported nausea and vomiting times several. Thereafter, some vague chest pain lasting approximately 15 minutes. EKG with small anterior Q. Mild elevation of troponin. Patient reported some shortness of breath. He stated he was also concerned as he had been told in the previous admission that he was dehydrated on admission. Recent EGD with gastritis here, prior admission recent. The patient reports ND elsewhere 16 years prior. Echo with apical septal akinesis consistent with previous ND. Ejection fraction 40%. Patient states he had a a normal stress study, "chemical" approximately 4 years ago elsewhere. Patient states he has been diabetic for 5 years. He states his diabetes is well controlled. He denies headache or visual change. States he has not seen his ophthalmological professional recently. He states he has rare occasional chest discomfort and is sedentary. He does not work at this time. He states he was given nitroglycerin in the ambulance on the way here and the pain resolved. He was seen by Dr. Lopez today. See notes. The patient denies diarrhea. Denies symptoms. Neuromuscular: He was treated recently for infection involving the large toe of the left foot. Prior notes here indicates the patient had been treated for osteomyelitis with surgery by Dr. Segovia and with several weeks on IV antibiotics elsewhere. He has a persistent ulcer. Denies prior major surgery. FAMILY HISTORY: Positive for coronary disease in father and grandfather. Mother with diabetes. Brother with diabetes. Patient denies tobacco. Denies alcohol. ER lab reviewed. PHYSICAL EXAMINATION GENERAL: Patient is in bed and is in no distress. VITALS: Temperature 98.9, pulse 88 and regular, respiratory rate 18, BP 150/90, O2 sat 98%. HEENT: Pupils round and reactive. No icterus or pallor. Throat clear. NECK: Supple. Carotids palpable and weak. No bruit. PULMONARY: Auscultation grossly clear although ER chest x-ray with small effusions. CARDIAC: S1 and S2 distant. ABDOMEN: Soft. Bowel sounds normal. EXTREMITIES: With markedly dampened pulses not palpable in the lower extremities. A 1 x 2 cm superficial ulcer, stage 2 over the left medial large toe. DTRs depressed. Sensation trace depressed. Strength fair. The patient uses a cane. Initial white count elevated at 13.4, hemoglobin 11.1. INR 1.23. Urinalysis with 6-10 red cells, 6-10 white cells per high power field. CPKs and CK-MB normal. Troponin I on admission 7.01. Followup levels similar at 6.8 and 6.4. IMPRESSION 1. Gastritis. 2. Chronically elevated troponin. 3. 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 4. Rule out coronary disease. 5. Atypical chest pain: Patient states he had prior myocardial infarction 16 years ago. Ejection fraction recently 35% to 40% with apical dyskinesis. 6. Small effusions. 7. Congestive heart failure: Chronic left ventricular systolic. 8. History of orthostasis. 9. Hyper lipoproteinemia. 10. History of primary hypertension. 11. Diabetic neuropathy. 12. History of peripheral vascular disease with associated osteomyelitis of the large toe on the left foot treated according to the patient with surgery and several weeks of intravenous antibiotics. Persistent small ulcer. Patient says he has had recent Dopp scan of the lower extremities, but none is available in the medical records here at this time this admission or his admission on April 23, 2018. To continue home meds. Assure oxygenation. The patient was on Lasix prior to admission. Further assess chest pain per cardiology as cardiology feels indicated. Patient was advised again that angiography would entail some renal risk, which could be significant. See also initial and followup orders. Job#: [id number] YANELI
[2018-05-20] MEDS: HYDRALAZINE HCL 25 MG TAB PO SCH ×2 (15:14→20:55)
[2018-05-20] MEDS: FAMOTIDINE 20 MG/2 ML VIAL IV SCH ×2 (15:14→20:55)
[2018-05-20 16:49] VITALS: BP 146/84
[2018-05-20] MEDS ORDERED: NON-FORMULARY MEDICATION (Carvedilol (Coreg) 12.5 MG) PO SCH (17:00)
[2018-05-20] MEDS ORDERED: GLIMEPIRIDE 2 MG TAB PO SCH (17:00)
[2018-05-20] MEDS: CARVEDILOL 12.5 MG TAB PO SCH (17:34)
[2018-05-20] MEDS: FUROSEMIDE 40 MG TAB PO SCH (17:34)
[2018-05-20 19:57] LABS: CREATINE KINASE MB 0.8 ng/mL (0-5.0)
[2018-05-20 20:00] VITALS: BP 134/76
[2018-05-20] MEDS ORDERED: ACETAMINOPHEN 325 MG TAB PO PRN (20:45)
[2018-05-20] MEDS: ATORVASTATIN 20 MG TAB PO SCH (20:55)
--- NOTE | 2018-05-20 22:08 | Diagnostic Imaging Report ---
FOOT LEFT COMPLETE HISTORY: Osteomyelitis. COMPARISON: None FINDINGS: Bones: Nondisplaced fracture of the distal epiphysis is of the proximal first phalanx There is evidence of bony erosions at the medial aspect of the first toe involving the periarticular bones of the first interphalangeal joint. Joints: Narrowing of the first interphalangeal joint with evidence of fracture extension into the distal epiphysis is of the proximal first phalanx. Soft tissues: Soft tissue swelling involving the forefoot IMPRESSION: Osteomyelitis involving the first toe with evidence of nondisplaced fracture of the proximal first toe phalanx Signed by: Dr. Krish Butts M.D. on 05/20/2018 10:05 PM
[2018-05-20 23:08] VITALS: BP 134/76
[2018-05-21] VITALS (8 sets, daily range): BP systolic 134–158; BP diastolic 72–84
--- NOTE | 2018-05-21 00:08 | Consultation ---
DATE OF CONSULTATION: May 20, 2018 ATTENDING PHYSICIAN: Dr. Darryl German REASON FOR CONSULTATION: Osteomyelitis and fever. Thank you Dr. German for asking me to see this patient. HISTORY: The patient is a 63-year-old man referred for osteomyelitis and fever. He was admitted through the emergency department with [id number] moderate systolic congestive heart failure, which has been evaluated by the cardiology service. The patient presented to the emergency department on May 19, 2018 with nausea, vomiting, chest discomfort, and shortness of breath. He denies fever, abdominal pain, diarrhea, and dysuria. He was recently hospitalized with right great toe osteomyelitis and diabetic foot ulcer. He completed prescribed course of IV antibiotics with drop of ESR to normal levels. Followup evaluation on April 22, 2018 during admission for nausea and vomiting showed ESR of 6. Unfortunately, the left great toe ulcer has not healed. PAST MEDICAL HISTORY: Diabetes mellitus type 2, hypertension, hyperlipidemia, myocardial infarction, chronic kidney disease, and peripheral arterial disease. PAST SURGICAL HISTORY: None. ALLERGIES: NO KNOWN DRUG ALLERGIES. MEDICATIONS: See MAR. IMMUNIZATIONS: Received pneumococcal vaccination in the past. FAMILY HISTORY: Noncontributory. SOCIAL HISTORY: No alcohol or tobacco use. REVIEW OF SYSTEMS: As per history of present illness. A temperature of 100.2 was recorded this evening, although the patient denies feeling feverish. Further questioning revealed that the temperature was taken right after eating warm food. He denies cough at this point. Also, there is no chest pain. He feels much better with oxygen supplementation. The vomiting has subsided. He denies abdominal pain, diarrhea, constipation, and dysuria. PHYSICAL EXAMINATION: GENERAL: In no acute distress and does not appear toxic. VITAL SIGNS: T-max 100.2, pulse 91, respiratory rate 18, blood pressure 134/76. Weight 198 pounds. HEENT: Normocephalic. There is no icterus or injection of conjunctivae. There is no ear or nasal discharge. Moist oral mucosa. No pharyngeal erythema or exudate. NECK: Supple. No lymphadenopathy or meningismus. LUNGS: Few basilar rales. HEART: Normal S1 and S2. ABDOMEN: Normal bowel sounds in all quadrants. Soft and nontender. EXTREMITIES: There is no edema, clubbing, or cyanosis. There is an ulcer with serosanguineous discharge and slough on the medial aspect of the left great toe. The dorsalis pedis and posterior tibial pulses are weak to palpation. SKIN: As per extremity. No acute erythema. CERAMIC TILE INSTALLATION HELPER: Awake, alert, and oriented to person, place, and time. There is decreased sensation on monofilament examination of the feet. Nonfocal. LABORATORY AND DIAGNOSTICS: May 19, 2018, WBC 13,460; hemoglobin 11.1; platelets 193,000; neutrophil 90.1; lymphs 2.5; monos 6.4; eosinophils 0.5; basophil 0.1. BUN 30, creatinine 2.06. May 19, 2018, BNP 3011. Lipase 6. Chest x-ray showed small effusion with bibasilar opacities. IMPRESSION: 1. Diabetic foot ulcer involving the left great toe. 2. Treated osteomyelitis. 3. Nausea and vomiting. 4. Systolic congestive heart failure. 5. Diabetes mellitus type 2 with peripheral neuropathy. 6. Chronic kidney disease. PLAN: 1. Check erythrocyte sedimentation rate. 2. Reconsult podiatry service for left great toe ulcer if not yet done. 3. Continue local wound care. 4. Cardiology input has been noted. Thank you. Job#: [id number]
[2018-05-21 06:12] LABS: BASOPHILS % 0.5 % (0.0-1.0); EOSINOPHILS # (AUTO) 0.4 (0.0-0.4); EOSINOPHILS % 6.2 % (0.0-6.0); HEMATOCRIT 32.6 % (38.2-49.6); HEMOGLOBIN 10.8 g/dL (14.0-18.0); LYMPHOCYTES # (AUTO) 0.9 (1.0-3.2); LYMPHOCYTES % 14.3 % (18.0-39.1); MEAN CORPUSCULAR HEMOGLOBIN 28.6 pg (28-32); MEAN CORPUSCULAR HGB CONC 33.1 g/dL (31-35); MEAN CORPUSCULAR VOLUME 86.5 fL (81-99); MONOCYTES # (AUTO) 0.6 (0.2-0.8); MONOCYTES % 9.9 % (4.4-11.3); NEUTROPHILS # (AUTO) 4.1 (2.1-6.9); NEUTROPHILS % 68.8 % (38.7-80.0); PLATELET COUNT 201 x10e3/uL (140-360); RED BLOOD COUNT 3.77 x10e6/uL (4.3-5.7); RED CELL DISTRIBUTION WIDTH 16.5 % (11.7-14.4)
[2018-05-21 06:36] LABS: ALBUMIN 2.7 g/dL (3.5-5.0); ALBUMIN/GLOBULIN RATIO 0.8 (0.8-2.0); ANION GAP 13.3 mmol/L (8-16); CALCIUM 9.3 mg/dL (8.4-10.2); CREATININE, SERUM 2.53 mg/dL (0.72-1.25); POTASSIUM 4.3 mmol/L (3.5-5.1)
[2018-05-21] MEDS: INSULIN REGULAR, HUMAN 100 UNIT/1 ML 3ML VIAL SQ SCH ×4 (07:30→20:15)
[2018-05-21] MEDS: FUROSEMIDE 40 MG TAB PO SCH ×2 (09:11→17:45)
[2018-05-21] MEDS: HYDRALAZINE HCL 25 MG TAB PO SCH ×3 (09:11→20:15)
[2018-05-21] MEDS: FAMOTIDINE 20 MG/2 ML VIAL IV SCH ×2 (09:11→20:15)
[2018-05-21] MEDS: CARVEDILOL 12.5 MG TAB PO SCH ×2 (09:11→17:45)
[2018-05-21] MEDS: CLOPIDOGREL BISULFATE 75 MG TAB PO SCH (09:11)
[2018-05-21] MEDS: AMLODIPINE BESYLATE 10 MG TAB PO SCH (09:11)
[2018-05-21] MEDS: ASPIRIN 81 MG CHEW TAB PO SCH (09:11)
[2018-05-21] MEDS: PANTOPRAZOLE SOD 40 MG TABEC PO SCH (09:12)
--- NOTE | 2018-05-21 09:27 | Diagnostic Imaging Report ---
PROCEDURE: X-RAY CHEST, TWO VIEWS COMPARISON: CT abdomen pelvis without contrast 04/21/2018, chest radiograph 05/19/2018. INDICATIONS: ABNORMAL CHEST XRAY FINDINGS: Lungs are well-inflated. Opacity projecting over the medial left lung base represent prominent mediastinal fat as shown on comparison CT abdomen and pelvis. Trace bilateral pleural effusions. Upper lung zones are clear. Stable cardiomediastinal contour with atherosclerotic calcification of the thoracic aorta. No pulmonary edema. No acute osseous abnormality. Mild multilevel degenerative disc changes of the thoracic spine. CONCLUSION: Trace bilateral pleural effusions. Dictated by: Jose Rios M.D. on 05/21/2018 at 9:31 Electronically approved by: Jose Rios M.D. on 05/21/2018 at 9:31
--- NOTE | 2018-05-21 09:46 | Diagnostic Imaging Report ---
PROCEDURE:ABDOMINAL ULTRASOUND COMPARISON:CT abdomen and pelvis without contrast 04/21/2018. INDICATIONS:N/V FINDINGS: Liver: 17.6 cm in length in the right midclavicular line. Normal hepatic parenchymal echogenicity. No focal mass. Main portal vein: 1.1 cm in caliber. Hepatopedal flow. Gallbladder: No shadowing calculus, wall thickening, or pericholecystic fluid. Echogenic foci with ringdown artifact within the gallbladder wall compatible with adenomyomatosis. Common Bile Duct: 0.5 cm in caliber. No echogenic filling defect. Sonographic Sanchez's sign: Reported as negative. Right kidney: 12.3 cm in length. 1.1 cm simple cyst in the lower pole. No solid mass, echogenic calculi, or hydronephrosis. Normal parenchymal echogenicity. Left kidney: 12.2 cm in length. No solid or cystic mass, echogenic calculi, or hydronephrosis. Normal parenchymal echogenicity. Spleen: 9.1 cm in length. Uniform parenchymal echotexture. Pancreas: The visualized portions of the pancreas are normal. Inferior vena cava: Patent. Aorta: Non-aneurysmal. Ascites: None. CONCLUSION: No acute sonographic abnormality. 1.1 cm simple right renal cysts. Incidental gallbladder wall adenomyomatosis. No cholelithiasis or findings of acute cholecystitis. Dictated by: Jose Rios M.D. on 05/21/2018 at 9:50 Electronically approved by: Jose Rios M.D. on 05/21/2018 at 9:50
--- NOTE | 2018-05-21 17:51 | Consultation ---
DATE OF CONSULTATION: May 21, 2018 PODIATRY CONSULTATION REASON FOR CONSULTATION: Fever with perhaps underlying osteomyelitis. He presented to the ED with nausea, vomiting, chest discomfort and shortness of breath. He has a history of chronic ulcerative lesion to the great toe, be it the left great toe. PAST MEDICAL HISTORY: Diabetes, hypertension, hyperlipidemia, MT, chronic kidney disease and PAD. SURGICAL HISTORY: Wound debridement left ulcer. ALLERGIES: NEGATIVE. MEDICATIONS: Please see MAR for current medication list. FAMILY HISTORY: Noncontributory. SOCIAL HISTORY: No history of alcohol, tobacco or illicit drug abuse. ELEVEN-POINT REVIEW OF SYSTEMS: Does admit of some malaise, although improved, with increase in temperature. Denies at this point nausea, vomiting, fever, chills. PHYSICAL EXAMINATION GENERAL: AO x3. NAD. VITAL SIGNS: Temperature 97.2. Pulse is 83. Respiratory rate is 20. Blood pressure is 147/81. HEENT: Normocephalic, atraumatic, anicteric. ABDOMEN: Soft, nontender, nondistended. RESPIRATORY: Symmetrical expansion. No distress. PSYCHIATRIC: Normal affect. EXTREMITIES: Ulceration to the left foot, particularly left great toe measuring approximately 0.7 x 0.9 x 0.3 with capsular tissues exposed. There is subtle drainage also emanating from the site. DIAGNOSTIC DATA: X-ray confirms the presence of osteomyelitis with chronic changes essentially to the same. ASSESSMENT: Diabetic ulceration, Delgadillo grade 3 with underlying osteomyelitis per x-ray. PLAN: Sharp excision and debridement was performed through the subcutaneous tissue and muscle and removing some of the exposed capsular tissue, healthy wound base established, hemostasis achieved. Dressings applied consisting of Betadine wet-to-dry. Subsequently dressings will consist of Santyl wet-to-dry. Regarding how to proceed, recommend offloading, local wound care, particularly due to the fact that he was seen in the past with an ulceration that was about 35% the size of this one, thus indicative of signs of healing, thus recommend local wound care and offloading and antibiotics. We will continue to follow and monitor. I would like to thank Dr. German for the opportunity to continue in this patient's care. Job#: [id number] EV
[2018-05-21] MEDS: ATORVASTATIN 20 MG TAB PO SCH (20:15)
[2018-05-22] VITALS: BP 142/79
[2018-05-22 04:00] VITALS: BP 148/80
[2018-05-22 06:49] LABS: ANION GAP 13.2 mmol/L (8-16); CALCIUM 9.2 mg/dL (8.4-10.2); CREATININE, SERUM 2.45 mg/dL (0.72-1.25); POTASSIUM 4.2 mmol/L (3.5-5.1)
[2018-05-22] MEDS: INSULIN REGULAR, HUMAN 100 UNIT/1 ML 3ML VIAL SQ SCH ×3 (07:30→16:47)
[2018-05-22 08:00] VITALS: BP 155/84
[2018-05-22 08:15] VITALS: BP 155/84
[2018-05-22] MEDS: FAMOTIDINE 20 MG/2 ML VIAL IV SCH (08:15)
[2018-05-22] MEDS: HYDRALAZINE HCL 25 MG TAB PO SCH ×2 (08:16→16:00)
[2018-05-22] MEDS: ASPIRIN 81 MG CHEW TAB PO SCH (08:16)
[2018-05-22] MEDS: CARVEDILOL 12.5 MG TAB PO SCH ×2 (08:16→16:00)
[2018-05-22] MEDS: FUROSEMIDE 40 MG TAB PO SCH ×2 (08:16→16:00)
[2018-05-22] MEDS: AMLODIPINE BESYLATE 10 MG TAB PO SCH (08:16)
[2018-05-22] MEDS: PANTOPRAZOLE SOD 40 MG TABEC PO SCH (08:16)
[2018-05-22] MEDS: CLOPIDOGREL BISULFATE 75 MG TAB PO SCH (08:16)
[2018-05-22 12:00] VITALS: BP 158/81
--- NOTE | 2018-05-22 14:35 | Consultation ---
DATE OF CONSULTATION: May 22, 2018 Mr. Deepak Kumar is a 63-year-old gentleman who has been recently on antibiotics IV for underlying osteomyelitis of the foot. Under the care of Dr. Lucio Mayen. He is currently comfortable, lying supine. Seen by Dr. Lopez for a possible peripheral angiogram and cardiac cath. Renal has been consulted for management of kidney failure. He has had type-2 diabetes for the last several years. History of hypertension, hyperlipidemia, prior [place], known chronic kidney disease. He does not follow with any kidney doctor. SOCIAL HISTORY: The patient does not smoke or drink. ALLERGIES: NO APPARENT DRUG ALLERGIES. HOME MEDICATIONS: Include atorvastatin and glimepiride. CURRENT MEDICATIONS: Include: 1. Aspirin 81 mg daily. 2. Atorvastatin 20 mg at bedtime. 3. Carvedilol 12.5 mg p.o. b.i.d. 4. Plavix 75 mg daily. 5. Lasix 40 mg p.o. b.i.d. 6. Hydralazine 50 mg p.o. t.i.d. 7. Ondansetron p.r.n. 8. Insulin. FAMILY HISTORY: Significant for hypertension. PHYSICAL EXAMINATION GENERAL: Awake, alert, lying supine, in no apparent distress. VITAL SIGNS: Blood pressure 155/84, pulse rate 70, afebrile, respiratory rate 14, oxygen saturation 98% on 2 L nasal cannula. HEAD AND NECK: Corneas are clear. Oral mucosa is dry. LUNGS: Relatively clear. Somewhat decreased air entry at bases. HEART: S1 and S2 audible. ABDOMEN: Otherwise soft and nontender. LOWER EXTREMITIES: No edema. Dressing noted over the left foot. Ultrasound of the abdomen shows liver 17.6 cm with 12.3 cm right kidney, 12.2 cm left kidney and 1.1 cm simple right renal cyst. IMPRESSION AND PLAN: Underlying [id number] kidney failure. Longstanding history of diabetes and hypertension. Urinalysis shows dipstick-positive protein. Urine microscopy: RBCs 6-10, WBCs 6-10, hyaline casts 2-5. We are probably dealing with diabetic nephropathy or hypertensive nephrosclerosis until proven otherwise. At moderate risk of dye-induced nephropathy. Discussed with the patient. I can arrange a carbon dioxide angiogram of the lower extremity with minimal contrast load at [facility]. Will defer to primary care physician. Discussed with Dr. Lopez. Discussed with the patient. Discussed with Dr. Darryl German. Will need office followup and avoidance of nonsteroidal anti-inflammatory drug medications. Discussed with the patient. Job#: [id number]
[2018-05-22] MEDS ORDERED: COLLAGENASE 5 GM TUBE TOP SCH (15:00)
--- NOTE | 2018-05-22 15:16 | Discharge Summary ---
See also history and physical. The patient was hospitalized through the emergency room. He stated he had an appointment to my office on May 20, 2018, but instead decided to come to the emergency room where he was hospitalized. This is one of many, many recent hospitalizations. See hospitalization here 2 weeks ago. Reviewed. On arrival, the patient reported nausea, vomiting and some chest discomfort. This was associated with shortness of breath. Database was obtained and monitored. The patient was kindly seen while here by his teacher dramatics, his infectious disease professional housing consultant, and his sound effects person. Nephrology consultation was also requested. The patient's diabetes and blood pressure were controlled while here. He underwent debridement of his left large toe wound by Dr. Segovia while here. The patient was advised that he had significant cardiac disease with old apical area of dyskinesia. See echocardiogram with ejection fraction of 35% to 40% compatible with chronic left ventricular systolic congestive heart failure. Bilateral small effusions on chest x-rays. Course was complicated by the patient's diabetic nephropathy. He was continued while here on H2 antagonists for his previously diagnosed gastritis on EGD here last admission. See OP note. Patient was advised that he has significant peripheral vascular disease also. Patient was offered angiography and possible intervention regarding his coronary disease and peripheral vascular disease. Findings on Dopp scans reviewed with the patient. All of the laboratory and imaging findings here were reviewed with the patient, including his elevated sedimentation rate. The patient stated at this time he would not consent to angiography and invasive treatment regarding his peripheral vascular disease and coronary disease. Discussions were made while here with his consultants, and approval of each for outpatient management was received. While here, the patient experienced temperature elevation of 100.2 degrees on May 20, 2018, at 2000. Temperature is 100.2 degrees on May 20, 2018, at 2308. Other temperatures remained normal. He was not given antibiotics while here. Vital signs, intake and output and blood sugars monitored closely. Admission white count was 13.46. White count 5.96 on May 21, 2018. Hemoglobin 11.1 on admission with normal indices. Platelet count 193,000. Sed rate 55. INR 1.23. PTT 38. Urinalysis with 6-10 red cells and 6-10 white cells per high power field. Dipstick negative for leukocyte esterase. Negative for nitrite. Negative for glucose. Negative for ketones. On May 22, 2018, creatinine 2.45, BUN 40. In the ER on May 19, 2018, at 2257, BUN 30 and creatinine 2.06. Lipase normal at 6. Natriuretic peptide 3011 compatible with the patient's renal failure and congestive heart failure. Troponin 1.701 on admission ER, and 0.541 on May 21, 2018, at 1900. Serial CPKs and CK-MB normal. Transaminases normal. Nonspecific changes on EKG. TSH normal at 1.1. LDL 54. Hemoglobin A1c was 5.8. The patient experienced one morning episode of decreased blood sugar to 46 at which time he had been on sliding scale plus sulfonylurea. Sulfonylureas were held. He was counseled regarding appropriate diet. The urine culture on May 21, 2018, and May 20, 2018, no growth. Blood cultures times 2 negative. The ER chest x-ray on May 19, 2018, with small effusions. Heart and mediastinum normal for portable technique. Foot x-ray compatible with osteomyelitis of the 1st toe. Proximal 1st toe phalanx nondisplaced fracture. The abdomen ultrasound negative for gallstones. No obstructive uropathy. The followup chest x-ray on May 21, 2018, with trace bilateral effusions. See also consultations as mentioned above. The patient experienced no further chest pain after arrival. He requested outpatient status. He was counseled as mentioned above. He will resume his prior to admission meds. See list per electronic medical record. He was asked to follow up with his image consultant and with myself within a week. He will also follow up closely with his sound effects person. He is prescribed oral antibiotics by his infectious disease professional housing consultant empirically. FINAL IMPRESSION 1. Nausea and vomiting secondary to gastritis and diabetic gastropathy. 2. Type 2 diabetes mellitus with peripheral vascular disease and neuropathy. 3. Primary hypertension. 4. Osteomyelitis, left large toe. Status post 7 weeks intravenous antibiotics. 5. Status post prior debridement and debridement this admission. Wound improved since last admission. The patient was advised to use Pepcid 40 mg daily instead of his previous pantoprazole as he is on Plavix. 6. Chronic congestive heart failure with chronic left ventricular failure and atypical dyskinesia. Ejection fraction 35% to 40%. 7. History of orthostasis. Orthostasis currently. 8. Hyperlipoproteinemia. See also arterial Dopp scan of lower extremities last admission and this admission with marked atherosclerotic changes of the tibial arteries and the femoral arteries. See reports. Significant diabetic nephropathy. Prognosis is poor. The patient is reluctant for angiography to assess for invasive therapy as he has significant nephropathy. VALENTINA HERMOSILLO MD Job#: [id number] RI
[2018-05-22 16:00] VITALS: BP 140/74
[2018-05-22] MEDS ORDERED: MINOCYCLINE HCL50 MG PO (17:28)
[2018-05-22] MEDS ORDERED: PEPCID20 MG PO (17:36)
== END 2018-05-22 18:05 | disposition home or self-care (01) | DRG 981 ==
LOC: ER 22:38 → ERHOLD 05-20 01:17 → MED/SURG3 05-20 09:53
PROVIDERS: ADMIT Internal Medicine; ATTEND Internal Medicine
PROC: 0KBW0ZZ Excision of Left Foot Muscle, Open Approach (ICD-10-PCS; principal; 2018-05-21)
DX: E11.69 Type 2 diabetes mellitus with other specified complication (principal); I50.23 Acute on chronic systolic (congestive) heart failure; I13.0 Hypertensive heart and chronic kidney disease with heart failure and stage 1 through stage 4 chronic kidney disease, or unspecified chronic kidney disease; M86.672 Other chronic osteomyelitis, left ankle and foot; N18.9 Chronic kidney disease, unspecified; K31.9 Disease of stomach and duodenum, unspecified; E11.43 Type 2 diabetes mellitus with diabetic autonomic (poly)neuropathy; K31.84 Gastroparesis; E11.42 Type 2 diabetes mellitus with diabetic polyneuropathy; E11.621 Type 2 diabetes mellitus with foot ulcer; L97.529 Non-pressure chronic ulcer of other part of left foot with unspecified severity
CPT/HCPCS: 36415; 71045; 71046; 76700; 80048; 80053; 80061; 81001; 82550; 82553; 82948; 83036; 83690; 83735; 83880; 84443; 84484; 85025; 85610; 85651; 85730; 87040; 87086; 93005; 99284; J1940; J2270; J2405

== ENCOUNTER 2018-06-26 13:20 | Emergency (ER) | payer MEDICARE, OTHER ==
[~2018-06-26] VITALS: Ht 193 cm; Wt 89.8 kg
[~2018-06-26 13:20] MED LIST changes: +GLIMEPIRIDE2 MG PO; +MINOCYCLINE HCL50 MG PO; +PEPCID20 MG PO
[2018-06-26] MEDS ORDERED: ALBUTEROL SULF 0.083% NEB SOLN 3 ML NEB NEB STA (13:32)
[2018-06-26] MEDS ORDERED: IPRATROPIUM BROMIDE 0.02% 2.5 ML NEB NEB STA (13:32)
[2018-06-26] MEDS ORDERED: CLOPIDOGREL75 MG PO (13:48)
[2018-06-26] MEDS ORDERED: MULTIPLE VITAM1 EAC1 PO (13:48)
[2018-06-26] MEDS ORDERED: PANTOPRAZOLE SO40 MG PO (13:48)
[2018-06-26] MEDS ORDERED: ULTRAM50 MG PO (13:48)
[2018-06-26 13:58] LABS: BASOPHILS % 0.2 % (0.0-1.0); EOSINOPHILS % 0.4 % (0.0-6.0); HEMATOCRIT 29.9 % (38.2-49.6); LYMPHOCYTES # (AUTO) 0.4 (1.0-3.2); LYMPHOCYTES % 4.4 % (18.0-39.1); MEAN CORPUSCULAR HEMOGLOBIN 28.3 pg (28-32); MEAN CORPUSCULAR HGB CONC 33.4 g/dL (31-35); MEAN CORPUSCULAR VOLUME 84.7 fL (81-99); MONOCYTES # (AUTO) 0.6 (0.2-0.8); MONOCYTES % 6.3 % (4.4-11.3); NEUTROPHILS # (AUTO) 8.8 (2.1-6.9); NEUTROPHILS % 88.3 % (38.7-80.0); PLATELET COUNT 324 x10e3/uL (140-360); RED BLOOD COUNT 3.53 x10e6/uL (4.3-5.7); RED CELL DISTRIBUTION WIDTH 15.8 % (11.7-14.4)
[2018-06-26 13:59] LABS: BILIRUBIN,URINE NEGATIVE (NEGATIVE); CLARITY,URINE SL CLOUDY (CLEAR); COLOR,URINE YELLOW (YELLOW); KETONES,URINE NEGATIVE (NEGATIVE); LEUKOCYTE ESTERASE ,URINE NEGATIVE (NEGATIVE); NITRITE,URINE NEGATIVE (NEGATIVE); PROTEIN,URINE DIPSTICK 2+ (NEGATIVE); URINE UROBILINOGEN 0.2 mg/dL (0.2 - 1)
[2018-06-26 14:07] LABS: INR 1.24; PROTHROMBIN TIME 14.7 seconds (11.9-14.5)
[2018-06-26 14:08] LABS: PARTIAL THROMBOPLASTIN TIME 38.4 seconds (23.8-35.5)
[2018-06-26 14:14] LABS: AMORPHOUS SEDIMENT,URINE MODERATE (FEW); BACTERIA,URINE RARE /HPF; EPITHELIAL CELLS,URINE FEW /LPF
[2018-06-26 14:17] LABS: ALBUMIN 3.1 g/dL (3.5-5.0); ALBUMIN/GLOBULIN RATIO 0.7 (0.8-2.0); ANION GAP 19.6 mmol/L (8-16); CALCIUM 9.9 mg/dL (8.4-10.2); CREATININE, SERUM 2.84 mg/dL (0.72-1.25); POTASSIUM 4.6 mmol/L (3.5-5.1)
--- NOTE | 2018-06-26 14:19 | Diagnostic Imaging Report ---
PROCEDURE: A single AP view of the chest. COMPARISON: 05/21/18 INDICATIONS: SHORTNESS OF BREATH FINDINGS: Lines/tubes: None. Lungs: The lungs are well inflated. Pulmonary vascular congestion and mild interstitial edema. Pleura: There is no pneumothorax. Trace bilateral pleural effusions suspected. Heart and mediastinum: The heart and the mediastinum are unremarkable. Bones: No acute bony abnormality. IMPRESSION: 1. Pulmonary vascular congestion and mild interstitial edema. Underlying infiltrate in the lower lung harrell cannot be excluded in the appropriate clinical setting. 2. Trace bilateral pleural effusions. Dictated by: Fabricio Fields M.D. on 06/26/2018 at 14:24 Electronically approved by: Fabricio Fields M.D. on 06/26/2018 at 14:24
[2018-06-26 14:23] LABS: CREATINE KINASE MB 1.9 ng/mL (0-5.0)
[2018-06-26] MEDS ORDERED: FUROSEMIDE INJ 10 MG/ML 4 ML VIAL IV ONE (15:30)
[2018-06-26] MEDS ORDERED: CEFTRIAXONE SOD 1 GM VIAL IM ONE (15:30)
[2018-06-26] MEDS ORDERED: LEVAQUIN500 MG PO (15:57)
--- NOTE | 2018-06-26 17:36 | History and Physical ---
Patient states he was sent here by his visiting home nurse as he complained of shortness of breath. The patient was seen in the office earlier this week and he had not been taking his diuretics as ordered and he was encouraged to do so then. He stated he took his diuretic yesterday. See also recent stay here. This is one of the many, many hospital visits for this gentleman this year. He has essentially been hospitalized here and elsewhere until the last 3 weeks. Difficulties have included congestive heart failure with ejection fraction recently of 40%, septal akinesis consistent with previous IN. The patient reported normal stress test approximately 4 years ago elsewhere. He was recently advised when here in favor of angiography to assess his coronary and peripheral vascular status as he has severe peripheral vascular disease with chronic ulcer and osteomyelitis of the great toe left. He is followed by Dr. Segovia whom he saw a few days ago. Course was also complicated by diabetic nephropathy and the patient has been seeing nephrology consultants since last discharge here 2 weeks ago, approximately. FAMILY HISTORY: Positive for coronary disease and diabetes. SOCIAL HISTORY: Denies alcohol or tobacco. ALLERGIES: DENIES ALLERGIES. The patient is a chronically elevated troponin level. He has a history of atypical chest pain and recurrent effusions associated with his renal and congestive failure. History has also included orthostasis and hyperlipoproteinemia as well as primary hypertension and diabetic neuropathy. A1c was 5.8 on May 21. Hemoglobin 10, white count 9.9, platelets 324,000. INR 1.24, PTT 38. Urinalysis reveals proteinuria. Blood sugar 138. BUN 56, creatinine 2.84, troponin I is 0.8, B-natriuretic peptide 3728. Procalcitonin pending. Chest x-ray as before with vascular congestion and trace effusions. At this time, the patient denies distress. VITAL SIGNS: Temperature 98.5. Pulse 97. Respiratory rate 20. BP 120/68. O2 saturation on room air has remained at 94% to 95% here. Patient arrived here at 1:23 p.m. when O2 sat was 94%. See also home med list. CURRENT IMPRESSION: As above. Congestive heart failure and diabetes mellitus, hypertension and effusion. The patient also has a chronic osteomyelitis with open wound on the left forefoot. He has had prior debridements and is followed by his body line finisher. He has declined angiography and invasive treatment of his ischemic foot. CURRENT PLANS: Support the patient with increased diuretics as requested earlier this week and to follow up closely in clinic. Again, the patient had not been taking his diuretics when he was seen 2 days ago in clinic and was encouraged to do so. He will also follow up with his consultants in cardiology and nephrology as well as podiatry. He is aware the foot wound is likely not to heal without removal of infected bone and without vascular intervention. Job#: [id number] DAMARIS
== END 2018-06-26 17:04 | disposition home or self-care (01) ==
LOC: ER 13:20
DX: R06.00 Dyspnea, unspecified (principal); J15.9 Unspecified bacterial pneumonia; I50.1 Left ventricular failure, unspecified
CPT/HCPCS: 36415; 71045; 80053; 81001; 82550; 82553; 83880; 84145; 84484; 85025; 85610; 85730; 93005; 94640; 99284; J0696; J1940

== ENCOUNTER 2018-06-29 07:55 | Observation (INO) | payer MEDICARE, OTHER ==
[~2018-06-29] VITALS: Ht 193 cm; Wt 88.5 kg
[~2018-06-29 07:55] MED LIST changes: +CLOPIDOGREL75 MG PO; +LEVAQUIN500 MG PO; +MULTIPLE VITAM1 EAC1 PO
[2018-06-29] MEDS ORDERED: NITROGLYCERIN1 EAC1 (08:18)
[2018-06-29 08:30] LABS: BASOPHILS % 0.2 % (0.0-1.0); EOSINOPHILS % 0.4 % (0.0-6.0); HEMATOCRIT 31.8 % (38.2-49.6); HEMOGLOBIN 10.7 g/dL (14.0-18.0); LYMPHOCYTES # (AUTO) 0.5 (1.0-3.2); LYMPHOCYTES % 6.2 % (18.0-39.1); MEAN CORPUSCULAR HEMOGLOBIN 28.5 pg (28-32); MEAN CORPUSCULAR HGB CONC 33.6 g/dL (31-35); MEAN CORPUSCULAR VOLUME 84.6 fL (81-99); MONOCYTES # (AUTO) 0.5 (0.2-0.8); MONOCYTES % 6.2 % (4.4-11.3); NEUTROPHILS # (AUTO) 7.3 (2.1-6.9); NEUTROPHILS % 86.8 % (38.7-80.0); PLATELET COUNT 421 x10e3/uL (140-360); RED BLOOD COUNT 3.76 x10e6/uL (4.3-5.7); RED CELL DISTRIBUTION WIDTH 15.5 % (11.7-14.4)
[2018-06-29 08:35] LABS: INR 1.23; PROTHROMBIN TIME 14.6 seconds (11.9-14.5)
[2018-06-29 08:36] LABS: PARTIAL THROMBOPLASTIN TIME 40.7 seconds (23.8-35.5)
[2018-06-29 08:42] LABS: ALBUMIN 3.2 g/dL (3.5-5.0); ALBUMIN/GLOBULIN RATIO 0.8 (0.8-2.0); ANION GAP 16.6 mmol/L (8-16); CALCIUM 9.8 mg/dL (8.4-10.2); CREATININE, SERUM 2.74 mg/dL (0.72-1.25); POTASSIUM 3.6 mmol/L (3.5-5.1)
[2018-06-29 08:49] LABS: CREATINE KINASE MB 1.5 ng/mL (0-5.0)
--- NOTE | 2018-06-29 08:59 | Diagnostic Imaging Report ---
EXAMINATION: CHEST SINGLE (PORTABLE) COMPARISON: Chest x-ray 05/19/2018 INDICATION: Shortness of breath DISCUSSION: Frontal view of the chest obtained at 0841 hours. HEART AND MEDIASTINUM: The heart is mildly enlarged. The aortic arch is ectatic. LINES: None. LUNGS: The lungs are well inflated and clear. No mass or infiltrates. No interstitial thickening. PLEURA: No pleural effusion or pneumothorax. BONES AND SOFT TISSUES: No focal osseous lesion. The soft tissues are normal. IMPRESSION: Mild cardiomegaly. No vascular congestion. No acute pulmonary process. Signed by: Dr. Maureen Chris MD on 06/29/2018 8:56 AM
[2018-06-29] MEDS ORDERED: DEXTROSE 50% SYRINGE 50 ML IV PRN (11:00)
[2018-06-29] MEDS ORDERED: SODIUM CHLORIDE FLUSH 10 ML SYR INJ PRN (11:00)
[2018-06-29] MEDS: INSULIN REGULAR, HUMAN 100 UNIT/1 ML 3ML VIAL SQ SCH ×3 (11:30→21:19)
[2018-06-29 12:25] VITALS: BP 153/83
[2018-06-29 12:41] VITALS: BP 153/83
--- NOTE | 2018-06-29 15:21 | Consultation ---
DATE OF CONSULTATION: June 29, 2018 CARDIOLOGY CONSULTATION CLINICAL HISTORY: This is a 63-year-old man known to me from previous evaluation referred by Dr. Valentina Hermosillo for cardiovascular evaluation in the setting of hypoglycemia with altered mental status. This patient suffers from chronic kidney disease. Creatinine in the range of 2.7. He has seen Dr. Kendal Cameron in the past. He is known to have peripheral vascular disease with recent hospitalization for long-term antibiotics with evidence of osteoporosis. His ejection fraction is in the range of 35% to 40% with apical septum being dyskinetic suggestive of previous myocardial infarction. He cannot have an arteriogram because of chronic kidney disease. Therefore, he has been treated conservatively. Fortunately, he has not had very much chest pains and is maintained on nitrates. PAST MEDICAL HISTORY: Remarkable for hypertension, left large toe osteomyelitis as mentioned above, status post debridement and long-term antibiotics, hyperlipidemia, history of orthostatic hypotension. PERSONAL/SOCIAL HISTORY: He lives alone. Used to work for the [employer], but now retired. Lives alone. He has help that comes to his house. FAMILY HISTORY: Remarkable for hypertension, coronary artery disease and diabetes. ALLERGIES: NONE KNOWN. PHYSICAL EXAMINATION GENERAL: He is alert and coherent. Appears to be comfortable. CARDIAC: Jugular veins are not distended. S1 and S2 were regular. There is no appreciable murmurs. LUNGS: Clear. ABDOMEN: Soft. Bowel sounds are present. EXTREMITIES: Shows left toe wound. IMPRESSION 1. Compensated systolic congestive heart failure. 2. Ischemic cardiomyopathy, ejection fraction 35% to 40%. 3. Peripheral vascular disease. 4. Osteomyelitis of left toe, status post debridement and long-term intravenous antibiotics. 5. Chronic kidney disease. Creatinine 2.75. 6. Hyperlipidemia. 7. Diabetes with episodic hypoglycemia. RECOMMENDATION: Adjust diabetic medications. Once the patient is on dialysis, he may be a candidate for revascularization and angiography. Job#: [id number] RI cc:VALENTINA HERMOSILLO MD
[2018-06-29] MEDS: FUROSEMIDE 40 MG TAB PO SCH (16:00)
[2018-06-29] MEDS: GLIMEPIRIDE 2 MG TAB PO SCH (16:00)
[2018-06-29] MEDS: HYDRALAZINE HCL 25 MG TAB PO SCH ×2 (16:01→21:17)
[2018-06-29 16:23] LABS: CREATINE KINASE MB 1.3 ng/mL (0-5.0)
[2018-06-29 16:29] VITALS: BP 135/82
[2018-06-29] MEDS ORDERED: TRAMADOL HCL 50 MG TAB PO SCH (18:00)
[2018-06-29 19:21] VITALS: BP 135/82
[2018-06-29 20:05] VITALS: BP 132/77
[2018-06-29] MEDS ORDERED: ATORVASTATIN 20 MG TAB PO SCH (21:00)
[2018-06-29 21:20] VITALS: BP 132/77
[2018-06-30 04:00] VITALS: BP 148/88
[2018-06-30 05:09] LABS: BASOPHILS % 0.4 % (0.0-1.0); EOSINOPHILS # (AUTO) 0.5 (0.0-0.4); EOSINOPHILS % 5.5 % (0.0-6.0); HEMATOCRIT 28.5 % (38.2-49.6); HEMOGLOBIN 9.4 g/dL (14.0-18.0); LYMPHOCYTES % 11.9 % (18.0-39.1); MEAN CORPUSCULAR HEMOGLOBIN 27.9 pg (28-32); MEAN CORPUSCULAR VOLUME 84.6 fL (81-99); MONOCYTES # (AUTO) 0.8 (0.2-0.8); MONOCYTES % 9.6 % (4.4-11.3); NEUTROPHILS % 72.2 % (38.7-80.0); PLATELET COUNT 436 x10e3/uL (140-360); RED BLOOD COUNT 3.37 x10e6/uL (4.3-5.7); RED CELL DISTRIBUTION WIDTH 15.6 % (11.7-14.4)
[2018-06-30 05:30] LABS: ANION GAP 14.7 mmol/L (8-16); CALCIUM 9.2 mg/dL (8.4-10.2); CREATININE, SERUM 2.37 mg/dL (0.72-1.25); POTASSIUM 3.7 mmol/L (3.5-5.1)
[2018-06-30 07:00] VITALS: BP 137/88
[2018-06-30 07:00] LABS: CREATINE KINASE MB 0.9 ng/mL (0-5.0)
[2018-06-30] MEDS ORDERED: PANTOPRAZOLE SOD 40 MG TABEC PO SCH (07:30)
[2018-06-30] MEDS: INSULIN REGULAR, HUMAN 100 UNIT/1 ML 3ML VIAL SQ SCH ×2 (07:30→11:30)
[2018-06-30 08:09] VITALS: BP 137/88
[2018-06-30] MEDS: FUROSEMIDE 40 MG TAB PO SCH ×2 (08:33→17:25)
[2018-06-30] MEDS: GLIMEPIRIDE 2 MG TAB PO SCH (08:33)
[2018-06-30] MEDS: HYDRALAZINE HCL 25 MG TAB PO SCH ×2 (08:33→17:25)
[2018-06-30] MEDS ORDERED: ASPIRIN 81 MG CHEW TAB PO SCH (09:00)
[2018-06-30] MEDS ORDERED: ASPIRIN 81 MG ENTERIC COATED PO SCH (09:00)
[2018-06-30] MEDS ORDERED: CLOPIDOGREL BISULFATE 75 MG TAB PO SCH (09:00)
[2018-06-30] MEDS ORDERED: NITROGLYCERIN 0.4 MG PATCH TD SCH (09:00)
[2018-06-30] MEDS ORDERED: AMLODIPINE BESYLATE 10 MG TAB PO SCH (09:00)
[2018-06-30] MEDS ORDERED: MULTIVITAMINS/MINERALS TAB PO SCH (09:00)
[2018-06-30 11:16] VITALS: BP 127/77
[2018-06-30 16:50] VITALS: BP 140/80
[2018-06-30] MEDS ORDERED: GLIMEPIRIDE 2 MG TAB PO SCH (17:00)
--- NOTE | 2018-06-30 19:09 | Discharge Summary ---
See also history and physical, ER notes, cardiology consultation, electronic medical record, documents of laboratory studies. Followup chest x-ray improved. Patient was hospitalized feeling lightheaded. He attributed this to Levaquin, which was started by the ER here 2 days prior to this admission. Levaquin was withheld. Recent A1c in April had been 5.8 (May 21). He was counseled to reduce his sulfonylurea by 50% and follow up this week. Chronic medical illnesses include congestive heart failure, chronic LV systolic. EF 35%. Chronic kidney disease secondary to diabetes. Associated anemia. Peripheral vascular disease with osteomyelitis. Patient will continue to follow up with his foot surgeon. He has been seen here the last admission and prior to that by his infectious disease building energy consultant. DIAGNOSES 1. Hypertension. 2. Type-2 diabetes mellitus. 3. Chronic troponin elevation. 4. Gastritis. 5. Gastropathy. See also discharge medicine reconciliation list. The patient again was asked to return to clinic later this week for close followup. He was asked to please call prior to coming back to the emergency room. VALENTINA HERMOSILLO MD Job#: [id number]
== END 2018-06-30 17:59 | disposition home or self-care (01) ==
LOC: ER 07:55 → ERHOLD 10:46 → IMCU 12:10
PROVIDERS: ADMIT Internal Medicine; ATTEND Internal Medicine
DX: I13.0 Hypertensive heart and chronic kidney disease with heart failure and stage 1 through stage 4 chronic kidney disease, or unspecified chronic kidney disease (principal); R42 Dizziness and giddiness; I50.22 Chronic systolic (congestive) heart failure; E11.649 Type 2 diabetes mellitus with hypoglycemia without coma; E11.51 Type 2 diabetes mellitus with diabetic peripheral angiopathy without gangrene; E11.22 Type 2 diabetes mellitus with diabetic chronic kidney disease; N18.9 Chronic kidney disease, unspecified; M86.8X7 Other osteomyelitis, ankle and foot; E78.5 Hyperlipidemia, unspecified; D63.1 Anemia in chronic kidney disease; K29.70 Gastritis, unspecified, without bleeding; K31.9 Disease of stomach and duodenum, unspecified; T36.8X5A Adverse effect of other systemic antibiotics, initial encounter; Y92.019 Unspecified place in single-family (private) house as the place of occurrence of the external cause
CPT/HCPCS: 36415 ×2; 71045; 80048; 80053; 82550 ×2; 82553 ×2; 82948 ×2; 83880; 84484 ×2; 85025 ×2; 85610; 85730; 93005; 99284; G0378 ×2; S0164

== ENCOUNTER 2018-07-15 10:55 | Emergency (ER) | payer MEDICARE ==
[~2018-07-15] VITALS: Ht 193 cm; Wt 88.5 kg
[~2018-07-15 10:55] MED LIST changes: +NITROGLYCERIN1 EAC1
[2018-07-15] MEDS ORDERED: ALBUTEROL/IPRATROPIUM 3 ML NEB NEB ONE (11:15)
[2018-07-15 11:42] LABS: BASOPHILS % 0.3 % (0.0-1.0); EOSINOPHILS # (AUTO) 0.1 (0.0-0.4); EOSINOPHILS % 0.8 % (0.0-6.0); HEMATOCRIT 28.6 % (38.2-49.6); HEMOGLOBIN 9.5 g/dL (14.0-18.0); LYMPHOCYTES # (AUTO) 0.7 (1.0-3.2); LYMPHOCYTES % 6.8 % (18.0-39.1); MEAN CORPUSCULAR HEMOGLOBIN 28.5 pg (28-32); MEAN CORPUSCULAR HGB CONC 33.2 g/dL (31-35); MEAN CORPUSCULAR VOLUME 85.9 fL (81-99); MONOCYTES # (AUTO) 0.5 (0.2-0.8); MONOCYTES % 4.9 % (4.4-11.3); NEUTROPHILS % 86.8 % (38.7-80.0); PLATELET COUNT 265 x10e3/uL (140-360); RED BLOOD COUNT 3.33 x10e6/uL (4.3-5.7); RED CELL DISTRIBUTION WIDTH 15.6 % (11.7-14.4)
[2018-07-15 11:51] LABS: INR 1.18; PROTHROMBIN TIME 14.1 seconds (11.9-14.5)
[2018-07-15 11:52] LABS: PARTIAL THROMBOPLASTIN TIME 34.9 seconds (23.8-35.5)
[2018-07-15 12:01] LABS: ALBUMIN 3.3 g/dL (3.5-5.0); ALBUMIN/GLOBULIN RATIO 0.8 (0.8-2.0); ANION GAP 16.9 mmol/L (8-16); CREATININE, SERUM 2.86 mg/dL (0.72-1.25); POTASSIUM 3.9 mmol/L (3.5-5.1)
[2018-07-15 12:07] LABS: CREATINE KINASE MB 0.7 ng/mL (0-5.0)
--- NOTE | 2018-07-15 12:58 | Diagnostic Imaging Report ---
PROCEDURE: Frontal and lateral views of the chest. COMPARISON: 06/29/18 INDICATIONS: SOB FINDINGS: Lines/tubes: None. Lungs: The lungs are well inflated. Pulmonary vascular congestion and questionable mild interstitial edema. Pleura: There is no pneumothorax. Small left and trace right pleural effusions. Heart and mediastinum: The heart and the mediastinum are normal. Bones: No acute bony abnormality. Degenerative changes of thoracic spine. IMPRESSION: Pulmonary vascular congestion and questionable mild interstitial edema. Small left and trace right pleural effusions. Dictated by: Fabricio Fields M.D. on 07/15/2018 at 13:05 Electronically approved by: Fabricio Fields M.D. on 07/15/2018 at 13:05
[2018-07-15] MEDS ORDERED: FUROSEMIDE INJ 10 MG/ML 4 ML VIAL IV ONE (13:30)
[2018-07-15 20:21] VITALS: BP 129/87
--- OUTSIDE RECORDS SUMMARY | 2018-08-29 03:13 | XMS REPORT | Continuity of Care Document ---
Author Author [facility] Organization [facility] Address [address] [place] [address] Phone Unavailable Care Team Providers Care Animal Caretaker Supervisor Name Role Phone VALENTINA HERMOSILLO MD PCP Insurance Providers Guarantor Deepak Estrada Address [address] [place] [address] Email [email or web address] Payer Medicare A & B Policy Number [id number] Subscriber's Name Estrada,Deepak Galaviz Relationship 18 Self / Same As Patient Effective Date 18 Payer Miscellaneous Indemnity Policy Number [id number] Subscriber's Name Domi Estradasalinas Galaviz Relationship 18 Self / Same As Patient Effective Date 18 Advance Directives Directive Response Recorded Date/Time Does the patient have an advance directive? No 06/29/18 12:40pm If yes, is advance directive on file with [facility]? No 06/29/18 12:40pm If not on file with [facility] will patient provide a copy? No 06/29/18 12:40pm Do you have a Directive to Physician? No 06/29/18 8:08am Do you have a Medical Power of Crew Clerk? No 06/29/18 8:09am Do you have an out of hospital Do Not Resuscitate Order? No 06/29/18 8:09am Do you have any special needs we should be aware of? No 06/29/18 8:09am Do you have a support person here with you today? Yes 06/29/18 8:09am Did patient receive Notice of Privacy Practices? Yes 06/29/18 8:09am Did patient receive patient rights and responsibilities? Yes 06/29/18 8:09am Problems Medical Problem Onset Date Status Abnormal EKG Unknown Acute on chronic renal insufficiency Unknown CHF (congestive heart failure) Unknown CKD (chronic kidney disease) Unknown Cardiac enzymes elevated Unknown Chest pain Unknown Dehydration Unknown Dizziness Unknown Dyspnea Unknown Elevated brain natriuretic peptide (BNP) level Unknown Elevated serum creatinine Unknown HTN (hypertension) Unknown Hypoglycemia Unknown Orthostatic hypotension Unknown Volume depletion Unknown Vomiting Unknown Medications Current Home Medications Medication Dose Units Route Directions Days Qty Instructions Start Date Amlodipine Besylate (Norvasc) 10 Mg Tab 10 Mg Oral Daily 90 Days Aspirin (Aspir 81) 81 Mg Tablet. 81 Mg Oral Daily Atorvastatin Calcium (Lipitor) 20 Mg Tablet 20 Mg Oral Bedtime 30 Tab Clopidogrel Bisulfate (Plavix) 75 Mg Tablet 75 Mg Oral Daily 30 Tab Clopidogrel Bisulfate (Clopidogrel) 75 Mg Tablet 75 Mg Oral Daily 30 Tab Furosemide (Lasix) 40 Mg Tablet 40 Mg Oral Twice A Day 30 Tab Glimepiride 2 Mg Tablet 4 Mg Oral Twice A Day Hydralazine Hcl 25 Mg Tab 50 Mg Oral Three Times A Day 1.5 Tab Multivitamin With Minerals (Multiple Vitamin) 1 Each Tablet 1 Tab Oral Daily Nitroglycerin (Nitroglycerin Patch) 1 Each Patch.td24 0.4 Mg Daily Pantoprazole Sodium (Protonix) 40 Mg Tablet.dr 40 Mg Oral Before Breakfast Past Home Medications Medication Directions Ordered Status Amlodipine Besylate 10 Mg Tablet, 20 Mg Oral Daily Discontinued Atorvastatin Calcium 20 Mg Tablet, 20 Mg Oral Daily Discontinued Calcitriol 0.25 Mcg Capsule, 0.25 Mg Oral Daily Discontinued Carvedilol (Coreg) 25 Mg Tab, 12.5 Mg Oral Twice A Day Discontinued Cefepime Hcl/Dextrose, Iso-Osm (Cefepime 1 Gm Injection) 1 Gm/50 Ml Froz.piggy , 1 G Intraven Every 12 Hours 02/22/18 Discontinued Clonidine Hcl 0.2 Mg Tablet, 0.2 Mg Oral Twice A Day 02/22/18 Discontinued Famotidine (Pepcid) 20 Mg Tablet, 20 Mg Oral Twice A Day Discontinued Ferrous Sulfate 325 Mg Tablet, 325 Mg Pe Oral Daily 02/13/18 Discontinued Furosemide (Lasix) 40 Mg Tablet, 40 Mg Oral Twice A Day Discontinued Glimepiride (Amaryl) 4 Mg Tablet, 4 Mg Oral Daily 02/13/18 Discontinued Glimepiride (Amaryl) 1 Mg Tablet, 4 Mg Oral Twice A Day Discontinued Hydralazine Hcl 25 Mg Tab, 25 Mg Oral Three Times A Day 02/13/18 Discontinued Hydralazine Hcl 25 Mg Tab, 50 Mg Oral Four Times Daily Discontinued Hydralazine Hcl 50 Mg Tablet, 75 Mg Oral Three Times A Day Discontinued Hydrochlorothiazide 25 Mg Tablet, 12.5 Mg Oral Daily Discontinued Levofloxacin (Levaquin) 500 Mg Tablet, 750 Mg Oral Daily Discontinued Metformin Hcl 500 Mg Tablet, 500 Mg Oral Twice A Day Discontinued Metoprolol Succinate (Toprol Xl) 25 Mg Tab.er.24h, 25 Mg Oral Twice A Day Discontinued Metoprolol Tartrate 50 Mg Tablet, 50 Mg Oral Daily Discontinued Minocycline Hcl 50 Mg Capsule, 100 Mg Oral Twice A Day 05/22/18 Discontinued Multivitamin (Multivitamins) 1 Each Capsule, 1 Tab Oral Daily Discontinued Nifedipine (Nifedipine Er) 30 Mg Tab.er.24, 60 Mg Oral Daily Discontinued Pantoprazole Sodium (Protonix) 40 Mg Tablet.dr, 40 Mg Oral Daily Discontinued Sitagliptin Phosphate (Januvia) 100 Mg Tablet, 100 Mg Oral Daily 02/13/18 Discontinued Terazosin Hcl 1 Mg Capsule, 2 Mg Oral Twice A Day 02/13/18 Discontinued Tramadol Hcl (Ultram) 50 Mg Tablet, 50 Mg Oral Every 6 Hours Discontinued Tramadol Hcl (Ultram) 50 Mg Tablet, 50 Mg Oral Every 4 Hours as needed for Pain Discontinued Vancomycin/0.9% Sod Chloride (Vancomycin-0.9% Nacl 1 G/250) 1 Gm/250 Ml Plast..bag, 1 Gm Intraven Daily 02/22/18 Discontinued Social History Social History Problem Response Recorded Date/Time Onset Date Status Hx Psychiatric Problems No 05/20/2018 10:00am Not Applicable Not Applicable Hx Eating Disorder No 05/20/2018 10:00am Not Applicable Not Applicable Hx Substance Use Disorder No 05/20/2018 10:00am Not Applicable Not Applicable Hx Depression No 05/20/2018 10:00am Not Applicable Not Applicable Hx Alcohol Use No 05/20/2018 10:00am Not Applicable Not Applicable Hx Substance Use Treatment No 05/20/2018 10:00am Not Applicable Not Applicable Hx Physical Abuse No 05/20/2018 10:00am Not Applicable Not Applicable Smoking Status Start Date Stop Date Never Smoker Hospital Discharge Instructions No hospital discharge instruction information available. Plan of Care Discharge Date 06/30/18 5:59pm Disposition HOME, SELF-CARE Instructions/Education Provided Hypoglycemia Prescriptions See Medication Section Referrals KEITH POWERS MD (Cardiology) Order Date: 1-2 Weeks Entered Date: 06/30/2018 3:04pm Address: [address] [place] [id number] (Internal Medicine) Entered Date: 06/30/2018 4:51pm Additional Instructions/Education TAKE 2 MG GLIMEPIRIDE BID Functional Status Query Response Date Recorded Assistive Devices Straight Cane Small Base Quad Cane June 29, 2018 12:41pm Ambulation Ability Independent June 29, 2018 12:41pm Toileting Ability Independent June 29, 2018 12:41pm Allergies, Adverse Reactions, Alerts No known allergies. Immunizations No immunization information available. Vital Signs Acute Vital Signs Vital Response Date/Time Temperature (Fahrenheit) 98.7 degrees F (97.6 - 99.5) 06/30/2018 4:50pm Pulse Pulse Rate (adult) 98 bpm (60 - 90) 06/30/2018 4:50pm Respiratory Rate 18 bpm (12 - 24) 06/30/2018 4:50pm Blood Pressure 140/80 mm Hg 06/30/2018 4:50pm Height 6 ft 4 in 06/29/2018 8:07am Weight 195.04 lb 06/29/2018 12:26pm Body Mass Index 23.7 kg/m^2 06/29/2018 12:40pm Results Laboratory Results Test Name Result Units Flags Reference Collection Date/Time Result Date/ Time Comments D-Dimer Quantitative (PE/DVT) 488 ng/mL H 0-400 [...] Test results are reported in D-dimer units. Rapid Plasma Reagin Non Reactive Non Reactive 10/03/2017 8:41am 10/04 5:51am Performed at: [facility] [address] [id number] Cloth Burler: Toby Colon MD, Phone: [phone] Iron Level 21 ug/dL L 65-175 02/13/2018 6:58am 02/13/2018 10:06am Total Iron Binding Capacity 238 ug/dL L 261-478 02/13/2018 6:58am 2017 10:06am Percent Iron Saturation 9 % L 15-50 02/13/2018 6:58am 02/13/2018 10: 06am Transferrin 170 mg/dL L 174-364 02/13/2018 6:58am 02/13/2018 10:06am Vancomycin Level Peak 25 ug/mL 20-40 02/15/2018 3:50pm 02/15/2018 4: 19pm Random Vancomycin Level 11.1 ug/mL 02/13/2018 6:58am 02/13/2018 7: 54am Vancomycin Level Trough 14.3 ug/mL *H 5.0-10.0 02/23/2018 2:20pm 2017 3:02pm Results called to SARAH ALEJANDRO at 1459 on 02/23/18 by Roseann Michael. RB OK. C-Reactive Protein 16.3 mg/L H 0.0-4.9 02/22/2018 1:25pm 02/23/2018 9: 42pm Performed at: [address] [id number] Cloth Burler: Toby Colon MD, Phone: [phone] Stool Occult Blood POSITIVE H NEGATIVE 02/20/2018 2:13pm 02/20/2018 2: 47pm Differential Total Cells Counted 100 04/20/2018 8:27am 04/20/2018 10:33am Neutrophils % (Manual) 91 % H 40-74 04/20/2018 8:am 04/20/2018 10: 33am Lymphocytes % (Manual) 5 % L 19-48 04/20/2018 8:am 04/20/2018 10:33am Monocytes % (Manual) 4 % 3.4-9.0 04/20/2018 8:am 04/20/2018 10:33am Platelet Estimate ADEQUATE 04/20/2018 8:am 04/20/2018 10:33am Platelet Morphology Comment NORMAL 04/20/2018 8:am 04/20/2018 10: 33am Red Cell Morphology Comment NORMAL 04/20/2018 8:am 04/20/2018 10: 33am Erythrocyte Sedimentation Rate 55 mm/hr H 0-13 05/21/2018 5:58am 2017 6:59am Urine Hyaline Casts 2-5 H 0-1 05/20/2018 2:40am 05/20/2018 3:08am Urine Mucus MODERATE H RARE 05/20/2018 2:40am 05/20/2018 3:08am Hemoglobin A1c Percent 5.8 % 4.0-7.0 05/21/2018 5:58am 05/21/2018 7: 30am Magnesium Level 1.5 MG/DL 1.3-2.1 05/19/2018 10:57pm 05/19/2018 11: 46pm Triglycerides Level 69 MG/DL 0-149 05/21/2018 5:58am 05/21/2018 6:39am Cholesterol Level 107 MD/DL 0-199 05/21/2018 5:58am 05/21/2018 6:39am Less than 200 mg/dL Low Risk 201 - 239 mg/dL Borderline Risk 240 mg/dl and greater High Risk LDL Cholesterol 57 MG/DL L 60-130 05/21/2018 5:58am 05/21/2018 6:39am HDL Cholesterol 36 MG/DL L 40-60 05/21/2018 5:58am 05/21/2018 6:39am Cholesterol/HDL Ratio 3.0 L 3.9-4.7 05/21/2018 5:58am 05/21/2018 6: 39am Lipase 6 U/L L 8-78 05/19/2018 10:57pm 05/19/2018 11:46pm Thyroid Stimulating Hormone (TSH) 1.104 uIU/mL 0.350-4.940 05/20/2018 12 :53pm 05/20/2018 2:53pm Urine Color YELLOW YELLOW 06/26/2018 1:35pm 06/26/2018 1:59pm Urine Clarity SL CLOUDY H CLEAR 06/26/2018 1:35pm 06/26/2018 1:59pm Urine Specific [place] 1.015 1.010-1.025 06/26/2018 1:35pm 2017 1:59pm Urine pH 5 5 - 7 06/26/2018 1:35pm 06/26/2018 1:59pm Urine Leukocyte Esterase NEGATIVE NEGATIVE 06/26/2018 1:35pm 2017 1:59pm Urine Nitrite NEGATIVE NEGATIVE 06/26/2018 1:35pm 06/26/2018 1:59pm Urine Protein 2+ H NEGATIVE 06/26/2018 1:35pm 06/26/2018 1:59pm Urine Glucose (UA) NEGATIVE NEGATIVE 06/26/2018 1:35pm 06/26/2018 1: 59pm Urine Ketones NEGATIVE NEGATIVE 06/26/2018 1:35pm 06/26/2018 1:59pm Urine Urobilinogen 0.2 mg/dL 0.2 - 1 06/26/2018 1:35pm 06/26/2018 1: 59pm Urine Bilirubin NEGATIVE NEGATIVE 06/26/2018 1:35pm 06/26/2018 1: 59pm Urine Blood NEGATIVE NEGATIVE 06/26/2018 1:35pm 06/26/2018 1:59pm Urine WBC NONE /HPF 0-5 06/26/2018 1:35pm 06/26/2018 2:14pm Urine RBC NONE /HPF 0-5 06/26/2018 1:35pm 06/26/2018 2:14pm Urine Bacteria RARE /HPF NONE 06/26/2018 1:35pm 06/26/2018 2:14pm Urine Epithelial Cells FEW /LPF NONE 06/26/2018 1:35pm 06/26/2018 2: 14pm Urine Amorphous Sediment MODERATE H FEW 06/26/2018 1:35pm 06/26/2018 2 :14pm White Blood Count 8.24 x10e3/uL 4.8-10.8 06/30/2018 4:3506/30/2018 5 :10am Red Blood Count 3.37 x10e6/uL L 4.3-5.7 06/30/2018 4:3506/30/2018 5: 10am Hemoglobin 9.4 g/dL L 14.0-18.0 06/30/2018 4:3506/30/2018 5:10am Hematocrit 28.5 % L 38.2-49.6 06/30/2018 4:3506/30/2018 5:10am Mean Corpuscular Volume 84.6 fL 81-99 06/30/2018 4:3506/30/2018 5: 10am Mean Corpuscular Hemoglobin 27.9 pg L 28-32 06/30/2018 4:352017 5:10am Mean Corpuscular Hemoglobin Concent 33.0 g/dL 31-35 06/30/2018 4:3506/30/2018 5:10am Red Cell Distribution Width 15.6 % H 11.7-14.4 06/30/2018 4:352017 5:10am Platelet Count 436 x10e3/uL H 140-360 06/30/2018 4:3506/30/2018 5: 10am Neutrophils (%) (Auto) 72.2 % 38.7-80.0 06/30/2018 4:3506/30/2018 5: 10am Lymphocytes (%) (Auto) 11.9 % L 18.0-39.1 06/30/2018 4:3506/30/2018 5 :10am Monocytes (%) (Auto) 9.6 % 4.4-11.3 06/30/2018 4:3506/30/2018 5: 10am Eosinophils (%) (Auto) 5.5 % 0.0-6.0 06/30/2018 4:3506/30/2018 5: 10am Basophils (%) (Auto) 0.4 % 0.0-1.0 06/30/2018 4:3506/30/2018 5:10am IM GRANULOCYTES % 0.4 % 0.0-1.0 06/30/2018 4:3506/30/2018 5:10am Neutrophils # (Auto) 6.0 2.1-6.9 06/30/2018 4:35am 06/30/2018 5:10am Lymphocytes # (Auto) 1.0 1.0-3.2 06/30/2018 4:35am 06/30/2018 5:10am Monocytes # (Auto) 0.8 0.2-0.8 06/30/2018 4:35am 06/30/2018 5:10am Eosinophils # (Auto) 0.5 H 0.0-0.4 06/30/2018 4:35am 06/30/2018 5: 10am Basophils # (Auto) 0.0 0.0-0.1 06/30/2018 4:35am 06/30/2018 5:10am Absolute Immature Granulocyte (auto 0.03 x10e3/uL 0-0.1 06/30/2018 4: 35am 06/30/2018 5:10am Prothrombin Time 14.6 seconds H 11.9-14.5 06/29/2018 8:04am 06/29/2018 8 :39am Prothromb Time International Ratio 1.23 06/29/2018 8:042017 8:39am Oral Anticoagulant Therapy INR Values: 1. Low Intensity Therapy 1.5 - 2.0 2. Moderate Intensity Therapy 2.0 - 3.0 3. High Intensity Therapy(1) 2.5 - 3.5 4. High Intensity Therapy(2) 3.0 - 4.0 5. Panic Value INR > 5.0 Activated Partial Thromboplast Time 40.7 seconds H 23.8-35.5 06/29/2018 8 :04am 06/29/2018 8:39am Sodium Level 140 mmol/L 136-145 06/30/2018 4:35am 06/30/2018 5:31am Potassium Level 3.7 mmol/L 3.5-5.1 06/30/2018 4:35am 06/30/2018 5:31am Chloride Level 106 mmol/L 98-107 06/30/2018 4:35am 06/30/2018 5:31am Carbon Dioxide Level 23 mmol/L 22-29 06/30/2018 4:35am 06/30/2018 5: 31am Anion Gap 14.7 mmol/L 8-16 06/30/2018 4:35am 06/30/2018 5:31am Blood Urea Nitrogen 36 mg/dL H 7-26 06/30/2018 4:35am 06/30/2018 5:31am Creatinine 2.37 mg/dL H 0.72-1.25 06/30/2018 4:35am 06/30/2018 5:31am BUN/Creatinine Ratio 15 6-25 06/30/2018 4:35am 06/30/2018 5:31am Estimat Glomerular Filtration Rate 28 ML/MIN L 60- 06/30/2018 4:35am 03/2018 5:31am Ranges were taken from the National Kidney Disease Education Program and the National Kid[employer] Foundation literature. Reference ranges: 60 or greater: Normal 16-59 (for 3 consecutive months): Chronic kidney disease 15 or less: Kidney failure Glucose Level 61 mg/dL L 74-118 06/30/2018 4:35am 06/30/2018 5:31am Calcium Level 9.2 mg/dL 8.4-10.2 06/30/2018 4:35am 06/30/2018 5:31am Bedside Glucose 131 mg/dL H 70-120 06/30/2018 4:34pm 06/30/2018 5:56pm Meter ID: [id number] Total Bilirubin 0.4 mg/dL 0.2-1.2 06/29/2018 8:0406/29/2018 8:43am Aspartate Amino Transf (AST/SGOT) 16 IU/L 5-34 06/29/2018 8:042017 8:43am Alanine Aminotransferase (ALT/SGPT) 18 IU/L 0-55 06/29/2018 8:0402/2018 8:43am Total Protein 7.4 g/dL 6.5-8.1 06/29/2018 8:0406/29/2018 8:43am Albumin 3.2 g/dL L 3.5-5.0 06/29/2018 8:0406/29/2018 8:43am Globulin 4.2 g/dL H 2.3-3.5 06/29/2018 8:0406/29/2018 8:43am Albumin/Globulin Ratio 0.8 0.8-2.0 06/29/2018 8:0406/29/2018 8: 43am Alkaline Phosphatase 99 IU/L 40-150 06/29/2018 8:04am 06/29/2018 8: 43am B-Type Natriuretic Peptide 2998.5 pg/mL H 0-100 06/29/2018 8:04am 2017 8:53am Creatine Kinase 32 IU/L 30-200 06/30/2018 4:35am 06/30/2018 6:55am Creatine Kinase MB 0.90 ng/mL 0-5.0 06/30/2018 4:35am 06/30/2018 7: 01am Troponin I 0.546 ng/mL H 0-0.300 06/30/2018 4:35am 06/30/2018 7:01am Microbiology Results Procedure Source Organism/Result Collection Date/Time Result Date/Time Result Status Blood Culture Blood NO GROWTH AFTER 5 DAYS, FINAL REPORT 05/20/2018 10: 15pm 05/25/2018 10:16pm Final Procedures Procedure Status Date Provider(s) EXCISION OF L FOOT SUBCU/FASCIA, OPEN APPROACH Completed 02/12/18 CHRISTOFER NORMAN DPM INSERTION OF INFUSION DEV INTO SUP VENA CAVA, PERC APPROACH Completed ISADORA CHAMBERLAIN EXCISION OF STOMACH, PYLORUS, ENDO, DIAGN Completed 04/24/18 KARIN MACIAS MD EXCISION OF STOMACH, ENDO, DIAGN Completed 04/24/18 KARIN MACIAS MD EXCISION OF LOWER ESOPHAGUS, ENDO, DIAGN Completed 04/24/18 KARIN MACIAS MD EXCISION OF LEFT FOOT MUSCLE, OPEN APPROACH Completed 05/21/18 CHRISTOFER NORMAN DPM Computed tomography of chest without contrast Active 10/03/17 GERARDO LAIRD MD X-ray of chest, single view Active 04/19/18 Barb'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 06/29/18 10:46am 5:59pm VALENTINA HERMOSILLO MD Departed Emergency Room [facility] 06/26/18 1:20pm 5:04pm WM SANZ MD Discharged Inpatient [facility] 05/20/18 1:17am 05/22/18 6:05pm VALENTINA HERMOSILLO MD Discharged Inpatient [facility] 04/23/18 9:46am 04/26/18 3:20pm BLANCA JONES MD Discharged Inpatient [facility] 02/10/18 3:23pm 02/25/18 1:20pm KEITH POWERS MD Departed Emergency Room [facility] 10/03/17 8:07am 4:00pm GERARDO LAIRD MD
--- OUTSIDE RECORDS SUMMARY | 2018-08-29 03:13 | XMS REPORT | Clinical Summary ---
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 Elevated serum creatinine 03/21/2013 Anemia 03/21/2013 Encounters Date Type Specialty Care Team Description 11/22/2017 Orders Only General Internal Medicine 11/21/2017 Hospital Cardiology Thomas Clark, Acute on chronic systolic - Encounter congestive heart failure 11/23/2017 Lucie Nichols MD ([facility]);Type 2 diabetes mellitus with complication, unspecified long term care phlebotomist insulin use status ([facility]);Hypertension, unspecified type;Hyperlipidemia, unspecified hyperlipidemia type after 07/14/2017 Family History Medical History Relation Name Comments [...] Taken Blood Pressure 154/77 11/23/2017 3:34 PM THIOKOL OPERATOR Pulse 76 11/23/2017 3:34 PM THIOKOL OPERATOR Temperature 36.7 C (98.1 F) 11/23/2017 12:11 PM THIOKOL OPERATOR Respiratory Rate 18 11/23/2017 3:34 PM THIOKOL OPERATOR Oxygen Saturation 95% 11/23/2017 3:34 PM THIOKOL OPERATOR Inhaled Oxygen - - Concentration Weight 98.9 kg (218 lb) 11/23/2017 7:25 AM THIOKOL OPERATOR Height 193 cm (6' 4") 11/21/2017 11:05 PM THIOKOL OPERATOR Body Mass Index 26.54 11/23/2017 7:25 AM THIOKOL OPERATOR Plan of Treatment Health Maintenance Due Date [...] Range POC-Glucose Meter 169 (H)Comment: TESTED AT [facility] [address] 70 - 110 mg /dL [facility] [address] Specimen Performing Laboratory Blood [address] [address] * ECHOCARDIOGRAM REPORT - SCAN (11/23/2017 2:20 [...] Specimen Performing Laboratory Blood - Arm, Right [address] [address] * CBC with platelet count + automated diff (11/23/2017 5:06 AM) Only the most recent of 3 results within the time period is included. Specimen Performing Laboratory Blood Narrative The following orders were created for panel order CBC with platelet count + automated diff. Procedure Abnormality Status --------- - ------ CBC with platelet count ...[[id number]]AbnormalFinal result Please view results for these tests on the individual orders. * B-type Natriuretic Factor (BNP) (11/23/2017 5:06 AM) Only the most recent of 2 results within the time period is included. Component Value Ref Range BNP 2656 (H) 0 - 100 pg/mL Specimen Performing Laboratory Blood - Arm, [address] [address] * Magnesium (11/23/2017 5:06 AM) Only the most recent of 3 results within the time period is included. Component Value Ref Range Magnesium 2.0 1.6 - 2.6 mg/dL Specimen Performing Laboratory Blood - Arm, [address] [address] * Basic metabolic panel (11/23/2017 5:06 AM) [...] PATIENTS. Specimen Performing Laboratory Blood - Arm, [address] [address] * 2D Echo W/Doppler(CW/PW/Color) (11/22/2017 2:09 PM) Component Value Ref Range Ejection Fraction Specimen Performing Laboratory [facility] Narrative Transthoracic Echocardiography Report (TTE) Demographics Patient NameGONZALES, RUDOLPHDate of Study11/22/2017 TAMRA Gender Male Visit [id number] Race Unknown [id number] Number Date of 1955 [facility] Physician Thomas Clark MD Age 62 year(s) Building Carpenter Helper Solomon Ambrocio [facility] Regional Loss Prevention Manager Rosemary Verdin [facility] Interpreting Diogenes Muller MD Physician Procedure Type [...] calcification. Mild to moderate functional mitral regurgitation. Qtcf-[id number] MV leaflet calcification. Tricuspid ValveTV structure is [...] External Ris In - 11/23/2017 1:43 PM THIOKOL OPERATOR Transthoracic Echocardiography Report (TTE) Demographics Patient Name PETRA ESTRADA Date of Study 11/22/2017 TAMRA Gender Male Visit Number [id number] Race Unknown Room Number 1463 Number Date of 1955 Referring [place] Physician Thomas Clark MD Age 62 year(s) Building Carpenter Helper Solomon Ambrocio [facility] Regional Loss Prevention Manager Rosemary Verdin [facility] Interpreting Diogenes Muller MD Physician Procedure Type [...] calcification. Mild to moderate functional mitral regurgitation. Vcch-tn-slzkprab MV leaflet calcification. Tricuspid Valve TV structure [...] (V/Q) (11/22/2017 12:31 PM) Specimen Performing Laboratory [place] FINAL REPORT PROCEDURE: V/Q LUNG SCAN CPT CODE: 32096 INDICATION: Acute chest pain, positive d-dimer PROTOCOL: [...] MD Report Verified Date/Time:11/22/2017 13:41:06 Reading Location: [address] Reading Room Procedure Note Interface, External Ris In - 11/22/2017 1:43 PM THIOKOL OPERATOR FINAL REPORT PROCEDURE: V/Q LUNG SCAN CPT CODE: 46932 INDICATION: Acute chest pain, positive d-dimer PROTOCOL: [...] Report Verified Date/Time: 11/22/2017 13:41:06 Reading Location: [address] Reading Room * XR chest 1 [...] MD Report Verified Date/Time:11/22/2017 08:21:23 Reading Location: [facility] Reading Room Procedure Note Interface, External Ris In - 11/22/2017 8:23 AM THIOKOL OPERATOR FINAL REPORT CLINICAL HISTORY: SOB TECHNIQUE: 1 view of the chest. COMPARISON: 03/19/2013 IMPRESSION: There is new pulmonary vascular congestion with bilateral lung opacities suggesting edema. There are new small bilateral pleural effusions. The cardiomediastinal silhouette is magnified by technique. Signed: Audrey Matthews MD Report Verified Date/Time: 11/22/2017 08:21:23 Reading Location: [facility] Reading Room * Troponin I (11/22/2017 6:08 AM) Only the most recent of 2 results within the time period is included. Component Value Ref Range Troponin I 0.07 (H) 0.00 - 0.03 ng/mL Specimen Performing Laboratory Blood - Line, Venous [address] [address] Narrative Troponin I (TnI) levels must be [...] Specimen Performing Laboratory Blood - Line, Venous [address] [address] * Creatine Kinase (CK), Total and MB (11/22/2017 6:08 AM) Only the most recent of 2 results within the time period is included. Component Value Ref Range Total CK 79 29 - 200 U/L CK-MB 1.3 0.0 - 6.6 ng/mL MB Relative Index 1.6 % Specimen Performing Laboratory Blood - Line, Venous [address] [address] Narrative CK-MB Reference Range: <6.7Normal 6.7-10.0Borderline >10.0 Abnormal * Lipid panel (11/22/2017 6:08 AM) Component Value Ref Range Triglycerides 107 mg/dL Cholesterol 168 mg/dL HDL 33 mg/dL LDL Calculated 114 mg/dL Specimen Performing Laboratory Blood - Line, [place] [address] Narrative Triglyceride Reference Range: Low Risk <150 Cphwztclaf841-142 High Risk 200-499 Very High Risk>=500 Cholesterol Reference Range: Low Risk <200 Yfpeedxvtj637-407 High Risk>240 HDL Cholesterol Reference Range: Low Risk >=60 High Risk <40 LDL Cholesterol Reference Range: Optimal<100 Near Fujfmht647-734 Cihbdzswqk102-587 Pvpw240-491 Very High >=190 * Urea Nitrogen, random urine (11/22/2017 12:26 AM) Component Value Ref Range Urea Nitrogen, Ur 283 mg/dL Specimen [place] [address] Narrative Reference Range: No Normals * Sodium, random urine (11/22/2017 12:26 AM) Component Value Ref Range Sodium Urine 79 meq/L Specimen [place] [address] Narrative Reference Range: No Normals * Creatinine, random urine (11/22/2017 12:26 AM) Component Value Ref Range Creatinine, Ur 36.8 mg/dL Specimen [place] [address] Narrative Reference Range: No Normals * Urinalysis w/ Microscopic (11/22/2017 12:26 AM) Component Value Ref Range Color, UA Light Yellow Clarity, UA Clear Specific [place], UA 1.006 1.001 - 1.035 pH, UA [...] /LPF Specimen Source Specimen [place] [address] * ECG 12 lead (11/22/2017 12:16 AM) Specimen Performing Laboratory [facility] Narrative Ventricular Rate 71 BPM Atrial Rate 71 BPM P-R Interval 190 ms QRS Duration 112 ms Q-T Interval 406 ms QTC Calculation(Bazett) 441 ms P Madison 27 degrees R Madison 9 degrees T Madison 106 degrees Normal sinus rhythm Left atrial [...] External Ris In - 11/22/2017 10:29 AM THIOKOL OPERATOR Ventricular Rate 71 BPM Atrial Rate 71 BPM P-R Interval 190 ms QRS Duration 112 ms Q-T Interval 406 ms QTC Calculation(Bazett) 441 ms P Madison 27 degrees R Madison 9 degrees T Madison 106 degrees Normal sinus rhythm Left atrial enlargement Inferior infarct (cited on or before 19-MAR-2013) Anteroseptal infarct , age undetermined ST & T wave abnormality, consider lateral ischemia Abnormal ECG When compared with ECG of 19-MAR-2013 07:16, Anteroseptal infarct is now Present T wave inversion more evident in Lateral leads Confirmed by MD Gutierrez Roberto ([id number]) on 11/22/2017 10:29:30 AM after 07/14/2017
== END 2018-07-15 19:45 ==
LOC: ER 10:55
DX: R09.02 Hypoxemia (principal); R06.09 Other forms of dyspnea; I27.9 Pulmonary heart disease, unspecified; N18.3 Chronic kidney disease, stage 3 (moderate); I10 Essential (primary) hypertension; E11.9 Type 2 diabetes mellitus without complications; I25.10 Atherosclerotic heart disease of native coronary artery without angina pectoris
CPT/HCPCS: 36415; 71046; 80053; 82550; 82553; 83880; 84484; 85025; 85379; 85610; 85730; 93005; 94640; 99284; J1940

== ENCOUNTER 2019-05-31 17:59 | Inpatient (IN) | payer MEDICARE, OTHER ==
[~2019-05-31] VITALS: Ht 193 cm; Wt 88.8 kg
--- OUTSIDE RECORDS SUMMARY | 2019-05-31 18:02 | XMS REPORT | Clinical Summary ---
Author Author KARRI [employer] Organization [facility] Address Unknown Phone Unavailable Care Team Providers Care Handle Bar Assembler Name Role Phone Sylvain Wolf MD PCP Allergies No Known Allergies Medications End Date Status Medication Sig Dispensed Refills Start Date Active glimepiride (AMARYL) 1 MG Take 1 mg by 0 tablet mouth 2 (two) times daily. Active lisinopril Take 40 mg by 0 (PRINIVIL,ZESTRIL) 40 MG mouth daily. tablet Active amLODIPine (NORVASC) 10 Take 10 mg by 0 MG tablet mouth 2 (two) times daily. Active aspirin 81 MG EC tablet Take 81 mg by 0 mouth daily. Active atorvastatin (LIPITOR) 20 Take 20 mg by 0 MG tablet mouth daily. Active metoprolol (TOPROL-XL) 25 Take 25 mg by 0 MG 24 hr tablet mouth 2 (two) times daily. Active furosemide (LASIX) 40 MG Take 40 mg by 0 tablet mouth 2 (two) times daily. 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 Last Filed Vital Signs Not on file Plan of Treatment Health Maintenance Due Date Last Done Comments INFLUENZA VACCINE 08/26/2018 Results Not on fileafter 05/30/2018 Insurance Payer Benefit Subscriber ID Type Phone Address Plan / Group OTHER-COMMERCIAL GENERIC xxxxxxxxx COMMERCIAL (Work) Advance Directives For more information, please contact: [facility] [address] [place] [address] Date Inactivated Comments Code Status Date Activated 11/23/2017 9:11 PM Full Code 11/21/2017 11:50 PM This code status was determined by: Patient
[2019-05-31] MEDS ORDERED: DEXTROSE 5% 1,000 ML IV ONE (18:45)
[2019-05-31 19:10] LABS: BASOPHILS % 0.2 % (0.0-1.0); EOSINOPHILS # (AUTO) 0.1 (0.0-0.4); EOSINOPHILS % 1.1 % (0.0-6.0); HEMATOCRIT 32.2 % (38.2-49.6); HEMOGLOBIN 10.5 g/dL (14.0-18.0); LYMPHOCYTES # (AUTO) 0.4 (1.0-3.2); LYMPHOCYTES % 3.6 % (18.0-39.1); MEAN CORPUSCULAR HEMOGLOBIN 27.9 pg (28-32); MEAN CORPUSCULAR HGB CONC 32.6 g/dL (31-35); MEAN CORPUSCULAR VOLUME 85.6 fL (81-99); MONOCYTES # (AUTO) 0.4 (0.2-0.8); MONOCYTES % 3.9 % (4.4-11.3); NEUTROPHILS # (AUTO) 8.8 (2.1-6.9); NEUTROPHILS % 90.7 % (38.7-80.0); PLATELET COUNT 218 x10e3/uL (140-360); RED BLOOD COUNT 3.76 x10e6/uL (4.3-5.7); RED CELL DISTRIBUTION WIDTH 15.6 % (11.7-14.4)
[2019-05-31 19:29] LABS: ALBUMIN 3.3 g/dL (3.5-5.0); ALBUMIN/GLOBULIN RATIO 0.8 (0.8-2.0); ANION GAP 17.5 mmol/L (8-16); CALCIUM 9.7 mg/dL (8.4-10.2); CREATININE, SERUM 2.91 mg/dL (0.72-1.25); POTASSIUM 3.5 mmol/L (3.5-5.1)
[2019-05-31 19:32] LABS: EOSINOPHILS % (MANUAL) 2 % (0-7); LYMPHOCYTES % (MANUAL) 8 % (19-48); MONOCYTES % (MANUAL) 8 % (3.4-9.0); NEUTROPHILS % (MANUAL) 82 % (40-74); PLATELET ESTIMATE ADEQUATE; PLATELET MORPHOLOGY COMMENT NORMAL; RBC MORPHOLOGY COMMENT NORMAL
[2019-05-31 19:38] LABS: BILIRUBIN,URINE NEGATIVE (NEGATIVE); CLARITY,URINE SL CLOUDY (CLEAR); COLOR,URINE YELLOW (YELLOW); KETONES,URINE NEGATIVE (NEGATIVE); LEUKOCYTE ESTERASE ,URINE NEGATIVE (NEGATIVE); NITRITE,URINE NEGATIVE (NEGATIVE); PROTEIN,URINE DIPSTICK 2+ (NEGATIVE); URINE UROBILINOGEN 0.2 mg/dL (0.2 - 1)
--- NOTE | 2019-05-31 19:42 | NUR ---
DR. LEE AND HANS ELEVATOR INSTALLER NOTIFIED AND AWARE OF CRITICAL LAB VALUE; TROPONIN 2.69.
[2019-05-31 19:44] LABS: WBC,URINE (MAN) 0-5 /HPF (0-5)
[2019-05-31 19:45] LABS: AMORPHOUS SEDIMENT,URINE FEW (FEW); BACTERIA,URINE FEW /HPF; EPITHELIAL CELLS,URINE FEW /LPF; RBC,URINE 0-5 /HPF (0-5)
[2019-05-31] MEDS ORDERED: ASPIRIN 81 MG CHEW TAB PO ONE (20:00)
--- NOTE | 2019-05-31 20:19 | Diagnostic Imaging Report ---
EXAMINATION: CHEST SINGLE (PORTABLE) COMPARISON: Chest x-ray 08/13/2018, chest x-ray 08/11/2018 INDICATION: Hypoglycemia ^SOB ^[id number] ^1908 ^Y DISCUSSION: Frontal view of the chest obtained at 1910 hours. HEART AND MEDIASTINUM: The heart is enlarged. The pulmonary arteries are enlarged. There are calcifications of the aortic arch. No significant tortuosity. LINES: None. LUNGS: Pulmonary vasculature is prominent. Diffuse groundglass reticulonodular opacities have developed in the mid and lower lung zones. PLEURA: There is fluid outlining the minor fissure. No large effusions. No pneumothorax. BONES AND SOFT TISSUES: Degenerative changes of the spine are stable. The soft tissues are normal. IMPRESSION: Cardiomegaly and pulmonary vascular congestion. Enlarged pulmonary arteries suggestive of pulmonary artery hypertension. Diffuse reticulonodular airspace opacities are suggestive of pulmonary edema or pneumonia. Signed by: Dr. Maureen Chris MD on 05/31/2019 8:16 PM
[2019-05-31] MEDS ORDERED: FUROSEMIDE INJ 10 MG/ML 4 ML VIAL IV ONE (20:30)
[2019-05-31] MEDS ORDERED: AMLODIPINE BESY10 MG PO (20:33)
[2019-05-31] MEDS ORDERED: CARVEDILOL12.5 MG PO (20:33)
[2019-05-31] MEDS ORDERED: CLOPIDOGREL BISULFATE 75 MG TAB PO ONE (20:45)
[2019-05-31] MEDS ORDERED: DEXTROSE 50% SYRINGE 50 ML IV PRN (21:00)
--- OUTSIDE RECORDS SUMMARY | 2019-05-31 21:02 | XMS REPORT | Clinical Summary ---
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
[2019-05-31] MEDS: INSULIN REGULAR, HUMAN 100 UNIT/1 ML 3ML VIAL SQ SCH (22:08)
[2019-05-31 22:30] VITALS: BP 127/60
[2019-05-31 23:00] VITALS: BP_SYST 125; BP_SYST 127; BP_DIAS 60; BP_DIAS 74
[2019-05-31] MEDS ORDERED: METOLAZONE5 MG PO (23:07)
[2019-05-31] MEDS ORDERED: b12 PO (23:07)
[2019-05-31] MEDS ORDERED: PLAVIX75 MG PO (23:15)
[2019-05-31] MEDS ORDERED: CARVEDILOL 12.5 MG TAB PO SCH (23:30)
[2019-06-01] VITALS (20 sets, daily range): BP systolic 102–142; BP diastolic 54–76
[2019-06-01 04:38] LABS: BASOPHILS % 0.2 % (0.0-1.0); EOSINOPHILS # (AUTO) 0.1 (0.0-0.4); EOSINOPHILS % 1.1 % (0.0-6.0); HEMATOCRIT 25.9 % (38.2-49.6); HEMOGLOBIN 8.5 g/dL (14.0-18.0); LYMPHOCYTES # (AUTO) 0.4 (1.0-3.2); LYMPHOCYTES % 5.6 % (18.0-39.1); MEAN CORPUSCULAR HEMOGLOBIN 27.8 pg (28-32); MEAN CORPUSCULAR HGB CONC 32.8 g/dL (31-35); MEAN CORPUSCULAR VOLUME 84.6 fL (81-99); MONOCYTES # (AUTO) 0.7 (0.2-0.8); MONOCYTES % 10.1 % (4.4-11.3); NEUTROPHILS # (AUTO) 5.4 (2.1-6.9); NEUTROPHILS % 82.5 % (38.7-80.0); PLATELET COUNT 179 x10e3/uL (140-360); RED BLOOD COUNT 3.06 x10e6/uL (4.3-5.7); RED CELL DISTRIBUTION WIDTH 15.5 % (11.7-14.4)
[2019-06-01 04:55] LABS: ALBUMIN 2.7 g/dL (3.5-5.0); ALBUMIN/GLOBULIN RATIO 0.7 (0.8-2.0); ANION GAP 14.8 mmol/L (8-16); CREATININE, SERUM 2.88 mg/dL (0.72-1.25); POTASSIUM 3.8 mmol/L (3.5-5.1)
[2019-06-01 05:05] LABS: CREATINE KINASE MB 1.5 ng/mL (0-5.0)
--- NOTE | 2019-06-01 05:37 | Diagnostic Imaging Report ---
EXAMINATION: CHEST SINGLE (PORTABLE) COMPARISON: Chest x-ray 05/31/2019 INDICATION: ^Follow up pna vs pulm edema ^[id number] ^5190 DISCUSSION: Frontal view of the chest obtained at 0501 hours. HEART AND MEDIASTINUM: Stable cardiomegaly and pulmonary artery enlargement LINES: None. LUNGS: Pulmonary vasculature is prominent and indistinct. The lungs are diffusely hyperinflated. Diffuse reticulonodular airspace opacities are stable. No pneumonia or pulmonary edema. PLEURA: No pleural effusion or pneumothorax. BONES AND SOFT TISSUES: No focal osseous lesion. The soft tissues are normal. IMPRESSION: Stable pulmonary vascular congestion and reticulonodular opacities. No new findings. Signed by: Dr. Maureen Chris MD on 06/01/2019 5:34 AM
[2019-06-01] MEDS: INSULIN REGULAR, HUMAN 100 UNIT/1 ML 3ML VIAL SQ SCH ×4 (07:30→21:00)
--- NOTE | 2019-06-01 09:07 | NUR ---
spoke to yajaira at dr simon/jayjay answering service to notify of new consult
[2019-06-01] MEDS: FUROSEMIDE INJ 10 MG/ML 4 ML VIAL IV SCH ×2 (10:30→17:44)
[2019-06-01] MEDS: CARVEDILOL 12.5 MG TAB PO SCH ×2 (10:30→22:36)
[2019-06-01] MEDS: CLOPIDOGREL BISULFATE 75 MG TAB PO SCH (10:30)
[2019-06-01] MEDS: ASPIRIN 81 MG CHEW TAB PO SCH (10:30)
[2019-06-01 12:26] LABS: AMYLASE 46 U/L (25-125)
[2019-06-01 12:39] LABS: LIPASE 4 U/L (8-78)
[2019-06-01 12:54] LABS: CHOL/HDL RATIO 3.8 (3.9-4.7)
[2019-06-01] MEDS ORDERED: FAMOTIDINE 20 MG TAB PO ONE (13:00)
[2019-06-01 13:10] LABS: CREATINE KINASE MB 1.7 ng/mL (0-5.0)
--- NOTE | 2019-06-01 14:03 | Diagnostic Imaging Report ---
EXAM: Abdomen 3 Views INDICATION: ^n/v ^[id number] ^1230 ^Y COMPARISON: Chest radiograph 06/01/2019 FINDINGS: Lines/tubes: None. Mild amount of stool in the colon. No dilated loops of small bowel. No renal calculi. No abnormal soft tissue masses. Mild degenerative changes in the lumbar spine and pelvis. Bilateral reticular nodular opacities in both lung bases seen on recent chest radiograph are not well-visualized due to motion artifact. IMPRESSION: No bowel obstruction or dilatation. Signed by: Dr. Mar Joya M.D. on 06/01/2019 2:00 PM
[2019-06-01 14:13] LABS: FOLATE 32.6 ng/mL (7.0-15.4)
[2019-06-01] MEDS: FAMOTIDINE 20 MG TAB PO SCH (17:44)
--- NOTE | 2019-06-01 19:17 | Consultation ---
DATE OF CONSULTATION: 06/01/2019 Cardiology Consultation HISTORY OF PRESENT ILLNESS: Thank you so much for asking us to see this nice man again in consultation. Mr. 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 CHIEF COMPLAINT: He was brought to the emergency room after an episode of hypoglycemia at home. HISTORY OF PRESENT ILLNESS: The patient reports that he had nausea and vomiting for a couple of days and did not eat much and then by the 4th or 5th called the peoplesoft fscm developer and became somewhat confused and was found to have a blood sugar in the 40s. He admits he has been using glimeperide for diabetes at home. PAST MEDICAL HISTORY: Complex with previous hospitalizations for problems with congestive heart failure and renal insufficiency. He has never had a cardiac catheterization. We were told he did have a myocardial infarction some years ago, but no catheterization due to renal insufficiency. He has longstanding hypertension, previous osteomyelitis of the left great toe, hyperlipidemia. HOME MEDICATIONS: Other home medications, please see the chart. PHYSICAL EXAMINATION: GENERAL: At this time shows an elderly white man, looks older than his stated age with a full eaton. VITAL SIGNS: Blood pressure 102/60. HEAD, EYES, EARS, NOSE, and THROAT: Otherwise unremarkable. NECK: No jugular venous distention. THORAX: Heart sounds S1, S2 equal. No murmurs. LUNGS: Have faint bibasilar crackles. ABDOMEN: Protuberant. EXTREMITIES: No cyanosis, clubbing, or edema. LABORATORY AND DIAGNOSTIC DATA: EKG shows sinus rhythm, possible anteroseptal scar. BNP is greater than 5000, hemoglobin 8.5, BUN 62, creatinine 2.88. ASSESSMENT: 1. Hypoglycemia. 2. Advancing renal insufficiency. 3. Ischemic cardiomyopathy with previous myocardial infarction. His last EF by echocardiogram was about 35% in July 2018. PLAN: I have discussed the interaction of oral hypoglycemics and advancing renal insufficiency. We will recheck echocardiogram and monitoring closely with you. Thank you for asking me to see him in consultation. MD KELLI Wiggins/HARIKA /[id number] cc: Darryl German MD
[2019-06-02] VITALS (22 sets, daily range): BP systolic 124–142; BP diastolic 66–89
[2019-06-02 04:56] LABS: BASOPHILS % 0.1 % (0.0-1.0); EOSINOPHILS % 0.2 % (0.0-6.0); HEMATOCRIT 27.4 % (38.2-49.6); HEMOGLOBIN 8.8 g/dL (14.0-18.0); LYMPHOCYTES # (AUTO) 0.3 (1.0-3.2); LYMPHOCYTES % 3.5 % (18.0-39.1); MEAN CORPUSCULAR HEMOGLOBIN 27.4 pg (28-32); MEAN CORPUSCULAR HGB CONC 32.1 g/dL (31-35); MEAN CORPUSCULAR VOLUME 85.4 fL (81-99); MONOCYTES # (AUTO) 0.6 (0.2-0.8); NEUTROPHILS % 87.7 % (38.7-80.0); PLATELET COUNT 197 x10e3/uL (140-360); RED BLOOD COUNT 3.21 x10e6/uL (4.3-5.7); RED CELL DISTRIBUTION WIDTH 15.3 % (11.7-14.4)
[2019-06-02 05:14] LABS: ANION GAP 18.2 mmol/L (8-16); CALCIUM 9.4 mg/dL (8.4-10.2); CREATININE, SERUM 2.98 mg/dL (0.72-1.25); POTASSIUM 4.2 mmol/L (3.5-5.1)
--- NOTE | 2019-06-02 06:32 | Diagnostic Imaging Report ---
EXAMINATION: CHEST SINGLE (PORTABLE) INDICATION: ^Follow up pna vs pulm edema ^[id number] ^0535 COMPARISON: 06/01/2019 FINDINGS: AP view TUBES and LINES: None. LUNGS: Lungs are well inflated. Pulmonary vascular congestion and mild to moderate interstitial edema. PLEURA: No significant pleural effusion or pneumothorax. HEART AND MEDIASTINUM: The cardiomediastinal silhouette is enlarged. BONES AND SOFT TISSUES: No acute osseous lesion. Soft tissues are unremarkable. UPPER ABDOMEN: No free air under the diaphragm. IMPRESSION: Pulmonary vascular congestion and mild to moderate interstitial edema, not significantly changed from prior exam. Signed by: Dr. Fabricio Fields MD on 06/02/2019 6:29 AM
[2019-06-02] MEDS: INSULIN REGULAR, HUMAN 100 UNIT/1 ML 3ML VIAL SQ SCH ×4 (07:30→21:37)
[2019-06-02 07:55] LABS: BAND NEUTROPHILS % (MANUAL) 2 %; LYMPHOCYTES % (MANUAL) 5 % (19-48); MONOCYTES % (MANUAL) 3 % (3.4-9.0); NEUTROPHILS % (MANUAL) 90 % (40-74); PLATELET ESTIMATE ADEQUATE; PLATELET MORPHOLOGY COMMENT NORMAL; RBC MORPHOLOGY COMMENT NORMAL
[2019-06-02] MEDS: CLOPIDOGREL BISULFATE 75 MG TAB PO SCH (09:12)
[2019-06-02] MEDS: FAMOTIDINE 20 MG TAB PO SCH ×2 (09:12→16:37)
[2019-06-02] MEDS: IRON SUCROSE 100 MG in SODIUM CHLORIDE 0.9% 100 ML 100 ML IV SCH (09:12)
[2019-06-02] MEDS: FUROSEMIDE INJ 10 MG/ML 4 ML VIAL IV SCH ×3 (09:12→21:41)
[2019-06-02] MEDS: ASPIRIN 81 MG CHEW TAB PO SCH (09:12)
[2019-06-02] MEDS: CARVEDILOL 12.5 MG TAB PO SCH ×2 (09:13→20:52)
--- NOTE | 2019-06-02 10:57 | Diagnostic Imaging Report ---
EXAM: US ABDOMEN COMPLETE DATE: 06/02/2019 12:00 AM INDICATION: Nausea/vomiting, abdominal pain COMPARISON: Complete abdominal ultrasound of 05/21/2018 TECHNIQUE: Transverse and longitudinal patel scale and color doppler sonographic images of the upper abdomen were obtained. FINDINGS: There is no evidence of fluid or masses seen in the area of clinical concern in the right lower quadrant. LIVER 18.1 cm in the right midclavicular line. Mild nodular liver surface contour. Normal echogenicity of the liver. No focal hepatic masses. SPLEEN 10.7 cm in maximum diameter. Normal echogenicity, no masses. GALLBLADDER No gallbladder wall thickening or pericholecystic fluid. Again seen are multiple small echogenic foci within the gallbladder wall, unchanged from 05/21/2018 Negative sonographic Sanchez's sign. Gallbladder wall measures 0.3 cm. BILE DUCTS No intra nor extra-hepatic biliary dilation. Common bile duct measures 0.3cm PANCREAS: Visualized portions are normal. RIGHT KIDNEY: 12.2 cm Echogenicity: Increased Collecting System: No hydronephrosis Stones: None Cyst/Mass: Right kidney lower pole simple cyst measuring 1.3 x 1.1 x 1.2 cm. LEFT KIDNEY: 11.0 cm Echogenicity: Increased Collecting System: No hydronephrosis Stones: None Cyst/Mass: Left kidney lower pole cyst measures 1.4 x 1.6 cm. Left kidney upper pole cyst measures 1.3 x 1.5 cm VESSELS: Aorta: Visualized portions are within normal size limits Inferior Vena Cava: Visualized portions are normal Main Portal Vein: 0.7 cm, normal size with hepatopetal flow. FREE FLUID: None IMPRESSION: 1. No sonographic evidence of cholecystitis. Unchanged small echogenic foci within the gallbladder wall. 2. Mild hepatomegaly and nodular liver surface contour can be seen with cirrhosis. 3. Increased echogenicity of bilateral kidneys can be seen with medical renal disease. Signed by: Doris Hairston MD on 06/02/2019 10:54 AM
--- NOTE | 2019-06-02 14:40 | NUR ---
Nutrition Screen Note RD Recommendation for Physician: -Rec adding cardiac to ADA 1800 diet as medically appropriate -Pt is not interested in any diet education. Plan of Care: RD following, monitoring for tolerance and adequacy Nutrition reason for involvement: Diagnosis CHF Primary Diagnose(s): CHF, CKD, Elevated Troponin, hypoglycemia PMH: CHF, renal insufficiency, RI, HTH, HLD, osteomyelitis Ht: 76in Wt: 196.38lb BMI: 23.9kg/m2 IBW: 202lb +/- 10% RD Assessment: (Date) Chart reviewed. Labs and meds reviewed. 64yo M, who was admitted from home after an episode of hypoglycemia. Pt had nausea and vomiting with poor appetite for a few days BOTTOM MAN. Pt called EMT when found to have BG at 40s. Visited pt in the room. Pt denies any nausea or vomiting today. Pt ate 100% of his lunch today. Normal BM. Pt denies any chewing or swallowing difficulty. Weight has been stable. BG today is between 130 160. Pt is not interested in any diet education. Pt has been following a low salt diet at home. Will continue to monitor and follow. Current Diet: ADA Malnutrition Evaluation (06/02/2019) The patient does not meet criteria for a specified degree of malnutrition at this time. Will re-evaluate at follow-up as appropriate. Diet Education Needs Assessment: Diet education indicated, pt is not interested Nutrition Care Level: low Signed: Kenya Choi, MS, RD, LD
--- NOTE | 2019-06-02 18:06 | NUR ---
Attending physician gave orders to downgrade to Med-Surg with telemetry. MD also ordered ekg and nephrology consult. Dr. Cameron's office was called and notified of consult.
[2019-06-02 19:03] LABS: BILIRUBIN,URINE NEGATIVE (NEGATIVE); CLARITY,URINE CLEAR (CLEAR); COLOR,URINE YELLOW (YELLOW); KETONES,URINE NEGATIVE (NEGATIVE); LEUKOCYTE ESTERASE ,URINE NEGATIVE (NEGATIVE); NITRITE,URINE NEGATIVE (NEGATIVE); PROTEIN,URINE DIPSTICK 2+ (NEGATIVE); URINE UROBILINOGEN 0.2 mg/dL (0.2 - 1)
[2019-06-02 19:23] LABS: BACTERIA,URINE FEW /HPF; EPITHELIAL CELLS,URINE FEW /LPF; RBC,URINE 0-5 /HPF (0-5)
[2019-06-03] VITALS (7 sets, daily range): BP systolic 123–134; BP diastolic 71–79
[2019-06-03 05:47] LABS: BASOPHILS % 0.3 % (0.0-1.0); EOSINOPHILS # (AUTO) 0.2 (0.0-0.4); EOSINOPHILS % 2.6 % (0.0-6.0); HEMATOCRIT 27.2 % (38.2-49.6); HEMOGLOBIN 8.9 g/dL (14.0-18.0); LYMPHOCYTES # (AUTO) 0.5 (1.0-3.2); LYMPHOCYTES % 8.2 % (18.0-39.1); MEAN CORPUSCULAR HEMOGLOBIN 27.9 pg (28-32); MEAN CORPUSCULAR HGB CONC 32.7 g/dL (31-35); MEAN CORPUSCULAR VOLUME 85.3 fL (81-99); MONOCYTES # (AUTO) 0.6 (0.2-0.8); MONOCYTES % 8.8 % (4.4-11.3); NEUTROPHILS # (AUTO) 5.1 (2.1-6.9); NEUTROPHILS % 79.3 % (38.7-80.0); PLATELET COUNT 225 x10e3/uL (140-360); RED BLOOD COUNT 3.19 x10e6/uL (4.3-5.7); RED CELL DISTRIBUTION WIDTH 15.3 % (11.7-14.4)
[2019-06-03] MEDS: FUROSEMIDE INJ 10 MG/ML 4 ML VIAL IV SCH ×3 (06:23→21:55)
--- NOTE | 2019-06-03 06:41 | Diagnostic Imaging Report ---
EXAMINATION: CHEST SINGLE (PORTABLE) INDICATION: Pneumonia versus pulmonary edema COMPARISON: Chest radiograph 06/02/2019 FINDINGS: AP view TUBES and LINES: None. LUNGS: Lungs are well inflated. Central airspace opacities. There is mild prominence of the central pulmonary vasculature, consistent with pulmonary venous congestion. PLEURA: Trace fluid in the right minor fissure. HEART AND MEDIASTINUM: Cardiac size is mildly enlarged. BONES AND SOFT TISSUES: No acute osseous lesion. Soft tissues are unremarkable. UPPER ABDOMEN: No free air under the diaphragm. IMPRESSION: Mild cardiomegaly and bilateral central opacities suggestive of pulmonary interstitial edema, pneumonia less favored. Exam similar compared to the prior. Signed by: Fer Gupta DO on 06/03/2019 6:37 AM
--- NOTE | 2019-06-03 07:00 | NUR ---
RECEIVED BEDSIDE REPORT FROM NIGHT RN. PT DENIES NEEDS AT THIS TIME.
[2019-06-03 07:03] LABS: ALBUMIN 2.6 g/dL (3.5-5.0); ALBUMIN/GLOBULIN RATIO 0.7 (0.8-2.0); ANION GAP 14.8 mmol/L (8-16); CALCIUM 9.2 mg/dL (8.4-10.2); CREATININE, SERUM 3.05 mg/dL (0.72-1.25); POTASSIUM 3.8 mmol/L (3.5-5.1)
[2019-06-03] MEDS: INSULIN REGULAR, HUMAN 100 UNIT/1 ML 3ML VIAL SQ SCH ×4 (07:30→21:00)
[2019-06-03] MEDS: ASPIRIN 81 MG CHEW TAB PO SCH (09:00)
[2019-06-03] MEDS: CLOPIDOGREL BISULFATE 75 MG TAB PO SCH (09:00)
[2019-06-03] MEDS: FAMOTIDINE 20 MG TAB PO SCH ×2 (09:00→17:22)
[2019-06-03] MEDS: CARVEDILOL 12.5 MG TAB PO SCH ×2 (09:00→21:55)
[2019-06-03] MEDS: IRON SUCROSE 100 MG in SODIUM CHLORIDE 0.9% 100 ML 100 ML IV SCH (09:10)
--- NOTE | 2019-06-03 16:08 | NUR ---
PT DISCUSSED IN BARRIER ROUNDS, CARDIO CONSULT, HERE FOR RENAL, GETTING IRON INFUSION. NO DOCUMENTED PLAN AT THIS TIME.
--- NOTE | 2019-06-03 22:14 | Consultation ---
DATE OF CONSULTATION: 06/03/2019 HISTORY OF PRESENT ILLNESS: This is a 64-year-old gentleman known to our nephrology service, who has underlying history of chronic kidney disease stage 4, baseline creatinine around 3, underlying history of hyperlipidemia, peripheral vascular disease, history of [place], history of type 2 diabetes with diabetic retinopathy, neuropathy, and diabetic kidney disease, currently lying supine, in no apparent distress, admitted with nausea, vomiting, and diarrhea. He denies any shortness of breath or nausea or abdominal pain or diarrhea or fever or chills at the moment. ALLERGIES: NO APPARENT DRUG ALLERGIES. SOCIAL HISTORY: Does not smoke or drink. FAMILY HISTORY: Significant for diabetes. MEDICATIONS: Currently receiving an IV Venofer, aspirin 81 mg daily, carvedilol 12.5 mg p.o. b.i.d., Plavix 75 mg daily, furosemide 40 IV b.i.d., which has been changed to 40 mg IV q.8. He is on regular insulin. PHYSICAL EXAMINATION: GENERAL: Awake, alert, sitting up in no apparent distress. VITAL SIGNS: Blood pressure 128/71, pulse rate 84, afebrile, oxygen saturation 95%. HEAD AND NECK: Cornea clear. Mucosa moist. Neck veins flat. LUNGS: Bibasilar rales. HEART: S1, S2 audible. Soft 2-3/6 ejection systolic murmur heard over left sternal border. ABDOMEN: Otherwise soft, nontender. EXTREMITIES: Lower extremity, no edema. WORKUP: Included an ultrasound of the abdomen complete, right kidney 12.2 and left kidney 11 cm, echogenic kidneys. There is mild hepatomegaly with some nodular liver surface suggestive of possible cirrhosis. Current lab show sodium 139, potassium 3.8, chloride 104, bicarbonate 24, creatinine 3.05. White count 6.48, hemoglobin 8.9. IMPRESSION AND PLAN: Chronic kidney disease stage 4, likely nephrosclerosis, diabetes, end-organ damage with diabetic kidney disease, underlying hypertension, evidence of mild CHF. Agree with diuresis. We will obtain clinic records. Anemia appears multifactorial. Has iron-deficiency. Receiving IV iron. On Plavix and aspirin. GI on the case. Please see workup. We will follow with you. Kendal Cameron MD SAK/HARIKA /[id number]
[2019-06-04] VITALS (7 sets, daily range): BP systolic 126–141; BP diastolic 68–76
[2019-06-04] MEDS: FUROSEMIDE INJ 10 MG/ML 4 ML VIAL IV SCH (05:39)
[2019-06-04 06:25] LABS: ALBUMIN 2.6 g/dL (3.5-5.0); ALBUMIN/GLOBULIN RATIO 0.7 (0.8-2.0); ANION GAP 13.8 mmol/L (8-16); CREATININE, SERUM 3.11 mg/dL (0.72-1.25); POTASSIUM 3.8 mmol/L (3.5-5.1)
[2019-06-04] MEDS: FAMOTIDINE 20 MG TAB PO SCH ×2 (07:30→16:40)
[2019-06-04] MEDS: INSULIN REGULAR, HUMAN 100 UNIT/1 ML 3ML VIAL SQ SCH ×4 (07:30→21:00)
--- NOTE | 2019-06-04 08:02 | Diagnostic Imaging Report ---
EXAMINATION: CHEST SINGLE (PORTABLE) INDICATION: Follow-up pneumonia versus pulmonary edema. COMPARISON: Chest radiograph 06/03/2019. FINDINGS: AP view TUBES and LINES: None. LUNGS: Lungs are moderately inflated. There is perihilar fullness and indistinctness of the pulmonary vasculature. Interval increase in patchy opacities in the right upper and lower lung zones. PLEURA: Trace fluid in the right minor fissure. HEART AND MEDIASTINUM: Cardiac size is mildly enlarged. There are atherosclerotic calcifications within the aorta. BONES AND SOFT TISSUES: No acute osseous abnormality. UPPER ABDOMEN: No free air under the diaphragm. IMPRESSION: Findings of persistent pulmonary edema. Increasing patchy opacity in the right upper and lower lung zones may represent alveolar edema or early pneumonia in the appropriate clinical setting. Signed by: Dr. Ita Solorzano MD on 06/04/2019 7:59 AM
[2019-06-04] MEDS: IRON SUCROSE 100 MG in SODIUM CHLORIDE 0.9% 100 ML 100 ML IV SCH (09:46)
[2019-06-04] MEDS: ASPIRIN 81 MG CHEW TAB PO SCH (09:46)
[2019-06-04] MEDS: CARVEDILOL 12.5 MG TAB PO SCH ×2 (09:47→21:05)
[2019-06-04] MEDS: CLOPIDOGREL BISULFATE 75 MG TAB PO SCH (09:47)
[2019-06-04] MEDS: HYDRALAZINE HCL 25 MG TAB PO SCH (18:11)
--- NOTE | 2019-06-04 18:37 | NUR ---
Rounds by Dr. Jackman and orders to change chest xray to be done tomorrow morning but he was already down for xray. Orders for Lasix 80mg BID starting tonight. Will monitor.
[2019-06-04] MEDS: FUROSEMIDE 40 MG TAB PO SCH (19:00)
--- NOTE | 2019-06-04 19:09 | Diagnostic Imaging Report ---
EXAMINATION: CHEST 2 VIEWS INDICATION: Pulmonary edema COMPARISON: 06/04/2019. FINDINGS: TUBES and LINES: None. LUNGS: Redemonstration of bilateral pulmonary edema, which allow for significant listhesis mildly decreased since the prior examination. PLEURA: No pleural effusion or pneumothorax. Trace fluid in the minor fissure. HEART AND MEDIASTINUM: Cardiac size is moderately enlarged. BONES AND SOFT TISSUES: No acute osseous lesion. Soft tissues are unremarkable. UPPER ABDOMEN: No free air under the diaphragm. IMPRESSION: Mild interval decrease in bilateral pulmonary edema. Signed by: Dr. Mia Merino M.D. on 06/04/2019 7:05 PM
[2019-06-04] MEDS ORDERED: FUROSEMIDE INJ 10 MG/ML 4 ML VIAL IV SCH (21:00)
[2019-06-05] VITALS (7 sets, daily range): BP systolic 122–154; BP diastolic 69–84
[2019-06-05] MEDS: HYDRALAZINE HCL 25 MG TAB PO SCH ×4 (00:25→17:29)
[2019-06-05] MEDS: FUROSEMIDE 40 MG TAB PO SCH ×2 (05:11→17:26)
[2019-06-05 05:47] LABS: BASOPHILS % 0.4 % (0.0-1.0); EOSINOPHILS # (AUTO) 0.3 (0.0-0.4); EOSINOPHILS % 4.2 % (0.0-6.0); HEMATOCRIT 26.1 % (38.2-49.6); HEMOGLOBIN 8.6 g/dL (14.0-18.0); LYMPHOCYTES # (AUTO) 0.7 (1.0-3.2); LYMPHOCYTES % 9.8 % (18.0-39.1); MEAN CORPUSCULAR HEMOGLOBIN 28.1 pg (28-32); MEAN CORPUSCULAR VOLUME 85.3 fL (81-99); MONOCYTES # (AUTO) 0.5 (0.2-0.8); MONOCYTES % 6.3 % (4.4-11.3); NEUTROPHILS # (AUTO) 5.8 (2.1-6.9); NEUTROPHILS % 78.6 % (38.7-80.0); PLATELET COUNT 301 x10e3/uL (140-360); RED BLOOD COUNT 3.06 x10e6/uL (4.3-5.7); RED CELL DISTRIBUTION WIDTH 15.1 % (11.7-14.4)
[2019-06-05 05:55] LABS: HEMATOCRIT 26.3 % (38.2-49.6); HEMOGLOBIN 8.5 g/dL (14.0-18.0)
[2019-06-05 05:57] LABS: ALBUMIN 2.7 g/dL (3.5-5.0); ALBUMIN/GLOBULIN RATIO 0.8 (0.8-2.0); CALCIUM 9.2 mg/dL (8.4-10.2); CREATININE, SERUM 2.75 mg/dL (0.72-1.25)
--- NOTE | 2019-06-05 07:18 | Diagnostic Imaging Report ---
Examination: Single AP view of the chest. COMPARISON: 06/04/2019 INDICATION: Follow-up pneumonia versus pulmonary edema DISCUSSION: The lungs remain well-inflated. When accounting for portable, AP technique, no appreciable interval change in prominence of the central pulmonary vasculature and interstitium. No new consolidations. Stable cardiomediastinal contour with atherosclerotic calcification of the thoracic aorta. No acute osseous abnormality. IMPRESSION: Stable findings suggestive of pulmonary edema when compared to 06/04/2019. No new consolidations. Signed by: Dr. Jose Rios M.D. on 06/05/2019 7:15 AM
[2019-06-05] MEDS: INSULIN REGULAR, HUMAN 100 UNIT/1 ML 3ML VIAL SQ SCH ×3 (07:30→17:00)
[2019-06-05] MEDS ORDERED: FUROSEMIDE 40 MG TAB PO SCH (09:00)
[2019-06-05] MEDS ORDERED: METOLAZONE 5 MG TAB PO SCH (09:00)
[2019-06-05] MEDS ORDERED: NITROGLYCERIN 0.2 MG/HR PATCH TOP SCH (09:00)
[2019-06-05] MEDS ORDERED: GLIMEPIRIDE 2 MG TAB PO SCH (09:00)
[2019-06-05] MEDS: ASPIRIN 81 MG CHEW TAB PO SCH (09:05)
[2019-06-05] MEDS: FAMOTIDINE 20 MG TAB PO SCH ×2 (09:06→17:29)
[2019-06-05] MEDS: CLOPIDOGREL BISULFATE 75 MG TAB PO SCH (09:06)
[2019-06-05] MEDS: CARVEDILOL 12.5 MG TAB PO SCH (09:06)
[2019-06-05] MEDS: IRON SUCROSE 100 MG in SODIUM CHLORIDE 0.9% 100 ML 100 ML IV SCH (09:53)
[2019-06-05] MEDS ORDERED: EPOETIN ALFA 10000 UNIT/ML VIAL SC SCH (12:45)
--- NOTE | 2019-06-05 15:26 | NUR ---
Discharge instructions given to the patient, he verbalized understanding.
--- NOTE | 2019-06-05 16:47 | NUR ---
CM SPOKE TO PATIENT AT BEDSIDE REGARDING IMM LETTER. IMM LETTER GIVEN WITH EXPLANATION BASED ON ANTICIPATED DISCHARGE DATE. ORIGINAL SIGNED AND PLACED IN CHART; COPY OF ORIGINAL DOCUMENT GIVEN TO PATIENT AT BEDSIDE AND PLACED IN CARE TRANSITION FOLDER. CM CONTACT INFORMATION GIVEN TO PATIENT FOR ANY NEEDS OR CONCERNS. PATIENT WITH NO FURTHER QUESTIONS.
--- NOTE | 2019-06-05 17:30 | NUR ---
IV to the right AC was removed with tip intact. Patient is being discharged home.
--- NOTE | 2019-06-06 11:47 | Discharge Summary ---
HOSPITAL COURSE: The patient was hospitalized through the emergency room. He presented and he had been experiencing nausea, vomiting, and diarrhea prior to admission. He had associated hypoglycemia on the day of admission. ER physician related troponins were elevated and requested appropriately observation regarding the elevated troponins. His geek squad autotech was consulted, see notes. The patient has a long history of diabetes mellitus with nephropathy and peripheral vascular disease. History includes coronary artery disease with prior AR and chronic congestive heart failure, which transiently increased while here. Blood sugars were monitored and controlled. The patient was seen by his protocol manager while here. Hemoccult was negative, although the patient continues to experience significant anemia. He experienced low iron and TIBC as well as low iron sats and was given intravenous iron while here per GI. Serial chest x-rays remained stable with congestive heart failure. Blood sugars were monitored and hypoglycemia did not recur. His glimepiride was reinitiated at a lower dose while here and the patient will post discharge, continue low dose at 1 mg daily. He will resume his other home medications when he does go home when cleared with his consultants. See also serial orders and database. Chemistries were monitored serially. On May 31, BUN 63, creatinine 2.91, and troponin 2.6. Troponin on June 01 was 2.3. CK-MB, CPK, and transaminases were normal and remained so. Natriuretic peptide was markedly elevated greater than 5000. Folate and B12 levels were elevated. Amylase and lipase levels normal. LDL was 88. Elevated for CAD patient. The patient was counseled regarding appropriate diet for diabetes and lipids. Abdominal ultrasound revealed no evidence of cholelithiasis or cholecystitis. No hydronephrosis. Medical renal disease was documented. The patient was seen by his grommet machine operator while here. O2 sats remained adequate while here. The patient uses intermittent oxygen. EKGs with left atrial enlargement, LVH, inferior and anterior scars. Echocardiogram with ejection fraction 35%, compatible with chronic left ventricular congestive heart failure documented here also previously. FINAL IMPRESSION: Acute gastroenteritis with associated hypoglycemia as the patient had continued his glimepiride high dose prior to admission without eating. Primary hypertension. Type 2 diabetes mellitus with advanced nephropathy and peripheral vascular disease. Coronary artery disease with old AR and chronic left ventricular congestive heart failure. Anemia secondary to chronic renal disease according to his prior Hematology consultation, see prior admissions. Hyperlipidemia. The patient will return within the week for close followup. Continue oxygen as needed. See discharge med reconciliation list. Prognosis is guarded as the patient has had innumerable prior admissions. See also recommendations per his consultants and Cardiology, Nephrology, Pulmonary Medicine previously, Hematology previously, and GI. Appreciate inputs. MD JOSEMANUEL Barboza/HARIKA /[id number]
== END 2019-06-05 17:55 | disposition home or self-care (01) | DRG 394 ==
LOC: ER 17:59 → ERHOLD 20:59 → ICU 22:30 → MED/SURG 06-02 21:09 → MED/SURG2 06-02 21:11
PROVIDERS: ADMIT Internal Medicine; ATTEND Internal Medicine
DX: K52.1 Toxic gastroenteritis and colitis (principal); I13.0 Hypertensive heart and chronic kidney disease with heart failure and stage 1 through stage 4 chronic kidney disease, or unspecified chronic kidney disease; N18.4 Chronic kidney disease, stage 4 (severe); N17.9 Acute kidney failure, unspecified; I50.42 Chronic combined systolic (congestive) and diastolic (congestive) heart failure; E11.649 Type 2 diabetes mellitus with hypoglycemia without coma; Z79.4 Long term (current) use of insulin; E11.21 Type 2 diabetes mellitus with diabetic nephropathy; E11.42 Type 2 diabetes mellitus with diabetic polyneuropathy; I25.10 Atherosclerotic heart disease of native coronary artery without angina pectoris; E11.22 Type 2 diabetes mellitus with diabetic chronic kidney disease; E78.5 Hyperlipidemia, unspecified; I25.2 Old myocardial infarction; K74.60 Unspecified cirrhosis of liver; I25.5 Ischemic cardiomyopathy; D50.9 Iron deficiency anemia, unspecified; D63.1 Anemia in chronic kidney disease; T38.3X5A Adverse effect of insulin and oral hypoglycemic [antidiabetic] drugs, initial encounter; D63.8 Anemia in other chronic diseases classified elsewhere
CPT/HCPCS: 36415; 71045; 71046; 74019; 76700; 80048; 80053; 80061; 81001; 82150; 82270; 82550; 82553; 82607; 82746; 82948; 83036; 83540; 83690; 83880; 84466; 84484; 85014; 85018; 85025; 85045; 93005; 93306; 96372; 99284; J1756; J1817; J1940; J7070; Q4081

== ENCOUNTER 2019-07-07 10:17 | Inpatient (IN) | payer MEDICARE ==
[~2019-07-07] VITALS: Ht 188 cm; Wt 87.1 kg
[~2019-07-07 10:17] MED LIST changes: +CARVEDILOL12.5 MG PO; +METOLAZONE5 MG PO; +b12 PO
--- OUTSIDE RECORDS SUMMARY | 2019-07-07 10:19 | XMS REPORT | Clinical Summary ---
Author Author KARRI Zang Organization [facility] Address Unknown Phone Unavailable Care Team Providers Care Delicatessen Manager Name Role Phone Sylvain Wolf MD PCP [...] mellitus, type 2 03/21/2013 Overview: ICD9 DX Coil Machine Supervisor Overweight 03/21/2013 Hyperlipidemia 03/21/2013 Light headed 03/21/2013 Overview: ICD9 DX Coil Machine Supervisor Elevated serum creatinine 03/21/2013 Anemia 03/21/2013 Family [...] Signs Not on file Plan of Treatment Not on file Results Not on fileafter 07/06/2018 Insurance Payer Benefit Subscriber ID Type Phone Address Plan / Group OTHER-COMMERCIAL GENERIC xxxxxxxxx COMMERCIAL (Work) Advance Directives For more information, please contact: [facility] [address] [place] [address] Date Inactivated Comments Code Status Date Activated 11/23/2017 9:11 PM Full Code 11/21/2017 11:50 PM This code status was determined by: Patient
[2019-07-07] MEDS ORDERED: ASPIRIN 81 MG CHEW TAB PO ONE ×3 (11:00→16:30)
[2019-07-07 11:21] LABS: BASOPHILS % 0.1 % (0.0-1.0); EOSINOPHILS # (AUTO) 0.1 (0.0-0.4); EOSINOPHILS % 1.1 % (0.0-6.0); HEMATOCRIT 24.4 % (38.2-49.6); HEMOGLOBIN 8.1 g/dL (14.0-18.0); LYMPHOCYTES # (AUTO) 0.3 (1.0-3.2); MEAN CORPUSCULAR HEMOGLOBIN 29.2 pg (28-32); MEAN CORPUSCULAR HGB CONC 33.2 g/dL (31-35); MEAN CORPUSCULAR VOLUME 88.1 fL (81-99); MONOCYTES # (AUTO) 0.5 (0.2-0.8); NEUTROPHILS % 88.3 % (38.7-80.0); PLATELET COUNT 187 x10e3/uL (140-360); RED BLOOD COUNT 2.77 x10e6/uL (4.3-5.7); RED CELL DISTRIBUTION WIDTH 16.5 % (11.7-14.4)
[2019-07-07 11:25] LABS: BILIRUBIN,URINE NEGATIVE (NEGATIVE); CLARITY,URINE SL CLOUDY (CLEAR); COLOR,URINE YELLOW (YELLOW); KETONES,URINE NEGATIVE (NEGATIVE); LEUKOCYTE ESTERASE ,URINE NEGATIVE (NEGATIVE); NITRITE,URINE NEGATIVE (NEGATIVE); PROTEIN,URINE DIPSTICK 2+ (NEGATIVE); URINE UROBILINOGEN 0.2 mg/dL (0.2 - 1)
[2019-07-07 11:42] LABS: INR 1.06; PARTIAL THROMBOPLASTIN TIME 39.2 seconds (23.8-35.5); PROTHROMBIN TIME 14.3 seconds (11.9-14.5)
--- NOTE | 2019-07-07 11:46 | Diagnostic Imaging Report ---
EXAMINATION: CHEST SINGLE (PORTABLE) INDICATION: Chest pain COMPARISON: Multiple prior chest radiograph, most recently 06/05/2019 FINDINGS: LINES/TUBES:Neck EKG LUNGS:The lungs are moderately inflated. There is perihilar fullness and indistinctness of the pulmonary vasculature. PLEURA:No pleural effusion or pneumothorax. MEDIASTINUM:Cardiomediastinal silhouette is stably enlarged. Atherosclerotic calcifications of the thoracic aorta. BONES/SOFT TISSUES:No acute osseous injury. ABDOMEN:No free air under the diaphragm. IMPRESSION: Unchanged cardiomegaly and pulmonary edema. Signed by: Doris Hairston MD on 07/07/2019 11:42 AM
[2019-07-07 11:48] LABS: AMORPHOUS SEDIMENT,URINE MODERATE (FEW); BACTERIA,URINE MODERATE /HPF; EPITHELIAL CELLS,URINE MODERATE /LPF; MUCUS,URINE FEW (RARE)
[2019-07-07 11:50] LABS: ALBUMIN 2.9 g/dL (3.5-5.0); ALBUMIN/GLOBULIN RATIO 0.8 (0.8-2.0); ANION GAP 15.8 mmol/L (8-16); CALCIUM 9.8 mg/dL (8.4-10.2); CREATININE, SERUM 3.2 mg/dL (0.72-1.25); MAGNESIUM 2.4 MG/DL (1.3-2.1); POTASSIUM 3.8 mmol/L (3.5-5.1)
[2019-07-07 11:57] LABS: CREATINE KINASE MB 2.5 ng/mL (0-5.0)
--- NOTE | 2019-07-07 12:19 | NUR ---
NOTIFIED BRETT REGAN TROP I 1.770. NO NEW ORDERS NOTED.
--- NOTE | 2019-07-07 12:20 | NUR ---
NOTIFIED DR KNOX TROP I 1.686 NO NEW ORDERS NOTED AT THIS TIME.
[2019-07-07] MEDS ORDERED: ATORVASTATIN CA20 MG PO (12:38)
[2019-07-07 12:46] LABS: ANISOCYTOSIS S; BAND NEUTROPHILS % (MANUAL) 4 %; LYMPHOCYTES % (MANUAL) 4 % (19-48); MONOCYTES % (MANUAL) 5 % (3.4-9.0); NEUTROPHILS % (MANUAL) 87 % (40-74); PLATELET ESTIMATE ADEQUATE; PLATELET MORPHOLOGY COMMENT NORMAL; POIKILOCYTOSIS S; RBC MORPHOLOGY COMMENT NORMAL
[2019-07-07] MEDS ORDERED: ONDANSETRON HCL INJ 2MG/ML 2ML 2 MG/ML VIAL IV PRN (13:00)
[2019-07-07] MEDS ORDERED: MORPHINE SULFATE 2 MG/ML SYR 1ML IV PRN (13:00)
[2019-07-07] MEDS ORDERED: DEXTROSE 50% SYRINGE 50 ML IV PRN (13:00)
[2019-07-07] MEDS ORDERED: NITROGLYCERIN 0.4 MG SUBL SL PRN (13:00)
--- OUTSIDE RECORDS SUMMARY | 2019-07-07 13:14 | XMS REPORT | Clinical Summary ---
Author Author KARRI Haload Organization [facility] Address Unknown Phone Unavailable Care Team Providers Care Manager Oracle Database Name Role Phone Sylvain Wolf MD PCP [...] mellitus, type 2 03/21/2013 Overview: ICD9 DX Computer Clerk Overweight 03/21/2013 Hyperlipidemia 03/21/2013 Light headed 03/21/2013 Overview: ICD9 DX Computer Clerk Elevated serum creatinine 03/21/2013 Anemia 03/21/2013 Family [...] Advance Directives For more information, please contact: [facility] [address] [place] [address] Date Inactivated Comments Code Status Date Activated 11/23/2017 9:11 PM Full Code 11/21/2017 11:50 PM This code status was determined by: Patient
[2019-07-07] MEDS: FAMOTIDINE 20 MG/2 ML VIAL IV SCH (13:20)
--- NOTE | 2019-07-07 14:03 | NUR ---
PT PLACED IN HOSP BED
[2019-07-07] MEDS: INSULIN LISPRO 100 UNIT/1 ML 3ML VIAL SQ SCH ×2 (16:28→21:35)
--- NOTE | 2019-07-07 16:32 | NUR ---
nurse asked Dr Osborne if he wanted pt to have another dose of 81 mg asa, per Dr Osborne he put in a bunch of orders but the computer put the order in for asa but that he did not want the pt to have it; pt not given asa per Dr Osborne orders; Dr Osborne at pt bedside
[2019-07-07] MEDS ORDERED: FUROSEMIDE INJ 10 MG/ML 4 ML VIAL IV SCH (17:00)
[2019-07-07 17:15] VITALS: BP 131/74
[2019-07-07] MEDS ORDERED: METOLAZONE 5 MG TAB PO ONE (17:30)
--- NOTE | 2019-07-07 17:30 | NUR ---
Pt received from ER resting in bed. Alert and oriented x4, saline lock #18 patent in right AC. Oriented to staff and surroundings. Encouraged to press call kiser if help needed. Call kiser within reach. Call kiser within reach. Will monitor
[2019-07-07] MEDS: CARVEDILOL 12.5 MG TAB PO SCH (17:37)
[2019-07-07] MEDS: NITROGLYCERIN 2% OINT 1 GM PKT TOP SCH (17:37)
[2019-07-07 17:50] VITALS: BP 131/74
[2019-07-07 17:53] VITALS: BP 131/74
[2019-07-07 17:53] LABS: % IRON SATURATION 6 % (15-50); IRON 16 ug/dL (65-175); TOTAL IRON BINDING CAPACITY 277 ug/dL (261-478); TRANSFERRIN 198 mg/dL (174-364)
[2019-07-07 18:29] LABS: FOLATE 16.2 ng/mL (7.0-15.4)
--- NOTE | 2019-07-07 19:30 | NUR ---
Patient received lying in bed. AAO x 4. Patient had no complaints of pain. Respirations even and non-labored on 4L NC. Fall precautions implemented. Patient instructed to call for assistance when needed. Call light within reach.
[2019-07-07 19:31] LABS: CREATINE KINASE MB 2.1 ng/mL (0-5.0)
[2019-07-07 20:00] VITALS: BP 118/64
--- NOTE | 2019-07-07 20:18 | NUR ---
Dr. Anna Osborne notified of critical value for Troponin (1.35) and high BNP (4175.5). No new order received.
[2019-07-07 21:00] VITALS: BP 118/64
[2019-07-07] MEDS: ATORVASTATIN 20 MG TAB PO SCH (22:06)
[2019-07-07] MEDS: FUROSEMIDE INJ 10 MG/ML 4 ML VIAL IV SCH (22:15)
--- NOTE | 2019-07-07 23:54 | Consultation ---
DATE OF CONSULTATION: 07/07/2019 Cardiology Consultation Thank you for asking me to see this nice man again in consultation. Mr. Kumar is a pleasant, but unfortunate 64-year-old man, who has known congestive heart failure and renal insufficiency, who presents to the emergency room with multiple complaints. HISTORY OF PRESENT ILLNESS: The patient reports that his visiting nurse came by to chat with him. His concern is about multiple problems, but he adds that he had some nausea and vomiting over the weekend, and last night he had trouble lying down to sleep. PAST MEDICAL HISTORY: Significant for previously known congestive heart failure and progressive renal insufficiency. He has never had a cardiac catheterization and was told he had a myocardial infarction some years ago, but did not have cardiac cath due to his renal insufficiency. He has longstanding hypertension, previous osteomyelitis of the great toe, and hyperlipidemia. HOME MEDICATIONS: Include; furosemide 80 mg twice a day. He reports he continues to make some urine. For other medications, please see the chart. PHYSICAL EXAMINATION: GENERAL: At this time shows a pleasant, alert man, who is conversant, looks much older than his stated age with a long eaton. VITAL SIGNS: Blood pressure 120/70, pulse is 80 and regular. HEAD, EYES, EARS, NOSE, AND THROAT: Unremarkable. THORAX: Heart sounds S1 and S2 are equal. No significant murmurs, gallops, or rubs. LUNGS: Have faint crackles at the bases. ABDOMEN: Protuberant. EXTREMITIES: There are no significant cyanosis, clubbing, or edema. PERTINENT LABORATORY STUDIES: Show a CPK of 66 and a CK-MB of 2.5, but troponin is 1.77. His BNP is 4175, BUN 79 and creatinine 3.2. ASSESSMENT: 1. Congestive heart failure based on abnormal systolic function. His echocardiogram on June 02, 2019 showed EF 35% to 40% and left ventricular hypertrophy with anteroapical hypokinesis. 2. Progressive renal insufficiency. 3. Longstanding type 2 adult onset diabetes. He was hospitalized this last month with hypoglycemia while taking oral hypoglycemics, which were stopped. 4. Known coronary disease with currently normal CPK and CK-MB excluding acute cardiac event with troponin elevation reflects the known coronary disease. PLAN: I agree with diuresis and we will change Lasix to intravenous. Place the patient on bed rest. We will monitor his cardiac and renal functions as anemia certainly aggravate all the above. Prognosis is guarded. Thank you for asking me to see him in consultation. MD KELLI Wiggins/HARIKA /[id number]
[2019-07-08] VITALS (8 sets, daily range): BP systolic 110–143; BP diastolic 68–81
--- NOTE | 2019-07-08 00:35 | History and Physical ---
HISTORY OF PRESENT ILLNESS: The patient presented to the emergency room because of increasing shortness of breath of 2 to 3 days duration. He has a long history of congestive heart failure. Chest x-ray compatible with chronic pulmonary edema and cardiomegaly. Ejection fraction 35% here on June 05, see prior stay. The patient has been on Lasix and Zaroxolyn as well as O2 at home. To resume increased dosages. He is being seen appropriately by his ethical hacker. His symptoms have also included mild anterior chest pain and the patient is experiencing an elevation in his troponin. His old troponin levels were reviewed and have also been elevated with June 01 troponin 2.37, today troponin is 1.7. On May 31, troponin 2.69. On August 08, 2018, troponin 0.065. On July 15, 2018, troponin was 0.110. Troponin was 0.54 on June 30, 2018. The patient's multiple severe chronic illnesses include type 2 diabetes mellitus and peripheral vascular disease. Chronic diabetic nephropathy. Coronary artery disease with [place] elsewhere approximately 17 years prior. He has declined angiographies because of his renal insufficiency. He reported a normal chemical stress test elsewhere approximately 5 years prior. The patient was treated with antibiotics and debridement one year ago for osteomyelitis of the right large toe, which has resolved clinically. The patient denies major surgery. FAMILY HISTORY: Father and grandfather experienced coronary artery disease. Mother and brother, diabetic. No tobacco or alcohol. See also home med list documented on EMR and reviewed now. On April 23, 2018, EGD, hiatal hernia, gastric polyps, gastritis, duodenitis. Questionable Garcia's. Hemoglobin was 8.1 on admission here on July 2018. Indices have been within normal limits. The patient has a history of primary hypertension. Multiple hospitalizations related especially to congestive heart failure and peripheral vascular disease. The patient was seen by Hematology security and privacy consultant in July. See consult with recommendations for supportive care. Impression, diabetic nephropathy with associated anemia. He did have elevated kappa light chain and lambda light chains and protein electrophoresis. He was given IV iron and B12 then by his Hematology security and privacy consultant. PHYSICAL EXAMINATION: GENERAL: At this time, the patient is in no distress. He is on O2. VITAL SIGNS: Pulse is 91 and regular, respiratory rate 18, BP 117/77, although the patient states he has not taken his usual meds today. O2 saturation 94% on 3 L. HEENT: Pupils round and reactive. Mild pallor. No icterus. Throat clear. NECK: Flexes. Pulses palpable. No bruit. PULMONARY: Auscultation, generalized rales. CARDIAC: Sounds S1, S2. ABDOMEN: Soft. Bowel sounds normal. EXTREMITIES: Peripheral pulses are not palpable in the lower extremities. No skin wounds of lower extremities. No edema. DTRs depressed. Strength fair. Babinski is negative. NEUROLOGIC: The patient is alert. Cooperative. CURRENT IMPRESSION: Chronic congestive heart failure. Generalized atherosclerotic cardiovascular disease with history of cardiac disease and elevated troponins. Chronic elevation. Left ventricular hypertrophy. Primary hypertension. Type 2 diabetes mellitus with severe nephropathy. Anemia, multiple etiology. No bleed recently per patient. CURRENT PLAN: To monitor the patient to rule out [place]. Treat congestive heart failure. Reassess anemia as able. Control diabetes and blood pressure. Case discussed with ER physician earlier today and case discussed with ER nurse today and with IMCU nurse today. See also initial and followup orders. MD JOSEMANUEL Barboza/MODL /[id number]
[2019-07-08] MEDS: FAMOTIDINE 20 MG/2 ML VIAL IV SCH ×2 (01:02→14:18)
[2019-07-08] MEDS: NITROGLYCERIN 2% OINT 1 GM PKT TOP SCH ×4 (01:02→17:56)
--- NOTE | 2019-07-08 03:15 | NUR ---
Blood specimen sent to lab for analysis of cardiac enzymes.
[2019-07-08 03:44] LABS: CREATINE KINASE MB 1.9 ng/mL (0-5.0)
--- NOTE | 2019-07-08 05:02 | NUR ---
Patient complained of shortness of breath. Dr. German notified. New order received for Nebulizer treatment.
[2019-07-08 05:11] LABS: BASOPHILS % 0.2 % (0.0-1.0); EOSINOPHILS # (AUTO) 0.2 (0.0-0.4); HEMATOCRIT 23.8 % (38.2-49.6); LYMPHOCYTES # (AUTO) 0.5 (1.0-3.2); LYMPHOCYTES % 6.5 % (18.0-39.1); MEAN CORPUSCULAR HEMOGLOBIN 29.1 pg (28-32); MEAN CORPUSCULAR HGB CONC 33.6 g/dL (31-35); MEAN CORPUSCULAR VOLUME 86.5 fL (81-99); MONOCYTES # (AUTO) 0.5 (0.2-0.8); MONOCYTES % 5.8 % (4.4-11.3); NEUTROPHILS # (AUTO) 6.9 (2.1-6.9); PLATELET COUNT 204 x10e3/uL (140-360); RED BLOOD COUNT 2.75 x10e6/uL (4.3-5.7); RED CELL DISTRIBUTION WIDTH 16.3 % (11.7-14.4)
[2019-07-08] MEDS: ALBUTEROL/IPRATROPIUM 3 ML NEB NEB PRN ×2 (05:24→07:16)
[2019-07-08 06:06] LABS: ALBUMIN 2.8 g/dL (3.5-5.0); ALBUMIN/GLOBULIN RATIO 0.7 (0.8-2.0); ANION GAP 15.6 mmol/L (8-16); CALCIUM 9.3 mg/dL (8.4-10.2); CREATININE, SERUM 3.13 mg/dL (0.72-1.25); POTASSIUM 3.6 mmol/L (3.5-5.1)
[2019-07-08] MEDS: FUROSEMIDE INJ 10 MG/ML 4 ML VIAL IV SCH ×3 (06:30→21:38)
--- NOTE | 2019-07-08 06:47 | NUR ---
Dr. Anna Osborne notified of critical Troponin results (1.623). No new order received.
--- NOTE | 2019-07-08 06:51 | NUR ---
Walking rounds done. Shift report given to oncoming nurse.
[2019-07-08 07:36] LABS: EOSINOPHILS % (MANUAL) 2 % (0-7); LYMPHOCYTES % (MANUAL) 8 % (19-48); MONOCYTES % (MANUAL) 3 % (3.4-9.0); NEUTROPHILS % (MANUAL) 87 % (40-74)
[2019-07-08 07:37] LABS: PLATELET ESTIMATE ADEQUATE; PLATELET MORPHOLOGY COMMENT NORMAL; RBC MORPHOLOGY COMMENT NORMAL
[2019-07-08] MEDS: METOLAZONE 5 MG TAB PO SCH (08:11)
[2019-07-08] MEDS: CLOPIDOGREL BISULFATE 75 MG TAB PO SCH (08:11)
[2019-07-08] MEDS: ASPIRIN 325 MG TAB EC PO SCH (08:11)
[2019-07-08] MEDS: CARVEDILOL 12.5 MG TAB PO SCH ×2 (08:23→17:56)
[2019-07-08] MEDS: INSULIN LISPRO 100 UNIT/1 ML 3ML VIAL SQ SCH ×4 (08:25→21:18)
[2019-07-08 08:47] LABS: FERRITIN 678.33 ng/mL (21.81-274.66)
[2019-07-08] MEDS ORDERED: CLOPIDOGREL BISULFATE 75 MG TAB PO SCH (09:00)
[2019-07-08 09:14] LABS: % IRON SATURATION 6 % (15-50); IRON 16 ug/dL (65-175); TOTAL IRON BINDING CAPACITY 270 ug/dL (261-478); TRANSFERRIN 193 mg/dL (174-364)
--- NOTE | 2019-07-08 09:19 | NUR ---
HAS BEEN TO [facility] AND WOULD LIKE TO GO BACK
--- NOTE | 2019-07-08 13:20 | NUR ---
Visit made by the Spiritual Care Department Pastoral Visitor, Lali Dickinson. PV provided pastoral presence, hospitality, and supportive listening. Pastoral Visitor informed pt/family of the scope of Operations Label Clerk Services and availability. STEPHANIE MAYS Pattern Storage Clerk Spiritual Care Department O: [phone] Pager: [phone] ([phone] number calling from)
[2019-07-08 14:09] LABS: CREATINE KINASE MB 1.6 ng/mL (0-5.0)
[2019-07-08] MEDS: IRON SUCROSE 100 MG in SODIUM CHLORIDE 0.9% 100 ML 100 ML IV SCH (15:28)
--- NOTE | 2019-07-08 16:03 | NUR ---
Nutrition Screen Note RD Recommendation for Physician: -Rec adding cardiac to current ADA 1800 diet Plan of Care: RD following, monitoring for tolerance and adequacy Nutrition reason for involvement: Diagnosis Primary Diagnose(s): CHF, progressive renal insufficiency PMH: congestive heart failure, renal insufficiency, CO, HTN, HLD, DM, CAD Ht: 74in Wt: 190lb BMI: 24.4kg/m2 IBW: 190lb +/- 10% RD Assessment: (07/08) Chart reviewed. Labs and meds reviewed. 64yo M, who was admitted for CHF. Visited pt in the room. Pt reported having hx of CHF for several years. Pt reported improvement in his appetite with 100% observed meal intake. No complain of nausea or vomiting at this time. LBM 07/07. Pt denied any chewing or swallowing difficulty. Discussed menu options with patient. Current Diet: ADA 1800 Malnutrition Evaluation (07/08/2019) The patient does not meet criteria for a specified degree of malnutrition at this time. Will re-evaluate at follow-up as appropriate. Diet Education Needs Assessment: Diet education not indicated. Pt reported being compliant with low sodium diet at home. Pt used Mrs. Sexton and salt free seasoning for cooking at home. Pt was aware of diet restriction. No nutrition related question during my time of visit. Nutrition Care Level: low Signed: Kenya Choi, MS, RD, LD
--- NOTE | 2019-07-08 16:10 | Consultation ---
DATE OF CONSULTATION: 07/08/2019 HISTORY OF PRESENT ILLNESS: This is a 64-year-old gentleman, well known to our Nephrology Service existing patient in our office, who has underlying history of chronic kidney disease stage 4, presented with congestive heart failure, swelling of the lower extremity and currently diuresed and feeling much better. Remains on oxygen and desaturations a little bit when he talks, but other than that he does not appear to be in any dyspnea and does not appear to be in any overt shortness of breath. Has an ejection fraction around 35%. Has prior history of congestive heart failure, hypertension, multiple hospitalizations in the past, history of diabetes, diabetic kidney disease, peripheral vascular disease, peripheral neuropathy, history of osteomyelitis of the prior toe, history of [place] many years ago, history of diabetic kidney disease with CKD 4. ALLERGIES: NO APPARENT DRUG ALLERGIES. CURRENT MEDICATIONS: The patient is on furosemide 80 mg IV q.12, which has been changed to 80 mg IV q.8, metolazone 5 mg p.o. once, metolazone 5 mg p.o. daily, nitroglycerin ointment, ondansetron p.r.n., carvedilol 12.5 p.o. b.i.d., Plavix 75 mg daily, Pepcid 20 mg IV q.12, albuterol Atrovent nebulizers, aspirin 81 mg once a day, and atorvastatin 20 mg at bedtime. SOCIAL HISTORY: Does not smoke or drink. FAMILY HISTORY: Diabetes and hypertension. LABORATORY DATA: Labs show white count 8.1, hemoglobin 8 with a sodium of 132, potassium 3.6, bicarbonate 24, and creatinine 3.13. Last troponin I 1.6. He has a very low iron sat which is of 6. He has a TIBC of 270, serum iron of 16. PHYSICAL EXAMINATION: GENERAL: Awake, alert, oriented, sitting up, in no apparent distress. VITAL SIGNS: Blood pressure 120/68, pulse rate 90, afebrile, and respiratory rate 17. HEAD AND NECK: Cornea clear. Mucosa moist. LUNGS: Rales noted bilateral lower zones, mostly bases. Harsh vesicular breath mostly right more so than left lung. HEART: S1 and S2 audible. No rubs or gallops. ABDOMEN: Otherwise soft, nontender, and no apparent visceromegaly. Flanks full. EXTREMITIES: Lower extremity, no edema. IMPRESSION: 1. Iron-deficiency anemia. 2. [id number] kidney failure, underlying nephrosclerosis. 3. Congestive heart failure. 4. Underlying diabetic kidney disease. 5. Chronic kidney disease, 4. No acute indications for dialysis. Continue with diuretics. We will start IV Venofer. Agree with metolazone, strict I's and O's, salt and water restriction, fluid restriction. Discussed with the patient again. Please see orders. MD BARBIE López/MODL /[id number]
--- NOTE | 2019-07-08 19:00 | NUR ---
The patient is laying on the side chair next to his bed. He is AAOX4 reports no pain or discomfort at this time. Denies chest pain. Oxygen @3L via NC saturating between 96-100%. Lung sounds are clear. He does have intermittent cough but is able to clear secretions. 20G IV on LAC saline lock. No complications, IV patent. Reports one BM today. Bilaterally Lower extremities edema noted 1+ pulses intact and capillary refill <3 second. Both lower legs seem hyperpigmented compared to the rest of the skin. No other skin issues noted. No open areas. Monitor alarms checked. Leads in place. Call kiser within reach. Will continue monitoring the patient.
--- NOTE | 2019-07-08 19:05 | NUR ---
The patient is laying in bed AAOx4 reports no pain or discomfort at this time. Denies N/V and reports only one BM today. Oxygen 3L via NC and saturating between 95%-98%. SOB with moving. Lung sounds are clear bilaterally. Has Right 18G IV saline locked. IV patent with no complications. Monitor On, Leads in place. SR with PVCs . Pulses intact, no edema, no skin issues noted. Bed is low, HOB @30, wheels are locked and call light is within reach. Will continue monitoring.
--- NOTE | 2019-07-08 19:15 | NUR ---
Handoff report to oncoming nurse, patient in bed alert and oriented x3, verbalizing needs, belongings and call light within reach, no s/s of distress.
[2019-07-08] MEDS: ATORVASTATIN 20 MG TAB PO SCH (21:38)
[2019-07-09] VITALS (8 sets, daily range): BP systolic 91–130; BP diastolic 55–89
[2019-07-09] MEDS: NITROGLYCERIN 2% OINT 1 GM PKT TOP SCH ×4 (00:33→17:30)
[2019-07-09] MEDS: FAMOTIDINE 20 MG/2 ML VIAL IV SCH ×2 (00:33→12:59)
[2019-07-09 05:14] LABS: HEMATOCRIT 21.7 % (38.2-49.6); HEMOGLOBIN 7.2 g/dL (14.0-18.0)
[2019-07-09 05:32] LABS: ANION GAP 18.3 mmol/L (8-16); CALCIUM 9.2 mg/dL (8.4-10.2); CREATININE, SERUM 3.72 mg/dL (0.72-1.25); POTASSIUM 3.3 mmol/L (3.5-5.1)
[2019-07-09] MEDS: FUROSEMIDE INJ 10 MG/ML 4 ML VIAL IV SCH ×2 (06:25→12:59)
--- NOTE | 2019-07-09 06:35 | Diagnostic Imaging Report ---
Frontal and lateral views of the chest. HISTORY: Chest pain, CHF, chronic kidney disease COMPARISON: Chest radiograph July 07, 2019 DISCUSSION: Increased penetration versus the comparison radiograph. Lungs: Slight improvement in the diffusely increased pulmonary interstitial markings. Pleura: No pleural effusion or pneumothorax. Heart and mediastinum: The cardiac silhouette and central pulmonary vasculature appear(s) remain enlarged. Bones and soft tissues: Appear unchanged. IMPRESSION: Slightly improved central pulmonary vascular congestion and pulmonary edema. Signed by: Dr. Amari Morillo D.O., M.M.M. on 07/09/2019 6:32 AM
[2019-07-09] MEDS: INSULIN LISPRO 100 UNIT/1 ML 3ML VIAL SQ SCH ×4 (07:16→20:26)
[2019-07-09] MEDS: CLOPIDOGREL BISULFATE 75 MG TAB PO SCH (08:12)
[2019-07-09] MEDS: CARVEDILOL 12.5 MG TAB PO SCH ×2 (08:12→16:31)
[2019-07-09] MEDS: ASPIRIN 325 MG TAB EC PO SCH (08:12)
[2019-07-09] MEDS: METOLAZONE 5 MG TAB PO SCH (08:13)
--- NOTE | 2019-07-09 11:01 | NUR ---
EDUCATED ABOUT IMM, SIGNED, FILED IN CHART, WITH COPY LEFT WITH FAMILY AT BEDSIDE.
[2019-07-09] MEDS: IRON SUCROSE 100 MG in SODIUM CHLORIDE 0.9% 100 ML 100 ML IV SCH (14:45)
[2019-07-09] MEDS ORDERED: POTASSIUM CHLORIDE 20MEQ/100ML 200 ML IV ONE (14:45)
[2019-07-09] MEDS ORDERED: SODIUM CHLORIDE 0.9% 250ML 250 ML ONE (16:03)
[2019-07-09] MEDS: BUMETANIDE 1 MG TAB PO SCH (16:31)
[2019-07-09] MEDS: ATORVASTATIN 20 MG TAB PO SCH (20:25)
[2019-07-10] VITALS (9 sets, daily range): BP systolic 106–134; BP diastolic 58–85
[2019-07-10] MEDS: FAMOTIDINE 20 MG/2 ML VIAL IV SCH ×2 (00:01→12:21)
[2019-07-10] MEDS: NITROGLYCERIN 2% OINT 1 GM PKT TOP SCH ×4 (00:06→17:11)
[2019-07-10 05:13] LABS: HEMATOCRIT 22.3 % (38.2-49.6); HEMOGLOBIN 7.5 g/dL (14.0-18.0)
[2019-07-10 05:34] LABS: ANION GAP 17.5 mmol/L (8-16); CALCIUM 8.9 mg/dL (8.4-10.2); CREATININE, SERUM 3.46 mg/dL (0.72-1.25); POTASSIUM 3.5 mmol/L (3.5-5.1)
[2019-07-10] MEDS: INSULIN LISPRO 100 UNIT/1 ML 3ML VIAL SQ SCH ×4 (07:30→21:00)
[2019-07-10] MEDS: BUMETANIDE 1 MG TAB PO SCH ×2 (08:23→17:10)
[2019-07-10] MEDS: ASPIRIN 325 MG TAB EC PO SCH (08:23)
[2019-07-10] MEDS: CLOPIDOGREL BISULFATE 75 MG TAB PO SCH (08:24)
[2019-07-10] MEDS: CARVEDILOL 12.5 MG TAB PO SCH ×2 (08:24→17:10)
[2019-07-10] MEDS ORDERED: POTASSIUM CHLORIDE 20 MEQ TAB CR PO ONE (11:08)
[2019-07-10] MEDS: METOLAZONE 5 MG TAB PO SCH (12:20)
[2019-07-10] MEDS ORDERED: EPOETIN ALFA 10000 UNIT/ML VIAL SC SCH (13:00)
[2019-07-10] MEDS: IRON SUCROSE 100 MG in SODIUM CHLORIDE 0.9% 100 ML 100 ML IV SCH (15:19)
--- NOTE | 2019-07-10 16:01 | NUR ---
nsg report given to Aliza PRIDEdental surgeon 1 for pt transfer to room 104
--- NOTE | 2019-07-10 16:20 | NUR ---
pt alert resp even and unlabored, pt transferred to room 104, pt oriented to room and call light.
--- NOTE | 2019-07-10 19:30 | NUR ---
report given to oncoming nurse. pt stable at this time.
[2019-07-10] MEDS: ATORVASTATIN 20 MG TAB PO SCH (21:19)
[2019-07-11 00:25] VITALS: BP 113/58
[2019-07-11] MEDS: FAMOTIDINE 20 MG/2 ML VIAL IV SCH (00:50)
[2019-07-11] MEDS: NITROGLYCERIN 2% OINT 1 GM PKT TOP SCH ×2 (00:50→05:48)
--- NOTE | 2019-07-11 01:05 | Discharge Summary ---
LOCATION: [facility]. HOSPITAL COURSE: The patient presented to the emergency room with symptoms of shortness of breath and chest tightness. Database was obtained and monitored. The patient remained on telemetry while here. He was followed by his legal biller, his contract management specialist, and his field nurse case manager while here; see notes. The patient was diuresed. Parameters were monitored. Symptoms improved. History includes diabetes mellitus and primary hypertension and these were monitored and managed medically. The patient was re-educated regarding appropriate diet and parameters for blood pressure and blood sugars. He has home O2. Course is complicated by chronic congestive heart failure and left ventricular hypertrophy. The patient also has history of peripheral vascular disease and underwent treatment here last year for osteomyelitis of the right large toe. Course is complicated by severe diabetic nephropathy. The patient has a history of OK approximately 17 years ago. He has declined angiographies because of his renal insufficiency. On July 07, hemoglobin 8.1 fell to 7.2 and was 7.5 on July 10. See also notes by Hematology consultants. White count normal. Platelet counts normal. Red cell indices normal. INR 1.06, PTT 39. Urinalysis 2+ proteinuria. Hemoccult negative. Immunoglobulin studies pending. July 07, BUN 79, creatinine 3.2. July 10, BUN 98 post diuresis. July 10, creatinine 3.46. The patient was nonoliguric. Serum iron low at 16, TIBC 277, within normal range. Percent saturation 6. Transferrin 198. Ferritin 678, elevated, normal ferritin is 21 to 274. Natriuretic peptide on July 07 was 4175. TSH was normal at 0.6. Urine culture was negative. Admission on July 07, chest x-ray, cardiomegaly and pulmonary edema similar to studies in May here. July 09, chest x-ray slightly improved, central pulmonary vascular congestion, and pulmonary edema. Troponin was elevated at 1.7 on July 07 and July 08 was 1.38. The patient's old troponin levels are as mentioned per H and P. CPKs remain normal. CK-MBs normal. SGOT is normal. The patient was given while here by his consultants, erythropoietin with plans to continue same. Treatment included nitrates and diuretics prior to admission and diuretics were transiently increased. Block Sealer preferred to change to Bumex. Statins were continued. Diabetes and blood pressure were controlled. Symptomatically, the patient improved as above. Pulmonary eval was cleared to examination. The patient has home O2. FINAL IMPRESSION: Chronic congestive heart failure. Coronary artery disease. 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 See also H and P. History includes hiatal hernia, gastric polyps, gastritis, duodenitis. Chronic severe anemia, evaluation underway. Multifactorial. LVH. Generalized atherosclerosis. See also discharge reconciliation med list with med changes as mentioned. The patient was advised for close followup within 3 days. He has had multiple admissions and prognosis is guarded. He will also follow up with his field nurse case manager and legal biller. Nephrology followup also indicated. MD JOSEMANUEL Barboza/HARIKA /[id number]
[2019-07-11 04:00] VITALS: BP 114/57
[2019-07-11 05:52] LABS: ALBUMIN 2.9 g/dL (3.5-5.0); ALBUMIN/GLOBULIN RATIO 0.9 (0.8-2.0); ANION GAP 15.5 mmol/L (8-16); CALCIUM 8.9 mg/dL (8.4-10.2); CREATININE, SERUM 3.74 mg/dL (0.72-1.25); POTASSIUM 3.5 mmol/L (3.5-5.1)
--- NOTE | 2019-07-11 07:06 | NUR ---
bedside report given to oncoming nurse. patient stable condition, no needs voiced.
[2019-07-11 07:49] VITALS: BP 134/67
[2019-07-11] MEDS: INSULIN LISPRO 100 UNIT/1 ML 3ML VIAL SQ SCH (08:30)
[2019-07-11] MEDS: CLOPIDOGREL BISULFATE 75 MG TAB PO SCH (09:00)
[2019-07-11] MEDS: METOLAZONE 5 MG TAB PO SCH (09:08)
[2019-07-11] MEDS: BUMETANIDE 1 MG TAB PO SCH (09:08)
[2019-07-11] MEDS: CARVEDILOL 12.5 MG TAB PO SCH (09:08)
[2019-07-11] MEDS: ASPIRIN 325 MG TAB EC PO SCH (09:08)
[2019-07-11 09:11] VITALS: BP 134/67
[2019-07-11] MEDS ORDERED: BUMETANIDE1 MG PO (09:15)
[2019-07-11] MEDS ORDERED: EPOGEN10000 UNIT SQ (09:16)
--- NOTE | 2019-07-11 09:30 | NUR ---
DISCHARGE INSTRUCTIONS REVIEWED WITH PT, PT VERBALIZED UNDERSTANDING, HOUSE NOTIFIED OF NEED FOR CAB, CALL LIGHT WITHIN REACH
--- NOTE | 2019-07-11 10:16 | NUR ---
PT WHEELED OFF UNIT VIA WC FOR DISCHARGE, NO CHANGE IN CONDITION,
[2019-07-12] MEDS ORDERED: EPOETIN ALFA 10000 UNIT/ML VIAL SC SCH (09:00)
== END 2019-07-11 09:55 | disposition home or self-care (01) | DRG 292 ==
LOC: ER 10:17 → ERHOLD 13:00 → IMCU 17:16 → ICU 07-09 18:13 → MED/SURG 07-10 16:12
PROVIDERS: ADMIT Internal Medicine; ATTEND Internal Medicine
DX: I13.0 Hypertensive heart and chronic kidney disease with heart failure and stage 1 through stage 4 chronic kidney disease, or unspecified chronic kidney disease (principal); N18.4 Chronic kidney disease, stage 4 (severe); I50.22 Chronic systolic (congestive) heart failure; E11.22 Type 2 diabetes mellitus with diabetic chronic kidney disease; D50.9 Iron deficiency anemia, unspecified
CPT/HCPCS: 36415; 71045; 71046; 80048; 80053; 81001; 82270; 82550; 82553; 82607; 82728; 82746; 82784; 82948; 83540; 83735; 83880; 84165; 84443; 84466; 84484; 85014; 85018; 85025; 85610; 85730; 87086; 93005; 94640; 99284; J1756; J1940; J3480; J7050; Q4081

== ENCOUNTER 2020-09-24 04:19 | Inpatient (IN) | payer MEDICARE ==
[~2020-09-24] VITALS: Ht 190.5 cm; Wt 90.5 kg
[~2020-09-24 04:19] MED LIST changes: +BUMETANIDE1 MG PO; +EPOGEN10000 UNIT SQ
[2020-09-24 04:41] LABS: BASOPHILS % 0.2 % (0.0-1.0); EOSINOPHILS # (AUTO) 0.1 (0.0-0.4); EOSINOPHILS % 0.4 % (0.0-6.0); HEMATOCRIT 33.9 % (38.2-49.6); HEMOGLOBIN 11.3 g/dL (14.0-18.0); LYMPHOCYTES # (AUTO) 0.5 (1.0-3.2); LYMPHOCYTES % 3.6 % (18.0-39.1); MEAN CORPUSCULAR HEMOGLOBIN 30.6 pg (28-32); MEAN CORPUSCULAR HGB CONC 33.3 g/dL (31-35); MEAN CORPUSCULAR VOLUME 91.9 fL (81-99); MONOCYTES # (AUTO) 0.8 (0.2-0.8); MONOCYTES % 6.3 % (4.4-11.3); NEUTROPHILS # (AUTO) 11.6 (2.1-6.9); NEUTROPHILS % 88.8 % (38.7-80.0); PLATELET COUNT 260 x10e3/uL (140-360); RED BLOOD COUNT 3.69 x10e6/uL (4.3-5.7); RED CELL DISTRIBUTION WIDTH 12.5 % (11.7-14.4)
[2020-09-24 04:54] LABS: INR 1.18; PROTHROMBIN TIME 15.6 seconds (11.9-14.5)
[2020-09-24 05:04] LABS: ALBUMIN 3.4 g/dL (3.5-5.0); ALBUMIN/GLOBULIN RATIO 0.7 (0.8-2.0); ANION GAP 21.8 mmol/L (8-16); CALCIUM 10.4 mg/dL (8.4-10.2); CREATININE, SERUM 5.43 mg/dL (0.72-1.25); POTASSIUM 4.8 mmol/L (3.5-5.1)
[2020-09-24 05:10] LABS: CREATINE KINASE MB 1.2 ng/mL (0-5.0)
[2020-09-24] MEDS ORDERED: ONDANSETRON HCL INJ 2MG/ML 2ML 2 MG/ML VIAL IV PRN (05:45)
[2020-09-24] MEDS ORDERED: DEXTROSE 50% SYRINGE 50 ML IV PRN (05:45)
[2020-09-24] MEDS: INSULIN REGULAR, HUMAN 100 UNIT/1 ML 3ML VIAL SQ SCH ×4 (08:14→21:08)
[2020-09-24] MEDS ORDERED: ASPIRIN 81 MG CHEW TAB PO ONE (09:45)
[2020-09-24 10:15] LABS: CHOL/HDL RATIO 2.7 (3.9-4.7)
[2020-09-24 10:33] LABS: % IRON SATURATION 15 % (15-50); IRON 36 ug/dL (65-175); TOTAL IRON BINDING CAPACITY 238 ug/dL (261-478); TRANSFERRIN 170 mg/dL (174-364)
[2020-09-24 10:40] LABS: CREATINE KINASE MB 1.2 ng/mL (0-5.0)
[2020-09-24 13:01] VITALS: BP 125/76
[2020-09-24] MEDS ORDERED: HEPARIN SOD (PORCINE) 1000 UNIT/ML SDV IV PRN (13:45)
[2020-09-24] MEDS ORDERED: SODIUM CHLORIDE 0.9% 1000ML 2,000 ML IV PRN (13:45)
[2020-09-24 14:01] LABS: CREATINE KINASE MB 1.3 ng/mL (0-5.0)
[2020-09-24 16:01] VITALS: BP 125/76
[2020-09-24 16:26] VITALS: BP 130/82
[2020-09-24 20:00] VITALS: BP 117/70
[2020-09-24 20:19] LABS: CREATINE KINASE MB 1.2 ng/mL (0-5.0)
[2020-09-24 21:00] VITALS: BP 117/70
[2020-09-25] VITALS (9 sets, daily range): BP systolic 109–131; BP diastolic 66–77
[2020-09-25 04:58] LABS: BASOPHILS % 0.3 % (0.0-1.0); EOSINOPHILS # (AUTO) 0.2 (0.0-0.4); EOSINOPHILS % 1.3 % (0.0-6.0); HEMATOCRIT 29.2 % (38.2-49.6); HEMOGLOBIN 9.7 g/dL (14.0-18.0); LYMPHOCYTES # (AUTO) 0.8 (1.0-3.2); LYMPHOCYTES % 6.9 % (18.0-39.1); MEAN CORPUSCULAR HEMOGLOBIN 31.3 pg (28-32); MEAN CORPUSCULAR HGB CONC 33.2 g/dL (31-35); MEAN CORPUSCULAR VOLUME 94.2 fL (81-99); MONOCYTES % 8.5 % (4.4-11.3); NEUTROPHILS # (AUTO) 9.8 (2.1-6.9); NEUTROPHILS % 82.2 % (38.7-80.0); PLATELET COUNT 244 x10e3/uL (140-360); RED CELL DISTRIBUTION WIDTH 12.4 % (11.7-14.4)
[2020-09-25 05:19] LABS: ALBUMIN/GLOBULIN RATIO 0.7 (0.8-2.0); CALCIUM 9.5 mg/dL (8.4-10.2)
[2020-09-25] MEDS: INSULIN REGULAR, HUMAN 100 UNIT/1 ML 3ML VIAL SQ SCH ×4 (07:30→21:00)
[2020-09-25] MEDS: CLOPIDOGREL BISULFATE 75 MG TAB PO SCH (07:57)
[2020-09-25] MEDS: ASPIRIN 81 MG CHEW TAB PO SCH (07:57)
[2020-09-25] MEDS: GLIMEPIRIDE 2 MG TAB PO SCH (08:00)
[2020-09-25] MEDS ORDERED: GLIMEPIRIDE 2 MG TAB PO SCH (08:00)
[2020-09-25] MEDS: ATORVASTATIN 20 MG TAB PO SCH (21:11)
[2020-09-26] VITALS (9 sets, daily range): BP systolic 117–129; BP diastolic 67–81
[2020-09-26 06:41] LABS: BASOPHILS % 0.4 % (0.0-1.0); EOSINOPHILS # (AUTO) 0.3 (0.0-0.4); HEMATOCRIT 25.9 % (38.2-49.6); HEMOGLOBIN 8.7 g/dL (14.0-18.0); LYMPHOCYTES # (AUTO) 0.5 (1.0-3.2); LYMPHOCYTES % 4.8 % (18.0-39.1); MEAN CORPUSCULAR HEMOGLOBIN 31.5 pg (28-32); MEAN CORPUSCULAR HGB CONC 33.6 g/dL (31-35); MEAN CORPUSCULAR VOLUME 93.8 fL (81-99); MONOCYTES # (AUTO) 0.9 (0.2-0.8); MONOCYTES % 8.3 % (4.4-11.3); NEUTROPHILS # (AUTO) 9.2 (2.1-6.9); NEUTROPHILS % 82.6 % (38.7-80.0); PLATELET COUNT 248 x10e3/uL (140-360); RED BLOOD COUNT 2.76 x10e6/uL (4.3-5.7); RED CELL DISTRIBUTION WIDTH 12.3 % (11.7-14.4)
[2020-09-26] MEDS: INSULIN REGULAR, HUMAN 100 UNIT/1 ML 3ML VIAL SQ SCH ×4 (07:30→21:00)
[2020-09-26] MEDS: GLIMEPIRIDE 2 MG TAB PO SCH (09:25)
[2020-09-26] MEDS: ASPIRIN 81 MG CHEW TAB PO SCH (09:26)
[2020-09-26] MEDS: CLOPIDOGREL BISULFATE 75 MG TAB PO SCH (09:26)
[2020-09-26] MEDS: FAMOTIDINE 20 MG TAB PO SCH (17:09)
[2020-09-26] MEDS: ATORVASTATIN 20 MG TAB PO SCH (20:01)
[2020-09-27] VITALS (8 sets, daily range): BP systolic 117–138; BP diastolic 68–84
[2020-09-27 05:39] LABS: BASOPHILS # (AUTO) 0.1 (0.0-0.1); BASOPHILS % 0.4 % (0.0-1.0); EOSINOPHILS # (AUTO) 0.7 (0.0-0.4); EOSINOPHILS % 5.5 % (0.0-6.0); HEMATOCRIT 30.6 % (38.2-49.6); LYMPHOCYTES # (AUTO) 0.9 (1.0-3.2); LYMPHOCYTES % 7.8 % (18.0-39.1); MEAN CORPUSCULAR HEMOGLOBIN 30.9 pg (28-32); MEAN CORPUSCULAR HGB CONC 32.7 g/dL (31-35); MEAN CORPUSCULAR VOLUME 94.4 fL (81-99); MONOCYTES # (AUTO) 0.9 (0.2-0.8); MONOCYTES % 7.6 % (4.4-11.3); NEUTROPHILS # (AUTO) 9.3 (2.1-6.9); NEUTROPHILS % 77.4 % (38.7-80.0); PLATELET COUNT 307 x10e3/uL (140-360); RED BLOOD COUNT 3.24 x10e6/uL (4.3-5.7); RED CELL DISTRIBUTION WIDTH 12.1 % (11.7-14.4)
[2020-09-27] MEDS: INSULIN REGULAR, HUMAN 100 UNIT/1 ML 3ML VIAL SQ SCH ×4 (07:30→20:11)
[2020-09-27 07:57] LABS: ANION GAP 18.7 mmol/L (8-16); CALCIUM 9.2 mg/dL (8.4-10.2); CREATININE, SERUM 4.37 mg/dL (0.72-1.25); POTASSIUM 3.7 mmol/L (3.5-5.1)
[2020-09-27] MEDS: FAMOTIDINE 20 MG TAB PO SCH ×2 (09:16→17:02)
[2020-09-27] MEDS: GLIMEPIRIDE 2 MG TAB PO SCH (09:16)
[2020-09-27] MEDS: ASPIRIN 81 MG CHEW TAB PO SCH (09:16)
[2020-09-27] MEDS: CLOPIDOGREL BISULFATE 75 MG TAB PO SCH (09:16)
[2020-09-27] MEDS: ATORVASTATIN 20 MG TAB PO SCH (20:11)
[2020-09-28] VITALS (9 sets, daily range): BP systolic 111–136; BP diastolic 73–82
[2020-09-28 04:50] LABS: BASOPHILS # (AUTO) 0.1 (0.0-0.1); BASOPHILS % 0.6 % (0.0-1.0); EOSINOPHILS # (AUTO) 0.7 (0.0-0.4); EOSINOPHILS % 5.9 % (0.0-6.0); HEMATOCRIT 28.7 % (38.2-49.6); HEMOGLOBIN 9.2 g/dL (14.0-18.0); LYMPHOCYTES # (AUTO) 0.8 (1.0-3.2); LYMPHOCYTES % 7.4 % (18.0-39.1); MEAN CORPUSCULAR HEMOGLOBIN 30.7 pg (28-32); MEAN CORPUSCULAR HGB CONC 32.1 g/dL (31-35); MEAN CORPUSCULAR VOLUME 95.7 fL (81-99); MONOCYTES # (AUTO) 0.9 (0.2-0.8); NEUTROPHILS # (AUTO) 8.4 (2.1-6.9); NEUTROPHILS % 76.8 % (38.7-80.0); PLATELET COUNT 307 x10e3/uL (140-360); RED CELL DISTRIBUTION WIDTH 12.3 % (11.7-14.4)
[2020-09-28] MEDS: INSULIN REGULAR, HUMAN 100 UNIT/1 ML 3ML VIAL SQ SCH ×4 (07:30→21:00)
[2020-09-28] MEDS: FAMOTIDINE 20 MG TAB PO SCH ×2 (07:30→15:57)
[2020-09-28] MEDS: CLOPIDOGREL BISULFATE 75 MG TAB PO SCH (09:00)
[2020-09-28] MEDS ORDERED: MIDAZOLAM HCL 2 MG/2 ML VIAL ONE ×3 (16:11→17:38)
[2020-09-28] MEDS ORDERED: LIDOCAINE 1% W/EPINEPHRINE 20 ML VIAL ONE (16:12)
[2020-09-28] MEDS ORDERED: FENTANYL CITRATE/PF 100MCG/2 ML INJ ONE ×2 (16:12→17:38)
[2020-09-28] MEDS ORDERED: IOPAMIDOL 300MG/ML 100 ML INFUS..BTL IV ONE (16:12)
[2020-09-28] MEDS ORDERED: VANCOMYCIN 1GM/NS 250 ML 500 ML ONE (16:12)
[2020-09-28] MEDS ORDERED: SODIUM CHLORIDE 0.9% 1000ML 1,000 ML ONE (16:13)
[2020-09-28] MEDS ORDERED: SODIUM CHLORIDE 0.9% 250ML 250 ML ONE (16:13)
[2020-09-28] MEDS ORDERED: SODIUM CHLORIDE 0.9% 500ML 500 ML ONE (16:14)
[2020-09-28] MEDS: ATORVASTATIN 20 MG TAB PO SCH (21:00)
[2020-09-28] MEDS ORDERED: AMIODARONE HCL 150 MG/100 ML BAG IV SCH (22:30)
[2020-09-28] MEDS ORDERED: AMIODARONE HCL 150MG 100 ML IV ONE (22:30)
[2020-09-28] MEDS ORDERED: AMIODARONE HCL 900 MG in DEXTROSE 5 % 500ML BOTTLE 482 ML IV SCH (22:45)
[2020-09-28] MEDS ORDERED: AMIODARONE 900MG 500 ML IV ONE (22:52)
[2020-09-28] MEDS ORDERED: AMIODARONE HCL 100 ML IV ONE (22:52)
[2020-09-28] MEDS: ONDANSETRON HCL 4 MG ORAL DISINTEGRATING TAB PO PRN (23:48)
[2020-09-29 04:54] VITALS: BP 107/68
[2020-09-29] MEDS: FAMOTIDINE 20 MG TAB PO SCH ×2 (07:46→16:51)
[2020-09-29] MEDS: CLOPIDOGREL BISULFATE 75 MG TAB PO SCH (07:46)
[2020-09-29] MEDS: INSULIN REGULAR, HUMAN 100 UNIT/1 ML 3ML VIAL SQ SCH ×5 (07:51→20:54)
[2020-09-29 08:14] VITALS: BP 113/66
[2020-09-29 08:20] VITALS: BP 113/66
[2020-09-29] MEDS: ACETAMINOPHEN/CODEINE 300MG - 30MG TAB PO PRN ×2 (09:27→17:47)
[2020-09-29] MEDS: AMIODARONE HCL 200 MG TAB PO SCH ×3 (11:52→21:03)
[2020-09-29 12:43] VITALS: BP 90/63
[2020-09-29 16:51] VITALS: BP 117/73
[2020-09-29 20:00] VITALS: BP 113/78
[2020-09-29] MEDS: ATORVASTATIN 20 MG TAB PO SCH (20:52)
[2020-09-30] VITALS (7 sets, daily range): BP systolic 112–126; BP diastolic 69–77
[2020-09-30 04:45] LABS: HEMATOCRIT 27.4 % (38.2-49.6)
[2020-09-30] MEDS: AMIODARONE HCL 200 MG TAB PO SCH ×3 (04:51→21:39)
[2020-09-30] MEDS: ACETAMINOPHEN/CODEINE 300MG - 30MG TAB PO PRN ×2 (04:51→20:09)
[2020-09-30] MEDS: INSULIN REGULAR, HUMAN 100 UNIT/1 ML 3ML VIAL SQ SCH ×4 (07:30→20:15)
[2020-09-30] MEDS: FAMOTIDINE 20 MG TAB PO SCH ×2 (07:54→15:30)
[2020-09-30] MEDS: GLIMEPIRIDE 2 MG TAB PO SCH (07:54)
[2020-09-30] MEDS: CLOPIDOGREL BISULFATE 75 MG TAB PO SCH (07:54)
[2020-09-30] MEDS: ONDANSETRON HCL 4 MG ORAL DISINTEGRATING TAB PO PRN (12:28)
[2020-09-30] MEDS: ATORVASTATIN 20 MG TAB PO SCH (20:09)
[2020-10-01] VITALS (22 sets, daily range): BP systolic 89–126; BP diastolic 52–77
[2020-10-01] MEDS: AMIODARONE HCL 200 MG TAB PO SCH ×2 (04:30→14:00)
[2020-10-01] MEDS: ACETAMINOPHEN/CODEINE 300MG - 30MG TAB PO PRN (04:30)
[2020-10-01] MEDS: ONDANSETRON HCL 4 MG ORAL DISINTEGRATING TAB PO PRN (04:51)
[2020-10-01 05:09] LABS: BASOPHILS % 0.3 % (0.0-1.0); EOSINOPHILS # (AUTO) 0.5 (0.0-0.4); EOSINOPHILS % 3.2 % (0.0-6.0); HEMATOCRIT 26.6 % (38.2-49.6); HEMOGLOBIN 8.7 g/dL (14.0-18.0); LYMPHOCYTES # (AUTO) 0.5 (1.0-3.2); LYMPHOCYTES % 3.4 % (18.0-39.1); MEAN CORPUSCULAR HEMOGLOBIN 31.6 pg (28-32); MEAN CORPUSCULAR HGB CONC 32.7 g/dL (31-35); MEAN CORPUSCULAR VOLUME 96.7 fL (81-99); MONOCYTES # (AUTO) 0.9 (0.2-0.8); MONOCYTES % 6.3 % (4.4-11.3); NEUTROPHILS # (AUTO) 12.4 (2.1-6.9); NEUTROPHILS % 85.4 % (38.7-80.0); PLATELET COUNT 331 x10e3/uL (140-360); RED BLOOD COUNT 2.75 x10e6/uL (4.3-5.7); RED CELL DISTRIBUTION WIDTH 12.8 % (11.7-14.4)
[2020-10-01 05:22] LABS: ANION GAP 19.6 mmol/L (8-16); CALCIUM 9.1 mg/dL (8.4-10.2); CREATININE, SERUM 6.95 mg/dL (0.72-1.25); POTASSIUM 5.6 mmol/L (3.5-5.1)
[2020-10-01] MEDS: FAMOTIDINE 20 MG TAB PO SCH ×2 (07:24→16:33)
[2020-10-01] MEDS: GLIMEPIRIDE 2 MG TAB PO SCH (07:27)
[2020-10-01] MEDS: INSULIN REGULAR, HUMAN 100 UNIT/1 ML 3ML VIAL SQ SCH ×4 (07:27→20:57)
[2020-10-01] MEDS: CLOPIDOGREL BISULFATE 75 MG TAB PO SCH (07:28)
[2020-10-01] MEDS ORDERED: AMIODARONE HCL 100 ML IV ONE (09:26)
[2020-10-01] MEDS ORDERED: AMIODARONE 900MG 500 ML IV ONE (09:26)
[2020-10-01] MEDS ORDERED: ONDANSETRON HCL INJ 2MG/ML 2ML 2 MG/ML VIAL IV PRN (10:00)
[2020-10-01] MEDS ORDERED: BENZOCAINE 20% SPR 60 ML CAN MT ONE (10:45)
[2020-10-01] MEDS ORDERED: LIDOCAINE 1% 5ML-MPF INJ ONE (11:00)
[2020-10-01] MEDS ORDERED: AMIODARONE HCL 150MG 100 ML IV ONE (11:00)
[2020-10-01] MEDS ORDERED: LIDOCAINE HCL 2% 100 MG/5 ML IV ONE (11:04)
[2020-10-01] MEDS ORDERED: AMIODARONE HCL INJ 150MG/3ML ONE ×2 (11:04→13:06)
[2020-10-01] MEDS ORDERED: PROPOFOL IV EMULSION 100 ML IV ONE (11:10)
[2020-10-01] MEDS ORDERED: PROPOFOL IV EMULSION 10MG/ML 100 ML IV PRN (11:15)
[2020-10-01] MEDS: PROPOFOL IV EMULSION 50 ML IV SCH (12:00)
[2020-10-01] MEDS ORDERED: LORAZEPAM INJ 2 MG/ML VIAL IV PRN (12:30)
[2020-10-01] MEDS ORDERED: LORAZEPAM INJ 2 MG/ML VIAL IV ONE ×2 (12:45→13:00)
[2020-10-01] MEDS ORDERED: AMIODARONE HCL 150 MG/100 ML BAG IV ONE (13:05)
[2020-10-01] MEDS ORDERED: AMIODARONE 900MG 900 MG/500 ML BAG IV ONE ×2 (13:05→13:06)
[2020-10-01] MEDS ORDERED: DOPAmine/D5W 1.6 MG/ML 400 MG/250ML PREMIX IV ONE (13:06)
[2020-10-01] MEDS ORDERED: EPINEPHRINE HCL SYRINGE ONE (13:06)
[2020-10-01] MEDS ORDERED: DEXTROSE 5% 100 ML BAG IV ONE (13:06)
[2020-10-01] MEDS ORDERED: ATROPINE SULFATE 0.1 MG/ML 10ML SYR ONE (13:06)
[2020-10-01] MEDS ORDERED: DEXTROSE 5% 250 ML BAG IV ONE (13:06)
[2020-10-01] MEDS ORDERED: SODIUM BICARBONATE 8.4% 50 ML VIAL ONE (13:06)
[2020-10-01] MEDS ORDERED: SODIUM CHLORIDE FLUSH 10 ML SYR ONE (13:06)
[2020-10-01] MEDS ORDERED: MIDAZOLAM HCL 5MG/ML 10ML VIAL 100 ML IV ONE (13:43)
[2020-10-01] MEDS ORDERED: VANCOMYCIN 750MG/NS 150ML IVPB 150 ML IV ONE (14:00)
[2020-10-01] MEDS: LIDOCAINE 2GM/D5W 500ML 500 ML IV PRN ×2 (14:56→16:00)
[2020-10-01] MEDS ORDERED: FENTANYL 2000MCG/NS 250 250 ML IV PRN (15:15)
[2020-10-01] MEDS ORDERED: NOREPINEPHRINE 8 MG/D5W 250 ML 250 ML IV PRN (15:30)
[2020-10-01 15:31] LABS: CREATINE KINASE MB 1.9 ng/mL (0-5.0)
[2020-10-01 15:43] LABS: ANION GAP 20.6 mmol/L (8-16); CALCIUM 8.7 mg/dL (8.4-10.2); CREATININE, SERUM 7.59 mg/dL (0.72-1.25); POTASSIUM 5.6 mmol/L (3.5-5.1)
[2020-10-01] MEDS ORDERED: FUROSEMIDE INJ 10 MG/ML 4 ML VIAL IV ONE (16:30)
[2020-10-01 16:55] LABS: ABG HCO3 23 mmol/L (22-26); ABG PCO2 36 mmHg (35-45); ABG PH 7.41 (7.35-7.45); ABG PO2 59 mmHg (80-105); ABG TCO2 24
[2020-10-01] MEDS ORDERED: HEPARIN SOD (PORCINE) 1000 UNIT/ML SDV IV PRN (17:45)
[2020-10-01] MEDS ORDERED: SODIUM CHLORIDE 0.9% 1000ML 2,000 ML IV PRN (17:45)
[2020-10-01] MEDS: AMIODARONE 900MG 500 ML IV SCH (18:04)
[2020-10-01] MEDS: MIDAZOLAM HCL 5MG/ML 10ML VIAL 100 ML IV PRN (18:07)
[2020-10-01] MEDS ORDERED: ASPIRIN 325 MG TAB PO ONE (18:35)
[2020-10-01] MEDS ORDERED: FUROSEMIDE INJ 10 MG/ML 4 ML VIAL ONE (18:44)
[2020-10-01] MEDS: ATORVASTATIN 20 MG TAB PO SCH (21:09)
[2020-10-02] VITALS (24 sets, daily range): BP systolic 55–125; BP diastolic 39–59
[2020-10-02] MEDS: PROPOFOL IV EMULSION 50 ML IV SCH ×3 (04:11→17:11)
[2020-10-02 04:27] LABS: BASOPHILS % 0.2 % (0.0-1.0); EOSINOPHILS % 0.2 % (0.0-6.0); LYMPHOCYTES # (AUTO) 0.5 (1.0-3.2); MEAN CORPUSCULAR HEMOGLOBIN 30.7 pg (28-32); MEAN CORPUSCULAR HGB CONC 31.6 g/dL (31-35); MEAN CORPUSCULAR VOLUME 97.2 fL (81-99); MONOCYTES % 7.3 % (4.4-11.3); NEUTROPHILS # (AUTO) 11.4 (2.1-6.9); NEUTROPHILS % 87.4 % (38.7-80.0); PLATELET COUNT 308 x10e3/uL (140-360); RED BLOOD COUNT 2.12 x10e6/uL (4.3-5.7)
[2020-10-02 04:39] LABS: HEMATOCRIT 20.6 % (38.2-49.6); HEMOGLOBIN 6.5 g/dL (14.0-18.0)
[2020-10-02 04:50] LABS: ALBUMIN 2.8 g/dL (3.5-5.0); ALBUMIN/GLOBULIN RATIO 0.8 (0.8-2.0); ANION GAP 14.3 mmol/L (8-16); CALCIUM 8.7 mg/dL (8.4-10.2); CREATININE, SERUM 5.95 mg/dL (0.72-1.25); POTASSIUM 5.3 mmol/L (3.5-5.1)
[2020-10-02 05:09] LABS: CREATINE KINASE MB 1.5 ng/mL (0-5.0)
[2020-10-02] MEDS ORDERED: SODIUM CHLORIDE 0.9% 250ML 250 ML IV PRN (05:30)
[2020-10-02] MEDS ORDERED: FUROSEMIDE INJ 10 MG/ML 2 ML VIAL IV PRN (05:30)
[2020-10-02] MEDS: MIDAZOLAM HCL 5MG/ML 10ML VIAL 100 ML IV PRN (06:16)
[2020-10-02] MEDS: INSULIN REGULAR, HUMAN 100 UNIT/1 ML 3ML VIAL SQ SCH ×3 (06:21→16:30)
[2020-10-02] MEDS: FAMOTIDINE 20 MG TAB PO SCH ×2 (06:29→17:10)
[2020-10-02 08:58] LABS: ABG HCO3 36 mmol/L (22-26); ABG PCO2 44 mmHg (35-45); ABG PH 7.38 (7.35-7.45); ABG PO2 73 mmHg (80-105); ABG TCO2 27
[2020-10-02] MEDS ORDERED: ASPIRIN 325 MG TAB PO SCH (09:00)
[2020-10-02] MEDS: CLOPIDOGREL BISULFATE 75 MG TAB PO SCH (09:02)
[2020-10-02] MEDS ORDERED: SODIUM CHLORIDE 0.9% 250ML 250 ML IV ONE (09:15)
[2020-10-02] MEDS ORDERED: SODIUM CHLORIDE 0.9% 250ML 250 ML ONE (12:22)
[2020-10-02] MEDS ORDERED: VANCOMYCIN 1GM/NS 250 ML 250 ML IV ONE (18:00)
[2020-10-02] MEDS ORDERED: MIDAZOLAM HCL 50 MG in SODIUM CHLORIDE 0.9% 100 ML 90 ML IV PRN (18:15)
[2020-10-02 18:24] LABS: CLARITY,URINE HAZY (CLEAR); COLOR,URINE YELLOW (YELLOW); KETONES,URINE NEGATIVE (NEGATIVE); LEUKOCYTE ESTERASE ,URINE SMALL (NEGATIVE); NITRITE,URINE NEGATIVE (NEGATIVE); PROTEIN,URINE DIPSTICK >=300 (NEGATIVE); URINE UROBILINOGEN 0.2 mg/dL (0.2 - 1)
[2020-10-02] MEDS: MEROPENEM 500MG 500 MG in SODIUM CHLORIDE 0.9% 50ML 50 ML IV SCH ×2 (18:26→21:00)
[2020-10-02 18:32] LABS: AMORPHOUS SEDIMENT,URINE FEW (FEW); BACTERIA,URINE MODERATE /HPF; EPITHELIAL CELLS,URINE FEW /LPF; HYALINE CASTS 0-1 (0-1); MUCUS,URINE MODERATE (RARE); RBC,URINE >50 /HPF (0-5)
[2020-10-02] MEDS: LIDOCAINE 2GM/D5W 500ML 500 ML IV PRN (19:00)
[2020-10-02 20:07] LABS: BASOPHILS # (AUTO) 0.1 (0.0-0.1); BASOPHILS % 0.4 % (0.0-1.0); EOSINOPHILS % 0.2 % (0.0-6.0); HEMATOCRIT 30.1 % (38.2-49.6); HEMOGLOBIN 9.3 g/dL (14.0-18.0); LYMPHOCYTES # (AUTO) 1.9 (1.0-3.2); LYMPHOCYTES % 7.9 % (18.0-39.1); MEAN CORPUSCULAR HGB CONC 30.9 g/dL (31-35); MEAN CORPUSCULAR VOLUME 97.1 fL (81-99); MONOCYTES # (AUTO) 1.7 (0.2-0.8); MONOCYTES % 7.1 % (4.4-11.3); NEUTROPHILS % 80.9 % (38.7-80.0); PLATELET COUNT 345 x10e3/uL (140-360); RED CELL DISTRIBUTION WIDTH 16.5 % (11.7-14.4)
[2020-10-02 20:23] LABS: ALBUMIN 2.7 g/dL (3.5-5.0); ALBUMIN/GLOBULIN RATIO 0.7 (0.8-2.0); ANION GAP 22.5 mmol/L (8-16); CALCIUM 8.8 mg/dL (8.4-10.2); CREATININE, SERUM 4.7 mg/dL (0.72-1.25); POTASSIUM 5.5 mmol/L (3.5-5.1)
[2020-10-02 20:27] LABS: CREATINE KINASE MB 1.2 ng/mL (0-5.0)
[2020-10-02 20:38] LABS: BAND NEUTROPHILS % (MANUAL) 10 %; LYMPHOCYTES % (MANUAL) 12 % (19-48); METAMYELOCYTES % (MANUAL) 1 % (0-0); MONOCYTES % (MANUAL) 9 % (3.4-9.0); MYELOCYTES % (MANUAL) 1 % (0-0); NEUTROPHILS % (MANUAL) 67 % (40-74); NUCLEATED RED BLOOD CELLS 3
[2020-10-02 20:39] LABS: PLATELET ESTIMATE ADEQUATE
[2020-10-02 20:40] LABS: PLATELET MORPHOLOGY COMMENT NORMAL
[2020-10-02] MEDS ORDERED: MIDAZOLAM HCL 5MG/ML 10ML VIAL 100 ML IV ONE (20:51)
[2020-10-02] MEDS: ATORVASTATIN 20 MG TAB PO SCH (21:00)
[2020-10-02 21:05] LABS: ABG HCO3 26 mmol/L (22-26); ABG PCO2 60 mmHg (35-45); ABG PH 7.25 (7.35-7.45); ABG PO2 47 mmHg (80-105); ABG TCO2 28
[2020-10-02] MEDS ORDERED: SODIUM BICARBONATE 8.4% INJ 50 ML SYR IV STA (21:10)
[2020-10-02] MEDS ORDERED: ALBUMIN 25% 12.5GM 50ML 200 ML IV ONE (21:14)
[2020-10-02] MEDS ORDERED: VASOPRESSIN 60 UNIT in DEXTROSE 5% 50ML 57 ML IV PRN (21:15)
[2020-10-02] MEDS: ALBUMIN 25% 12.5GM 0.25 GM/ML BTL IV SCH ×4 (21:15→22:00)
[2020-10-02] MEDS ORDERED: SODIUM BICARBONATE 8.4% SYRING 100 ML ONE (21:39)
[2020-10-02] MEDS ORDERED: EPINEPHRINE HCL SYRINGE ONE (21:41)
[2020-10-02] MEDS ORDERED: VASOPRESSIN INJ 20 UNIT/ML VIAL ONE ×2 (21:46→22:00)
[2020-10-02] MEDS ORDERED: SODIUM BICARBONATE 8.4% SYRING 0 ML ONE (21:50)
[2020-10-02] MEDS ORDERED: DEXTROSE 5% 0 ML IV ONE (21:51)
[2020-10-02] MEDS ORDERED: DEXTROSE 5% 50ML 50 ML IV ONE (21:53)
[2020-10-02] MEDS: AMIODARONE 360 MG/200 ML IV SCH ×2 (22:00→23:00)
[2020-10-02] MEDS ORDERED: AMIODARONE HCL INJ 150MG/3ML ONE (22:06)
[2020-10-02 22:31] LABS: ABG HCO3 20 mmol/L (22-26); ABG PCO2 59 mmHg (35-45); ABG PH 7.15 (7.35-7.45); ABG PO2 60 mmHg (80-105); ABG TCO2 22
[2020-10-03] VITALS (8 sets, daily range): BP systolic 81–97; BP diastolic 50–61
[2020-10-03] MEDS: AMIODARONE 360 MG/200 ML IV SCH
[2020-10-03] MEDS ORDERED: MIDAZOLAM HCL 5MG/ML 10ML VIAL 100 ML IV ONE (02:49)
[2020-10-03] MEDS: INSULIN REGULAR, HUMAN 100 UNIT/1 ML 3ML VIAL SQ SCH (03:00)
[2020-10-03] MEDS: AMIODARONE 900MG 500 ML IV SCH (04:26)
[2020-10-03 05:24] LABS: BASOPHILS # (AUTO) 0.1 (0.0-0.1); BASOPHILS % 0.5 % (0.0-1.0); EOSINOPHILS % 0.1 % (0.0-6.0); HEMOGLOBIN 8.7 g/dL (14.0-18.0); LYMPHOCYTES # (AUTO) 0.9 (1.0-3.2); LYMPHOCYTES % 4.9 % (18.0-39.1); MEAN CORPUSCULAR HEMOGLOBIN 30.1 pg (28-32); MEAN CORPUSCULAR VOLUME 100.3 fL (81-99); MONOCYTES # (AUTO) 1.1 (0.2-0.8); MONOCYTES % 6.1 % (4.4-11.3); NEUTROPHILS # (AUTO) 15.2 (2.1-6.9); NEUTROPHILS % 82.1 % (38.7-80.0); PLATELET COUNT 308 x10e3/uL (140-360); RED BLOOD COUNT 2.89 x10e6/uL (4.3-5.7); RED CELL DISTRIBUTION WIDTH 17.1 % (11.7-14.4)
[2020-10-03 05:46] LABS: ALANINE AMINOTRANSFERASE 4048 IU/L (0-55); ALBUMIN 2.9 g/dL (3.5-5.0); ALBUMIN/GLOBULIN RATIO 0.9 (0.8-2.0); ALKALINE PHOSPHATASE 224 IU/L (40-150); ANION GAP 36.4 mmol/L (8-16); BLOOD UREA NITROGEN 44 mg/dL (7-26); BUN/CREATININE RATIO 8 (6-25); CALCIUM 7.9 mg/dL (8.4-10.2); CARBON DIOXIDE 12 mmol/L (22-29); CHLORIDE 92 mmol/L (98-107); CREATININE, SERUM 5.86 mg/dL (0.72-1.25); EST GLOMERULAR FILTRATION RATE 10 ML/MIN (60-); GLUCOSE 221 mg/dL (74-118); POTASSIUM 5.4 mmol/L (3.5-5.1); SODIUM 135 mmol/L (136-145)
[2020-10-03] MEDS ORDERED: VASOPRESSIN INJ 20 UNIT/ML VIAL ONE ×2 (07:38→07:39)
== END 2020-10-03 14:10 | disposition expired | DRG 226 ==
LOC: ER 04:35 → ERHOLD 05:46 → MED/SURG 13:03 → OBSVTOIN 09-25 07:35 → IMCU 09-28 23:26 → ICU 10-01 11:00
PROVIDERS: ADMIT Internal Medicine; ATTEND Internal Medicine
PROC: 5A1D70Z Performance of Urinary Filtration, Intermittent, Less than 6 Hours Per Day (ICD-10-PCS; principal; 2020-09-25)
PROC: 0JH609Z Insertion of Cardiac Resynchronization Defibrillator Pulse Generator into Chest Subcutaneous Tissue and Fascia, Open Approach (ICD-10-PCS; 2020-09-28)
PROC: 02HK3KZ Insertion of Defibrillator Lead into Right Ventricle, Percutaneous Approach (ICD-10-PCS; 2020-09-28)
PROC: 02H43KZ Insertion of Defibrillator Lead into Coronary Vein, Percutaneous Approach (ICD-10-PCS; 2020-09-28)
PROC: 02H63KZ Insertion of Defibrillator Lead into Right Atrium, Percutaneous Approach (ICD-10-PCS; 2020-09-28)
PROC: 0BH17EZ Insertion of Endotracheal Airway into Trachea, Via Natural or Artificial Opening (ICD-10-PCS; 2020-10-01)
PROC: 5A1945Z Respiratory Ventilation, 24-96 Consecutive Hours (ICD-10-PCS; 2020-10-01)
PROC: 02HV33Z Insertion of Infusion Device into Superior Vena Cava, Percutaneous Approach (ICD-10-PCS; 2020-10-02)
PROC: 30243N1 Transfusion of Nonautologous Red Blood Cells into Central Vein, Percutaneous Approach (ICD-10-PCS; 2020-10-02)
DX: I13.2 Hypertensive heart and chronic kidney disease with heart failure and with stage 5 chronic kidney disease, or end stage renal disease (principal); N18.6 End stage renal disease; I50.23 Acute on chronic systolic (congestive) heart failure; R57.0 Cardiogenic shock; I46.9 Cardiac arrest, cause unspecified; E11.21 Type 2 diabetes mellitus with diabetic nephropathy; E11.22 Type 2 diabetes mellitus with diabetic chronic kidney disease; Z99.2 Dependence on renal dialysis; E87.70 Fluid overload, unspecified; E78.5 Hyperlipidemia, unspecified; I25.2 Old myocardial infarction; I25.5 Ischemic cardiomyopathy; I44.7 Left bundle-branch block, unspecified; Z95.810 Presence of automatic (implantable) cardiac defibrillator; D50.0 Iron deficiency anemia secondary to blood loss (chronic); I25.10 Atherosclerotic heart disease of native coronary artery without angina pectoris; J44.9 Chronic obstructive pulmonary disease, unspecified; E11.51 Type 2 diabetes mellitus with diabetic peripheral angiopathy without gangrene; Z20.828 Contact with and (suspected) exposure to other viral communicable diseases; Z95.0 Presence of cardiac pacemaker
CPT/HCPCS: 31500; 33225; 33249; 36415; 36600; 71045; 71046; 74018; 80048; 80053; 80061; 81001; 82550; 82553; 82805; 82948; 83036; 83540; 83735; 83880; 84100; 84466; 84484; 85014; 85018; 85025; 85610; 85730; 86704; 86705; 86706; 86850; 86900; 86920; 87040; 87070; 87086; 87186; 87205; 87340; 90962; 92950; 93005; 93306; 94002; 94003; 96372; 99152; 99153; 99285; C1777; C1882; C1898; G0378; J0171; J1644; J1817; J1940; J2001; J2060; J2185; J2250; J2405; J3010; J3370; J7030; J7040; J7050; J7070; P9016; Q0162; Q9967; U0002